=== PATIENT | female | born 1950 | race Caucasian/White ===

== ENCOUNTER → 2016-08-27 | Outpatient (CLI) | payer MEDICARE, BC ==
[~2016-08-27] MED LIST: ACET1TAB33 PO; ALPR0.254 PO; AMIT50TA PO; CELE200C PO; DEXL60CA PO; ESTR0.62 PO; FLUT16SP2 NS; FLUT1DIS5 IH; GUAI600T38 PO; IOHEXOL 300 MG/ML 100ML VIAL. IV ONE; IPRA3AMP23 IH; LITH300T PO; LITH600C PO; MECL25TA3 PO; PROAIR HFA8.5 GM IH; ROFL500T PO
--- NOTE | 2016-08-27 11:30 | KCIC ---
Examination: CT chest with IV contrast. HISTORY History of COPD . COMPARISON None available. TECHNIQUE Axial CT images of the chest were performed with IV contrast. Coronal sagittal reformats were performed. Exposure: One or more of the following dose reduction technique were utilized for this examination: 1. Automated exposure control. 2.Adjustment of MA and /or KV according to patient size. 3. Use of iterative reconstruction technique. Comparison: 07/05/2015. FINDINGS The visualized thyroid gland grossly appears unremarkable. The central airways are patent. Few prominent appearing mediastinal lymph nodes identified in the with the largest measuring 1.1 centimeters in the pretracheal region grossly similar to prior exam. The heart size is normal. No evidence of pericardial effusion identified. Mild aortic atherosclerosis. There is collapse of the right medial lobe of the lung with narrowing of the right middle lobe bronchi with bronchial thickening ,similar to prior exam. Emphysematous changes identified in the upper lobes of the lungs. There is diffuse bronchial wall thickening with some narrowing identified in the right lower lobe segmental airways. Patchy ground-glass opacities identified in the right lower lobe of the lung grossly similar to prior exam. There is mild soft tissue thickening identified in the right hilum could be hilar lymph nodes. No evidence of pleural effusion or pneumothorax. The visualized liver, spleen, adrenals grossly appears unremarkable.Cholecystectomy clips identified. Mild atrophic changes of the pancreas. Moderate degenerative changes identified in the thoracic spine. Fluid density identified in the left medial breast region measuring 1.7 x 1.8 centimeters superiorly and 2.0 x 1.6 centimeters slightly inferiorly could be postoperative seroma from recent biopsy. Correlate clinically. There is mild skin thickening of the left breast. IMPRESSION - Collapse of the right middle lobe of the lung with narrowing of the right middle lobe bronchi grossly similar to prior exam. Proximal right middle lobe airway lesion is not excluded. There is mild thickened appearance the right lower lobe segmental bronchi approximately with patchy ground-glass airspace opacities identified in the right lower lobe of the lung grossly similar to prior exam. - Mild to moderate emphysema. - Borderline enlarged mediastinal and right hilar lymph nodes , nonspecific. - Fluid density identified in the left medial breast region measuring 1.7 x 1.8 centimeters superiorly and 2.0 x 1.6 centimeters slightly inferiorly could be postoperative seroma from recent biopsy. Correlate clinically. There is mild skin thickening of the left breast. Electronically signed by: Rell Pritchard (Aug 27, 2016 11:28:43)
== END | disposition home or self-care (01) ==
LOC: KCIC CT 10:26
PROVIDERS: ATTEND Nurse Practitioner Family
DX: J44.9 Chronic obstructive pulmonary disease, unspecified (principal); F17.200 Nicotine dependence, unspecified, uncomplicated; I70.0 Atherosclerosis of aorta; J43.8 Other emphysema; R23.4 Changes in skin texture; K86.89 Other specified diseases of pancreas
CPT/HCPCS: 71260; Q9967

== ENCOUNTER 2016-10-17 14:58 | Inpatient (IN) | payer MEDICARE, BC ==
[~2016-10-17] VITALS: Ht 152.4 cm; Wt 57.4 kg
[2016-10-17] VITALS (8 sets, daily range): BP systolic 86–113; BP diastolic 45–72
[~2016-10-17 14:58] MED LIST changes: -IOHEXOL 300 MG/ML 100ML VIAL. IV ONE
--- NOTE | 2016-10-17 15:27 | PHYS DOC ---
Past Medical History Past Medical History: Bipolar, COPD, Fibromyalgia Additional Past Medical Histor: osteopenia, Hiatel Hernia, Esophagitis Past Surgical History: Other Additional Past Surgical Histo: Bladder surgery, Hernia Alcohol Use: None Drug Use: None Adult General Chief Complaint Chief Complaint: shortness of breath, chest pain HPI HPI Patient is a 66 year old female who presents with complaint of shortness of breath and chest pain. The patient is a poor historian and appears altered at this time as she is disoriented to time and events. The patient came to the emergency department by EMS. They were contacted reportedly by the patient's . The patient's home health nurse also came and visited and noted that the patient appeared to be in acute respiratory distress. Patient has history of COPD. The patient is unable to answer time of onset of symptoms at this time. Patient was found to be severely hypoxic in the mid 80s on her normal oxygen and was increased to a nonrebreather. Reportedly office oxygen the patient desats to 77%. The patient reportedly has had productive cough. Patient follows commands currently been unable to provide any coherent history. Review of Systems Review of Systems Unable to obtain from patient, patient is disoriented and unable to provide history Current Medications Current Medications Current Medications Medications (Trade) Dose Ordered Sig/Juan F Start Time Stop Time Status Last Admin Dose Admin Sodium Chloride (Iv Sodium Chloride 0.9% 1000ml Bag) 1,000 ml @ 500 mls/hr Q2H 10/17/16 15:18 10/17/16 19:07 DC 10/17/16 15:30 500 MLS/HR Allergies Allergies Allergies Coded Allergies Type Severity Reaction Last Updated Verified Penicillins Allergy Severe SWELLING OF THROAT, HIVES 07/08/13 Yes acetaminophen Allergy Severe THROAT SWELLING, HIVES 07/08/13 Yes propoxyphene napsylate Allergy Severe THROAT SWELLING, HIVES 07/08/13 Yes tetracycline Allergy Severe SWELLING OF THROAT, HIVES 07/08/13 Yes oxycodone HCl Allergy Unknown THROAT SWELLING, HIVES 11/05/13 Yes Uncoded Allergies Type Severity Reaction Last Updated Verified SCALLOPS Allergy Unknown 07/13/13 Physical Exam Physical Exam Constitutional: Alert, disoriented to time and place, febrile,. [] HENT: Normocephalic, atraumatic, bilateral external ears normal, oropharynx dry , no oral exudates, nose normal. [] Eyes: PERRLA, EOMI, conjunctiva normal, no discharge. [] Neck: Normal range of motion, no tenderness, supple, no stridor. [] Cardiovascular: Tachycardia, regular rhythm, no murmur [] Lungs & Thorax: Mild to moderate restriction of air movement bilaterally, faint expiratory wheezes, rales bilaterally [] Abdomen: Bowel sounds normal, soft, no tenderness, no masses, no pulsatile masses. [] Skin: Warm, dry, no erythema, no rash. [] Back: No tenderness, no CVA tenderness. [] Extremities: Fecal material present on lower extremities, No tenderness, no cyanosis, no clubbing, ROM intact, trace pedal edema bilaterally. [] Neurologic: Alert and oriented to self only, normal motor function, normal sensory function, no focal deficits noted. [] Current Patient Data Vital Signs Vital Signs Date Time Temp Pulse Resp B/P Pulse Ox O2 Delivery O2 Flow Rate FiO2 10/17/16 16:00 96 80/38 99 BiPAP/CPAP 10/17/16 14:58 100.0 28 100.0 Lab Values Laboratory Tests Test 10/17/16 15:20 10/17/16 15:23 10/17/16 15:30 O2 Saturation 99% (92-99) Arterial Blood pH 7.27 (7.35-7.45) L Arterial Blood pCO2 at Patient Temp 58mmHg (35-46) H Arterial Blood pO2 at Patient Temp 164mmHg (65-108) H Arterial Blood HCO3 26mmol/L (21-28) Arterial Blood Base Excess -2mmol/L (-3-3) FiO2 100 Influenza Type A Antigen Negative (NEGATIVE) Influenza Type B Antigen Negative (NEGATIVE) White Blood Count 20.2x10^3/uL (4.0-11.0) H Red Blood Count 4.72x10^6/uL (3.50-5.40) Hemoglobin 13.0g/dL (12.0-15.5) Hematocrit 41.7% (36.0-47.0) Mean Corpuscular Volume 88fL (79-100) Mean Corpuscular Hemoglobin 28pg (25-35) Mean Corpuscular Hemoglobin Concent 31g/dL (31-37) Red Cell Distribution Width 15.3% (11.5-14.5) H Platelet Count 234x10^3/uL (140-400) Neutrophils (%) (Auto) 87% (31-73) H Lymphocytes (%) (Auto) 5% (24-48) L Monocytes (%) (Auto) 7% (0-9) Eosinophils (%) (Auto) 0% (0-3) Basophils (%) (Auto) 1% (0-3) Neutrophils # (Auto) 17.6x10^3uL (1.8-7.7) H Lymphocytes # (Auto) 1.1x10^3/uL (1.0-4.8) Monocytes # (Auto) 1.4x10^3/uL (0.0-1.1) H Eosinophils # (Auto) 0.0x10^3/uL (0.0-0.7) Basophils # (Auto) 0.1x10^3/uL (0.0-0.2) Segmented Neutrophils % 55% (35-66) Band Neutrophils % 33% (0-9) H Lymphocytes % 7% (24-48) L Monocytes % 5% (0-10) Toxic Granulation Slight Toxic Vacuolation Slight Platelet Estimate Adequate (ADEQUATE) Sodium Level 138mmol/L (136-145) Potassium Level 4.0mmol/L (3.5-5.1) Chloride Level 103mmol/L (98-107) Carbon Dioxide Level 25mmol/L (21-32) Anion Gap 10 (6-14) Blood Urea Nitrogen 16mg/dL (7-20) Creatinine 0.7mg/dL (0.6-1.0) Estimated GFR (Cockcroft-Gault) 83.2 BUN/Creatinine Ratio 23 (6-20) H Glucose Level 112mg/dL (70-99) H Lactic Acid Level 0.8mmol/L (0.4-2.0) Calcium Level 9.2mg/dL (8.5-10.1) Total Bilirubin 0.2mg/dL (0.2-1.0) Aspartate Amino Transferase (AST) 19U/L (15-37) Alanine Aminotransferase (ALT) 12U/L (14-59) L Alkaline Phosphatase 106U/L (46-116) Creatine Kinase 87U/L (26-192) Creatine Kinase MB (Mass) 2.5ng/mL (0.0-3.6) Creatine Kinase MB Relative Index 2.9% (0-4) Troponin I Quantitative < 0.017ng/mL (0.000-0.055) Total Protein 7.1g/dL (6.4-8.2) Albumin 3.0g/dL (3.4-5.0) L Albumin/Globulin Ratio 0.7 (1.0-1.7) L Procalcitonin 0.22ng/mL (0.00-0.10) H Laboratory Tests 10/17/16 15:30 Laboratory Tests 10/17/16 15:30 EKG EKG Interpreted by me: Heart rate 115, sinus tachycardia, normal intervals, normal axis, no acute ST/T-wave abnormalities present [] Radiology/Procedures Radiology/Procedures [facility] [address] [place] [address] IMAGING REPORT Signed PATIENT: NAVDEEP RODRIGUEZ ACCOUNT: [id number] : 1950 LOCATION: ER AGE: 66 SEX: F EXAM STATUS: PRE ER ORD. PHYSICIAN: BETTYE FOLEY MD REASON: hypoxia, shortness of breath PROCEDURE: PORTABLE CHEST 1V Indication difficulty breathing. Shortness of breath. A single view of the chest was obtained and is compared to an examination 12/15/2013. There is mild cardiomegaly. There is suspect mild pulmonary vascular congestion. There is slight blunting at the right costophrenic angle and volume loss at the right lung base which may reflect a tiny pleural effusion and atelectasis. Small focus of pneumonia cannot be entirely excluded. Scoliosis is noted. IMPRESSION: Cardiomegaly. Minimal volume loss at the right lung base. Possible mild pulmonary vascular congestion DICTATED and SIGNED BY: CHIN GARCIA MD DATE: 10/17/16 7447 CC: RAMOS SEPULVEDA MD; BETTYE FOLEY MD ~ [] Course & Med Decision Making Course & Med Decision Making Pertinent Labs and Imaging studies reviewed. (See chart for details) Patient's ABG showed both hypoxia and hypercapnia consistent with diagnosis of acute on chronic respiratory failure. The patient was started on BiPAP therapy in the emergency department. Patient's chest x-ray shows evidence of right lower lobe pneumonia. The patient was started on a 30 mL per kilo bolus of normal saline. After blood cultures were drawn the patient was started on IV Levaquin. The patient will be admitted to ICU for further care. I spoke with Dr. Alvarado who accepted care of patient in hospital. Critical care time excluding procedures: 45 minutes Dragon Disclaimer Dragon Disclaimer This electronic medical record was generated, in whole or in part, using a voice recognition dictation system. Departure Departure Impression: Primary Impression: Acute on chronic respiratory failure Additional Impressions: Sepsis Community acquired pneumonia COPD exacerbation Moderate protein malnutrition Disposition: ADMITTED INPATIENT Admitting Physician: Kirstin Alvarado Condition: CRITICAL Referrals: RAMOS SEPULVEDA MD (PCP) Problem Qualifiers Primary Impression: Acute on chronic respiratory failure Respiratory failure complication: hypoxia and hypercapnia Qualified Code: J96.21 - Acute and chronic respiratory failure with hypoxia Additional Impressions: Sepsis Sepsis type: sepsis due to unspecified organism Qualified Code: A41.9 - Sepsis, unspecified organism BETTYE FOLEY MD Oct 17, 2016 15:26
[2016-10-17 15:29] LABS: HCO3 ABG 26 mmol/L (21-28); PCO2 ABG 58 mmHg (35-46); PH ABG 7.27 (7.35-7.45); PO2 ABG 164 mmHg (65-108); SAT O2 ABG 99 % (92-99)
[2016-10-17] MEDS: IV NORMAL SALINE 1000ML BAG 1,000 ML IV SCH ×3 (15:30→19:00)
[2016-10-17 15:31] LABS: FIO2 ABG 100
--- NOTE | 2016-10-17 15:44 | RAD ---
Indication difficulty breathing. Shortness of breath. A single view of the chest was obtained and is compared to an examination 12/15/2013. There is mild cardiomegaly. There is suspect mild pulmonary vascular congestion. There is slight blunting at the right costophrenic angle and volume loss at the right lung base which may reflect a tiny pleural effusion and atelectasis. Small focus of pneumonia cannot be entirely excluded. Scoliosis is noted. IMPRESSION: Cardiomegaly. Minimal volume loss at the right lung base. Possible mild pulmonary vascular congestion
[2016-10-17 15:47] LABS: BASO # 0.1 x10^3/uL (0.0-0.2); BASO % 1 % (0-3); EOS % 0 % (0-3); HEMATOCRIT 41.7 % (36.0-47.0); LYMPH # 1.1 x10^3/uL (1.0-4.8); LYMPH % 5 % (24-48); MEAN CORPUSCULAR HEMOGLOBIN 28 pg (25-35); MEAN CORPUSCULAR HGB CONC 31 g/dL (31-37); MEAN CORPUSCULAR VOLUME 88 fL (79-100); MONO % 7 % (0-9); NEUT % 87 % (31-73); PLATELET COUNT 234 x10^3/uL (140-400); RED BLOOD COUNT 4.72 x10^6/uL (3.50-5.40); RED CELL DISTRIBUTION WIDTH 15.3 % (11.5-14.5); WHITE BLOOD COUNT 20.2 x10^3/uL (4.0-11.0)
[2016-10-17 15:51] LABS: OBC FLU VALID
[2016-10-17 16:04] LABS: CALCIUM 9.2 mg/dL (8.5-10.1); CREATININE 0.7 mg/dL (0.6-1.0); GFR 83.2
[2016-10-17 16:10] LABS: ALBUMIN/GLOBULIN RATIO 0.7 (1.0-1.7); TOTAL BILIRUBIN 0.2 mg/dL (0.2-1.0); TOTAL PROTEIN 7.1 g/dL (6.4-8.2)
[2016-10-17] MEDS ORDERED: ONDANSETRON PF 4 MG/2 ML VIAL. IV PRN (16:15)
[2016-10-17] MEDS ORDERED: LEVOFLOXACIN PER PHARMACY MC PRN (16:15)
[2016-10-17 16:17] LABS: CKMB INDEX 2.9 % (0-4); CKMB MASS 2.5 ng/mL (0.0-3.6)
[2016-10-17 16:20] LABS: PLT ESTIMATE ADEQUATE (ADEQUATE)
[2016-10-17] MEDS ORDERED: IPRATRPIUM/ALBUTEROL 0.5/2.5MG 3 ML NEBU. NEB SCH (16:20)
[2016-10-17 16:41] LABS: PROCALCITONIN 0.22 ng/mL (0.00-0.10)
[2016-10-17 16:46] LABS: TOXIC GRANULATION SLIGHT; TOXIC VACUOLATION SLIGHT
[2016-10-17] MEDS: methylPREDNISolone SOD SUCC PF 40 MG/ML VIAL. IV SCH ×2 (17:24→23:36)
[2016-10-17] MEDS ORDERED: ALBUTEROL SULFATE 2.5 MG/3 ML NEBU. NEB PRN (17:45)
[2016-10-17] MEDS ORDERED: hydrALAZINE 20 MG/ML VIAL. IVP PRN (17:45)
--- NOTE | 2016-10-17 17:46 | PDOC1 ---
History and Physical Date of Admission Date of Admission 10/17/16 Identification/Chief Complaint Chief Complaint ams, cough Problems: Source Source: Chart review, Patient History of Present Illness History of Present Illness HPI HPI Patient is a 66 year old female who presents with complaint of shortness of breath and chest pain. Pt is confused ,on bipap when i saw her in ER, cannot tell me any history. As per ERP, her and home health nurse visiting today called EMS, for AMS , cough, sob. Pt admited she is smoking, sob. cannot tell me for how long or fever, or chills. ABG showed PH 7.2, pco2 58, on 100% o2, then on BIpap. WBC 20. home o2 2l, BUT DEsates to 77% in ER. Past Medical History Pulmonary: Asthma, Bronchitis GI: Diverticulosis Renal/: No pertinent hx Past Surgical History Past Surgical History: Hernia Repair Family History Family History: No Significant Social History Smoke: 1 pack per day ALCOHOL: none Drugs: Ecstasy Current Problem List Problem List Problems Medical Problems: (1) Acute on chronic respiratory failure Status: Acute (2) Community acquired pneumonia Status: Acute (3) COPD exacerbation Status: Acute (4) Moderate protein malnutrition Status: Acute (5) Sepsis Status: Acute Current Medications Current Medications Current Medications Medications (Trade) Dose Ordered Sig/Juan F Start Time Stop Time Status Last Admin Dose Admin Albuterol/ Ipratropium (Duoneb) 3 ml RTQID 10/17/16 16:20 10/18/16 16:19 10/17/16 16:57 3 ML Levofloxacin/ Dextrose (LEVAQUIN 750mg PREMIX) 150 ml @ 100 mls/hr 1X ONCE 10/17/16 16:30 10/17/16 17:59 10/17/16 17:21 100 MLS/HR Levofloxacin/ Dextrose (Levaquin Per Pharmacy) 1 each PRN DAILY PRN 10/17/16 16:15 UNV Methylprednisolone Sodium Succinate 60 mg 60 mg Q6HRS 10/17/16 18:00 10/17/16 17:24 60 MG Ondansetron HCl 4 mg 4 mg PRN Q8HRS PRN 10/17/16 16:15 10/18/16 16:14 Sodium Chloride (Iv Sodium Chloride 0.9% 1000ml Bag) 1,000 ml @ 100 mls/hr Q10H 10/17/16 16:13 10/18/16 16:12 10/17/16 16:13 100 MLS/HR Allergies Allergies Allergies Coded Allergies Type Severity Reaction Last Updated Verified Penicillins Allergy Severe SWELLING OF THROAT, HIVES 07/08/13 Yes acetaminophen Allergy Severe THROAT SWELLING, HIVES 07/08/13 Yes propoxyphene napsylate Allergy Severe THROAT SWELLING, HIVES 07/08/13 Yes tetracycline Allergy Severe SWELLING OF THROAT, HIVES 07/08/13 Yes oxycodone HCl Allergy Unknown THROAT SWELLING, HIVES 11/05/13 Yes Uncoded Allergies Type Severity Reaction Last Updated Verified SCALLOPS Allergy Unknown 07/13/13 ROS Review of System CONSTITUTIONAL: No fever or chills EYES: No recent changes SKIN: No rash or itching CARDIOVASCULAR: No chest pain, syncope, palpitations, or edema RESPIRATORY: No SOB or cough GASTROINTESTINAL: No nausea, vomiting or abdominal pain NEUROLOGICAL: No headaches or weakness ENDOCRINE: No cold or heat intolerance GENITOURINARY: No urgency or frequency of urination MUSCULOSKELETAL: No back pain or joint pain LYMPHATICS: No enlarged lymph nodes PSYCHIATRIC: No anxiety or depression Physical Exam Physical Exam GEN.: sob, follow commands by squeezing my hands, very weak, can barely talk HEENT: Head is normocephalic, atraumatic NECK: Supple. LUNGS: bl coarse bs HEART: RRR, S1, S2 present. Peripheral pulses intact ABDOMEN: Soft, nontender. Positive bowel sounds. EXTREMITIES: Without any cyanosis. NEUROLOGIC: Normal speech, normal tone PSYCHIATRIC: Normal affect, normal mood. SKIN: No ulcerations Vitals Vitals Vital Signs Date Time Temp Pulse Resp B/P Pulse Ox O2 Delivery O2 Flow Rate FiO2 10/17/16 16:57 99 BiPAP/CPAP Labs Labs Laboratory Tests Test 10/17/16 15:20 10/17/16 15:23 10/17/16 15:30 O2 Saturation 99% (92-99) Arterial Blood pH 7.27 (7.35-7.45) Arterial Blood pCO2 at Patient Temp 58mmHg (35-46) Arterial Blood pO2 at Patient Temp 164mmHg (65-108) Arterial Blood HCO3 26mmol/L (21-28) Arterial Blood Base Excess -2mmol/L (-3-3) FiO2 100 Influenza Type A Antigen Negative (NEGATIVE) Influenza Type B Antigen Negative (NEGATIVE) White Blood Count 20.2x10^3/uL (4.0-11.0) Red Blood Count 4.72x10^6/uL (3.50-5.40) Hemoglobin 13.0g/dL (12.0-15.5) Hematocrit 41.7% (36.0-47.0) Mean Corpuscular Volume 88fL (79-100) Mean Corpuscular Hemoglobin 28pg (25-35) Mean Corpuscular Hemoglobin Concent 31g/dL (31-37) Red Cell Distribution Width 15.3% (11.5-14.5) Platelet Count 234x10^3/uL (140-400) Neutrophils (%) (Auto) 87% (31-73) Lymphocytes (%) (Auto) 5% (24-48) Monocytes (%) (Auto) 7% (0-9) Eosinophils (%) (Auto) 0% (0-3) Basophils (%) (Auto) 1% (0-3) Neutrophils # (Auto) 17.6x10^3uL (1.8-7.7) Lymphocytes # (Auto) 1.1x10^3/uL (1.0-4.8) Monocytes # (Auto) 1.4x10^3/uL (0.0-1.1) Eosinophils # (Auto) 0.0x10^3/uL (0.0-0.7) Basophils # (Auto) 0.1x10^3/uL (0.0-0.2) Segmented Neutrophils % 55% (35-66) Band Neutrophils % 33% (0-9) Lymphocytes % 7% (24-48) Monocytes % 5% (0-10) Toxic Granulation Slight Toxic Vacuolation Slight Platelet Estimate Adequate (ADEQUATE) Sodium Level 138mmol/L (136-145) Potassium Level 4.0mmol/L (3.5-5.1) Chloride Level 103mmol/L (98-107) Carbon Dioxide Level 25mmol/L (21-32) Anion Gap 10 (6-14) Blood Urea Nitrogen 16mg/dL (7-20) Creatinine 0.7mg/dL (0.6-1.0) Estimated GFR (Cockcroft-Gault) 83.2 BUN/Creatinine Ratio 23 (6-20) Glucose Level 112mg/dL (70-99) Lactic Acid Level 0.8mmol/L (0.4-2.0) Calcium Level 9.2mg/dL (8.5-10.1) Total Bilirubin 0.2mg/dL (0.2-1.0) Aspartate Amino Transf (AST/SGOT) 19U/L (15-37) Alanine Aminotransferase (ALT/SGPT) 12U/L (14-59) Alkaline Phosphatase 106U/L (46-116) Creatine Kinase 87U/L (26-192) Creatine Kinase MB (Mass) 2.5ng/mL (0.0-3.6) Creatine Kinase MB Relative Index 2.9% (0-4) Troponin I Quantitative < 0.017ng/mL (0.000-0.055) Total Protein 7.1g/dL (6.4-8.2) Albumin 3.0g/dL (3.4-5.0) Albumin/Globulin Ratio 0.7 (1.0-1.7) Procalcitonin 0.22ng/mL (0.00-0.10) Laboratory Tests Test 10/17/16 15:20 10/17/16 15:23 10/17/16 15:30 O2 Saturation 99% (92-99) Arterial Blood pH 7.27 (7.35-7.45) Arterial Blood pCO2 at Patient Temp 58mmHg (35-46) Arterial Blood pO2 at Patient Temp 164mmHg (65-108) Arterial Blood HCO3 26mmol/L (21-28) Arterial Blood Base Excess -2mmol/L (-3-3) FiO2 100 Influenza Type A Antigen Negative (NEGATIVE) Influenza Type B Antigen Negative (NEGATIVE) White Blood Count 20.2x10^3/uL (4.0-11.0) Red Blood Count 4.72x10^6/uL (3.50-5.40) Hemoglobin 13.0g/dL (12.0-15.5) Hematocrit 41.7% (36.0-47.0) Mean Corpuscular Volume 88fL (79-100) Mean Corpuscular Hemoglobin 28pg (25-35) Mean Corpuscular Hemoglobin Concent 31g/dL (31-37) Red Cell Distribution Width 15.3% (11.5-14.5) Platelet Count 234x10^3/uL (140-400) Neutrophils (%) (Auto) 87% (31-73) Lymphocytes (%) (Auto) 5% (24-48) Monocytes (%) (Auto) 7% (0-9) Eosinophils (%) (Auto) 0% (0-3) Basophils (%) (Auto) 1% (0-3) Neutrophils # (Auto) 17.6x10^3uL (1.8-7.7) Lymphocytes # (Auto) 1.1x10^3/uL (1.0-4.8) Monocytes # (Auto) 1.4x10^3/uL (0.0-1.1) Eosinophils # (Auto) 0.0x10^3/uL (0.0-0.7) Basophils # (Auto) 0.1x10^3/uL (0.0-0.2) Segmented Neutrophils % 55% (35-66) Band Neutrophils % 33% (0-9) Lymphocytes % 7% (24-48) Monocytes % 5% (0-10) Toxic Granulation Slight Toxic Vacuolation Slight Platelet Estimate Adequate (ADEQUATE) Sodium Level 138mmol/L (136-145) Potassium Level 4.0mmol/L (3.5-5.1) Chloride Level 103mmol/L (98-107) Carbon Dioxide Level 25mmol/L (21-32) Anion Gap 10 (6-14) Blood Urea Nitrogen 16mg/dL (7-20) Creatinine 0.7mg/dL (0.6-1.0) Estimated GFR (Cockcroft-Gault) 83.2 BUN/Creatinine Ratio 23 (6-20) Glucose Level 112mg/dL (70-99) Lactic Acid Level 0.8mmol/L (0.4-2.0) Calcium Level 9.2mg/dL (8.5-10.1) Total Bilirubin 0.2mg/dL (0.2-1.0) Aspartate Amino Transf (AST/SGOT) 19U/L (15-37) Alanine Aminotransferase (ALT/SGPT) 12U/L (14-59) Alkaline Phosphatase 106U/L (46-116) Creatine Kinase 87U/L (26-192) Creatine Kinase MB (Mass) 2.5ng/mL (0.0-3.6) Creatine Kinase MB Relative Index 2.9% (0-4) Troponin I Quantitative < 0.017ng/mL (0.000-0.055) Total Protein 7.1g/dL (6.4-8.2) Albumin 3.0g/dL (3.4-5.0) Albumin/Globulin Ratio 0.7 (1.0-1.7) Procalcitonin 0.22ng/mL (0.00-0.10) VTE Prophylaxis Ordered VTE Prophylaxis Devices: Yes VTE Pharmacological Prophylaxi: Yes Assessment/Plan Assessment/Plan 1. acute on chronic hypoxic resp failure 2. hypercapnic resp failure 3.possible right side CAP 4. sepsis with 3 5. copd 6. AMS , metabolic encephalopathy with 2 and 4 7. bipolar, no details 8. fibromyalgia 9. mild milnutrition 10. tobaccoism 11. osteopenia 12. hiatel hernia 13. h/o esophagitis plan: 1. pulm consult 2. solumedrol, levaquin, duoneb check sputum cx, legi and strep urine Ag 4. need home meds npo for now ivf bipap for now,taper dvt, gi ppx ptot JACQUELINE RODRIGUEZ MD Oct 17, 2016 17:46
--- NOTE | 2016-10-17 17:50 | ACF ---
Admission Forms Criteria RESPIRATORY FAILURE [facility] Clinical Indications for Admission to Inpatient Care (Place 'X' for any and all applicable criteria): Hospital admission is needed for appropriate care of the patient because of acute respiratory failure or insufficiency as indicated by ANY ONE of the following(1)(2)(3)(4)(5)(6)(7)(8): [X]I. Mechanical ventilation needed (acute invasive or noninvasive) [X]II. Severe ventilation deficit as indicated by ANY ONE of the following (9) [X]a) Respiratory acidosis (pH less than 7.32 and partial pressure of carbon dioxide greater than 40 mm Hg (5.3 kPa)) [X]b) Partial pressure of carbon dioxide greater than 44 mm Hg (5.9 kPa ) (new) [ ]c) Airflow measurements less than 25% of predicted (eg, peak expiratory flow rate less than 100 L/minute) [ ]d) Forced vital capacity less than 15 mL/kg of ideal body weight, or 50% decrease in vital capacity from baseline [ ]III. Noncardiac pulmonary edema not resolving with rapid emergency treatment (8) [ ]IV. Severe respiratory distress as indicated by ANY ONE of the following: [ ]a) Severe tachypnea (respiratory rate greater than 30, greater than 45 for 6-month-old, greater than 60 for ) [ ]b) Severe hypoxemia (partial pressure of oxygen less than 50 mm Hg ( 6.7 kPa) on greater than 50% oxygen or partial pressure of oxygen to FIO2 ratio less than 200) [ ]c) Mental status deterioration from respiratory disease [ ]V. Airway obstruction or inadequate protection [A](10)(11) The original [employer] content created by [employer] has been revised. The portions of the content which have been revised are identified through the use of italic text or in bold, and [facility] [employer] has neither reviewed nor approved the modified material. All other unmodified content is copyright [employer]. Please see references footnoted in the original [employer] edition 2016 Admission Criteria Met?: Yes FRANCISCO NARAYAN Oct 17, 2016 17:50
[2016-10-17] MEDS ORDERED: ENOXAPARIN 30 MG/0.3 ML DISP.SYRIN. SQ SCH (18:00)
--- NOTE | 2016-10-17 19:40 | RAD ---
PROCEDURE CT head without contrast. HISTORY Mental status changes. TECHNIQUE Noncontrast CT head was obtained. One or more of the following individualized dose reduction techniques were utilized for this exam: 1. Automated exposure control. 2. Adjustment of the mA and/or kV according to patient's size. 3. Use of iterative reconstruction technique. COMPARISON None available. FINDINGS The ventricles and sulci are within normal limits for age. There is no acute intracranial hemorrhage or extra-axial fluid collection. There is no mass effect or midline shift. Prakash-white differentiation is preserved. There is no depressed skull fracture there is right maxillary wall sclerosis. IMPRESSION No acute intracranial findings. Consider nonemergent MRI if further workup is required. Electronically signed by: Nestor Iyer MD (Oct 17, 2016 19:39:03)
[2016-10-17 19:55] LABS: BILIRUBIN,URINE NEGATIVE (NEG); GLUCOSE,URINE NEGATIVE (NEG); NITRITE,URINE NEGATIVE (NEG); PH,URINE 6.5; PROTEIN,URINE 30 mg/dL (NEG-TRACE); UROBILINOGEN,URINE 0.2 mg/dL (0.2 mg/dL)
[2016-10-17 20:07] LABS: RBC,URINE 0 /HPF (0-2)
[2016-10-17 20:08] LABS: BACTERIA,URINE 0 /HPF (0-FEW); SQUAMOUS EPITHELIAL CELL,UR FEW /LPF
[2016-10-17 20:30] LABS: HCO3 ABG 24 mmol/L (21-28); PCO2 ABG 54 mmHg (35-46); PH ABG 7.27 (7.35-7.45); PO2 ABG 71 mmHg (65-108); SAT O2 ABG 94 % (92-99)
[2016-10-17] MEDS: IPRATRPIUM/ALBUTEROL 0.5/2.5MG 3 ML NEBU. NEB SCH (20:43)
[2016-10-17 20:47] LABS: FIO2 ABG 32
[2016-10-17] MEDS: GUAIFENESIN ER 600 MG TABLET.ER PO SCH (21:00)
[2016-10-18] VITALS (20 sets, daily range): BP systolic 103–142; BP diastolic 35–72
[2016-10-18] MEDS: IV NORMAL SALINE 1000ML BAG 1,000 ML IV SCH (02:57)
[2016-10-18 05:35] LABS: BASO % 0 % (0-3); EOS % 0 % (0-3); HEMATOCRIT 41.1 % (36.0-47.0); LYMPH # 0.9 x10^3/uL (1.0-4.8); LYMPH % 6 % (24-48); MEAN CORPUSCULAR HEMOGLOBIN 28 pg (25-35); MEAN CORPUSCULAR HGB CONC 32 g/dL (31-37); MEAN CORPUSCULAR VOLUME 87 fL (79-100); MONO % 2 % (0-9); NEUT % 92 % (31-73); PLATELET COUNT 224 x10^3/uL (140-400); RED CELL DISTRIBUTION WIDTH 15.2 % (11.5-14.5); WHITE BLOOD COUNT 16.3 x10^3/uL (4.0-11.0)
[2016-10-18] MEDS: methylPREDNISolone SOD SUCC PF 40 MG/ML VIAL. IV SCH ×3 (05:57→17:30)
[2016-10-18 06:04] LABS: CALCIUM 8.9 mg/dL (8.5-10.1); CREATININE 0.6 mg/dL (0.6-1.0); GFR 99.4; POTASSIUM 4.7 mmol/L (3.5-5.1)
--- NOTE | 2016-10-18 07:16 | EKG ---
[facility] [address] [place] [address] Test Date: 2016-10-17 Test Time: 15:02:40 Pat Name: NAVDEEP RODRIGUEZ Department: Room: Gender: F Legal Adviser: : 1950 Requested By: BETTYE FOLEY Order Number: [id number] Reading MD: Measurements Intervals [place] Rate: 115 P: 32 AK: 156 QRS: 74 QRSD: 98 T: 96 QT: 366 QTc: 508 Interpretive Statements SINUS TACHYCARDIA R-S TRANSITION ZONE IN V LEADS DISPLACED TO THE LEFT T ABNORMALITY IN HIGH LATERAL LEADS ABNORMAL ECG RI6.01 No previous ECG available for comparison
[2016-10-18] MEDS: IPRATRPIUM/ALBUTEROL 0.5/2.5MG 3 ML NEBU. NEB SCH ×3 (07:28→20:29)
[2016-10-18] MEDS ORDERED: PANTOPRAZOLE IV PUSH 40 MG VIAL. IVP SCH (07:30)
[2016-10-18 07:45] LABS: HCO3 ABG 19 mmol/L (21-28); PCO2 ABG 37 mmHg (35-46); PH ABG 7.32 (7.35-7.45); PO2 ABG 80 mmHg (65-108); SAT O2 ABG 96 % (92-99)
[2016-10-18] MEDS ORDERED: ONDANSETRON PF 4 MG/2 ML VIAL. IV PRN (08:12)
--- NOTE | 2016-10-18 08:14 | PDOC ---
PROGRESS NOTES Chief Complaint Chief Complaint 1. acute on chronic hypoxic resp failure 2. hypercapnic resp failure 3.possible right side CAP 4. sepsis with 3 5. copd 6. AMS , metabolic encephalopathy with 2 and 4 7. bipolar, no details 8. fibromyalgia 9. mild milnutrition 10. tobaccoism 11. osteopenia 12. hiatel hernia 13. h/o esophagitis History of Present Illness History of Present Illness On BIPAP, wore it all night long Seen in ICU Mentation seems to be better ([facility] where she is) HAs been NPO and is hungry ABG about to be drawn - pH 7.27 PCO2 54 (elevated), O2 71) Smoker, trying to cut down Never been on bipap before Lives at home with PLAn: CPM BIPAP prn May have diet when off bIPAP Follow pulmo recs NIcotine patch prn Nebs PT/OT OK to t/o ICU Resume home meds aaron lithium Vitals Vitals Vital Signs Date Time Temp Pulse Resp B/P Pulse Ox O2 Delivery O2 Flow Rate FiO2 10/18/16 07:40 99 BiPAP/CPAP 10/18/16 06:00 69 25 119/54 10/18/16 04:00 97.8 97.8 10/17/16 20:15 3.0 Physical Exam Lungs: Wheezing, Other Labs LABS Laboratory Tests Test 10/17/16 15:20 10/17/16 15:23 10/17/16 15:30 10/17/16 17:25 O2 Saturation 99% (92-99) Arterial Blood pH 7.27 (7.35-7.45) Arterial Blood pCO2 at Patient Temp 58mmHg (35-46) Arterial Blood pO2 at Patient Temp 164mmHg (65-108) Arterial Blood HCO3 26mmol/L (21-28) Arterial Blood Base Excess -2mmol/L (-3-3) FiO2 100 Influenza Type A Antigen Negative (NEGATIVE) Influenza Type B Antigen Negative (NEGATIVE) White Blood Count 20.2x10^3/uL (4.0-11.0) Red Blood Count 4.72x10^6/uL (3.50-5.40) Hemoglobin 13.0g/dL (12.0-15.5) Hematocrit 41.7% (36.0-47.0) Mean Corpuscular Volume 88fL (79-100) Mean Corpuscular Hemoglobin 28pg (25-35) Mean Corpuscular Hemoglobin Concent 31g/dL (31-37) Red Cell Distribution Width 15.3% (11.5-14.5) Platelet Count 234x10^3/uL (140-400) Neutrophils (%) (Auto) 87% (31-73) Lymphocytes (%) (Auto) 5% (24-48) Monocytes (%) (Auto) 7% (0-9) Eosinophils (%) (Auto) 0% (0-3) Basophils (%) (Auto) 1% (0-3) Neutrophils # (Auto) 17.6x10^3uL (1.8-7.7) Lymphocytes # (Auto) 1.1x10^3/uL (1.0-4.8) Monocytes # (Auto) 1.4x10^3/uL (0.0-1.1) Eosinophils # (Auto) 0.0x10^3/uL (0.0-0.7) Basophils # (Auto) 0.1x10^3/uL (0.0-0.2) Segmented Neutrophils % 55% (35-66) Band Neutrophils % 33% (0-9) Lymphocytes % 7% (24-48) Monocytes % 5% (0-10) Toxic Granulation Slight Toxic Vacuolation Slight Platelet Estimate Adequate (ADEQUATE) Sodium Level 138mmol/L (136-145) Potassium Level 4.0mmol/L (3.5-5.1) Chloride Level 103mmol/L (98-107) Carbon Dioxide Level 25mmol/L (21-32) Anion Gap 10 (6-14) Blood Urea Nitrogen 16mg/dL (7-20) Creatinine 0.7mg/dL (0.6-1.0) Estimated GFR (Cockcroft-Gault) 83.2 BUN/Creatinine Ratio 23 (6-20) Glucose Level 112mg/dL (70-99) Lactic Acid Level 0.8mmol/L (0.4-2.0) 0.9mmol/L (0.4-2.0) Calcium Level 9.2mg/dL (8.5-10.1) Total Bilirubin 0.2mg/dL (0.2-1.0) Aspartate Amino Transf (AST/SGOT) 19U/L (15-37) Alanine Aminotransferase (ALT/SGPT) 12U/L (14-59) Alkaline Phosphatase 106U/L (46-116) Creatine Kinase 87U/L (26-192) Creatine Kinase MB (Mass) 2.5ng/mL (0.0-3.6) Creatine Kinase MB Relative Index 2.9% (0-4) Troponin I Quantitative < 0.017ng/mL (0.000-0.055) Total Protein 7.1g/dL (6.4-8.2) Albumin 3.0g/dL (3.4-5.0) Albumin/Globulin Ratio 0.7 (1.0-1.7) Procalcitonin 0.22ng/mL (0.00-0.10) Test 10/17/16 19:43 10/17/16 20:12 10/18/16 05:20 Urine Collection Type U cath Urine Color Yellow Urine Clarity Clear Urine pH 6.5 Urine Specific Brodnax 1.015 Urine Protein 30mg/dL (NEG-TRACE) Urine Glucose (UA) Negativemg/dL (NEG) Urine Ketones (Stick) Tracemg/dL (NEG) Urine Blood Negative (NEG) Urine Nitrite Negative (NEG) Urine Bilirubin Negative (NEG) Urine Urobilinogen Dipstick 0.2mg/dL (0.2 mg/dL) Urine Leukocyte Esterase Negative (NEG) Urine RBC 0/HPF (0-2) Urine WBC 1-4/HPF (0-4) Urine Squamous Epithelial Cells Few/LPF Urine Amorphous Sediment Present/HPF Urine Bacteria 0/HPF (0-FEW) Urine Hyaline Casts Moderate/HPF Urine Mucus Marked/LPF O2 Saturation 94% (92-99) Arterial Blood pH 7.27 (7.35-7.45) Arterial Blood pCO2 at Patient Temp 54mmHg (35-46) Arterial Blood pO2 at Patient Temp 71mmHg (65-108) Arterial Blood HCO3 24mmol/L (21-28) Arterial Blood Base Excess -4mmol/L (-3-3) FiO2 32 White Blood Count 16.3x10^3/uL (4.0-11.0) Red Blood Count 4.70x10^6/uL (3.50-5.40) Hemoglobin 13.0g/dL (12.0-15.5) Hematocrit 41.1% (36.0-47.0) Mean Corpuscular Volume 87fL (79-100) Mean Corpuscular Hemoglobin 28pg (25-35) Mean Corpuscular Hemoglobin Concent 32g/dL (31-37) Red Cell Distribution Width 15.2% (11.5-14.5) Platelet Count 224x10^3/uL (140-400) Neutrophils (%) (Auto) 92% (31-73) Lymphocytes (%) (Auto) 6% (24-48) Monocytes (%) (Auto) 2% (0-9) Eosinophils (%) (Auto) 0% (0-3) Basophils (%) (Auto) 0% (0-3) Neutrophils # (Auto) 15.1x10^3uL (1.8-7.7) Lymphocytes # (Auto) 0.9x10^3/uL (1.0-4.8) Monocytes # (Auto) 0.3x10^3/uL (0.0-1.1) Eosinophils # (Auto) 0.0x10^3/uL (0.0-0.7) Basophils # (Auto) 0.0x10^3/uL (0.0-0.2) Sodium Level 143mmol/L (136-145) Potassium Level 4.7mmol/L (3.5-5.1) Chloride Level 108mmol/L (98-107) Carbon Dioxide Level 24mmol/L (21-32) Anion Gap 11 (6-14) Blood Urea Nitrogen 17mg/dL (7-20) Creatinine 0.6mg/dL (0.6-1.0) Estimated GFR (Cockcroft-Gault) 99.4 Glucose Level 108mg/dL (70-99) Calcium Level 8.9mg/dL (8.5-10.1) Review of Systems Review of Systems no cp, inc in soa, n/v/d Assessment and Plan Assessmemt and Plan Problems Medical Problems: (1) Acute on chronic respiratory failure Status: Acute (2) Community acquired pneumonia Status: Acute (3) COPD exacerbation Status: Acute (4) Moderate protein malnutrition Status: Acute (5) Sepsis Status: Acute Problems: Comment Review of Relevant I have reviewed the following items naz (where applicable) has been applied. Labs Laboratory Tests Test 10/17/16 15:20 10/17/16 15:23 10/17/16 15:30 10/17/16 17:25 O2 Saturation 99% (92-99) Arterial Blood pH 7.27 (7.35-7.45) Arterial Blood pCO2 at Patient Temp 58mmHg (35-46) Arterial Blood pO2 at Patient Temp 164mmHg (65-108) Arterial Blood HCO3 26mmol/L (21-28) Arterial Blood Base Excess -2mmol/L (-3-3) FiO2 100 Influenza Type A Antigen Negative (NEGATIVE) Influenza Type B Antigen Negative (NEGATIVE) White Blood Count 20.2x10^3/uL (4.0-11.0) Red Blood Count 4.72x10^6/uL (3.50-5.40) Hemoglobin 13.0g/dL (12.0-15.5) Hematocrit 41.7% (36.0-47.0) Mean Corpuscular Volume 88fL (79-100) Mean Corpuscular Hemoglobin 28pg (25-35) Mean Corpuscular Hemoglobin Concent 31g/dL (31-37) Red Cell Distribution Width 15.3% (11.5-14.5) Platelet Count 234x10^3/uL (140-400) Neutrophils (%) (Auto) 87% (31-73) Lymphocytes (%) (Auto) 5% (24-48) Monocytes (%) (Auto) 7% (0-9) Eosinophils (%) (Auto) 0% (0-3) Basophils (%) (Auto) 1% (0-3) Neutrophils # (Auto) 17.6x10^3uL (1.8-7.7) Lymphocytes # (Auto) 1.1x10^3/uL (1.0-4.8) Monocytes # (Auto) 1.4x10^3/uL (0.0-1.1) Eosinophils # (Auto) 0.0x10^3/uL (0.0-0.7) Basophils # (Auto) 0.1x10^3/uL (0.0-0.2) Segmented Neutrophils % 55% (35-66) Band Neutrophils % 33% (0-9) Lymphocytes % 7% (24-48) Monocytes % 5% (0-10) Toxic Granulation Slight Toxic Vacuolation Slight Platelet Estimate Adequate (ADEQUATE) Sodium Level 138mmol/L (136-145) Potassium Level 4.0mmol/L (3.5-5.1) Chloride Level 103mmol/L (98-107) Carbon Dioxide Level 25mmol/L (21-32) Anion Gap 10 (6-14) Blood Urea Nitrogen 16mg/dL (7-20) Creatinine 0.7mg/dL (0.6-1.0) Estimated GFR (Cockcroft-Gault) 83.2 BUN/Creatinine Ratio 23 (6-20) Glucose Level 112mg/dL (70-99) Lactic Acid Level 0.8mmol/L (0.4-2.0) 0.9mmol/L (0.4-2.0) Calcium Level 9.2mg/dL (8.5-10.1) Total Bilirubin 0.2mg/dL (0.2-1.0) Aspartate Amino Transf (AST/SGOT) 19U/L (15-37) Alanine Aminotransferase (ALT/SGPT) 12U/L (14-59) Alkaline Phosphatase 106U/L (46-116) Creatine Kinase 87U/L (26-192) Creatine Kinase MB (Mass) 2.5ng/mL (0.0-3.6) Creatine Kinase MB Relative Index 2.9% (0-4) Troponin I Quantitative < 0.017ng/mL (0.000-0.055) Total Protein 7.1g/dL (6.4-8.2) Albumin 3.0g/dL (3.4-5.0) Albumin/Globulin Ratio 0.7 (1.0-1.7) Procalcitonin 0.22ng/mL (0.00-0.10) Test 10/17/16 19:43 10/17/16 20:12 10/18/16 05:20 Urine Collection Type U cath Urine Color Yellow Urine Clarity Clear Urine pH 6.5 Urine Specific Brodnax 1.015 Urine Protein 30mg/dL (NEG-TRACE) Urine Glucose (UA) Negativemg/dL (NEG) Urine Ketones (Stick) Tracemg/dL (NEG) Urine Blood Negative (NEG) Urine Nitrite Negative (NEG) Urine Bilirubin Negative (NEG) Urine Urobilinogen Dipstick 0.2mg/dL (0.2 mg/dL) Urine Leukocyte Esterase Negative (NEG) Urine RBC 0/HPF (0-2) Urine WBC 1-4/HPF (0-4) Urine Squamous Epithelial Cells Few/LPF Urine Amorphous Sediment Present/HPF Urine Bacteria 0/HPF (0-FEW) Urine Hyaline Casts Moderate/HPF Urine Mucus Marked/LPF O2 Saturation 94% (92-99) Arterial Blood pH 7.27 (7.35-7.45) Arterial Blood pCO2 at Patient Temp 54mmHg (35-46) Arterial Blood pO2 at Patient Temp 71mmHg (65-108) Arterial Blood HCO3 24mmol/L (21-28) Arterial Blood Base Excess -4mmol/L (-3-3) FiO2 32 White Blood Count 16.3x10^3/uL (4.0-11.0) Red Blood Count 4.70x10^6/uL (3.50-5.40) Hemoglobin 13.0g/dL (12.0-15.5) Hematocrit 41.1% (36.0-47.0) Mean Corpuscular Volume 87fL (79-100) Mean Corpuscular Hemoglobin 28pg (25-35) Mean Corpuscular Hemoglobin Concent 32g/dL (31-37) Red Cell Distribution Width 15.2% (11.5-14.5) Platelet Count 224x10^3/uL (140-400) Neutrophils (%) (Auto) 92% (31-73) Lymphocytes (%) (Auto) 6% (24-48) Monocytes (%) (Auto) 2% (0-9) Eosinophils (%) (Auto) 0% (0-3) Basophils (%) (Auto) 0% (0-3) Neutrophils # (Auto) 15.1x10^3uL (1.8-7.7) Lymphocytes # (Auto) 0.9x10^3/uL (1.0-4.8) Monocytes # (Auto) 0.3x10^3/uL (0.0-1.1) Eosinophils # (Auto) 0.0x10^3/uL (0.0-0.7) Basophils # (Auto) 0.0x10^3/uL (0.0-0.2) Sodium Level 143mmol/L (136-145) Potassium Level 4.7mmol/L (3.5-5.1) Chloride Level 108mmol/L (98-107) Carbon Dioxide Level 24mmol/L (21-32) Anion Gap 11 (6-14) Blood Urea Nitrogen 17mg/dL (7-20) Creatinine 0.6mg/dL (0.6-1.0) Estimated GFR (Cockcroft-Gault) 99.4 Glucose Level 108mg/dL (70-99) Calcium Level 8.9mg/dL (8.5-10.1) Laboratory Tests Test 10/17/16 15:20 10/17/16 15:23 10/17/16 15:30 10/17/16 17:25 O2 Saturation 99% (92-99) Arterial Blood pH 7.27 (7.35-7.45) Arterial Blood pCO2 at Patient Temp 58mmHg (35-46) Arterial Blood pO2 at Patient Temp 164mmHg (65-108) Arterial Blood HCO3 26mmol/L (21-28) Arterial Blood Base Excess -2mmol/L (-3-3) FiO2 100 Influenza Type A Antigen Negative (NEGATIVE) Influenza Type B Antigen Negative (NEGATIVE) White Blood Count 20.2x10^3/uL (4.0-11.0) Red Blood Count 4.72x10^6/uL (3.50-5.40) Hemoglobin 13.0g/dL (12.0-15.5) Hematocrit 41.7% (36.0-47.0) Mean Corpuscular Volume 88fL (79-100) Mean Corpuscular Hemoglobin 28pg (25-35) Mean Corpuscular Hemoglobin Concent 31g/dL (31-37) Red Cell Distribution Width 15.3% (11.5-14.5) Platelet Count 234x10^3/uL (140-400) Neutrophils (%) (Auto) 87% (31-73) Lymphocytes (%) (Auto) 5% (24-48) Monocytes (%) (Auto) 7% (0-9) Eosinophils (%) (Auto) 0% (0-3) Basophils (%) (Auto) 1% (0-3) Neutrophils # (Auto) 17.6x10^3uL (1.8-7.7) Lymphocytes # (Auto) 1.1x10^3/uL (1.0-4.8) Monocytes # (Auto) 1.4x10^3/uL (0.0-1.1) Eosinophils # (Auto) 0.0x10^3/uL (0.0-0.7) Basophils # (Auto) 0.1x10^3/uL (0.0-0.2) Segmented Neutrophils % 55% (35-66) Band Neutrophils % 33% (0-9) Lymphocytes % 7% (24-48) Monocytes % 5% (0-10) Toxic Granulation Slight Toxic Vacuolation Slight Platelet Estimate Adequate (ADEQUATE) Sodium Level 138mmol/L (136-145) Potassium Level 4.0mmol/L (3.5-5.1) Chloride Level 103mmol/L (98-107) Carbon Dioxide Level 25mmol/L (21-32) Anion Gap 10 (6-14) Blood Urea Nitrogen 16mg/dL (7-20) Creatinine 0.7mg/dL (0.6-1.0) Estimated GFR (Cockcroft-Gault) 83.2 BUN/Creatinine Ratio 23 (6-20) Glucose Level 112mg/dL (70-99) Lactic Acid Level 0.8mmol/L (0.4-2.0) 0.9mmol/L (0.4-2.0) Calcium Level 9.2mg/dL (8.5-10.1) Total Bilirubin 0.2mg/dL (0.2-1.0) Aspartate Amino Transf (AST/SGOT) 19U/L (15-37) Alanine Aminotransferase (ALT/SGPT) 12U/L (14-59) Alkaline Phosphatase 106U/L (46-116) Creatine Kinase 87U/L (26-192) Creatine Kinase MB (Mass) 2.5ng/mL (0.0-3.6) Creatine Kinase MB Relative Index 2.9% (0-4) Troponin I Quantitative < 0.017ng/mL (0.000-0.055) Total Protein 7.1g/dL (6.4-8.2) Albumin 3.0g/dL (3.4-5.0) Albumin/Globulin Ratio 0.7 (1.0-1.7) Procalcitonin 0.22ng/mL (0.00-0.10) Test 3/22/17 19:43 10/17/16 20:12 10/18/16 05:20 Urine Collection Type U cath Urine Color Yellow Urine Clarity Clear Urine pH 6.5 Urine Specific Brodnax 1.015 Urine Protein 30mg/dL (NEG-TRACE) Urine Glucose (UA) Negativemg/dL (NEG) Urine Ketones (Stick) Tracemg/dL (NEG) Urine Blood Negative (NEG) Urine Nitrite Negative (NEG) Urine Bilirubin Negative (NEG) Urine Urobilinogen Dipstick 0.2mg/dL (0.2 mg/dL) Urine Leukocyte Esterase Negative (NEG) Urine RBC 0/HPF (0-2) Urine WBC 1-4/HPF (0-4) Urine Squamous Epithelial Cells Few/LPF Urine Amorphous Sediment Present/HPF Urine Bacteria 0/HPF (0-FEW) Urine Hyaline Casts Moderate/HPF Urine Mucus Marked/LPF O2 Saturation 94% (92-99) Arterial Blood pH 7.27 (7.35-7.45) Arterial Blood pCO2 at Patient Temp 54mmHg (35-46) Arterial Blood pO2 at Patient Temp 71mmHg (65-108) Arterial Blood HCO3 24mmol/L (21-28) Arterial Blood Base Excess -4mmol/L (-3-3) FiO2 32 White Blood Count 16.3x10^3/uL (4.0-11.0) Red Blood Count 4.70x10^6/uL (3.50-5.40) Hemoglobin 13.0g/dL (12.0-15.5) Hematocrit 41.1% (36.0-47.0) Mean Corpuscular Volume 87fL (79-100) Mean Corpuscular Hemoglobin 28pg (25-35) Mean Corpuscular Hemoglobin Concent 32g/dL (31-37) Red Cell Distribution Width 15.2% (11.5-14.5) Platelet Count 224x10^3/uL (140-400) Neutrophils (%) (Auto) 92% (31-73) Lymphocytes (%) (Auto) 6% (24-48) Monocytes (%) (Auto) 2% (0-9) Eosinophils (%) (Auto) 0% (0-3) Basophils (%) (Auto) 0% (0-3) Neutrophils # (Auto) 15.1x10^3uL (1.8-7.7) Lymphocytes # (Auto) 0.9x10^3/uL (1.0-4.8) Monocytes # (Auto) 0.3x10^3/uL (0.0-1.1) Eosinophils # (Auto) 0.0x10^3/uL (0.0-0.7) Basophils # (Auto) 0.0x10^3/uL (0.0-0.2) Sodium Level 143mmol/L (136-145) Potassium Level 4.7mmol/L (3.5-5.1) Chloride Level 108mmol/L (98-107) Carbon Dioxide Level 24mmol/L (21-32) Anion Gap 11 (6-14) Blood Urea Nitrogen 17mg/dL (7-20) Creatinine 0.6mg/dL (0.6-1.0) Estimated GFR (Cockcroft-Gault) 99.4 Glucose Level 108mg/dL (70-99) Calcium Level 8.9mg/dL (8.5-10.1) Medications Current Medications Sodium Chloride (Iv Sodium Chloride 0.9% 1000ml Bag) 1,000 ml @ 500 mls/hr Q2H IV Last administered on 10/17/16 19:00; Start 10/17/16 at 15:18; Stop at 19:07; Status DC Levofloxacin/ Dextrose (Levaquin Per Pharmacy) 1 each PRN DAILY PRN MC SEE COMMENTS; Start 10/17/16 at 16:15 Ondansetron HCl 4 mg 4 mg PRN Q8HRS PRN IV NAUSEA/VOMITING; Start 10/17/16 at 16:15; Stop 10/18/16 at 16:14 Sodium Chloride (Iv Sodium Chloride 0.9% 1000ml Bag) 1,000 ml @ 100 mls/hr Q10H IV Last administered on 10/18/16 02:57; Start 10/17/16 at 16:13; Stop at 16:12 Albuterol/ Ipratropium (Duoneb) 3 ml RTQID NEB Last administered on 10/17/16 16:57; Start 10/17/16 at 16:20; Stop 10/17/16 at 17:51; Status DC Methylprednisolone Sodium Succinate 60 mg 60 mg Q6HRS IV Last administered on 05:57; Start 10/17/16 at 18:00 Levofloxacin/ Dextrose 150 ml @ 100 mls/hr 1X ONCE IV Last administered on 17:21; Start 10/17/16 at 16:30; Stop 10/17/16 at 17:59; Status DC Levofloxacin/ Dextrose (LEVAQUIN 750mg PREMIX) 150 ml @ 100 mls/hr Q24H IV ; Start 10/18/16 at 08:00 Hydralazine HCl (Apresoline) 10 mg PRN Q4HRS PRN IVP ELEVATED BP, SEE COMMENTS ; Start 10/17/16 at 17:45 Enoxaparin Sodium (Lovenox 30mg Syringe) 30 mg Q24H SQ Last administered on 19:14; Start 10/17/16 at 18:00 Pantoprazole Sodium (Protonix Vial) 40 mg DAILYAC IVP ; Start 10/18/16 at 07:30 Albuterol/ Ipratropium (Duoneb) 3 ml RTQID NEB Last administered on 10/18/16 07:28; Start 10/17/16 at 20:00 Albuterol Sulfate (Ventolin Neb Soln) 2.5 mg PRN Q4HRS PRN NEB SHORTNESS OF BREATH; Start 10/17/16 at 17:45 Guaifenesin (Mucinex) 600 mg BID PO ; Start 10/17/16 at 21:[address] Active Reported [facility] Carbonate 600 Mg Capsule [address] [facility] Carbonate 300 Mg Tablet.er 300 Mg PO DAILY Celebrex (Celecoxib) 200 Mg Capsule 200 Mg PO BID Alprazolam 0.25 Mg Tablet 0.25 Mg PO PRN BID Acetaminophen-Cod #3 Tablet (Acetaminophen With Codeine) 1 Each Tablet 1 Each PO TID Amitriptyline Hcl 50 Mg Tablet 100 Mg PO HS Dexilant (Dexlansoprazole) 60 Mg Cap.dr.mp 60 Mg PO DAILY Duoneb 0.5 Mg-3 Mg/3 Ml Soln (Ipratropium/Albuterol Sulfate) 3 Ml Ampul.neb 3 Ml IH Q6HRS Proair Hfa (Albuterol Sulfate) 8.5 Gm Hfa.aer.ad 17 Gm IH PRN Q4HRS Premarin (Estrogens, Conjugated) 0.625 Mg Tablet 0.625 Mg PO DAILY Meclizine Hcl 25 Mg Tablet 25 Mg PO PRN Q8HRS Daliresp (Roflumilast) 500 Mcg Tablet 500 Mcg PO DAILY Flonase (Fluticasone Propionate) 16 Gm [place].susp 16 Gm NS DAILY Advair 500-50 Diskus (Fluticasone/Salmeterol) 1 Each Disk.w.dev 1 Each IH BID Mucinex (Guaifenesin) 600 Mg Tablet.er 600 Mg PO PRN Vitals/I & O Vital Sign - Last 24 Hours 10/17/16 10/17/16 10/17/16 10/17/16 14:58 15:25 15:52 16:00 Temp 100.0 100.0 Pulse 113 96 Resp 28 B/P 128/43 80/38 Pulse Ox 73 96 99 O2 Delivery Room Air NonRebreather Mask BiPAP/CPAP BiPAP/CPAP 10/17/16 10/17/16 10/17/16 10/17/16 16:15 16:30 16:45 16:57 Pulse 98 90 90 B/P 80/48 106/48 109/42 Pulse Ox 98 95 97 99 O2 Delivery BiPAP/CPAP BiPAP/CPAP BiPAP/CPAP BiPAP/CPAP 10/17/16 10/17/16 10/17/16 10/17/16 17:00 17:15 17:30 17:45 Pulse 96 90 88 21 B/P 110/55 100/58 98/41 98/54 Pulse Ox 98 99 100 93 O2 Delivery BiPAP/CPAP BiPAP/CPAP BiPAP/CPAP BiPAP/CPAP 10/17/16 10/17/16 10/17/16 10/17/16 18:15 18:30 18:40 18:45 Pulse 88 88 90 B/P 90/52 104/51 98/55 Pulse Ox 98 98 98 99 O2 Delivery BiPAP/CPAP BiPAP/CPAP BiPAP/CPAP BiPAP/CPAP 10/17/16 10/17/16 10/17/16 10/17/16 19:00 19:30 19:45 20:00 Temp 98.2 98.2 Pulse 92 86 88 Resp 20 21 B/P 97/59 101/58 96/45 Pulse Ox 96 100 100 O2 Delivery BiPAP/CPAP Nasal Cannula Nasal Cannula Nasal Cannula O2 Flow Rate 5.0 3.0 3.0 10/17/16 10/17/16 10/17/16 10/17/16 20:00 20:15 20:36 20:45 Pulse 86 88 72 Resp 21 B/P 96/58 102/58 86/50 Pulse Ox 98 99 100 100 O2 Delivery Nasal Cannula Nasal Cannula BiPAP/CPAP BiPAP/CPAP O2 Flow Rate 3.0 3.0 10/17/16 10/17/16 10/17/16 10/17/16 21:00 22:00 23:00 23:59 Pulse 73 71 80 Resp B/P 102/72 92/57 113/59 Pulse Ox 98 99 98 O2 Delivery BiPAP/CPAP BiPAP/CPAP BiPAP/CPAP Bi-pap 10/18/16 10/18/16 10/18/16 10/18/16 00:00 00:23 01:00 02:00 Temp 97.8 97.8 Pulse 76 84 83 Resp B/P 103/72 108/58 118/62 Pulse Ox 97 98 98 96 O2 Delivery BiPAP/CPAP BiPAP/CPAP BiPAP/CPAP BiPAP/CPAP 10/18/16 10/18/16 10/18/16 10/18/16 02:04 03:00 04:00 04:00 Temp 97.8 97.8 Pulse 80 70 Resp B/P 119/60 108/59 Pulse Ox 94 96 99 O2 Delivery BiPAP/CPAP BiPAP/CPAP BiPAP/CPAP Bi-pap 10/18/16 10/18/16 10/18/16 10/18/16 04:19 05:00 05:55 06:00 Pulse 76 69 Resp B/P 109/58 119/54 Pulse Ox 97 99 99 98 O2 Delivery BiPAP/CPAP BiPAP/CPAP BiPAP/CPAP BiPAP/CPAP 10/18/16 07:40 Pulse Ox 99 O2 Delivery BiPAP/CPAP Intake and Output 10/17/16 10/17/16 10/18/16 15:00 23:00 07:00 Intake Total 2150 ml Output Total 675 ml 316 ml Balance 1475 ml -316 ml RANDALL PINEDA MD Oct 18, 2016 08:14
[2016-10-18] MEDS ORDERED: ALPRAZOLAM 0.25 MG TABLET PO PRN (08:15)
[2016-10-18] MEDS ORDERED: MECLIZINE HCL 12.5 MG TABLET. PO PRN (08:30)
[2016-10-18 08:46] LABS: FIO2 ABG 35
[2016-10-18] MEDS: ACETAMINOPHEN/CODEINE 300/30MG TABLET PO SCH ×3 (09:53→20:52)
[2016-10-18] MEDS: ESTROGENS, CONJUGATED 0.625 MG TABLET PO SCH (09:53)
[2016-10-18] MEDS: CELECOXIB 200 MG CAPSULE PO SCH ×2 (09:54→20:51)
[2016-10-18] MEDS: GUAIFENESIN ER 600 MG TABLET.ER PO SCH ×2 (09:54→20:52)
[2016-10-18] MEDS: LITHIUM CARBONATE ER 300 MG TABLET.ER PO SCH ×2 (09:54→20:52)
[2016-10-18] MEDS: FLUTICASONE 50MCG/NASAL SPRAY 16GM BOTTLE. NS SCH (09:55)
[2016-10-18] MEDS: ROFLUMILAST 500 MCG TABLET. PO SCH (10:51)
--- NOTE | 2016-10-18 12:37 | PDOC ---
Provider Note Provider Note dictated BRIDGETTE TORRES MD Oct 18, 2016 12:37
[2016-10-18] MEDS ORDERED: SODIUM BICARB ADULT 8.4% 50 MEQ/50 ML DISP.SYRIN. IV ONE (12:45)
--- NOTE | 2016-10-18 14:06 | CONS ---
DATE OF CONSULTATION: ATTENDING PHYSICIAN: Dr. Alvarado. REASON FOR CONSULTATION: Respiratory failure. HISTORY OF PRESENT ILLNESS: The patient is a 66-year-old female who has been a smoker for at least 30 years and still smokes cigarettes. She presented to the hospital with increasing shortness of breath and some subjective chest pain, although she declines that at present. She has been having cough. She says it was productive of green sputum. She had some subjective fever at home as well. This is the history she gave it to me. She was initially placed on BiPAP due to abnormal ABGs. The pH was 7.27, pCO2 of 50 and a pO2 of 164 with bicarbonate of 26. Latest ABG showed a pH of 7.32, pCO2 of 37, and a pO2 of 80 with bicarbonate of 19 on 35% FiO2. At that time, I had recommended that she could be taken off the BiPAP. Her BUN and creatinine is 17 and 0.6. Chest x-ray showed cardiomegaly and possible mild vascular congestion. Consultation requested for further evaluation and management. PAST MEDICAL HISTORY: History of COPD with ongoing tobaccoism, history of diverticulosis. PAST SURGICAL HISTORY: Including hernia repair. ALLERGIES: PENICILLIN, SCALLOPS, OXYCODONE, PROPOXYPHENE, AND TETRACYCLINE. REVIEW OF SYSTEMS: Twelve-point systems obtained. Pertinent positives discussed in history of present illness, otherwise noncontributory. All systems that were negative were reviewed as well. MEDICATIONS: All reviewed as listed in the [facility] including bronchodilators with DuoNeb and IV steroids along with Levaquin antibiotic. PHYSICAL EXAMINATION: GENERAL: She is awake, following commands. VITAL SIGNS: Blood pressure 134/39, pulse ox 97% on 2 liters, afebrile. HEENT: Sclerae nonicteric. NECK: Supple. LUNGS: Diminished breath sounds posteriorly. No wheezing. CARDIOVASCULAR: Regular rate and rhythm. ABDOMEN: Soft, nontender. EXTREMITIES: With trace pitting edema. LABORATORY DATA: Reviewed. Influenza screen is negative. BUN is 17, creatinine 0.6, bicarbonate 24. White count was initially 20.2 and platelets are 234,000. ABGs as discussed in my history of present illness. IMPRESSION: 1. Acute respiratory failure, suspect secondary to multifactorial etiologies including underlying COPD exacerbation with decompensated hypercapnia and now metabolic acidosis. She also has a component of mild CHF contributing to her respiratory failure. 2. Abnormal chest x-ray with suspected mild CHF. We will obtain echo. 3. Developing mild metabolic acidosis. We will give an amp of bicarbonate and follow up bicarbonate level. 4. Ongoing tobaccoism and suspected underlying chronic obstructive pulmonary disease. 5. Leukocytosis secondary to acute bronchitis. 6. Cough with yellow sputum production consistent with acute bronchitis. RECOMMENDATIONS: 1. Continue with nasal cannula with p.r.n. BiPAP. 2. P.r.n. bicarbonate 3. Continue with empiric antibiotic. 4. Taper steroids. 5. Bronchodilators. 6. Obtain echocardiogram to assess for left ventricular dysfunction. 7. DVT prophylaxis with Lovenox. 8. We will follow along with you. 9. Smoking cessation counseling provided to the patient. BRIDGETTE TORRES MD DR: FILIBERTO/lucie JOB#: [id number] / [id number]
--- NOTE | 2016-10-18 15:28 | CARD ---
APPROVED REPORT EXAM: Two-dimensional and M-mode echocardiogram with Doppler and color Doppler. Other Information Quality : Technically Limited Rhythm : NSRTechnically limited study due to smoking. INDICATION Congestive Heart Failure 2D DIMENSIONS RVDd3.4 (2.9-3.5cm)Left Atrium(2D)3.3 (1.6-4.0cm) IVSd0.8 (0.7-1.1cm)Aortic Root(2D)2.6 (2.0-3.7cm) LVDd4.2 (3.9-5.9cm)LVOT Diameter2.0 (1.8-2.4cm) PWd0.8 (0.7-1.1cm)LVDs3.1 (2.5-4.0cm) FS (%) 26.2 %SV41.5 ml LVEF(%)51.8 (>50%) Aortic Valve AoV Peak Maximiliano.121.0cm/sAoV VTI21.9cm AO Peak GR.5.9mmHgLVOT VTI 17.54cm AO Mean GR.3mmHgAVA (VTI)2.50cm2 Mitral Valve MV E Uvgaszzf08.2cm/sMV E Peak Gr.4mmHg MV DECEL [id number] A Fsyuahwg81.4cm/s MV E Mean Gr.2mmHgMV UVQ35td E/A Ratio1.0MV A [id number] MVA (PHT)4.78cm2 TDI Lateral E' P. V11.64cm/sMedial E' P. V9.18cm/s E/Lateral E'8.0E/Medial E'10.2 Tricuspid Valve TR P. Ihtaahdo002dc/sRAP [id number] TR Peak Gr.[id number] LEFT VENTRICLE The left ventricle is normal size. There is normal left ventricular wall thickness. Left ventricle sy stolic function is normal. The Ejection Fraction is 50-55%. There is normal LV segmental wall motion. Tissue Doppler imaging reveals normal left ventricular diastolic dysfunction. RIGHT VENTRICLE The right ventricle appears mildly dilated. The right ventricular systolic function is normal. ATRIA The left atrium size is normal. The right atrium is mildly dilated. The interatrial septum is intact with no evidence for an atrial septal defect or patent foramen ovale as noted on 2-D or Doppler imagi ng. AORTIC VALVE The aortic valve is normal in structure and function. The aortic valve is trileaflet. Doppler and Col or Flow revealed no significant aortic regurgitation. There is no significant aortic valvular stenosi s. MITRAL VALVE The mitral valve is normal in structure and function. There is no mitral valve stenosis. Doppler and Color Flow revealed trace to mild mitral regurgitation. TRICUSPID VALVE The tricuspid valve is normal in structure. Doppler and Color Flow revealed mild tricuspid regurgitat ion. The PA pressure was estimated at 43 mmHg. There is no tricuspid valve stenosis. PULMONIC VALVE The pulmonic valve is not well visualized. Doppler and Color Flow revealed no pulmonic valvular regur gitation. There is no pulmonic valvular stenosis. GREAT VESSELS The aortic root is normal in size. Pulmonary veins not recorded. The IVC is dilated and collapses <50 % with inspiration suggestive of mild volume overload. PERICARDIAL EFFUSION There is no evidence of significant pericardial effusion. Critical Notification Critical Value: No <Conclusion> Left ventricle systolic function is normal. The Ejection Fraction is 50-55%. There is normal LV segmental wall motion. The right ventricle appears mildly dilated. Doppler and Color Flow revealed mild tricuspid regurgitation. The PA pressure was estimated at 43 mmH g. The IVC is dilated and collapses <50% with inspiration suggestive of mild volume overload.
[2016-10-18] MEDS: DO NOT USE 40 MG/0.4 ML DISP.SYRIN SQ SCH (17:30)
[2016-10-18 18:18] LABS: SPECIMEN SOURCE Urine (.)
[2016-10-18] MEDS: AMITRIPTYLINE HCL 50 MG TABLET PO SCH (20:52)
[2016-10-19] VITALS (14 sets, daily range): BP systolic 110–159; BP diastolic 33–87
[2016-10-19] MEDS: methylPREDNISolone SOD SUCC PF 40 MG/ML VIAL. IV SCH ×4 (00:47→21:13)
[2016-10-19] MEDS: IPRATRPIUM/ALBUTEROL 0.5/2.5MG 3 ML NEBU. NEB SCH ×4 (07:03→21:02)
[2016-10-19] MEDS: ROFLUMILAST 500 MCG TABLET. PO SCH (08:43)
[2016-10-19] MEDS: LITHIUM CARBONATE ER 300 MG TABLET.ER PO SCH ×2 (08:43→21:12)
[2016-10-19] MEDS: GUAIFENESIN ER 600 MG TABLET.ER PO SCH ×2 (08:43→21:12)
[2016-10-19] MEDS: CELECOXIB 200 MG CAPSULE PO SCH ×2 (08:43→21:12)
[2016-10-19] MEDS: ESTROGENS, CONJUGATED 0.625 MG TABLET PO SCH (08:43)
[2016-10-19] MEDS: PANTOPRAZOLE 40 MG TABLET. PO SCH (08:43)
[2016-10-19] MEDS: ACETAMINOPHEN/CODEINE 300/30MG TABLET PO SCH ×3 (08:44→21:13)
[2016-10-19] MEDS: FLUTICASONE 50MCG/NASAL SPRAY 16GM BOTTLE. NS SCH (08:44)
--- NOTE | 2016-10-19 09:14 | PDOC ---
PULMONARY PROGRESS NOTES Subjective on 02, has sob, cough, better, no sputum, no runny nose. Vitals Vital Signs Date Time Temp Pulse Resp B/P Pulse Ox O2 Delivery O2 Flow Rate FiO2 10/19/16 08:44 94 Nasal Cannula 1.0 10/19/16 08:00 89 20 118/40 10/19/16 05:44 97.4 97.4 Comments ros as mentioned as above other sys otherwise neg ROS: No Nausea, No Chest Pain, No Abdominal Pain, No Increase Cough General: Alert HEENT: Other (nc at perrl, nose, throat clear, nech, no lap, no thyromegaly) Lungs: Crackles, Other Cardiovascular: S1, S2 Abdomen: Soft, Non-tender, Other (no mass) Neuro Exam: Alert, Oriented Extremities: No Edema Skin: Warm Labs Laboratory Tests Test 10/17/16 15:20 10/17/16 15:23 10/17/16 15:30 10/17/16 17:25 O2 Saturation 99% (92-99) Arterial Blood pH 7.27 (7.35-7.45) Arterial Blood pCO2 at Patient Temp 58mmHg (35-46) Arterial Blood pO2 at Patient Temp 164mmHg (65-108) Arterial Blood HCO3 26mmol/L (21-28) Arterial Blood Base Excess -2mmol/L (-3-3) FiO2 100 Influenza Type A Antigen Negative (NEGATIVE) Influenza Type B Antigen Negative (NEGATIVE) White Blood Count 20.2x10^3/uL (4.0-11.0) Red Blood Count 4.72x10^6/uL (3.50-5.40) Hemoglobin 13.0g/dL (12.0-15.5) Hematocrit 41.7% (36.0-47.0) Mean Corpuscular Volume 88fL (79-100) Mean Corpuscular Hemoglobin 28pg (25-35) Mean Corpuscular Hemoglobin Concent 31g/dL (31-37) Red Cell Distribution Width 15.3% (11.5-14.5) Platelet Count 234x10^3/uL (140-400) Neutrophils (%) (Auto) 87% (31-73) Lymphocytes (%) (Auto) 5% (24-48) Monocytes (%) (Auto) 7% (0-9) Eosinophils (%) (Auto) 0% (0-3) Basophils (%) (Auto) 1% (0-3) Neutrophils # (Auto) 17.6x10^3uL (1.8-7.7) Lymphocytes # (Auto) 1.1x10^3/uL (1.0-4.8) Monocytes # (Auto) 1.4x10^3/uL (0.0-1.1) Eosinophils # (Auto) 0.0x10^3/uL (0.0-0.7) Basophils # (Auto) 0.1x10^3/uL (0.0-0.2) Segmented Neutrophils % 55% (35-66) Band Neutrophils % 33% (0-9) Lymphocytes % 7% (24-48) Monocytes % 5% (0-10) Toxic Granulation Slight Toxic Vacuolation Slight Platelet Estimate Adequate (ADEQUATE) Sodium Level 138mmol/L (136-145) Potassium Level 4.0mmol/L (3.5-5.1) Chloride Level 103mmol/L (98-107) Carbon Dioxide Level 25mmol/L (21-32) Anion Gap 10 (6-14) Blood Urea Nitrogen 16mg/dL (7-20) Creatinine 0.7mg/dL (0.6-1.0) Estimated GFR (Cockcroft-Gault) 83.2 BUN/Creatinine Ratio 23 (6-20) Glucose Level 112mg/dL (70-99) Lactic Acid Level 0.8mmol/L (0.4-2.0) 0.9mmol/L (0.4-2.0) Calcium Level 9.2mg/dL (8.5-10.1) Total Bilirubin 0.2mg/dL (0.2-1.0) Aspartate Amino Transf (AST/SGOT) 19U/L (15-37) Alanine Aminotransferase (ALT/SGPT) 12U/L (14-59) Alkaline Phosphatase 106U/L (46-116) Creatine Kinase 87U/L (26-192) Creatine Kinase MB (Mass) 2.5ng/mL (0.0-3.6) Creatine Kinase MB Relative Index 2.9% (0-4) Troponin I Quantitative < 0.017ng/mL (0.000-0.055) Total Protein 7.1g/dL (6.4-8.2) Albumin 3.0g/dL (3.4-5.0) Albumin/Globulin Ratio 0.7 (1.0-1.7) Procalcitonin 0.22ng/mL (0.00-0.10) Test 10/17/16 19:30 10/17/16 19:43 10/17/16 20:12 10/18/16 05:20 Nasal Screen MRSA (PCR) Negative (Negative) Urine Collection Type U cath Urine Color Yellow Urine Clarity Clear Urine pH 6.5 Urine Specific [place] 1.015 Urine Protein 30mg/dL (NEG-TRACE) Urine Glucose (UA) Negativemg/dL (NEG) Urine Ketones (Stick) Tracemg/dL (NEG) Urine Blood Negative (NEG) Urine Nitrite Negative (NEG) Urine Bilirubin Negative (NEG) Urine Urobilinogen Dipstick 0.2mg/dL (0.2 mg/dL) Urine Leukocyte Esterase Negative (NEG) Urine RBC 0/HPF (0-2) Urine WBC 1-4/HPF (0-4) Urine Squamous Epithelial Cells Few/LPF Urine Amorphous Sediment Present/HPF Urine Bacteria 0/HPF (0-FEW) Urine Hyaline Casts Moderate/HPF Urine Mucus Marked/LPF Body Fluid Culture (LAB) (.) Urine Legionella Antigen Negative (Negative) Streptococcus pneumoniae Antigen Negative (Negative) Organism Identification (LAB) (.) JOHN Specimen Source Urine (.) O2 Saturation 94% (92-99) Arterial Blood pH 7.27 (7.35-7.45) Arterial Blood pCO2 at Patient Temp 54mmHg (35-46) Arterial Blood pO2 at Patient Temp 71mmHg (65-108) Arterial Blood HCO3 24mmol/L (21-28) Arterial Blood Base Excess -4mmol/L (-3-3) FiO2 32 White Blood Count 16.3x10^3/uL (4.0-11.0) Red Blood Count 4.70x10^6/uL (3.50-5.40) Hemoglobin 13.0g/dL (12.0-15.5) Hematocrit 41.1% (36.0-47.0) Mean Corpuscular Volume 87fL (79-100) Mean Corpuscular Hemoglobin 28pg (25-35) Mean Corpuscular Hemoglobin Concent 32g/dL (31-37) Red Cell Distribution Width 15.2% (11.5-14.5) Platelet Count 224x10^3/uL (140-400) Neutrophils (%) (Auto) 92% (31-73) Lymphocytes (%) (Auto) 6% (24-48) Monocytes (%) (Auto) 2% (0-9) Eosinophils (%) (Auto) 0% (0-3) Basophils (%) (Auto) 0% (0-3) Neutrophils # (Auto) 15.1x10^3uL (1.8-7.7) Lymphocytes # (Auto) 0.9x10^3/uL (1.0-4.8) Monocytes # (Auto) 0.3x10^3/uL (0.0-1.1) Eosinophils # (Auto) 0.0x10^3/uL (0.0-0.7) Basophils # (Auto) 0.0x10^3/uL (0.0-0.2) Sodium Level 143mmol/L (136-145) Potassium Level 4.7mmol/L (3.5-5.1) Chloride Level 108mmol/L (98-107) Carbon Dioxide Level 24mmol/L (21-32) Anion Gap 11 (6-14) Blood Urea Nitrogen 17mg/dL (7-20) Creatinine 0.6mg/dL (0.6-1.0) Estimated GFR (Cockcroft-Gault) 99.4 Glucose Level 108mg/dL (70-99) Calcium Level 8.9mg/dL (8.5-10.1) Test 10/18/16 08:00 10/18/16 23:25 10/19/16 08:22 O2 Saturation 96% (92-99) Arterial Blood pH 7.32 (7.35-7.45) Arterial Blood pCO2 at Patient Temp 37mmHg (35-46) Arterial Blood pO2 at Patient Temp 80mmHg (65-108) Arterial Blood HCO3 19mmol/L (21-28) Arterial Blood Base Excess -7mmol/L (-3-3) FiO2 35 Glucose (Fingerstick) 219mg/dL (70-99) 112mg/dL (70-99) Laboratory Tests Test 10/18/16 23:25 10/19/16 08:22 Glucose (Fingerstick) 219mg/dL (70-99) 112mg/dL (70-99) Medications Active Scripts Medications Dose Route/Sig Days Date Category [place] Carbonate 600 Mg Capsule 600 Mg PO QHS 07/09/13 Reported [place] Carbonate 300 Mg Tablet.er 300 Mg PO DAILY 07/08/13 Reported Celebrex (Celecoxib) 200 Mg Capsule 200 Mg PO BID 07/08/13 Reported Alprazolam 0.25 Mg Tablet 0.25 Mg PO PRN BID 07/08/13 Reported Acetaminophen-Cod #3 Tablet (Acetaminophen/Codeine Phosphate) 1 Each Tablet 1 Each PO TID 07/08/13 Reported Amitriptyline Hcl 50 Mg Tablet 100 Mg PO HS 07/08/13 Reported Dexilant (Dexlansoprazole) 60 Mg Cap.mp 60 Mg PO DAILY 07/08/13 Reported Duoneb 0.5 Mg-3 Mg/3 Ml Soln (Ipratropium/Albuterol Sulfate) 3 Ml Ampul.neb 3 Ml IH Q6HRS 07/08/13 Reported Proair Hfa Inhaler (Albuterol Sulfate) 8.5 Gm Hfa.aer.ad 17 Gm IH PRN Q4HRS 07/08/13 Reported Premarin (Estrogens, Conjugated) 0.625 Mg Tablet 0.625 Mg PO DAILY 07/08/13 Reported Meclizine Hcl 25 Mg Tablet 25 Mg PO PRN Q8HRS 07/08/13 Reported Daliresp (Roflumilast) 500 Mcg Tablet 500 Mcg PO DAILY 07/08/13 Reported Flonase (Fluticasone Propionate) 16 Gm Mallory.susp 16 Gm NS DAILY 07/08/13 Reported Advair 500-50 Diskus (Fluticasone/Salmeterol) 1 Each Disk.w.dev 1 Each IH BID 07/08/13 Reported Mucinex (Guaifenesin) 600 Mg Tablet.er 600 Mg PO PRN 07/08/13 Reported Comments cxr reviewed, Cardiomegaly. Minimal volume loss at the right lung base. Possible mild pulmonary vascular congestion Impression . IMPRESSION: 1. Acute respiratory failure, suspect secondary to multifactorial etiologies including underlying COPD exacerbation with decompensated hypercapnia and now metabolic acidosis. She also has a component of mild CHF contributing to her respiratory failure. 2. Abnormal chest x-ray with suspected mild CHF. We will obtain echo. 3. Developing mild metabolic acidosis. We will give an amp of bicarbonate and follow up bicarbonate level. 4. Ongoing tobaccoism and suspected underlying chronic obstructive pulmonary disease. 5. Leukocytosis secondary to acute bronchitis. 6. Cough with yellow sputum production consistent with acute bronchitis. Plan . RECOMMENDATIONS: 1. Continue with nasal cannula with p.r.n. BiPAP. 2. pt ot 3. Continue with empiric antibiotic. 4. change solumedrol to 40 q 8 hrs 5. Bronchodilators. 6. Obtain echocardiogram to assess for left ventricular dysfunction. 7. DVT prophylaxis with Lovenox. 8. protonix lovenox for prophylaxis 9. Smoking cessation counseling provided to the patient. discussed w rn, pt. ? out of icu MAEGAN CISNEROS MD Oct 19, 2016 09:14
--- NOTE | 2016-10-19 10:04 | PDOC ---
PROGRESS NOTES Chief Complaint Chief Complaint 1. acute on chronic hypoxic resp failure 2. hypercapnic resp failure 3.possible right side CAP 4. sepsis with 3 5. copd 6. AMS , metabolic encephalopathy with 2 and 4 7. bipolar, no details 8. fibromyalgia 9. mild milnutrition 10. tobaccoism 11. osteopenia 12. hiatel hernia 13. 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 Vitals Vital Signs Date Time Temp Pulse Resp B/P Pulse Ox O2 Delivery O2 Flow Rate FiO2 10/19/16 09:00 76 20 110/36 91 Nasal Cannula 1.0 10/19/16 05:44 97.4 97.4 Physical Exam General: Alert, Oriented X3, Cooperative Heart: Regular rate, Normal S1, Normal S2 Lungs: Crackles, Other Abdomen: Normal bowel sounds, Soft Extremities: No clubbing, No cyanosis Skin: No rashes, No breakdown Labs LABS Laboratory Tests Test 10/18/16 23:25 10/19/16 08:22 Glucose (Fingerstick) 219mg/dL (70-99) 112mg/dL (70-99) Review of Systems Review of Systems no inc in soa, cp, fevers Assessment and Plan Assessmemt and Plan Problems Medical Problems: (1) Acute on chronic respiratory failure Status: Acute (2) Community acquired pneumonia Status: Acute (3) COPD exacerbation Status: Acute (4) Moderate protein malnutrition Status: Acute (5) Sepsis Status: Acute Problems: Comment Review of Relevant I have reviewed the following items naz (where applicable) has been applied. Labs Laboratory Tests Test 10/17/16 15:20 10/17/16 15:23 10/17/16 15:30 10/17/16 17:25 O2 Saturation 99% (92-99) Arterial Blood pH 7.27 (7.35-7.45) Arterial Blood pCO2 at Patient Temp 58mmHg (35-46) Arterial Blood pO2 at Patient Temp 164mmHg (65-108) Arterial Blood HCO3 26mmol/L (21-28) Arterial Blood Base Excess -2mmol/L (-3-3) FiO2 100 Influenza Type A Antigen Negative (NEGATIVE) Influenza Type B Antigen Negative (NEGATIVE) White Blood Count 20.2x10^3/uL (4.0-11.0) Red Blood Count 4.72x10^6/uL (3.50-5.40) Hemoglobin 13.0g/dL (12.0-15.5) Hematocrit 41.7% (36.0-47.0) Mean Corpuscular Volume 88fL (79-100) Mean Corpuscular Hemoglobin 28pg (25-35) Mean Corpuscular Hemoglobin Concent 31g/dL (31-37) Red Cell Distribution Width 15.3% (11.5-14.5) Platelet Count 234x10^3/uL (140-400) Neutrophils (%) (Auto) 87% (31-73) Lymphocytes (%) (Auto) 5% (24-48) Monocytes (%) (Auto) 7% (0-9) Eosinophils (%) (Auto) 0% (0-3) Basophils (%) (Auto) 1% (0-3) Neutrophils # (Auto) 17.6x10^3uL (1.8-7.7) Lymphocytes # (Auto) 1.1x10^3/uL (1.0-4.8) Monocytes # (Auto) 1.4x10^3/uL (0.0-1.1) Eosinophils # (Auto) 0.0x10^3/uL (0.0-0.7) Basophils # (Auto) 0.1x10^3/uL (0.0-0.2) Segmented Neutrophils % 55% (35-66) Band Neutrophils % 33% (0-9) Lymphocytes % 7% (24-48) Monocytes % 5% (0-10) Toxic Granulation Slight Toxic Vacuolation Slight Platelet Estimate Adequate (ADEQUATE) Sodium Level 138mmol/L (136-145) Potassium Level 4.0mmol/L (3.5-5.1) Chloride Level 103mmol/L (98-107) Carbon Dioxide Level 25mmol/L (21-32) Anion Gap 10 (6-14) Blood Urea Nitrogen 16mg/dL (7-20) Creatinine 0.7mg/dL (0.6-1.0) Estimated GFR (Cockcroft-Gault) 83.2 BUN/Creatinine Ratio 23 (6-20) Glucose Level 112mg/dL (70-99) Lactic Acid Level 0.8mmol/L (0.4-2.0) 0.9mmol/L (0.4-2.0) Calcium Level 9.2mg/dL (8.5-10.1) Total Bilirubin 0.2mg/dL (0.2-1.0) Aspartate Amino Transf (AST/SGOT) 19U/L (15-37) Alanine Aminotransferase (ALT/SGPT) 12U/L (14-59) Alkaline Phosphatase 106U/L (46-116) Creatine Kinase 87U/L (26-192) Creatine Kinase MB (Mass) 2.5ng/mL (0.0-3.6) Creatine Kinase MB Relative Index 2.9% (0-4) Troponin I Quantitative < 0.017ng/mL (0.000-0.055) Total Protein 7.1g/dL (6.4-8.2) Albumin 3.0g/dL (3.4-5.0) Albumin/Globulin Ratio 0.7 (1.0-1.7) Procalcitonin 0.22ng/mL (0.00-0.10) Test 10/17/16 19:30 10/17/16 19:43 10/17/16 20:12 10/18/16 05:20 Nasal Screen MRSA (PCR) Negative (Negative) Urine Collection Type U cath Urine Color Yellow Urine Clarity Clear Urine pH 6.5 Urine Specific [place] 1.015 Urine Protein 30mg/dL (NEG-TRACE) Urine Glucose (UA) Negativemg/dL (NEG) Urine Ketones (Stick) Tracemg/dL (NEG) Urine Blood Negative (NEG) Urine Nitrite Negative (NEG) Urine Bilirubin Negative (NEG) Urine Urobilinogen Dipstick 0.2mg/dL (0.2 mg/dL) Urine Leukocyte Esterase Negative (NEG) Urine RBC 0/HPF (0-2) Urine WBC 1-4/HPF (0-4) Urine Squamous Epithelial Cells Few/LPF Urine Amorphous Sediment Present/HPF Urine Bacteria 0/HPF (0-FEW) Urine Hyaline Casts Moderate/HPF Urine Mucus Marked/LPF Body Fluid Culture (LAB) (.) Urine Legionella Antigen Negative (Negative) Streptococcus pneumoniae Antigen Negative (Negative) Organism Identification (LAB) (.) JOHN Specimen Source Urine (.) O2 Saturation 94% (92-99) Arterial Blood pH 7.27 (7.35-7.45) Arterial Blood pCO2 at Patient Temp 54mmHg (35-46) Arterial Blood pO2 at Patient Temp 71mmHg (65-108) Arterial Blood HCO3 24mmol/L (21-28) Arterial Blood Base Excess -4mmol/L (-3-3) FiO2 32 White Blood Count 16.3x10^3/uL (4.0-11.0) Red Blood Count 4.70x10^6/uL (3.50-5.40) Hemoglobin 13.0g/dL (12.0-15.5) Hematocrit 41.1% (36.0-47.0) Mean Corpuscular Volume 87fL (79-100) Mean Corpuscular Hemoglobin 28pg (25-35) Mean Corpuscular Hemoglobin Concent 32g/dL (31-37) Red Cell Distribution Width 15.2% (11.5-14.5) Platelet Count 224x10^3/uL (140-400) Neutrophils (%) (Auto) 92% (31-73) Lymphocytes (%) (Auto) 6% (24-48) Monocytes (%) (Auto) 2% (0-9) Eosinophils (%) (Auto) 0% (0-3) Basophils (%) (Auto) 0% (0-3) Neutrophils # (Auto) 15.1x10^3uL (1.8-7.7) Lymphocytes # (Auto) 0.9x10^3/uL (1.0-4.8) Monocytes # (Auto) 0.3x10^3/uL (0.0-1.1) Eosinophils # (Auto) 0.0x10^3/uL (0.0-0.7) Basophils # (Auto) 0.0x10^3/uL (0.0-0.2) Sodium Level 143mmol/L (136-145) Potassium Level 4.7mmol/L (3.5-5.1) Chloride Level 108mmol/L (98-107) Carbon Dioxide Level 24mmol/L (21-32) Anion Gap 11 (6-14) Blood Urea Nitrogen 17mg/dL (7-20) Creatinine 0.6mg/dL (0.6-1.0) Estimated GFR (Cockcroft-Gault) 99.4 Glucose Level 108mg/dL (70-99) Calcium Level 8.9mg/dL (8.5-10.1) Test 10/18/16 08:00 10/18/16 23:25 10/19/16 08:22 O2 Saturation 96% (92-99) Arterial Blood pH 7.32 (7.35-7.45) Arterial Blood pCO2 at Patient Temp 37mmHg (35-46) Arterial Blood pO2 at Patient Temp 80mmHg (65-108) Arterial Blood HCO3 19mmol/L (21-28) Arterial Blood Base Excess -7mmol/L (-3-3) FiO2 35 Glucose (Fingerstick) 219mg/dL (70-99) 112mg/dL (70-99) Laboratory Tests Test 10/18/16 23:25 10/19/16 08:22 Glucose (Fingerstick) 219mg/dL (70-99) 112mg/dL (70-99) Microbiology 10/17/16 Blood Culture - Preliminary, Resulted NO GROWTH AFTER 1 DAY Medications Current Medications Sodium Chloride (Iv Sodium Chloride 0.9% 1000ml Bag) 1,000 ml @ 500 mls/hr Q2H IV Last administered on 10/17/16 19:00; Start 10/17/16 at 15:18; Stop at 19:07; Status DC Levofloxacin/ Dextrose (Levaquin Per Pharmacy) 1 each PRN DAILY PRN MC SEE COMMENTS; Start 10/17/16 at 16:15 Ondansetron HCl 4 mg 4 mg PRN Q8HRS PRN IV NAUSEA/VOMITING; Start 10/17/16 at 16:15; Stop 10/18/16 at 08:14; Status DC Sodium Chloride (Iv Sodium Chloride 0.9% 1000ml Bag) 1,000 ml @ 100 mls/hr Q10H IV Last administered on 10/18/16 02:57; Start 10/17/16 at 16:13; Stop at 16:12; Status DC Albuterol/ Ipratropium (Duoneb) 3 ml RTQID NEB Last administered on 10/17/16 16:57; Start 10/17/16 at 16:20; Stop 10/17/16 at 17:51; Status DC Methylprednisolone Sodium Succinate 60 mg 60 mg Q6HRS IV Last administered on 06:00; Start 10/17/16 at 18:00; Stop 10/19/16 at 09:17; Status DC Levofloxacin/ Dextrose 150 ml @ 100 mls/hr 1X ONCE IV Last administered on 17:21; Start 10/17/16 at 16:30; Stop 10/17/16 at 17:59; Status DC Levofloxacin/ Dextrose (LEVAQUIN 750mg PREMIX) 150 ml @ 100 mls/hr Q24H IV ; Start 10/18/16 at 08:00; Stop 10/18/16 at 10:29; Status DC Hydralazine HCl (Apresoline) 10 mg PRN Q4HRS PRN IVP ELEVATED BP, SEE COMMENTS ; Start 10/17/16 at 17:45 Enoxaparin Sodium (Lovenox 30mg Syringe) 30 mg Q24H SQ Last administered on 19:14; Start 10/17/16 at 18:00; Stop 10/18/16 at 08:40; Status DC Pantoprazole Sodium (Protonix Vial) 40 mg DAILYAC IVP Last administered on 10/18 10:02; Start 10/18/16 at 07:30; Stop 10/18/16 at 23:59; Status DC Albuterol/ Ipratropium (Duoneb) 3 ml RTQID NEB Last administered on 10/19/16 07:03; Start 10/17/16 at 20:00 Albuterol Sulfate (Ventolin Neb Soln) 2.5 mg PRN Q4HRS PRN NEB SHORTNESS OF BREATH; Start 10/17/16 at 17:45 Guaifenesin (Mucinex) 600 mg BID PO Last administered on 10/19/16 08:43; Start 10/17/16 at 21:00 Ondansetron HCl (Zofran) 4 mg PRN Q6HRS PRN IV NAUSEA/VOMITING; Start 10/18/16 at 08:12 Acetaminophen/ Codeine Phosphate (Tylenol #3) 1 tab TID PO Last administered on 10/19/16 08:44; Start 10/18/16 at 09:00 Alprazolam (Xanax) 0.25 mg PRN BID PRN PO ANXIETY / AGITATION; Start 10/18/16 at 08:15 Amitriptyline HCl (Elavil) 100 mg HS PO Last administered on 10/18/16 20:52; Start 10/18/16 at 21:00 Celecoxib (Celebrex) 200 mg BID PO Last administered on 10/19/16 08:43; Start 10/18/16 at 09:00 Estrogens Conjugated (Premarin) 0.625 mg DAILY PO Last administered on 08:43; Start 10/18/16 at 09:00 Fluticasone Propionate (Flonase) 1 spray DAILY NS Last administered on 08:44; Start 10/18/16 at 09:00 [facility] Carbonate (Lithobid) 300 mg DAILY PO Last administered on 10/19/16 08: 43; Start 10/18/16 at 09:00 Roflumilast (Daliresp) 500 mcg DAILY PO Last administered on 10/19/16 08:43; Start 10/18/16 at 09:00 Pantoprazole Sodium (Protonix) 40 mg DAILYAC PO Last administered on 10/19/16 08:43; Start 10/19/16 at 07:30 [facility] Carbonate (Lithobid) 600 mg QHS PO Last administered on 10/18/16 20:52 ; Start 10/18/16 at 21:00 Meclizine HCl (Antivert) 25 mg PRN Q8HRS PRN PO DIZZINESS; Start 10/18/16 at 08 :30 Enoxaparin Sodium 40 mg 40 mg Q24H SQ Last administered on 10/18/16 17:30; Start 10/18/16 at 18:00 Levofloxacin/ Dextrose (LEVAQUIN 750mg PREMIX) 150 ml @ 100 mls/hr Q48H IV Last administered on 10/18/16 17:30; Start 10/18/16 at 17:00 Sodium Bicarbonate 50 meq 1X ONCE IV Last administered on 10/18/16 12:52; Start 10/18/16 at 12:45; Stop 10/18/16 at 12:46; Status DC Methylprednisolone Sodium Succinate (Solu-Medrol 40mg Vial) 40 mg Q8HRS IV ; Start 10/19/16 at 14:00 Active Scripts Active Reported [facility] Carbonate 600 Mg Capsule 600 Mg PO QHS [facility] Carbonate 300 Mg Tablet.er 300 Mg PO DAILY Celebrex (Celecoxib) 200 Mg Capsule 200 Mg PO BID Alprazolam 0.25 Mg Tablet 0.25 Mg PO PRN BID Acetaminophen-Cod #3 Tablet (Acetaminophen/Codeine Phosphate) 1 Each Tablet 1 Each PO TID Amitriptyline Hcl 50 Mg Tablet 100 Mg PO HS Dexilant (Dexlansoprazole) 60 Mg Cap.mp 60 Mg PO DAILY Duoneb 0.5 Mg-3 Mg/3 Ml Soln (Ipratropium/Albuterol Sulfate) 3 Ml Ampul.neb 3 Ml IH Q6HRS Proair Hfa Inhaler (Albuterol Sulfate) 8.5 Gm Hfa.aer.ad 17 Gm IH PRN Q4HRS Premarin (Estrogens, Conjugated) 0.625 Mg Tablet 0.625 Mg PO DAILY Meclizine Hcl 25 Mg Tablet 25 Mg PO PRN Q8HRS Daliresp (Roflumilast) 500 Mcg Tablet 500 Mcg PO DAILY Flonase (Fluticasone Propionate) 16 Gm [place].susp 16 Gm NS DAILY Advair 500-50 Diskus (Fluticasone/Salmeterol) 1 Each Disk.w.dev 1 Each IH BID Mucinex (Guaifenesin) 600 Mg Tablet.er 600 Mg PO PRN Vitals/I & O Vital Sign - Last 24 Hours 10/18/16 10/18/16 10/18/16 10/18/16 10:57 11:26 12:39 13:00 Pulse 96 80 81 Resp 16 B/P 134/39 142/55 138/40 Pulse Ox 97 97 95 O2 Delivery Nasal Cannula Nasal Cannula Nasal Cannula Nasal Cannula O2 Flow Rate 2.0 2.0 1.0 1.0 10/18/16 10/18/16 10/18/16 10/18/16 14:00 14:53 15:00 15:12 Pulse 80 74 Resp 16 12 16 B/P 103/66 124/50 Pulse Ox 95 1 96 92 O2 Delivery Nasal Cannula Nasal Cannula Nasal Cannula Room Air O2 Flow Rate 1.0 1.0 10/18/16 10/18/16 10/18/16 10/18/16 15:45 15:53 17:07 18:00 Pulse 68 94 Resp 12 16 12 B/P 114/40 120/40 Pulse Ox 97 97 O2 Delivery Nasal Cannula Nasal Cannula Nasal Cannula O2 Flow Rate 2.0 1.0 1.0 10/18/16 10/18/16 10/18/16 10/18/16 19:00 20:00 20:00 20:30 Temp 98.0 98.0 Pulse 93 96 Resp 16 18 B/P 120/40 121/46 Pulse Ox 93 96 95 O2 Delivery Nasal Cannula Nasal Cannula Nasal Cannula Nasal Cannula O2 Flow Rate 1.0 1.0 1.0 1.0 10/18/16 10/18/16 10/18/16 10/18/16 20:52 21:00 22:00 22:00 Pulse 88 76 Resp 24 20 20 B/P 129/35 109/38 Pulse Ox 95 94 95 96 O2 Delivery Nasal Cannula Nasal Cannula Nasal Cannula Nasal Cannula O2 Flow Rate 1.0 1.0 1.0 1.0 10/18/16 10/18/16 10/19/16 10/19/16 23:30 23:59 00:30 01:30 Temp 98.4 98.4 Pulse 82 66 68 Resp 18 16 18 B/P 121/40 123/45 122/38 Pulse Ox 97 98 95 O2 Delivery Nasal Cannula Nasal Cannula Nasal Cannula Nasal Cannula O2 Flow Rate 1.0 1.0 1.0 1.0 10/19/16 10/19/16 10/19/16 10/19/16 02:47 03:44 04:00 04:44 Pulse 70 96 71 Resp 18 18 18 B/P 121/33 110/38 114/38 Pulse Ox 96 96 97 O2 Delivery Nasal Cannula Nasal Cannula Nasal Cannula Nasal Cannula O2 Flow Rate 1.0 1.0 1.0 1.0 10/19/16 10/19/16 10/19/16 10/19/16 05:44 07:08 07:19 07:43 Temp 97.4 97.4 Pulse 69 74 Resp 18 18 B/P 114/38 113/43 Pulse Ox 97 95 95 O2 Delivery Nasal Cannula Nasal Cannula Nasal Cannula Nasal Cannula O2 Flow Rate 1.0 1.0 1.0 1.0 10/19/16 10/19/16 10/19/16 08:00 08:44 09:00 Pulse 89 76 Resp 20 20 B/P 118/40 110/36 Pulse Ox 94 94 91 O2 Delivery Nasal Cannula Nasal Cannula Nasal Cannula O2 Flow Rate 1.0 1.0 1.0 Intake and Output 10/18/16 10/18/16 10/19/16 15:00 23:00 07:00 Intake Total 250 ml 2748 ml 620 ml Output Total 600 ml 125 ml 390 ml Balance -350 ml 2623 ml 230 ml RANDALL PINEDA MD Oct 19, 2016 10:03
[2016-10-19] MEDS: DO NOT USE 40 MG/0.4 ML DISP.SYRIN SQ SCH (17:39)
[2016-10-19] MEDS: AMITRIPTYLINE HCL 50 MG TABLET PO SCH (21:12)
[2016-10-20 03:00] VITALS: BP 145/69
[2016-10-20] MEDS: methylPREDNISolone SOD SUCC PF 40 MG/ML VIAL. IV SCH (05:21)
[2016-10-20 07:00] VITALS: BP 155/82
[2016-10-20] MEDS: ROFLUMILAST 500 MCG TABLET. PO SCH (08:35)
[2016-10-20] MEDS: LITHIUM CARBONATE ER 300 MG TABLET.ER PO SCH ×2 (08:36→20:23)
[2016-10-20] MEDS: PANTOPRAZOLE 40 MG TABLET. PO SCH (08:36)
[2016-10-20] MEDS: CELECOXIB 200 MG CAPSULE PO SCH ×2 (08:37→20:23)
[2016-10-20] MEDS: ESTROGENS, CONJUGATED 0.625 MG TABLET PO SCH (08:37)
[2016-10-20] MEDS: ACETAMINOPHEN/CODEINE 300/30MG TABLET PO SCH ×3 (08:41→20:24)
[2016-10-20] MEDS: GUAIFENESIN ER 600 MG TABLET.ER PO SCH ×2 (08:41→20:23)
[2016-10-20] MEDS: FLUTICASONE 50MCG/NASAL SPRAY 16GM BOTTLE. NS SCH (08:44)
[2016-10-20] MEDS: IPRATRPIUM/ALBUTEROL 0.5/2.5MG 3 ML NEBU. NEB SCH ×4 (09:02→20:24)
--- NOTE | 2016-10-20 09:15 | PDOC ---
PULMONARY PROGRESS NOTES Subjective on 02, has sob, cough, no sputum, has nasal congestion, no pain Vitals Vital Signs Date Time Temp Pulse Resp B/P Pulse Ox O2 Delivery O2 Flow Rate FiO2 10/20/16 09:04 Nasal Cannula 2.0 10/20/16 08:41 28 10/20/16 07:00 97.5 81 155/82 92 97.5 Comments ros as mentioned as above other sys otherwise neg ROS: No Nausea, No Chest Pain, No Abdominal Pain, No Increase Cough General: Alert HEENT: Other (nc at perrl, nose, throat clear, nech, no lap, no thyromegaly) Lungs: Crackles, Other Cardiovascular: S1, S2 Abdomen: Soft, Non-tender, Other (no mass) Neuro Exam: Alert, Oriented Extremities: No Edema Skin: Warm Labs Laboratory Tests Test 10/18/16 23:25 10/19/16 08:22 10/19/16 11:37 10/19/16 17:02 Glucose (Fingerstick) 219mg/dL (70-99) 112mg/dL (70-99) 166mg/dL (70-99) 98mg/dL (70-99) Test 10/19/16 21:00 10/20/16 08:00 Glucose (Fingerstick) 100mg/dL (70-99) 80mg/dL (70-99) Laboratory Tests Test 10/19/16 11:37 10/19/16 17:02 10/19/16 21:00 10/20/16 08:00 Glucose (Fingerstick) 166mg/dL (70-99) 98mg/dL (70-99) 100mg/dL (70-99) 80mg/dL (70-99) Medications Active Scripts Medications Dose Route/Sig Days Date Category [place] Carbonate 600 Mg Capsule 600 Mg PO QHS 07/09/13 Reported [place] Carbonate 300 Mg Tablet.er 300 Mg PO DAILY 07/08/13 Reported Celebrex (Celecoxib) 200 Mg Capsule 200 Mg PO BID 07/08/13 Reported Alprazolam 0.25 Mg Tablet 0.25 Mg PO PRN BID 07/08/13 Reported Acetaminophen-Cod #3 Tablet (Acetaminophen/Codeine Phosphate) 1 Each Tablet 1 Each PO TID 07/08/13 Reported Amitriptyline Hcl 50 Mg Tablet 100 Mg PO HS 07/08/13 Reported Dexilant (Dexlansoprazole) 60 Mg Cap.mp 60 Mg PO DAILY 07/08/13 Reported Duoneb 0.5 Mg-3 Mg/3 Ml Soln (Ipratropium/Albuterol Sulfate) 3 Ml Ampul.neb 3 Ml IH Q6HRS 07/08/13 Reported Proair Hfa Inhaler (Albuterol Sulfate) 8.5 Gm Hfa.aer.ad 17 Gm IH PRN Q4HRS 07/08/13 Reported Premarin (Estrogens, Conjugated) 0.625 Mg Tablet 0.625 Mg PO DAILY 07/08/13 Reported Meclizine Hcl 25 Mg Tablet 25 Mg PO PRN Q8HRS 07/08/13 Reported Daliresp (Roflumilast) 500 Mcg Tablet 500 Mcg PO DAILY 07/08/13 Reported Flonase (Fluticasone Propionate) 16 Gm [place].susp 16 Gm NS DAILY 07/08/13 Reported Advair 500-50 Diskus (Fluticasone/Salmeterol) 1 Each Disk.w.dev 1 Each IH BID 07/08/13 Reported Mucinex (Guaifenesin) 600 Mg Tablet.er 600 Mg PO PRN 07/08/13 Reported Comments cxr reviewed, Cardiomegaly. Minimal volume loss at the right lung base. Possible mild pulmonary vascular congestion echo, Left ventricle systolic function is normal. The Ejection Fraction is 50-55 %. There is normal LV segmental wall motion. The right ventricle appears mildly dilated. Doppler and Color Flow revealed mild tricuspid regurgitation. The PA pressure was estimated at 43 mmHg. The IVC is dilated and collapses <50% with inspiration suggestive of mild volume overload. Impression . IMPRESSION: 1. Acute respiratory failure, suspect secondary to multifactorial etiologies including underlying COPD exacerbation with decompensated hypercapnia and now metabolic acidosis. She also has a component of mild CHF contributing to her respiratory failure. 2. Abnormal chest x-ray with suspected mild CHF. 3. allergic rhinitis 4. Ongoing tobaccoism and suspected underlying chronic obstructive pulmonary disease. 5. Leukocytosis secondary to acute bronchitis. 6. Cough with yellow sputum production consistent with acute bronchitis. Plan . RECOMMENDATIONS: 1. o2 titration 2. add ics and singulair 3. Continue with empiric antibiotic. 4. change solumedrol to prednisone 40 mg daily 5. Bronchodilators. 6. Obtain echocardiogram to assess for left ventricular dysfunction. 7. DVT prophylaxis with Lovenox. 8. protonix lovenox for prophylaxis 9. Smoking cessation counseling provided to the patient. discussed w rn, pt. MAEGAN CISNEROS MD Oct 20, 2016 09:14
[2016-10-20] MEDS: PREDNISONE 20 MG TABLET PO SCH (09:50)
[2016-10-20 11:00] VITALS: BP 134/84
--- NOTE | 2016-10-20 13:28 | PDOC ---
PROGRESS NOTES Chief Complaint Chief Complaint 1. acute on chronic hypoxic resp failure 2. hypercapnic resp failure 3.possible right side CAP 4. sepsis with 3 5. copd 6. AMS , metabolic encephalopathy with 2 and 4 7. bipolar, no details 8. fibromyalgia 9. mild milnutrition 10. tobaccoism 11. osteopenia 12. hiatel hernia 13. h/o esophagitis plan: fu with pulm cont iv abx ptot dvt, gi ppx duoneb steroid History of Present Illness History of Present Illness off BIPAP Doing well Eating lunch Malik still in ABG pH comepnsated, PCo2 60s (better) [place] re started Vitals Vitals Vital Signs Date Time Temp Pulse Resp B/P Pulse Ox O2 Delivery O2 Flow Rate FiO2 10/20/16 12:54 Nasal Cannula 2.0 10/20/16 11:00 97.7 78 22 134/84 92 97.7 Physical Exam General: Alert, Oriented X3, Cooperative Heart: Regular rate, Normal S1, Normal S2 Lungs: Other (bl decreased bs) Abdomen: Normal bowel sounds, Soft Extremities: No clubbing, No cyanosis Skin: No rashes, No breakdown Labs LABS Laboratory Tests Test 10/19/16 17:02 10/19/16 21:00 10/20/16 08:00 10/20/16 12:13 Glucose (Fingerstick) 98mg/dL (70-99) 100mg/dL (70-99) 80mg/dL (70-99) 108mg/dL (70-99) Review of Systems Review of Systems no fever, chills, sob or chest pain Assessment and Plan Assessmemt and Plan Problems Medical Problems: (1) Acute on chronic respiratory failure Status: Acute (2) Community acquired pneumonia Status: Acute (3) COPD exacerbation Status: Acute (4) Moderate protein malnutrition Status: Acute (5) Sepsis Status: Acute Problems: Comment Review of Relevant I have reviewed the following items naz (where applicable) has been applied. Labs Laboratory Tests Test 10/18/16 23:25 10/19/16 08:22 10/19/16 11:37 10/19/16 17:02 Glucose (Fingerstick) 219mg/dL (70-99) 112mg/dL (70-99) 166mg/dL (70-99) 98mg/dL (70-99) Test 10/19/16 21:00 10/20/16 08:00 10/20/16 12:13 Glucose (Fingerstick) 100mg/dL (70-99) 80mg/dL (70-99) 108mg/dL (70-99) Laboratory Tests Test 10/19/16 17:02 10/19/16 21:00 10/20/16 08:00 10/20/16 12:13 Glucose (Fingerstick) 98mg/dL (70-99) 100mg/dL (70-99) 80mg/dL (70-99) 108mg/dL (70-99) Microbiology 10/17/16 Blood Culture - Preliminary, Resulted NO GROWTH AFTER 2 DAYS 10/18/16 Gram Stain - Final, Complete Medications Current Medications Sodium Chloride (Iv Sodium Chloride 0.9% 1000ml Bag) 1,000 ml @ 500 mls/hr Q2H IV Last administered on 10/17/16 19:00; Start 10/17/16 at 15:18; Stop at 19:07; Status DC Levofloxacin/ Dextrose (Levaquin Per Pharmacy) 1 each PRN DAILY PRN MC SEE COMMENTS; Start 10/17/16 at 16:15 Ondansetron HCl 4 mg 4 mg PRN Q8HRS PRN IV NAUSEA/VOMITING; Start 10/17/16 at 16:15; Stop 10/18/16 at 08:14; Status DC Sodium Chloride (Iv Sodium Chloride 0.9% 1000ml Bag) 1,000 ml @ 100 mls/hr Q10H IV Last administered on 10/18/16 02:57; Start 10/17/16 at 16:13; Stop at 16:12; Status DC Albuterol/ Ipratropium (Duoneb) 3 ml RTQID NEB Last administered on 10/17/16 16:57; Start 10/17/16 at 16:20; Stop 10/17/16 at 17:51; Status DC Methylprednisolone Sodium Succinate 60 mg 60 mg Q6HRS IV Last administered on 06:00; Start 10/17/16 at 18:00; Stop 10/19/16 at 09:17; Status DC Levofloxacin/ Dextrose 150 ml @ 100 mls/hr 1X ONCE IV Last administered on 17:21; Start 10/17/16 at 16:30; Stop 10/17/16 at 17:59; Status DC Levofloxacin/ Dextrose (LEVAQUIN 750mg PREMIX) 150 ml @ 100 mls/hr Q24H IV ; Start 10/18/16 at 08:00; Stop 10/18/16 at 10:29; Status DC Hydralazine HCl (Apresoline) 10 mg PRN Q4HRS PRN IVP ELEVATED BP, SEE COMMENTS ; Start 10/17/16 at 17:45 Enoxaparin Sodium (Lovenox 30mg Syringe) 30 mg Q24H SQ Last administered on 19:14; Start 10/17/16 at 18:00; Stop 10/18/16 at 08:40; Status DC Pantoprazole Sodium (Protonix Vial) 40 mg DAILYAC IVP Last administered on 10/18 10:02; Start 10/18/16 at 07:30; Stop 10/18/16 at 23:59; Status DC Albuterol/ Ipratropium (Duoneb) 3 ml RTQID NEB Last administered on 10/20/16 12:54; Start 10/17/16 at 20:00 Albuterol Sulfate (Ventolin Neb Soln) 2.5 mg PRN Q4HRS PRN NEB SHORTNESS OF BREATH; Start 10/17/16 at 17:45 Guaifenesin (Mucinex) 600 mg BID PO Last administered on 10/20/16 08:41; Start 10/17/16 at 21:00 Ondansetron HCl (Zofran) 4 mg PRN Q6HRS PRN IV NAUSEA/VOMITING; Start 10/18/16 at 08:12 Acetaminophen/ Codeine Phosphate (Tylenol #3) 1 tab TID PO Last administered on 10/20/16 08:41; Start 10/18/16 at 09:00 Alprazolam (Xanax) 0.25 mg PRN BID PRN PO ANXIETY / AGITATION; Start 10/18/16 at 08:15 Amitriptyline HCl (Elavil) 100 mg HS PO Last administered on 10/19/16 21:12; Start 10/18/16 at 21:00 Celecoxib (Celebrex) 200 mg BID PO Last administered on 10/20/16 08:37; Start 10/18/16 at 09:00 Estrogens Conjugated (Premarin) 0.625 mg DAILY PO Last administered on 08:37; Start 10/18/16 at 09:00 Fluticasone Propionate (Flonase) 1 spray DAILY NS Last administered on 08:44; Start 10/18/16 at 09:00 [place] Carbonate (Lithobid) 300 mg DAILY PO Last administered on 10/20/16 08: 36; Start 10/18/16 at 09:00 Roflumilast (Daliresp) 500 mcg DAILY PO Last administered on 10/20/16 08:35; Start 10/18/16 at 09:00 Pantoprazole Sodium (Protonix) 40 mg DAILYAC PO Last administered on 10/20/16 08:36; Start 10/19/16 at 07:30 [place] Carbonate (Lithobid) 600 mg QHS PO Last administered on 10/19/16 21:12 ; Start 10/18/16 at 21:00 Meclizine HCl (Antivert) 25 mg PRN Q8HRS PRN PO DIZZINESS; Start 10/18/16 at 08 :30 Enoxaparin Sodium 40 mg 40 mg Q24H SQ Last administered on 10/19/16 17:39; Start 10/18/16 at 18:00 Levofloxacin/ Dextrose (LEVAQUIN 750mg PREMIX) 150 ml @ 100 mls/hr Q48H IV Last administered on 10/18/16 17:30; Start 10/18/16 at 17:00 Sodium Bicarbonate 50 meq 1X ONCE IV Last administered on 10/18/16 12:52; Start 10/18/16 at 12:45; Stop 10/18/16 at 12:46; Status DC Methylprednisolone Sodium Succinate (Solu-Medrol 40mg Vial) 40 mg Q8HRS IV Last administered on 10/20/16 05:21; Start 10/19/16 at 14:00; Stop 10/20/16 at 09:15; Status DC Prednisone (Prednisone) 40 mg DAILY PO Last administered on 10/20/16 09:50; Start 10/20/16 at 10:00 Budesonide (Pulmicort) 0.5 mg RTBID NEB ; Start 10/20/16 at 20:00 Montelukast Sodium (Singulair) 10 mg QHS PO ; Start 10/20/16 at 21:00 Active Scripts Active Reported [place] Carbonate 600 Mg Capsule 600 Mg PO QHS [place] Carbonate 300 Mg Tablet.er 300 Mg PO DAILY Celebrex (Celecoxib) 200 Mg Capsule 200 Mg PO BID Alprazolam 0.25 Mg Tablet 0.25 Mg PO PRN BID Acetaminophen-Cod #3 Tablet (Acetaminophen/Codeine Phosphate) 1 Each Tablet 1 Each PO TID Amitriptyline Hcl 50 Mg Tablet 100 Mg PO HS Dexilant (Dexlansoprazole) 60 Mg Cap.dr.mp 60 Mg PO DAILY Duoneb 0.5 Mg-3 Mg/3 Ml Soln (Ipratropium/Albuterol Sulfate) 3 Ml Ampul.neb 3 Ml IH Q6HRS Proair Hfa Inhaler (Albuterol Sulfate) 8.5 Gm Hfa.aer.ad 17 Gm IH PRN Q4HRS Premarin (Estrogens, Conjugated) 0.625 Mg Tablet 0.625 Mg PO DAILY Meclizine Hcl 25 Mg Tablet 25 Mg PO PRN Q8HRS Daliresp (Roflumilast) 500 Mcg Tablet 500 Mcg PO DAILY Flonase (Fluticasone Propionate) 16 Gm [place].susp 16 Gm NS DAILY Advair 500-50 Diskus (Fluticasone/Salmeterol) 1 Each Disk.w.dev 1 Each IH BID Mucinex (Guaifenesin) 600 Mg Tablet.er 600 Mg PO PRN Vitals/I & O Vital Sign - Last 24 Hours 10/19/16 10/19/16 10/19/16 10/19/16 14:36 14:37 15:57 19:00 Temp 97.9 97.5 97.9 97.5 Pulse 79 86 Resp 18 19 B/P 117/48 130/47 Pulse Ox 94 94 94 91 O2 Delivery Nasal Cannula Nasal Cannula Nasal Cannula Nasal Cannula O2 Flow Rate 1.0 1.0 1.0 1.0 10/19/16 10/19/16 10/19/16 10/19/16 20:00 21:02 21:13 23:00 Temp 96.4 96.4 Pulse 86 Resp 20 B/P 159/63 Pulse Ox 93 93 O2 Delivery Nasal Cannula Nasal Cannula Nasal Cannula Nasal Cannula O2 Flow Rate 1.0 1.0 1.0 1.0 3/25/17 3/25/17 3/25/17 3/25/17 03:00 07:00 08:00 08:41 Temp 97.3 97.5 97.3 97.5 Pulse 71 81 Resp 17 20 28 B/P 145/69 155/82 Pulse Ox 95 92 O2 Delivery Nasal Cannula Nasal Cannula Nasal Cannula Nasal Cannula O2 Flow Rate 1.0 1.0 1.0 1.0 10/20/16 10/20/16 10/20/16 10/20/16 09:04 09:53 11:00 12:54 Temp 97.7 97.7 Pulse 78 Resp 22 B/P 134/84 Pulse Ox 92 O2 Delivery Nasal Cannula Nasal Cannula Nasal Cannula Nasal Cannula O2 Flow Rate 2.0 2.0 1.0 2.0 Intake and Output 10/19/16 10/19/16 10/20/16 15:00 23:00 07:00 Intake Total 120 ml 240 ml 200 ml Output Total 150 ml Balance 120 ml 240 ml 50 ml Nutrition Consultation Dietary Evaluation: Recommendations by RD: Increase Calorie Intake, Protein supplementation Comments: Decreased appetite x's 3 weeks (eating 1 meal/day) and recent 20 # wt loss. Add Ensure Enlive protein supplement BID (350 calories/20 g pro per serving) Encourage good PO intake Expected Outcomes/Goals: meet 75% estimated nutrition needs no further wt loss Interpretation of weight loss: >10% in 6 months Malnutrition Findings: Food and Nutrition Intake (Mod: <75% est energy req 7days Reduced Utility Sales Representative Strength: N/A Reduced Utility Sales Representative Strength (Non-Sev: N/A Malnutrition related to morbid: No Weight Status: Overweight Fluid Accumulation (N/A): N/A JACQUELINE RODRIGUEZ MD Oct 20, 2016 13:28
[2016-10-20 15:00] VITALS: BP 137/61
[2016-10-20] MEDS: DO NOT USE 40 MG/0.4 ML DISP.SYRIN SQ SCH (17:37)
[2016-10-20 19:00] VITALS: BP 138/84
[2016-10-20] MEDS: AMITRIPTYLINE HCL 50 MG TABLET PO SCH (20:23)
[2016-10-20] MEDS: MONTELUKAST SODIUM 10 MG TABLET. PO SCH (20:23)
[2016-10-20] MEDS: BUDESONIDE 0.5 MG/2 ML NEBU. NEB SCH (20:24)
[2016-10-20 23:00] VITALS: BP 138/78
[2016-10-21 03:40] VITALS: BP 135/79
[2016-10-21 05:24] LABS: BASO % 0 % (0-3); EOS % 0 % (0-3); HEMATOCRIT 39.6 % (36.0-47.0); HEMOGLOBIN 12.8 g/dL (12.0-15.5); LYMPH # 1.1 x10^3/uL (1.0-4.8); LYMPH % 11 % (24-48); MEAN CORPUSCULAR HEMOGLOBIN 27 pg (25-35); MEAN CORPUSCULAR HGB CONC 32 g/dL (31-37); MEAN CORPUSCULAR VOLUME 85 fL (79-100); MONO % 8 % (0-9); NEUT % 81 % (31-73); PLATELET COUNT 186 x10^3/uL (140-400); RED BLOOD COUNT 4.66 x10^6/uL (3.50-5.40); RED CELL DISTRIBUTION WIDTH 15.3 % (11.5-14.5); WHITE BLOOD COUNT 10.4 x10^3/uL (4.0-11.0)
[2016-10-21 05:50] LABS: CALCIUM 9.3 mg/dL (8.5-10.1); CREATININE 0.6 mg/dL (0.6-1.0); GFR 99.4
[2016-10-21] MEDS: IPRATRPIUM/ALBUTEROL 0.5/2.5MG 3 ML NEBU. NEB SCH ×4 (07:08→20:17)
[2016-10-21] MEDS: BUDESONIDE 0.5 MG/2 ML NEBU. NEB SCH ×2 (07:08→20:17)
[2016-10-21 07:30] VITALS: BP 140/98
[2016-10-21] MEDS: FLUTICASONE 50MCG/NASAL SPRAY 16GM BOTTLE. NS SCH (08:45)
[2016-10-21] MEDS: GUAIFENESIN ER 600 MG TABLET.ER PO SCH ×2 (08:46→20:48)
[2016-10-21] MEDS: PREDNISONE 20 MG TABLET PO SCH (08:46)
[2016-10-21] MEDS: CELECOXIB 200 MG CAPSULE PO SCH ×2 (08:46→20:48)
[2016-10-21] MEDS: PANTOPRAZOLE 40 MG TABLET. PO SCH (08:47)
[2016-10-21] MEDS: ROFLUMILAST 500 MCG TABLET. PO SCH (08:47)
[2016-10-21] MEDS: LITHIUM CARBONATE ER 300 MG TABLET.ER PO SCH ×2 (08:47→20:48)
[2016-10-21] MEDS: ESTROGENS, CONJUGATED 0.625 MG TABLET PO SCH (08:47)
[2016-10-21] MEDS: ACETAMINOPHEN/CODEINE 300/30MG TABLET PO SCH ×3 (08:48→20:49)
[2016-10-21 10:55] VITALS: BP 143/75
--- NOTE | 2016-10-21 12:33 | PDOC ---
PROGRESS NOTES Chief Complaint Chief Complaint 1. acute on chronic hypoxic resp failure 2. hypercapnic resp failure 3.possible right side CAP 4. sepsis with 3 5. copd 6. AMS , metabolic encephalopathy with 2 and 4 7. bipolar, no details 8. fibromyalgia 9. mild milnutrition 10. tobaccoism 11. osteopenia 12. hiatel hernia 13. h/o esophagitis plan: fu with pulm cont iv abx with levaquin ptot dvt, gi ppx duoneb steroid prednisone 40mg daily SW for rehab, hope dc in 1-2 ds History of Present Illness History of Present Illness off BIPAP cough more today Eating lunch ABG pH comepnsated, PCo2 60s (better) [place] re started Vitals Vitals Vital Signs Date Time Temp Pulse Resp B/P Pulse Ox O2 Delivery O2 Flow Rate FiO2 10/21/16 10:55 97.7 101 20 143/75 94 Nasal Cannula 2.0 97.7 Physical Exam General: Alert, Oriented X3, Cooperative Heart: Regular rate, Normal S1, Normal S2 Lungs: Wheezing, Other (bl decreased bs) Abdomen: Normal bowel sounds, Soft Extremities: No clubbing, No cyanosis Skin: No rashes, No breakdown Labs LABS Laboratory Tests Test 10/20/16 16:24 10/20/16 21:14 10/21/16 04:05 10/21/16 07:37 Glucose (Fingerstick) 127mg/dL (70-99) 80mg/dL (70-99) 64mg/dL (70-99) White Blood Count 10.4x10^3/uL (4.0-11.0) Red Blood Count 4.66x10^6/uL (3.50-5.40) Hemoglobin 12.8g/dL (12.0-15.5) Hematocrit 39.6% (36.0-47.0) Mean Corpuscular Volume 85fL (79-100) Mean Corpuscular Hemoglobin 27pg (25-35) Mean Corpuscular Hemoglobin Concent 32g/dL (31-37) Red Cell Distribution Width 15.3% (11.5-14.5) Platelet Count 186x10^3/uL (140-400) Neutrophils (%) (Auto) 81% (31-73) Lymphocytes (%) (Auto) 11% (24-48) Monocytes (%) (Auto) 8% (0-9) Eosinophils (%) (Auto) 0% (0-3) Basophils (%) (Auto) 0% (0-3) Neutrophils # (Auto) 8.4x10^3uL (1.8-7.7) Lymphocytes # (Auto) 1.1x10^3/uL (1.0-4.8) Monocytes # (Auto) 0.8x10^3/uL (0.0-1.1) Eosinophils # (Auto) 0.0x10^3/uL (0.0-0.7) Basophils # (Auto) 0.0x10^3/uL (0.0-0.2) Sodium Level 138mmol/L (136-145) Potassium Level 4.0mmol/L (3.5-5.1) Chloride Level 106mmol/L (98-107) Carbon Dioxide Level 24mmol/L (21-32) Anion Gap 8 (6-14) Blood Urea Nitrogen 28mg/dL (7-20) Creatinine 0.6mg/dL (0.6-1.0) Estimated GFR (Cockcroft-Gault) 99.4 Glucose Level 70mg/dL (70-99) Calcium Level 9.3mg/dL (8.5-10.1) Test 10/21/16 11:50 Glucose (Fingerstick) 95mg/dL (70-99) Review of Systems Review of Systems no fever, chills, chest pain Assessment and Plan Assessmemt and Plan Problems Medical Problems: (1) Acute on chronic respiratory failure Status: Acute (2) Community acquired pneumonia Status: Acute (3) COPD exacerbation Status: Acute (4) Moderate protein malnutrition Status: Acute (5) Sepsis Status: Acute Problems: Comment Review of Relevant I have reviewed the following items naz (where applicable) has been applied. Labs Laboratory Tests Test 10/19/16 17:02 10/19/16 21:00 10/20/16 08:00 10/20/16 12:13 Glucose (Fingerstick) 98mg/dL (70-99) 100mg/dL (70-99) 80mg/dL (70-99) 108mg/dL (70-99) Test 10/20/16 16:24 10/20/16 21:14 10/21/16 04:05 10/21/16 07:37 Glucose (Fingerstick) 127mg/dL (70-99) 80mg/dL (70-99) 64mg/dL (70-99) White Blood Count 10.4x10^3/uL (4.0-11.0) Red Blood Count 4.66x10^6/uL (3.50-5.40) Hemoglobin 12.8g/dL (12.0-15.5) Hematocrit 39.6% (36.0-47.0) Mean Corpuscular Volume 85fL (79-100) Mean Corpuscular Hemoglobin 27pg (25-35) Mean Corpuscular Hemoglobin Concent 32g/dL (31-37) Red Cell Distribution Width 15.3% (11.5-14.5) Platelet Count 186x10^3/uL (140-400) Neutrophils (%) (Auto) 81% (31-73) Lymphocytes (%) (Auto) 11% (24-48) Monocytes (%) (Auto) 8% (0-9) Eosinophils (%) (Auto) 0% (0-3) Basophils (%) (Auto) 0% (0-3) Neutrophils # (Auto) 8.4x10^3uL (1.8-7.7) Lymphocytes # (Auto) 1.1x10^3/uL (1.0-4.8) Monocytes # (Auto) 0.8x10^3/uL (0.0-1.1) Eosinophils # (Auto) 0.0x10^3/uL (0.0-0.7) Basophils # (Auto) 0.0x10^3/uL (0.0-0.2) Sodium Level 138mmol/L (136-145) Potassium Level 4.0mmol/L (3.5-5.1) Chloride Level 106mmol/L (98-107) Carbon Dioxide Level 24mmol/L (21-32) Anion Gap 8 (6-14) Blood Urea Nitrogen 28mg/dL (7-20) Creatinine 0.6mg/dL (0.6-1.0) Estimated GFR (Cockcroft-Gault) 99.4 Glucose Level 70mg/dL (70-99) Calcium Level 9.3mg/dL (8.5-10.1) Test 10/21/16 11:50 Glucose (Fingerstick) 95mg/dL (70-99) Laboratory Tests Test 10/20/16 16:24 10/20/16 21:14 10/21/16 04:05 10/21/16 07:37 Glucose (Fingerstick) 127mg/dL (70-99) 80mg/dL (70-99) 64mg/dL (70-99) White Blood Count 10.4x10^3/uL (4.0-11.0) Red Blood Count 4.66x10^6/uL (3.50-5.40) Hemoglobin 12.8g/dL (12.0-15.5) Hematocrit 39.6% (36.0-47.0) Mean Corpuscular Volume 85fL (79-100) Mean Corpuscular Hemoglobin 27pg (25-35) Mean Corpuscular Hemoglobin Concent 32g/dL (31-37) Red Cell Distribution Width 15.3% (11.5-14.5) Platelet Count 186x10^3/uL (140-400) Neutrophils (%) (Auto) 81% (31-73) Lymphocytes (%) (Auto) 11% (24-48) Monocytes (%) (Auto) 8% (0-9) Eosinophils (%) (Auto) 0% (0-3) Basophils (%) (Auto) 0% (0-3) Neutrophils # (Auto) 8.4x10^3uL (1.8-7.7) Lymphocytes # (Auto) 1.1x10^3/uL (1.0-4.8) Monocytes # (Auto) 0.8x10^3/uL (0.0-1.1) Eosinophils # (Auto) 0.0x10^3/uL (0.0-0.7) Basophils # (Auto) 0.0x10^3/uL (0.0-0.2) Sodium Level 138mmol/L (136-145) Potassium Level 4.0mmol/L (3.5-5.1) Chloride Level 106mmol/L (98-107) Carbon Dioxide Level 24mmol/L (21-32) Anion Gap 8 (6-14) Blood Urea Nitrogen 28mg/dL (7-20) Creatinine 0.6mg/dL (0.6-1.0) Estimated GFR (Cockcroft-Gault) 99.4 Glucose Level 70mg/dL (70-99) Calcium Level 9.3mg/dL (8.5-10.1) Test 10/21/16 11:50 Glucose (Fingerstick) 95mg/dL (70-99) Microbiology 10/17/16 Blood Culture - Preliminary, Resulted NO GROWTH AFTER 3 DAYS 10/18/16 Gram Stain - Final, Complete Medications Current Medications Sodium Chloride (Iv Sodium Chloride 0.9% 1000ml Bag) 1,000 ml @ 500 mls/hr Q2H IV Last administered on 10/17/16 19:00; Start 10/17/16 at 15:18; Stop at 19:07; Status DC Levofloxacin/ Dextrose (Levaquin Per Pharmacy) 1 each PRN DAILY PRN MC SEE COMMENTS; Start 10/17/16 at 16:15 Ondansetron HCl 4 mg 4 mg PRN Q8HRS PRN IV NAUSEA/VOMITING; Start 10/17/16 at 16:15; Stop 10/18/16 at 08:14; Status DC Sodium Chloride (Iv Sodium Chloride 0.9% 1000ml Bag) 1,000 ml @ 100 mls/hr Q10H IV Last administered on 10/18/16 02:57; Start 10/17/16 at 16:13; Stop at 16:12; Status DC Albuterol/ Ipratropium (Duoneb) 3 ml RTQID NEB Last administered on 10/17/16 16:57; Start 10/17/16 at 16:20; Stop 10/17/16 at 17:51; Status DC Methylprednisolone Sodium Succinate 60 mg 60 mg Q6HRS IV Last administered on 06:00; Start 10/17/16 at 18:00; Stop 10/19/16 at 09:17; Status DC Levofloxacin/ Dextrose 150 ml @ 100 mls/hr 1X ONCE IV Last administered on 17:21; Start 10/17/16 at 16:30; Stop 10/17/16 at 17:59; Status DC Levofloxacin/ Dextrose (LEVAQUIN 750mg PREMIX) 150 ml @ 100 mls/hr Q24H IV ; Start 10/18/16 at 08:00; Stop 10/18/16 at 10:29; Status DC Hydralazine HCl (Apresoline) 10 mg PRN Q4HRS PRN IVP ELEVATED BP, SEE COMMENTS ; Start 10/17/16 at 17:45 Enoxaparin Sodium (Lovenox 30mg Syringe) 30 mg Q24H SQ Last administered on 19:14; Start 10/17/16 at 18:00; Stop 10/18/16 at 08:40; Status DC Pantoprazole Sodium (Protonix Vial) 40 mg DAILYAC IVP Last administered on 10/18 10:02; Start 10/18/16 at 07:30; Stop 10/18/16 at 23:59; Status DC Albuterol/ Ipratropium (Duoneb) 3 ml RTQID NEB Last administered on 10/21/16 10:40; Start 10/17/16 at 20:00 Albuterol Sulfate (Ventolin Neb Soln) 2.5 mg PRN Q4HRS PRN NEB SHORTNESS OF BREATH; Start 10/17/16 at 17:45 Guaifenesin (Mucinex) 600 mg BID PO Last administered on 10/21/16 08:46; Start 10/17/16 at 21:00 Ondansetron HCl (Zofran) 4 mg PRN Q6HRS PRN IV NAUSEA/VOMITING; Start 10/18/16 at 08:12 Acetaminophen/ Codeine Phosphate (Tylenol #3) 1 tab TID PO Last administered on 10/21/16 08:48; Start 10/18/16 at 09:00 Alprazolam (Xanax) 0.25 mg PRN BID PRN PO ANXIETY / AGITATION; Start 10/18/16 at 08:15 Amitriptyline HCl (Elavil) 100 mg HS PO Last administered on 10/20/16 20:23; Start 10/18/16 at 21:00 Celecoxib (Celebrex) 200 mg BID PO Last administered on 10/21/16 08:46; Start 10/18/16 at 09:00 Estrogens Conjugated (Premarin) 0.625 mg DAILY PO Last administered on 08:47; Start 10/18/16 at 09:00 Fluticasone Propionate (Flonase) 1 spray DAILY NS Last administered on 08:45; Start 10/18/16 at 09:00 [place] Carbonate (Lithobid) 300 mg DAILY PO Last administered on 10/21/16 08: 47; Start 10/18/16 at 09:00 Roflumilast (Daliresp) 500 mcg DAILY PO Last administered on 10/21/16 08:47; Start 10/18/16 at 09:00 Pantoprazole Sodium (Protonix) 40 mg DAILYAC PO Last administered on 10/21/16 08:47; Start 10/19/16 at 07:30 [place] Carbonate (Lithobid) 600 mg QHS PO Last administered on 10/20/16 20:23 ; Start 10/18/16 at 21:00 Meclizine HCl (Antivert) 25 mg PRN Q8HRS PRN PO DIZZINESS; Start 10/18/16 at 08 :30 Enoxaparin Sodium 40 mg 40 mg Q24H SQ Last administered on 10/20/16 17:37; Start 10/18/16 at 18:00 Levofloxacin/ Dextrose (LEVAQUIN 750mg PREMIX) 150 ml @ 100 mls/hr Q48H IV Last administered on 10/20/16 16:43; Start 10/18/16 at 17:00 Sodium Bicarbonate 50 meq 1X ONCE IV Last administered on 10/18/16 12:52; Start 10/18/16 at 12:45; Stop 10/18/16 at 12:46; Status DC Methylprednisolone Sodium Succinate (Solu-Medrol 40mg Vial) 40 mg Q8HRS IV Last administered on 10/20/16 05:21; Start 10/19/16 at 14:00; Stop 10/20/16 at 09:15; Status DC Prednisone (Prednisone) 40 mg DAILY PO Last administered on 10/21/16 08:46; Start 10/20/16 at 10:00 Budesonide (Pulmicort) 0.5 mg RTBID NEB Last administered on 10/21/16 07:08; Start 10/20/16 at 20:00 Montelukast Sodium (Singulair) 10 mg QHS PO Last administered on 10/20/16 20: 23; Start 10/20/16 at 21:00 Active Scripts Active Reported [place] Carbonate 600 Mg Capsule 600 Mg PO QHS [place] Carbonate 300 Mg Tablet.er 300 Mg PO DAILY Celebrex (Celecoxib) 200 Mg Capsule 200 Mg PO BID Alprazolam 0.25 Mg Tablet 0.25 Mg PO PRN BID Acetaminophen-Cod #3 Tablet (Acetaminophen/Codeine Phosphate) 1 Each Tablet 1 Each PO TID Amitriptyline Hcl 50 Mg Tablet 100 Mg PO HS Dexilant (Dexlansoprazole) 60 Mg Cap.mp 60 Mg PO DAILY Duoneb 0.5 Mg-3 Mg/3 Ml Soln (Ipratropium/Albuterol Sulfate) 3 Ml Ampul.neb 3 Ml IH Q6HRS Proair Hfa Inhaler (Albuterol Sulfate) 8.5 Gm Hfa.aer.ad 17 Gm IH PRN Q4HRS Premarin (Estrogens, Conjugated) 0.625 Mg Tablet 0.625 Mg PO DAILY Meclizine Hcl 25 Mg Tablet 25 Mg PO PRN Q8HRS Daliresp (Roflumilast) 500 Mcg Tablet 500 Mcg PO DAILY Flonase (Fluticasone Propionate) 16 Gm [place].susp 16 Gm NS DAILY Advair 500-50 Diskus (Fluticasone/Salmeterol) 1 Each Disk.w.dev 1 Each IH BID Mucinex (Guaifenesin) 600 Mg Tablet.er 600 Mg PO PRN Vitals/I & O Vital Sign - Last 24 Hours 10/20/16 10/20/16 10/20/16 10/20/16 12:54 14:49 15:00 17:05 Temp 97.4 97.4 Pulse 96 Resp 20 B/P 137/61 Pulse Ox 93 O2 Delivery Nasal Cannula Nasal Cannula Nasal Cannula Nasal Cannula O2 Flow Rate 2.0 3.0 1.0 2.0 10/20/16 10/20/16 10/20/16 10/20/16 19:00 20:00 20:23 20:24 Temp 97.3 97.3 Pulse 80 Resp 20 B/P 138/84 Pulse Ox 97 O2 Delivery Nasal Cannula Nasal Cannula Nasal Cannula O2 Flow Rate 2.0 2.0 2.0 10/20/16 10/21/16 10/21/16 10/21/16 23:00 03:40 07:10 07:30 Temp 97.6 98.5 97.7 97.6 98.5 97.7 Pulse 80 81 86 Resp 18 16 22 B/P 138/78 135/79 140/98 Pulse Ox 96 96 95 94 O2 Delivery Nasal Cannula Nasal Cannula Nasal Cannula O2 Flow Rate 2.0 2.0 2.0 10/21/16 10/21/16 10/21/16 10/21/16 08:00 08:48 09:57 10:41 O2 Delivery Nasal Cannula Nasal Cannula Nasal Cannula Nasal Cannula O2 Flow Rate 2.0 2.0 2.0 2.0 10/21/16 10:55 Temp 97.7 97.7 Pulse 101 Resp 20 B/P 143/75 Pulse Ox 94 O2 Delivery Nasal Cannula O2 Flow Rate 2.0 Intake and Output 10/20/16 10/20/16 10/21/16 15:00 23:00 07:00 Intake Total 750 ml Balance 750 ml Nutrition Consultation Dietary Evaluation: Recommendations by RD: Increase Calorie Intake, Protein supplementation Comments: Decreased appetite x's 3 weeks (eating 1 meal/day) and recent 20 # wt loss. Add Ensure Enlive protein supplement BID (350 calories/20 g pro per serving) Encourage good PO intake Expected Outcomes/Goals: meet 75% estimated nutrition needs no further wt loss Interpretation of weight loss: >10% in 6 months Malnutrition Findings: Food and Nutrition Intake (Mod: <75% est energy req 7days Reduced Child Study Team Director Strength: N/A Reduced Child Study Team Director Strength (Non-Sev: N/A Malnutrition related to morbid: No Weight Status: Overweight Fluid Accumulation (N/A): N/A JACQUELINE RODRIGUEZ MD Oct 21, 2016 12:33
--- NOTE | 2016-10-21 12:45 | PDOC ---
PULMONARY PROGRESS NOTES Subjective on , has sob better, cough, no sputum, has nasal congestion, no pain Vitals Vital Signs Date Time Temp Pulse Resp B/P Pulse Ox O2 Delivery O2 Flow Rate FiO2 10/21/16 10:55 97.7 101 20 143/75 94 Nasal Cannula 2.0 97.7 Comments ros as mentioned as above other sys otherwise neg ROS: No Nausea, No Chest Pain, No Abdominal Pain, No Increase Cough General: Alert HEENT: Other (nc at perrl, nose, throat clear, nech, no lap, no thyromegaly) Lungs: Crackles, Other (bl decreased bs) Cardiovascular: S1, S2 Abdomen: Soft, Non-tender, Other (no mass) Neuro Exam: Alert, Oriented Extremities: No Edema Skin: Warm Labs Laboratory Tests Test 10/19/16 17:02 10/19/16 21:00 10/20/16 08:00 10/20/16 12:13 Glucose (Fingerstick) 98mg/dL (70-99) 100mg/dL (70-99) 80mg/dL (70-99) 108mg/dL (70-99) Test 10/20/16 16:24 10/20/16 21:14 10/21/16 04:05 10/21/16 07:37 Glucose (Fingerstick) 127mg/dL (70-99) 80mg/dL (70-99) 64mg/dL (70-99) White Blood Count 10.4x10^3/uL (4.0-11.0) Red Blood Count 4.66x10^6/uL (3.50-5.40) Hemoglobin 12.8g/dL (12.0-15.5) Hematocrit 39.6% (36.0-47.0) Mean Corpuscular Volume 85fL (79-100) Mean Corpuscular Hemoglobin 27pg (25-35) Mean Corpuscular Hemoglobin Concent 32g/dL (31-37) Red Cell Distribution Width 15.3% (11.5-14.5) Platelet Count 186x10^3/uL (140-400) Neutrophils (%) (Auto) 81% (31-73) Lymphocytes (%) (Auto) 11% (24-48) Monocytes (%) (Auto) 8% (0-9) Eosinophils (%) (Auto) 0% (0-3) Basophils (%) (Auto) 0% (0-3) Neutrophils # (Auto) 8.4x10^3uL (1.8-7.7) Lymphocytes # (Auto) 1.1x10^3/uL (1.0-4.8) Monocytes # (Auto) 0.8x10^3/uL (0.0-1.1) Eosinophils # (Auto) 0.0x10^3/uL (0.0-0.7) Basophils # (Auto) 0.0x10^3/uL (0.0-0.2) Sodium Level 138mmol/L (136-145) Potassium Level 4.0mmol/L (3.5-5.1) Chloride Level 106mmol/L (98-107) Carbon Dioxide Level 24mmol/L (21-32) Anion Gap 8 (6-14) Blood Urea Nitrogen 28mg/dL (7-20) Creatinine 0.6mg/dL (0.6-1.0) Estimated GFR (Cockcroft-Gault) 99.4 Glucose Level 70mg/dL (70-99) Calcium Level 9.3mg/dL (8.5-10.1) Test 10/21/16 11:50 Glucose (Fingerstick) 95mg/dL (70-99) Laboratory Tests Test 10/20/16 16:24 10/20/16 21:14 10/21/16 04:05 10/21/16 07:37 Glucose (Fingerstick) 127mg/dL (70-99) 80mg/dL (70-99) 64mg/dL (70-99) White Blood Count 10.4x10^3/uL (4.0-11.0) Red Blood Count 4.66x10^6/uL (3.50-5.40) Hemoglobin 12.8g/dL (12.0-15.5) Hematocrit 39.6% (36.0-47.0) Mean Corpuscular Volume 85fL (79-100) Mean Corpuscular Hemoglobin 27pg (25-35) Mean Corpuscular Hemoglobin Concent 32g/dL (31-37) Red Cell Distribution Width 15.3% (11.5-14.5) Platelet Count 186x10^3/uL (140-400) Neutrophils (%) (Auto) 81% (31-73) Lymphocytes (%) (Auto) 11% (24-48) Monocytes (%) (Auto) 8% (0-9) Eosinophils (%) (Auto) 0% (0-3) Basophils (%) (Auto) 0% (0-3) Neutrophils # (Auto) 8.4x10^3uL (1.8-7.7) Lymphocytes # (Auto) 1.1x10^3/uL (1.0-4.8) Monocytes # (Auto) 0.8x10^3/uL (0.0-1.1) Eosinophils # (Auto) 0.0x10^3/uL (0.0-0.7) Basophils # (Auto) 0.0x10^3/uL (0.0-0.2) Sodium Level 138mmol/L (136-145) Potassium Level 4.0mmol/L (3.5-5.1) Chloride Level 106mmol/L (98-107) Carbon Dioxide Level 24mmol/L (21-32) Anion Gap 8 (6-14) Blood Urea Nitrogen 28mg/dL (7-20) Creatinine 0.6mg/dL (0.6-1.0) Estimated GFR (Cockcroft-Gault) 99.4 Glucose Level 70mg/dL (70-99) Calcium Level 9.3mg/dL (8.5-10.1) Test 10/21/16 11:50 Glucose (Fingerstick) 95mg/dL (70-99) Medications Active Scripts Medications Dose Route/Sig Days Date Category [place] Carbonate 600 Mg Capsule 600 Mg PO QHS 07/09/13 Reported [place] Carbonate 300 Mg Tablet.er 300 Mg PO DAILY 07/08/13 Reported Celebrex (Celecoxib) 200 Mg Capsule 200 Mg PO BID 07/08/13 Reported Alprazolam 0.25 Mg Tablet 0.25 Mg PO PRN BID 07/08/13 Reported Acetaminophen-Cod #3 Tablet (Acetaminophen/Codeine Phosphate) 1 Each Tablet 1 Each PO TID 07/08/13 Reported Amitriptyline Hcl 50 Mg Tablet 100 Mg PO HS 07/08/13 Reported Dexilant (Dexlansoprazole) 60 Mg 60 Mg PO DAILY 07/08/13 Reported Duoneb 0.5 Mg-3 Mg/3 Ml Soln (Ipratropium/Albuterol Sulfate) 3 Ml Ampul.neb 3 Ml IH Q6HRS 07/08/13 Reported Proair Hfa Inhaler (Albuterol Sulfate) 8.5 Gm Hfa.aer.ad 17 Gm IH PRN Q4HRS 07/08/13 Reported Premarin (Estrogens, Conjugated) 0.625 Mg Tablet 0.625 Mg PO DAILY 07/08/13 Reported Meclizine Hcl 25 Mg Tablet 25 Mg PO PRN Q8HRS 07/08/13 Reported Daliresp (Roflumilast) 500 Mcg Tablet 500 Mcg PO DAILY 07/08/13 Reported Flonase (Fluticasone Propionate) 16 Gm [place].susp 16 Gm NS DAILY 07/08/13 Reported Advair 500-50 Diskus (Fluticasone/Salmeterol) 1 Each Disk.w.dev 1 Each IH BID 07/08/13 Reported Mucinex (Guaifenesin) 600 Mg Tablet.er 600 Mg PO PRN 07/08/13 Reported Comments cxr reviewed, Cardiomegaly. Minimal volume loss at the right lung base. Possible mild pulmonary vascular congestion echo, Left ventricle systolic function is normal. The Ejection Fraction is 50-55 %. There is normal LV segmental wall motion. The right ventricle appears mildly dilated. Doppler and Color Flow revealed mild tricuspid regurgitation. The PA pressure was estimated at 43 mmHg. The IVC is dilated and collapses <50% with inspiration suggestive of mild volume overload. Impression . IMPRESSION: 1. Acute respiratory failure, suspect secondary to multifactorial etiologies including underlying COPD exacerbation with decompensated hypercapnia and now metabolic acidosis. She also has a component of mild CHF contributing to her respiratory failure. 2. Abnormal chest x-ray with suspected mild CHF. 3. allergic rhinitis 4. Ongoing tobaccoism and suspected underlying chronic obstructive pulmonary disease. 5. Leukocytosis secondary to acute bronchitis. 6. Cough with yellow sputum production consistent with acute bronchitis. Plan . RECOMMENDATIONS: 1. o2 titration 2. ics and singulair 3. Continue with empiric antibiotic. 4. prednisone 40 mg daily 5. Bronchodilators. 6. Obtain echocardiogram to assess for left ventricular dysfunction. 7. DVT prophylaxis with Lovenox. 8. protonix lovenox for prophylaxis 9. Smoking cessation counseling provided to the patient. discussed w rn, pt. MAEGAN CISNEROS MD Oct 21, 2016 12:45
[2016-10-21 15:36] VITALS: BP 143/75
[2016-10-21] MEDS: DO NOT USE 40 MG/0.4 ML DISP.SYRIN SQ SCH (17:58)
[2016-10-21 19:20] VITALS: BP 149/84
[2016-10-21] MEDS: MONTELUKAST SODIUM 10 MG TABLET. PO SCH (20:48)
[2016-10-21] MEDS: AMITRIPTYLINE HCL 50 MG TABLET PO SCH (20:48)
[2016-10-21 23:30] VITALS: BP 128/69
[2016-10-22 02:42] VITALS: BP 125/70
[2016-10-22] MEDS: PANTOPRAZOLE 40 MG TABLET. PO SCH (06:15)
[2016-10-22] MEDS: BUDESONIDE 0.5 MG/2 ML NEBU. NEB SCH ×2 (07:28→19:37)
[2016-10-22] MEDS: IPRATRPIUM/ALBUTEROL 0.5/2.5MG 3 ML NEBU. NEB SCH ×4 (07:28→19:37)
[2016-10-22 07:42] VITALS: BP 148/70
[2016-10-22] MEDS: ESTROGENS, CONJUGATED 0.625 MG TABLET PO SCH (09:00)
[2016-10-22] MEDS: LITHIUM CARBONATE ER 300 MG TABLET.ER PO SCH ×2 (09:39→20:22)
[2016-10-22] MEDS: CELECOXIB 200 MG CAPSULE PO SCH ×2 (09:39→20:23)
[2016-10-22] MEDS: FLUTICASONE 50MCG/NASAL SPRAY 16GM BOTTLE. NS SCH (09:39)
[2016-10-22] MEDS: ROFLUMILAST 500 MCG TABLET. PO SCH (09:40)
[2016-10-22] MEDS: ACETAMINOPHEN/CODEINE 300/30MG TABLET PO SCH ×3 (09:40→20:23)
[2016-10-22] MEDS: PREDNISONE 20 MG TABLET PO SCH (09:40)
[2016-10-22] MEDS: GUAIFENESIN ER 600 MG TABLET.ER PO SCH ×2 (09:40→20:22)
[2016-10-22 11:08] VITALS: BP 125/70
--- NOTE | 2016-10-22 11:19 | PDOC ---
PULMONARY PROGRESS NOTES Subjective on 02, has sob better, cough, no sputum, has nasal congestion, no pain Vitals Vital Signs Date Time Temp Pulse Resp B/P Pulse Ox O2 Delivery O2 Flow Rate FiO2 10/22/16 11:08 97.1 90 20 125/70 91 Nasal Cannula 2.0 97.1 Comments ros as mentioned as above other sys otherwise neg ROS: No Nausea, No Chest Pain, No Abdominal Pain, No Increase Cough General: Alert HEENT: Other (nc at perrl, nose, throat clear, nech, no lap, no thyromegaly) Lungs: Crackles, Other (bl decreased bs) Cardiovascular: S1, S2 Abdomen: Soft, Non-tender, Other (no mass) Neuro Exam: Alert, Oriented Extremities: No Edema Skin: Warm Labs Laboratory Tests Test 10/20/16 12:13 10/20/16 16:24 10/20/16 21:14 10/21/16 04:05 Glucose (Fingerstick) 108mg/dL (70-99) 127mg/dL (70-99) 80mg/dL (70-99) White Blood Count 10.4x10^3/uL (4.0-11.0) Red Blood Count 4.66x10^6/uL (3.50-5.40) Hemoglobin 12.8g/dL (12.0-15.5) Hematocrit 39.6% (36.0-47.0) Mean Corpuscular Volume 85fL (79-100) Mean Corpuscular Hemoglobin 27pg (25-35) Mean Corpuscular Hemoglobin Concent 32g/dL (31-37) Red Cell Distribution Width 15.3% (11.5-14.5) Platelet Count 186x10^3/uL (140-400) Neutrophils (%) (Auto) 81% (31-73) Lymphocytes (%) (Auto) 11% (24-48) Monocytes (%) (Auto) 8% (0-9) Eosinophils (%) (Auto) 0% (0-3) Basophils (%) (Auto) 0% (0-3) Neutrophils # (Auto) 8.4x10^3uL (1.8-7.7) Lymphocytes # (Auto) 1.1x10^3/uL (1.0-4.8) Monocytes # (Auto) 0.8x10^3/uL (0.0-1.1) Eosinophils # (Auto) 0.0x10^3/uL (0.0-0.7) Basophils # (Auto) 0.0x10^3/uL (0.0-0.2) Sodium Level 138mmol/L (136-145) Potassium Level 4.0mmol/L (3.5-5.1) Chloride Level 106mmol/L (98-107) Carbon Dioxide Level 24mmol/L (21-32) Anion Gap 8 (6-14) Blood Urea Nitrogen 28mg/dL (7-20) Creatinine 0.6mg/dL (0.6-1.0) Estimated GFR (Cockcroft-Gault) 99.4 Glucose Level 70mg/dL (70-99) Calcium Level 9.3mg/dL (8.5-10.1) Test 10/21/16 07:37 10/21/16 11:50 10/21/16 17:11 10/21/16 20:51 Glucose (Fingerstick) 64mg/dL (70-99) 95mg/dL (70-99) 104mg/dL (70-99) 119mg/dL (70-99) Test 10/22/16 07:39 Glucose (Fingerstick) 68mg/dL (70-99) Laboratory Tests Test 10/21/16 11:50 10/21/16 17:11 10/21/16 20:51 10/22/16 07:39 Glucose (Fingerstick) 95mg/dL (70-99) 104mg/dL (70-99) 119mg/dL (70-99) 68mg/dL (70-99) Medications Active Scripts Medications Dose Route/Sig Days Date Category [place] Carbonate 600 Mg Capsule 600 Mg PO QHS 07/09/13 Reported [place] Carbonate 300 Mg Tablet.er 300 Mg PO DAILY 07/08/13 Reported Celebrex (Celecoxib) 200 Mg Capsule 200 Mg PO BID 07/08/13 Reported Alprazolam 0.25 Mg Tablet 0.25 Mg PO PRN BID 07/08/13 Reported Acetaminophen-Cod #3 Tablet (Acetaminophen/Codeine Phosphate) 1 Each Tablet 1 Each PO TID 07/08/13 Reported Amitriptyline Hcl 50 Mg Tablet 100 Mg PO HS 07/08/13 Reported Dexilant (Dexlansoprazole) 60 Mg Cap.mp 60 Mg PO DAILY 07/08/13 Reported Duoneb 0.5 Mg-3 Mg/3 Ml Soln (Ipratropium/Albuterol Sulfate) 3 Ml Ampul.neb 3 Ml IH Q6HRS 07/08/13 Reported Proair Hfa Inhaler (Albuterol Sulfate) 8.5 Gm Hfa.aer.ad 17 Gm IH PRN Q4HRS 07/08/13 Reported Premarin (Estrogens, Conjugated) 0.625 Mg Tablet 0.625 Mg PO DAILY 07/08/13 Reported Meclizine Hcl 25 Mg Tablet 25 Mg PO PRN Q8HRS 07/08/13 Reported Daliresp (Roflumilast) 500 Mcg Tablet 500 Mcg PO DAILY 07/08/13 Reported Flonase (Fluticasone Propionate) 16 Gm [place].susp 16 Gm NS DAILY 07/08/13 Reported Advair 500-50 Diskus (Fluticasone/Salmeterol) 1 Each Disk.w.dev 1 Each IH BID 07/08/13 Reported Mucinex (Guaifenesin) 600 Mg Tablet.er 600 Mg PO PRN 07/08/13 Reported Comments cxr reviewed, Cardiomegaly. Minimal volume loss at the right lung base. Possible mild pulmonary vascular congestion echo, Left ventricle systolic function is normal. The Ejection Fraction is 50-55 %. There is normal LV segmental wall motion. The right ventricle appears mildly dilated. Doppler and Color Flow revealed mild tricuspid regurgitation. The PA pressure was estimated at 43 mmHg. The IVC is dilated and collapses <50% with inspiration suggestive of mild volume overload. Impression . 1. Acute respiratory failure, suspect secondary to multifactorial etiologies including underlying COPD exacerbation with decompensated hypercapnia and metabolic acidosis. She also has a component of mild CHF contributing to her respiratory failure. 2. Abnormal chest x-ray with suspected mild CHF. 3. allergic rhinitis 4. Ongoing tobaccoism and suspected underlying chronic obstructive pulmonary disease. 5. Leukocytosis secondary to acute bronchitis. 6. Cough with yellow sputum production consistent with acute bronchitis. Plan . 1. o2 titration 2. ics and singulair 3. Continue with empiric antibiotic. 4. prednisone taper 5. Bronchodilators. 6. echocardiogram with normal left ventricular dysfunction. 7. DVT prophylaxis with Lovenox. 8. protonix lovenox for prophylaxis 9. Smoking cessation counseling provided to the patient. BRIDGETTE TORRES MD Oct 22, 2016 11:19
--- NOTE | 2016-10-22 12:02 | PDOC ---
PROGRESS NOTES Chief Complaint Chief Complaint Acute hypoxic, hypercapnic respir failure ASSESSMENT AND PLAN: 1. COPD exacerbation/ acute bronchitis: steroids, nebs, suppl O2 2. CHF exacerbation: mild, but noted on CXR. gentle lasix 3. Allergic rhinitis: flonase 4. Tobaccoism: encouraged cessation 5. Hx esophagitis, hiatal hernia: PPI 6. Metabolic encephalopathy: resolved (hypercarbic) 7. Bipolar d/o: Li restarted 8. Fibromyalgia: cont home meds 9. osteopenia: Ca/vit D 10. Protein malnutrition: mild 11. Menopausal sx: remains on 0625 premarin at age 66 (?). wean off 12. Prophylaxis: lovenox History of Present Illness History of Present Illness Vitals Vitals Vital Signs Date Time Temp Pulse Resp B/P Pulse Ox O2 Delivery O2 Flow Rate FiO2 10/22/16 11:31 Nasal Cannula 2.0 10/22/16 11:24 93 10/22/16 11:08 97.1 90 20 125/70 97.1 Physical Exam General: Alert, Oriented X3, Cooperative Heart: Regular rate Lungs: Clear, Other (bl decreased bs) Abdomen: Normal bowel sounds, Soft Extremities: No clubbing, No cyanosis Skin: No rashes Labs LABS Laboratory Tests Test 10/21/16 17:11 10/21/16 20:51 10/22/16 07:39 10/22/16 11:31 Glucose (Fingerstick) 104mg/dL (70-99) 119mg/dL (70-99) 68mg/dL (70-99) 82mg/dL (70-99) Review of Systems Review of Systems feels her breathing is at baseline (looks SOB). no other c/o Nutrition Consultation Dietary Evaluation: Recommendations by RD: Increase Calorie Intake, Protein supplementation Comments: Decreased appetite x's 3 weeks (eating 1 meal/day) and recent 20 # wt loss. Add Ensure Enlive protein supplement BID (350 calories/20 g pro per serving) Encourage good PO intake Expected Outcomes/Goals: meet 75% estimated nutrition needs no further wt loss Interpretation of weight loss: >10% in 6 months Malnutrition Findings: Food and Nutrition Intake (Mod: <75% est energy req 7days Reduced Plant Maintenance Technician Strength: N/A Reduced Plant Maintenance Technician Strength (Non-Sev: N/A Malnutrition related to morbid: No Weight Status: Overweight Fluid Accumulation (N/A): N/A ROSE TEAGUE MD Oct 22, 2016 12:02
[2016-10-22 15:26] VITALS: BP 143/84
[2016-10-22] MEDS: DO NOT USE 40 MG/0.4 ML DISP.SYRIN SQ SCH (17:37)
[2016-10-22] MEDS: LEVOFLOXACIN 500 MG TABLET PO SCH (17:37)
[2016-10-22 19:10] VITALS: BP 124/67
[2016-10-22] MEDS ORDERED: ACETAMINOPHEN/CODEINE 300/30MG TABLET. ONE (19:58)
[2016-10-22] MEDS ORDERED: AMITRIPTYLINE HCL 50 MG TABLET ONE (19:59)
[2016-10-22] MEDS: MONTELUKAST SODIUM 10 MG TABLET. PO SCH (20:21)
[2016-10-22] MEDS: AMITRIPTYLINE HCL 50 MG TABLET PO SCH (20:22)
[2016-10-22 23:20] VITALS: BP 129/68
[2016-10-23 03:20] VITALS: BP 138/78
[2016-10-23] MEDS: LEVOFLOXACIN 500 MG TABLET PO SCH (05:10)
[2016-10-23] MEDS: IPRATRPIUM/ALBUTEROL 0.5/2.5MG 3 ML NEBU. NEB SCH ×4 (07:33→20:34)
[2016-10-23] MEDS: BUDESONIDE 0.5 MG/2 ML NEBU. NEB SCH ×2 (07:33→20:34)
[2016-10-23 07:45] VITALS: BP 143/99
[2016-10-23] MEDS ORDERED: ACETAMINOPHEN/CODEINE 300/30MG TABLET. ONE (08:15)
--- NOTE | 2016-10-23 09:02 | PDOC ---
PULMONARY PROGRESS NOTES Subjective not more soa Vitals Vital Signs Date Time Temp Pulse Resp B/P Pulse Ox O2 Delivery O2 Flow Rate FiO2 10/23/16 07:45 97.7 108 20 143/99 93 Nasal Cannula 2.0 97.7 Comments ros as mentioned as above other sys otherwise neg ROS: No Nausea, No Chest Pain, No Abdominal Pain, No Increase Cough General: Alert HEENT: Other (nc at perrl, nose, throat clear, nech, no lap, no thyromegaly) Lungs: Clear, Other (bl decreased bs) Cardiovascular: S1, S2 Abdomen: Soft, Non-tender, Other (no mass) Neuro Exam: Alert, Oriented Extremities: No Edema Skin: Warm Labs Laboratory Tests Test 10/21/16 11:50 10/21/16 17:11 10/21/16 20:51 10/22/16 07:39 Glucose (Fingerstick) 95mg/dL (70-99) 104mg/dL (70-99) 119mg/dL (70-99) 68mg/dL (70-99) Test 10/22/16 11:31 10/22/16 16:44 10/22/16 20:52 10/23/16 07:55 Glucose (Fingerstick) 82mg/dL (70-99) 114mg/dL (70-99) 106mg/dL (70-99) 85mg/dL (70-99) Laboratory Tests Test 10/22/16 11:31 10/22/16 16:44 10/22/16 20:52 10/23/16 07:55 Glucose (Fingerstick) 82mg/dL (70-99) 114mg/dL (70-99) 106mg/dL (70-99) 85mg/dL (70-99) Medications Active Scripts Medications Dose Route/Sig Days Date Category [place] Carbonate 600 Mg Capsule 600 Mg PO QHS 07/09/13 Reported [place] Carbonate 300 Mg Tablet.er 300 Mg PO DAILY 07/08/13 Reported Celebrex (Celecoxib) 200 Mg Capsule 200 Mg PO BID 07/08/13 Reported Alprazolam 0.25 Mg Tablet 0.25 Mg PO PRN BID 07/08/13 Reported Acetaminophen-Cod #3 Tablet (Acetaminophen/Codeine Phosphate) 1 Each Tablet 1 Each PO TID 07/08/13 Reported Amitriptyline Hcl 50 Mg Tablet 100 Mg PO HS 07/08/13 Reported Dexilant (Dexlansoprazole) 60 Mg mp 60 Mg PO DAILY 07/08/13 Reported Duoneb 0.5 Mg-3 Mg/3 Ml Soln (Ipratropium/Albuterol Sulfate) 3 Ml Ampul.neb 3 Ml IH Q6HRS 07/08/13 Reported Proair Hfa Inhaler (Albuterol Sulfate) 8.5 Gm Hfa.aer.ad 17 Gm IH PRN Q4HRS 07/08/13 Reported Premarin (Estrogens, Conjugated) 0.625 Mg Tablet 0.625 Mg PO DAILY 07/08/13 Reported Meclizine Hcl 25 Mg Tablet 25 Mg PO PRN Q8HRS 07/08/13 Reported Daliresp (Roflumilast) 500 Mcg Tablet 500 Mcg PO DAILY 07/08/13 Reported Flonase (Fluticasone Propionate) 16 Gm [place].susp 16 Gm NS DAILY 07/08/13 Reported Advair 500-50 Diskus (Fluticasone/Salmeterol) 1 Each Disk.w.dev 1 Each IH BID 07/08/13 Reported Mucinex (Guaifenesin) 600 Mg Tablet.er 600 Mg PO PRN 07/08/13 Reported Comments cxr reviewed, Cardiomegaly. Minimal volume loss at the right lung base. Possible mild pulmonary vascular congestion echo, Left ventricle systolic function is normal. The Ejection Fraction is 50-55 %. There is normal LV segmental wall motion. The right ventricle appears mildly dilated. Doppler and Color Flow revealed mild tricuspid regurgitation. The PA pressure was estimated at 43 mmHg. The IVC is dilated and collapses <50% with inspiration suggestive of mild volume overload. Impression . 1. Acute respiratory failure/ AECOPD 2. Abnormal chest x-ray with suspected mild CHF. 3. allergic rhinitis 4. Ongoing tobaccoism and suspected underlying chronic obstructive pulmonary disease. 5. Leukocytosis secondary to acute bronchitis. 6. Cough with yellow sputum production consistent with acute bronchitis. Plan . 6 min walk home in am possible 1. o2 titration 2. ics and singulair 3. po anitbx 4. prednisone taper 5. Bronchodilators. 6. echocardiogram with normal left ventricular dysfunction. 7. DVT prophylaxis with Lovenox. 8. protonix lovenox for prophylaxis 9. Smoking cessation counseling provided to the patient. RADHA GRIFFIN MD 28, 2017 09:02
[2016-10-23] MEDS: FLUTICASONE 50MCG/NASAL SPRAY 16GM BOTTLE. NS SCH (09:12)
[2016-10-23] MEDS: CELECOXIB 200 MG CAPSULE PO SCH ×2 (09:12→21:15)
[2016-10-23] MEDS: PANTOPRAZOLE 40 MG TABLET. PO SCH (09:12)
[2016-10-23] MEDS: ESTROGENS, CONJUGATED 0.3 MG TABLET PO SCH (09:13)
[2016-10-23] MEDS: ACETAMINOPHEN/CODEINE 300/30MG TABLET PO SCH (09:14)
[2016-10-23] MEDS: GUAIFENESIN ER 600 MG TABLET.ER PO SCH ×2 (09:14→21:15)
[2016-10-23] MEDS: ROFLUMILAST 500 MCG TABLET. PO SCH (09:16)
[2016-10-23] MEDS: LITHIUM CARBONATE ER 300 MG TABLET.ER PO SCH ×2 (09:16→21:15)
[2016-10-23] MEDS: PREDNISONE 20 MG TABLET PO SCH (09:17)
[2016-10-23 11:21] VITALS: BP 150/85
[2016-10-23] MEDS ORDERED: ALPRAZOLAM 0.25 MG TABLET. PO PRN (13:30)
--- NOTE | 2016-10-23 13:45 | PDOC ---
PROGRESS NOTES Chief Complaint Chief Complaint Acute hypoxic, hypercapnic respir failure ASSESSMENT AND PLAN: 1. COPD exacerbation/ acute bronchitis: slowly improving. cont steroids, nebs , suppl O2 2. CHF exacerbation: mild, but noted on CXR. gentle lasix 3. Allergic rhinitis: flonase 4. Tobaccoism: encouraged cessation 5. Hx esophagitis, hiatal hernia: PPI 6. Metabolic encephalopathy: resolved (hypercarbic) 7. Bipolar d/o: Li restarted 8. Fibromyalgia: cont home meds 9. osteopenia: Ca/vit D 10. Protein malnutrition: mild 11. Menopausal sx: remains on 0625 premarin at age 66 (?). wean off 12. Prophylaxis: lovenox History of Present Illness History of Present Illness Vitals Vitals Vital Signs Date Time Temp Pulse Resp B/P Pulse Ox O2 Delivery O2 Flow Rate FiO2 10/23/16 11:21 96.3 104 20 150/85 93 Nasal Cannula 2.0 96.3 Physical Exam General: Alert, Oriented X3, Cooperative Heart: Regular rate Lungs: Clear, Other (bl decreased bs) Abdomen: Normal bowel sounds, Soft Extremities: No clubbing, No cyanosis Skin: No rashes Labs LABS Laboratory Tests Test 10/22/16 16:44 10/22/16 20:52 10/23/16 07:55 10/23/16 11:48 Glucose (Fingerstick) 114mg/dL (70-99) 106mg/dL (70-99) 85mg/dL (70-99) 101mg/dL (70-99) Review of Systems Review of Systems feels ok, min cough. very winded when walking w/PT to door (10 steps), satting 92 on 3L Nutrition Consultation Dietary Evaluation: Recommendations by RD: Increase Calorie Intake, Protein supplementation Comments: Decreased appetite x's 3 weeks (eating 1 meal/day) and recent 20 # wt loss. Add Ensure Enlive protein supplement BID (350 calories/20 g pro per serving) Encourage good PO intake Expected Outcomes/Goals: meet 75% estimated nutrition needs no further wt loss Interpretation of weight loss: >10% in 6 months Malnutrition Findings: Food and Nutrition Intake (Mod: <75% est energy req 7days Reduced Advertising Traffic Manager Strength: N/A Reduced Advertising Traffic Manager Strength (Non-Sev: N/A Malnutrition related to morbid: No Weight Status: Overweight Fluid Accumulation (N/A): N/A REUSCH,ROSE MD Oct 23, 2016 13:45
[2016-10-23 15:18] VITALS: BP 146/96
[2016-10-23] MEDS: ACETAMINOPHEN/CODEINE 300/30MG TABLET. PO SCH ×2 (16:05→21:19)
[2016-10-23] MEDS ORDERED: FUROSEMIDE 20 MG/2 ML VIAL IVP ONE (17:00)
[2016-10-23 17:40] LABS: CREATININE 0.6 mg/dL (0.6-1.0); GFR 99.4; MAGNESIUM 2.1 mg/dL (1.8-2.4)
[2016-10-23] MEDS: DO NOT USE 40 MG/0.4 ML DISP.SYRIN SQ SCH (18:01)
[2016-10-23 19:20] VITALS: BP 152/69
[2016-10-23] MEDS ORDERED: AMITRIPTYLINE HCL 50 MG TABLET PO SCH (21:00)
[2016-10-23] MEDS: MONTELUKAST SODIUM 10 MG TABLET. PO SCH (21:15)
[2016-10-23] MEDS: AMITRIPTYLINE HCL 50 MG TABLET PO SCH (21:16)
[2016-10-23 23:48] VITALS: BP 162/66
[2016-10-24 03:52] VITALS: BP 122/65
[2016-10-24 04:52] LABS: BASO % 0 % (0-3); EOS % 1 % (0-3); HEMATOCRIT 38.5 % (36.0-47.0); HEMOGLOBIN 12.3 g/dL (12.0-15.5); LYMPH % 15 % (24-48); MEAN CORPUSCULAR HEMOGLOBIN 28 pg (25-35); MEAN CORPUSCULAR HGB CONC 32 g/dL (31-37); MEAN CORPUSCULAR VOLUME 87 fL (79-100); MONO % 7 % (0-9); NEUT % 77 % (31-73); PLATELET COUNT 248 x10^3/uL (140-400); RED BLOOD COUNT 4.45 x10^6/uL (3.50-5.40); RED CELL DISTRIBUTION WIDTH 15.6 % (11.5-14.5); WHITE BLOOD COUNT 12.9 x10^3/uL (4.0-11.0)
[2016-10-24] MEDS: LEVOFLOXACIN 500 MG TABLET PO SCH (05:43)
[2016-10-24] MEDS: BUDESONIDE 0.5 MG/2 ML NEBU. NEB SCH ×2 (06:04→19:12)
[2016-10-24] MEDS: IPRATRPIUM/ALBUTEROL 0.5/2.5MG 3 ML NEBU. NEB SCH ×4 (06:04→19:12)
[2016-10-24 07:00] VITALS: BP 126/72
--- NOTE | 2016-10-24 08:49 | PDOC ---
PULMONARY PROGRESS NOTES Subjective not more soa Vitals Vital Signs Date Time Temp Pulse Resp B/P Pulse Ox O2 Delivery O2 Flow Rate FiO2 10/24/16 07:00 97.8 95 20 126/72 96 Nasal Cannula 2.0 97.8 Comments ros as mentioned as above other sys otherwise neg ROS: No Nausea, No Chest Pain, No Abdominal Pain, No Increase Cough General: Alert HEENT: Other (nc at perrl, nose, throat clear, nech, no lap, no thyromegaly) Lungs: Clear, Other (bl decreased bs) Cardiovascular: S1, S2 Abdomen: Soft, Non-tender, Other (no mass) Neuro Exam: Alert, Oriented Extremities: No Edema Skin: Warm Labs Laboratory Tests Test 10/22/16 11:31 10/22/16 16:44 10/22/16 20:52 10/23/16 07:55 Glucose (Fingerstick) 82mg/dL (70-99) 114mg/dL (70-99) 106mg/dL (70-99) 85mg/dL (70-99) Test 10/23/16 11:48 10/23/16 16:34 10/23/16 17:10 10/23/16 20:38 Glucose (Fingerstick) 101mg/dL (70-99) 118mg/dL (70-99) 113mg/dL (70-99) Sodium Level 136mmol/L (136-145) Potassium Level 5.0mmol/L (3.5-5.1) Chloride Level 104mmol/L (98-107) Carbon Dioxide Level 24mmol/L (21-32) Anion Gap 8 (6-14) Blood Urea Nitrogen 23mg/dL (7-20) Creatinine 0.6mg/dL (0.6-1.0) Estimated GFR (Cockcroft-Gault) 99.4 Glucose Level 120mg/dL (70-99) Calcium Level 9.0mg/dL (8.5-10.1) Magnesium Level 2.1mg/dL (1.8-2.4) Test 10/24/16 03:21 10/24/16 07:42 10/24/16 08:12 White Blood Count 12.9x10^3/uL (4.0-11.0) Red Blood Count 4.45x10^6/uL (3.50-5.40) Hemoglobin 12.3g/dL (12.0-15.5) Hematocrit 38.5% (36.0-47.0) Mean Corpuscular Volume 87fL (79-100) Mean Corpuscular Hemoglobin 28pg (25-35) Mean Corpuscular Hemoglobin Concent 32g/dL (31-37) Red Cell Distribution Width 15.6% (11.5-14.5) Platelet Count 248x10^3/uL (140-400) Neutrophils (%) (Auto) 77% (31-73) Lymphocytes (%) (Auto) 15% (24-48) Monocytes (%) (Auto) 7% (0-9) Eosinophils (%) (Auto) 1% (0-3) Basophils (%) (Auto) 0% (0-3) Neutrophils # (Auto) 9.9x10^3uL (1.8-7.7) Lymphocytes # (Auto) 2.0x10^3/uL (1.0-4.8) Monocytes # (Auto) 0.9x10^3/uL (0.0-1.1) Eosinophils # (Auto) 0.2x10^3/uL (0.0-0.7) Basophils # (Auto) 0.0x10^3/uL (0.0-0.2) Glucose (Fingerstick) 62mg/dL (70-99) 97mg/dL (70-99) Laboratory Tests Test 10/23/16 11:48 10/23/16 16:34 10/23/16 17:10 10/23/16 20:38 Glucose (Fingerstick) 101mg/dL (70-99) 118mg/dL (70-99) 113mg/dL (70-99) Sodium Level 136mmol/L (136-145) Potassium Level 5.0mmol/L (3.5-5.1) Chloride Level 104mmol/L (98-107) Carbon Dioxide Level 24mmol/L (21-32) Anion Gap 8 (6-14) Blood Urea Nitrogen 23mg/dL (7-20) Creatinine 0.6mg/dL (0.6-1.0) Estimated GFR (Cockcroft-Gault) 99.4 Glucose Level 120mg/dL (70-99) Calcium Level 9.0mg/dL (8.5-10.1) Magnesium Level 2.1mg/dL (1.8-2.4) Test 10/24/16 03:21 10/24/16 07:42 10/24/16 08:12 White Blood Count 12.9x10^3/uL (4.0-11.0) Red Blood Count 4.45x10^6/uL (3.50-5.40) Hemoglobin 12.3g/dL (12.0-15.5) Hematocrit 38.5% (36.0-47.0) Mean Corpuscular Volume 87fL (79-100) Mean Corpuscular Hemoglobin 28pg (25-35) Mean Corpuscular Hemoglobin Concent 32g/dL (31-37) Red Cell Distribution Width 15.6% (11.5-14.5) Platelet Count 248x10^3/uL (140-400) Neutrophils (%) (Auto) 77% (31-73) Lymphocytes (%) (Auto) 15% (24-48) Monocytes (%) (Auto) 7% (0-9) Eosinophils (%) (Auto) 1% (0-3) Basophils (%) (Auto) 0% (0-3) Neutrophils # (Auto) 9.9x10^3uL (1.8-7.7) Lymphocytes # (Auto) 2.0x10^3/uL (1.0-4.8) Monocytes # (Auto) 0.9x10^3/uL (0.0-1.1) Eosinophils # (Auto) 0.2x10^3/uL (0.0-0.7) Basophils # (Auto) 0.0x10^3/uL (0.0-0.2) Glucose (Fingerstick) 62mg/dL (70-99) 97mg/dL (70-99) Medications Active Scripts Medications Dose Route/Sig Days Date Category [place] Carbonate 600 Mg Capsule 600 Mg PO QHS 07/09/13 Reported [place] Carbonate 300 Mg Tablet.er 300 Mg PO DAILY 07/08/13 Reported Celebrex (Celecoxib) 200 Mg Capsule 200 Mg PO BID 07/08/13 Reported Alprazolam 0.25 Mg Tablet 0.25 Mg PO PRN BID 07/08/13 Reported Acetaminophen-Cod #3 Tablet (Acetaminophen/Codeine Phosphate) 1 Each Tablet 1 Each PO TID 07/08/13 Reported Amitriptyline Hcl 50 Mg Tablet 100 Mg PO HS 07/08/13 Reported Dexilant (Dexlansoprazole) 60 Mg [place].mp 60 Mg PO DAILY 07/08/13 Reported Duoneb 0.5 Mg-3 Mg/3 Ml Soln (Ipratropium/Albuterol Sulfate) 3 Ml Ampul.neb 3 Ml IH Q6HRS 07/08/13 Reported Proair Hfa Inhaler (Albuterol Sulfate) 8.5 Gm Hfa.aer.ad 17 Gm IH PRN Q4HRS 07/08/13 Reported Premarin (Estrogens, Conjugated) 0.625 Mg Tablet 0.625 Mg PO DAILY 07/08/13 Reported Meclizine Hcl 25 Mg Tablet 25 Mg PO PRN Q8HRS 07/08/13 Reported Daliresp (Roflumilast) 500 Mcg Tablet 500 Mcg PO DAILY 07/08/13 Reported Flonase (Fluticasone Propionate) 16 Gm [place].susp 16 Gm NS DAILY 07/08/13 Reported Advair 500-50 Diskus (Fluticasone/Salmeterol) 1 Each Disk.w.dev 1 Each IH BID 07/08/13 Reported Mucinex (Guaifenesin) 600 Mg Tablet.er 600 Mg PO PRN 07/08/13 Reported Comments cxr reviewed, Cardiomegaly. Minimal volume loss at the right lung base. Possible mild pulmonary vascular congestion echo, Left ventricle systolic function is normal. The Ejection Fraction is 50-55 %. There is normal LV segmental wall motion. The right ventricle appears mildly dilated. Doppler and Color Flow revealed mild tricuspid regurgitation. The PA pressure was estimated at 43 mmHg. The IVC is dilated and collapses <50% with inspiration suggestive of mild volume overload. Impression . 1. Acute respiratory failure/ AECOPD 2. Abnormal chest x-ray with suspected mild CHF. 3. allergic rhinitis 4. Ongoing tobaccoism and suspected underlying chronic obstructive pulmonary disease. 5. Leukocytosis secondary to acute bronchitis. 6. Cough with yellow sputum production consistent with acute bronchitis. Plan . may require SNU 1. o2 titration 2. ics and singulair 3. po anitbx 4. prednisone taper 5. Bronchodilators. 6. echocardiogram with normal left ventricular dysfunction. 7. DVT prophylaxis with Lovenox. 8. protonix lovenox for prophylaxis 9. Smoking cessation counseling provided to the patient. RADHA GRIFFIN MD Oct 24, 2016 08:48
[2016-10-24] MEDS: ESTROGENS, CONJUGATED 0.3 MG TABLET PO SCH (10:19)
[2016-10-24] MEDS: CELECOXIB 200 MG CAPSULE PO SCH (10:19)
[2016-10-24] MEDS: PREDNISONE 20 MG TABLET PO SCH (10:19)
[2016-10-24] MEDS: PANTOPRAZOLE 40 MG TABLET. PO SCH (10:19)
[2016-10-24] MEDS: GUAIFENESIN ER 600 MG TABLET.ER PO SCH ×2 (10:19→21:54)
[2016-10-24] MEDS: LITHIUM CARBONATE ER 300 MG TABLET.ER PO SCH ×2 (10:19→21:54)
[2016-10-24] MEDS: ROFLUMILAST 500 MCG TABLET. PO SCH (10:20)
[2016-10-24] MEDS: ACETAMINOPHEN/CODEINE 300/30MG TABLET. PO SCH ×3 (10:20→21:55)
[2016-10-24] MEDS: FLUTICASONE 50MCG/NASAL SPRAY 16GM BOTTLE. NS SCH (10:20)
[2016-10-24 10:42] VITALS: BP 126/72
--- NOTE | 2016-10-24 11:47 | PDOC ---
PROGRESS NOTES Chief Complaint Chief Complaint Acute hypoxic, hypercapnic respir failure ASSESSMENT AND PLAN: 1. COPD exacerbation/ acute bronchitis: slowly improving. cont steroids, nebs , suppl O2 2. CHF exacerbation: mild, but noted on CXR. gentle lasix 3. Allergic rhinitis: flonase 4. Tobaccoism: encouraged cessation 5. Hx esophagitis, hiatal hernia: PPI 6. Metabolic encephalopathy: resolved (hypercarbic) 7. Bipolar d/o: Li restarted 8. Fibromyalgia: cont home meds 9. osteopenia: Ca/vit D 10. Protein malnutrition: mild 11. Menopausal sx: resolved. wean off premarin 12. Prophylaxis: lovenox 13. Dispo: PT/OT recommending rehab, unable to take care of her at home w/rotator cuff injury History of Present Illness History of Present Illness Vitals Vitals Vital Signs Date Time Temp Pulse Resp B/P Pulse Ox O2 Delivery O2 Flow Rate FiO2 10/24/16 11:41 20 95 Nasal Cannula 2.0 10/24/16 10:42 98.6 98 126/72 98.6 Physical Exam General: Alert, Oriented X3, Cooperative Heart: Regular rate Lungs: Clear, Other (bl decreased bs) Abdomen: Normal bowel sounds, Soft Extremities: No clubbing, No cyanosis Skin: No rashes Labs LABS Laboratory Tests Test 10/23/16 11:48 10/23/16 16:34 10/23/16 17:10 10/23/16 20:38 Glucose (Fingerstick) 101mg/dL (70-99) 118mg/dL (70-99) 113mg/dL (70-99) Sodium Level 136mmol/L (136-145) Potassium Level 5.0mmol/L (3.5-5.1) Chloride Level 104mmol/L (98-107) Carbon Dioxide Level 24mmol/L (21-32) Anion Gap 8 (6-14) Blood Urea Nitrogen 23mg/dL (7-20) Creatinine 0.6mg/dL (0.6-1.0) Estimated GFR (Cockcroft-Gault) 99.4 Glucose Level 120mg/dL (70-99) Calcium Level 9.0mg/dL (8.5-10.1) Magnesium Level 2.1mg/dL (1.8-2.4) Test 10/24/16 03:21 10/24/16 07:42 10/24/16 08:12 White Blood Count 12.9x10^3/uL (4.0-11.0) Red Blood Count 4.45x10^6/uL (3.50-5.40) Hemoglobin 12.3g/dL (12.0-15.5) Hematocrit 38.5% (36.0-47.0) Mean Corpuscular Volume 87fL (79-100) Mean Corpuscular Hemoglobin 28pg (25-35) Mean Corpuscular Hemoglobin Concent 32g/dL (31-37) Red Cell Distribution Width 15.6% (11.5-14.5) Platelet Count 248x10^3/uL (140-400) Neutrophils (%) (Auto) 77% (31-73) Lymphocytes (%) (Auto) 15% (24-48) Monocytes (%) (Auto) 7% (0-9) Eosinophils (%) (Auto) 1% (0-3) Basophils (%) (Auto) 0% (0-3) Neutrophils # (Auto) 9.9x10^3uL (1.8-7.7) Lymphocytes # (Auto) 2.0x10^3/uL (1.0-4.8) Monocytes # (Auto) 0.9x10^3/uL (0.0-1.1) Eosinophils # (Auto) 0.2x10^3/uL (0.0-0.7) Basophils # (Auto) 0.0x10^3/uL (0.0-0.2) Glucose (Fingerstick) 62mg/dL (70-99) 97mg/dL (70-99) Review of Systems Review of Systems feels ok. +prod cough. Nutrition Consultation Dietary Evaluation: Recommendations by RD: Increase Calorie Intake, Protein supplementation Comments: Decreased appetite x's 3 weeks (eating 1 meal/day) and recent 20 # wt loss. Add Ensure Enlive protein supplement BID (350 calories/20 g pro per serving) Encourage good PO intake Expected Outcomes/Goals: meet 75% estimated nutrition needs no further wt loss Interpretation of weight loss: >10% in 6 months Malnutrition Findings: Food and Nutrition Intake (Mod: <75% est energy req 7days Red[employer] Teacher Strength: N/A Reduced [employer] Engineering Teacher Strength (Non-Sev: N/A Malnutrition related to morbid: No Weight Status: Overweight Fluid Accumulation (N/A): N/A ROSE TEAGUE MD Oct 24, 2016 11:47
[2016-10-24 15:00] VITALS: BP 129/69
[2016-10-24] MEDS ORDERED: FUROSEMIDE 20 MG/2 ML VIAL IVP ONE (17:30)
[2016-10-24] MEDS: DO NOT USE 40 MG/0.4 ML DISP.SYRIN SQ SCH (18:21)
[2016-10-24 19:20] VITALS: BP 143/65
[2016-10-24] MEDS: MONTELUKAST SODIUM 10 MG TABLET. PO SCH (21:54)
[2016-10-24] MEDS: AMITRIPTYLINE HCL 50 MG TABLET PO SCH (21:54)
[2016-10-24 23:00] VITALS: BP 136/62
[2016-10-25 03:21] VITALS: BP 114/65
[2016-10-25] MEDS ORDERED: ONDANSETRON PF 4 MG/2 ML VIAL. IV PRN (06:13)
[2016-10-25] MEDS ORDERED: ENOXAPARIN 40 MG/0.4 ML SYRINGE. SQ SCH (06:13)
[2016-10-25] MEDS: LEVOFLOXACIN 500 MG TABLET PO SCH (06:23)
[2016-10-25] MEDS: IPRATRPIUM/ALBUTEROL 0.5/2.5MG 3 ML NEBU. NEB SCH ×2 (06:55→11:19)
[2016-10-25] MEDS: BUDESONIDE 0.5 MG/2 ML NEBU. NEB SCH (06:55)
[2016-10-25 07:00] VITALS: BP 125/50
[2016-10-25] MEDS ORDERED: CELECOXIB 200 MG CAPSULE. ONE (08:13)
--- NOTE | 2016-10-25 08:27 | RAD ---
EXAM: Chest, 2 views. HISTORY: Pneumonia. COMPARISON: 10/17/2016. FINDINGS: Frontal and lateral views of the chest are obtained. There is bilateral lower lobe infiltrate, the right of which is decreased compared to the prior study and the left of which is increased compared to the prior study. There may be trace effusions. There is no pneumothorax. The heart is normal in size. There are prominent central ulnare vascular shadows. There are left axillary clips. There are cholecystectomy clips. There is S-shaped thoracal lumbar scoliosis. IMPRESSION: Decreased right and increased left lower lobe infiltrate with suspected trace effusions. Follow-up to confirm resolution.
[2016-10-25] MEDS: PANTOPRAZOLE 40 MG TABLET. PO SCH (08:52)
[2016-10-25] MEDS: PREDNISONE 20 MG TABLET PO SCH (08:52)
[2016-10-25] MEDS: GUAIFENESIN ER 600 MG TABLET.ER PO SCH (08:52)
[2016-10-25] MEDS: ROFLUMILAST 500 MCG TABLET. PO SCH (08:52)
[2016-10-25] MEDS: ESTROGENS, CONJUGATED 0.3 MG TABLET PO SCH (08:53)
[2016-10-25] MEDS: ACETAMINOPHEN/CODEINE 300/30MG TABLET. PO SCH (08:53)
[2016-10-25] MEDS: LITHIUM CARBONATE ER 300 MG TABLET.ER PO SCH (08:53)
[2016-10-25] MEDS ORDERED: CELECOXIB 200 MG CAPSULE PO SCH (09:00)
[2016-10-25] MEDS: FLUTICASONE 50MCG/NASAL SPRAY 16GM BOTTLE. NS SCH (09:00)
--- NOTE | 2016-10-25 09:14 | PDOC ---
PULMONARY PROGRESS NOTES Subjective not more soa Vitals Vital Signs Date Time Temp Pulse Resp B/P Pulse Ox O2 Delivery O2 Flow Rate FiO2 10/25/16 08:53 94 Nasal Cannula 2.0 10/25/16 07:00 98.4 98 125/50 98.4 10/25/16 03:21 18 Comments ros as mentioned as above other sys otherwise neg ROS: No Nausea, No Chest Pain, No Abdominal Pain, No Increase Cough General: Alert HEENT: Other (nc at perrl, nose, throat clear, nech, no lap, no thyromegaly) Lungs: Clear, Other (bl decreased bs) Cardiovascular: S1, S2 Abdomen: Soft, Non-tender, Other (no mass) Neuro Exam: Alert, Oriented Extremities: No Edema Skin: Warm Labs Laboratory Tests Test 10/23/16 11:48 10/23/16 16:34 10/23/16 17:10 10/23/16 20:38 Glucose (Fingerstick) 101mg/dL (70-99) 118mg/dL (70-99) 113mg/dL (70-99) Sodium Level 136mmol/L (136-145) Potassium Level 5.0mmol/L (3.5-5.1) Chloride Level 104mmol/L (98-107) Carbon Dioxide Level 24mmol/L (21-32) Anion Gap 8 (6-14) Blood Urea Nitrogen 23mg/dL (7-20) Creatinine 0.6mg/dL (0.6-1.0) Estimated GFR (Cockcroft-Gault) 99.4 Glucose Level 120mg/dL (70-99) Calcium Level 9.0mg/dL (8.5-10.1) Magnesium Level 2.1mg/dL (1.8-2.4) Test 10/24/16 03:21 10/24/16 07:42 10/24/16 08:12 10/24/16 12:19 White Blood Count 12.9x10^3/uL (4.0-11.0) Red Blood Count 4.45x10^6/uL (3.50-5.40) Hemoglobin 12.3g/dL (12.0-15.5) Hematocrit 38.5% (36.0-47.0) Mean Corpuscular Volume 87fL (79-100) Mean Corpuscular Hemoglobin 28pg (25-35) Mean Corpuscular Hemoglobin Concent 32g/dL (31-37) Red Cell Distribution Width 15.6% (11.5-14.5) Platelet Count 248x10^3/uL (140-400) Neutrophils (%) (Auto) 77% (31-73) Lymphocytes (%) (Auto) 15% (24-48) Monocytes (%) (Auto) 7% (0-9) Eosinophils (%) (Auto) 1% (0-3) Basophils (%) (Auto) 0% (0-3) Neutrophils # (Auto) 9.9x10^3uL (1.8-7.7) Lymphocytes # (Auto) 2.0x10^3/uL (1.0-4.8) Monocytes # (Auto) 0.9x10^3/uL (0.0-1.1) Eosinophils # (Auto) 0.2x10^3/uL (0.0-0.7) Basophils # (Auto) 0.0x10^3/uL (0.0-0.2) Glucose (Fingerstick) 62mg/dL (70-99) 97mg/dL (70-99) 97mg/dL (70-99) Test 10/24/16 17:28 10/24/16 21:18 10/25/16 07:46 Glucose (Fingerstick) 157mg/dL (70-99) 113mg/dL (70-99) 62mg/dL (70-99) Laboratory Tests Test 10/24/16 12:19 10/24/16 17:28 10/24/16 21:18 10/25/16 07:46 Glucose (Fingerstick) 97mg/dL (70-99) 157mg/dL (70-99) 113mg/dL (70-99) 62mg/dL (70-99) Medications Active Scripts Medications Dose Route/Sig Days Date Category [place] Carbonate 600 Mg Capsule 600 Mg PO QHS 07/09/13 Reported [place] Carbonate 300 Mg Tablet.er 300 Mg PO DAILY 07/08/13 Reported Celebrex (Celecoxib) 200 Mg Capsule 200 Mg PO BID 07/08/13 Reported Alprazolam 0.25 Mg Tablet 0.25 Mg PO PRN BID 07/08/13 Reported Acetaminophen-Cod #3 Tablet (Acetaminophen/Codeine Phosphate) 1 Each Tablet 1 Each PO TID 07/08/13 Reported Amitriptyline Hcl 50 Mg Tablet 100 Mg PO HS 07/08/13 Reported Dexilant (Dexlansoprazole) 60 Mg mp 60 Mg PO DAILY 07/08/13 Reported Duoneb 0.5 Mg-3 Mg/3 Ml Soln (Ipratropium/Albuterol Sulfate) 3 Ml Ampul.neb 3 Ml IH Q6HRS 07/08/13 Reported Proair Hfa Inhaler (Albuterol Sulfate) 8.5 Gm Hfa.aer.ad 17 Gm IH PRN Q4HRS 07/08/13 Reported Premarin (Estrogens, Conjugated) 0.625 Mg Tablet 0.625 Mg PO DAILY 07/08/13 Reported Meclizine Hcl 25 Mg Tablet 25 Mg PO PRN Q8HRS 07/08/13 Reported Daliresp (Roflumilast) 500 Mcg Tablet 500 Mcg PO DAILY 07/08/13 Reported Flonase (Fluticasone Propionate) 16 Gm [place].susp 16 Gm NS DAILY 07/08/13 Reported Advair 500-50 Diskus (Fluticasone/Salmeterol) 1 Each Disk.w.dev 1 Each IH BID 07/08/13 Reported Mucinex (Guaifenesin) 600 Mg Tablet.er 600 Mg PO PRN 07/08/13 Reported Comments cxr reviewed, Cardiomegaly. Minimal volume loss at the right lung base. Possible mild pulmonary vascular congestion echo, Left ventricle systolic function is normal. The Ejection Fraction is 50-55 %. There is normal LV segmental wall motion. The right ventricle appears mildly dilated. Doppler and Color Flow revealed mild tricuspid regurgitation. The PA pressure was estimated at 43 mmHg. The IVC is dilated and collapses <50% with inspiration suggestive of mild volume overload. Impression . 1. Acute respiratory failure/ AECOPD 2. Abnormal chest x-ray with suspected mild CHF. 3. allergic rhinitis 4. Ongoing tobaccoism and suspected underlying chronic obstructive pulmonary disease. 5. Leukocytosis secondary to acute bronchitis. 6. Cough with yellow sputum production consistent with acute bronchitis. Plan . may require SNU 1. o2 titration 2. ics and singulair 3. po anitbx 4. prednisone taper 5. Bronchodilators. 6. echocardiogram with normal left ventricular dysfunction. 7. DVT prophylaxis with Lovenox. 8. protonix lovenox for prophylaxis 9. Smoking cessation counseling provided to the patient. RADHA GRIFFIN MD Oct 25, 2016 09:14
== END 2016-10-25 12:34 | DRG 871 ==
LOC: ER 14:58 → 1 WEST ICU 16:08 → CVICU 10-18 07:47 → 6 SOUTH 10-19 10:45
PROVIDERS: ADMIT Internal Medicine; ATTEND Internal Medicine
PROC: 5A09457 Assistance with Respiratory Ventilation, 24-96 Consecutive Hours, Continuous Positive Airway Pressure (ICD-10-PCS; principal; 2016-10-17)
DX: A41.9 Sepsis, unspecified organism (principal); G93.41 Metabolic encephalopathy; J18.9 Pneumonia, unspecified organism; J96.21 Acute and chronic respiratory failure with hypoxia; J96.22 Acute and chronic respiratory failure with hypercapnia; J44.1 Chronic obstructive pulmonary disease with (acute) exacerbation; J44.0 Chronic obstructive pulmonary disease with (acute) lower respiratory infection; E87.2 Acidosis; E44.0 Moderate protein-calorie malnutrition; J44.9 Chronic obstructive pulmonary disease, unspecified; J45.909 Unspecified asthma, uncomplicated; I50.9 Heart failure, unspecified; M79.7 Fibromyalgia; M41.9 Scoliosis, unspecified; F31.9 Bipolar disorder, unspecified; Y95 Nosocomial condition; M85.80 Other specified disorders of bone density and structure, unspecified site; K57.90 Diverticulosis of intestine, part unspecified, without perforation or abscess without bleeding; Z88.6 Allergy status to analgesic agent; Z88.1 Allergy status to other antibiotic agents; Z88.0 Allergy status to penicillin; Z88.8 Allergy status to other drugs, medicaments and biological substances; Z71.6 Tobacco abuse counseling
CPT/HCPCS: 36415; 36600; 70450; 71010; 71020; 80048; 80053; 81001; 82553; 82805; 82947; 83605; 83735; 84145; 84484; 85007; 85027; 87040; 87070; 87205; 87449; 87641; 87804; 93005; 93306; 94250; 94620; 94640; 94660; 94760; 96365; 96366; 96372; 99406; C9113; J1650; J1956; J2920; J7030; J7512; J7620; 97110; 97116; 97530; 97535; 99291-25

== ENCOUNTER → 2017-04-22 | Outpatient (CLI) | payer MEDICARE, BC ==
[~2017-04-22] MED LIST changes: -DEXL60CA PO; +DEXL60CA2 PO; -GUAI600T38 PO; +GUAI600T47 PO; -LITH300T PO; +LITH300T30 PO; -ROFL500T PO; +ROFL500T7 PO
--- NOTE | 2017-04-22 11:16 | KCIC ---
DATE: 04/22/2017. EXAM: MAMMO SKYLER DIAG BILAT. HISTORY: Personal history of left breast cancer status post breast conservation therapy. Routine surveillance. COMPARISON: 03/06/2016, 02/28/2016. This study was interpreted with the benefit of Computerized Aided Detection (CAD). FINDINGS: The breast parenchyma shows scattered fibroglandular densities. Breast parenchyma level B.. Increased interstitial density and skin thickening on the left is consistent with post breast conservation therapy change. There are changes of left axillary lymph node dissection. A density posteriorly and laterally on the left CC view resolves with spot compression. Density deep to the left nipple resolves on nipple in profile view. Coarse calcifications on the left appear benign. There is no suspicious finding on the right. BI-RADS CATEGORY: 2 BENIGN FINDING(S). RECOMMENDED FOLLOW-UP: 12M 12 MONTH FOLLOW-UP. PQRS compliance statement: Patient information was entered into a reminder system with a target due date 04/22/2018 for the next mammogram. Mammography is a sensitive method for finding small breast cancers, but it does not detect them all and is not a substitute for careful clinical examination. A negative mammogram does not negate a clinically suspicious finding and should not result in delay in biopsying a clinically suspicious abnormality. "Our facility is accredited by the [employer] Mammography Program."
== END | disposition home or self-care (01) ==
LOC: KCIC MAMMO 09:22
PROVIDERS: ATTEND Preventive Medicine Public Health & General Preventive Medicine
DX: R92.8 Other abnormal and inconclusive findings on diagnostic imaging of breast (principal); Z85.3 Personal history of malignant neoplasm of breast
CPT/HCPCS: G0204; G0279; 77062; 77066

== ENCOUNTER → 2017-11-22 | Outpatient (CLI) | payer MEDICARE, OTHER ==
[~2017-11-22] MED LIST changes: -ACET1TAB33 PO; -ALPR0.254 PO; -AMIT50TA PO; -CELE200C PO; +CONTRAST GIVEN MC; -DEXL60CA2 PO; -ESTR0.62 PO; -FLUT16SP2 NS; -FLUT1DIS5 IH; -GUAI600T47 PO; -IPRA3AMP23 IH; -LITH300T30 PO; -LITH600C PO; -MECL25TA3 PO; -PROAIR HFA8.5 GM IH; -ROFL500T7 PO
[2017-11-22] MEDS: IOHEXOL 240 MG/ML 50ML VIAL. PO (09:30)
[2017-11-22] MEDS: IOHEXOL 300 MG/ML 100ML VIAL. IV (10:31)
[2017-11-22 11:51] LABS: ISTAT CREATININE 0.5 mg/dL (0.6-1.1)
== END | disposition home or self-care (01) ==
LOC: KCIC CT 09:06
DX: M16.12 Unilateral primary osteoarthritis, left hip (principal); K57.30 Diverticulosis of large intestine without perforation or abscess without bleeding; R19.4 Change in bowel habit
CPT/HCPCS: 74177; 82565; Q9966; Q9967

== ENCOUNTER → 2017-12-05 | Outpatient (CLI) | payer MEDICARE, OTHER | END | disposition home or self-care (01) | LOC: KCIC 15:29 | DX: M25.561 Pain in right knee (principal); M25.551 Pain in right hip; W19.XXXD Unspecified fall, subsequent encounter | CPT/HCPCS: 73502; 73562 ==

== ENCOUNTER → 2018-01-02 | Outpatient (CLI) | payer MEDICARE, OTHER | END | disposition home or self-care (01) | LOC: KCIC 08:53 | DX: J44.1 Chronic obstructive pulmonary disease with (acute) exacerbation (principal); R91.8 Other nonspecific abnormal finding of lung field; R50.9 Fever, unspecified; Z85.3 Personal history of malignant neoplasm of breast | CPT/HCPCS: 71046 ==

== ENCOUNTER → 2018-01-10 | Outpatient (CLI) | payer OTHER, MEDICARE ==
[2018-01-10 14:26] LABS: ISTAT CREATININE 0.5 mg/dL (0.6-1.1)
[2018-01-10] MEDS: IOHEXOL 300 MG/ML 100ML VIAL. IV (15:31)
== END | disposition home or self-care (01) ==
LOC: KCIC CT 13:09
DX: J43.9 Emphysema, unspecified (principal); R91.8 Other nonspecific abnormal finding of lung field
CPT/HCPCS: 71260; 82565; Q9967

== ENCOUNTER → 2019-05-21 | Outpatient (CLI) | payer MEDICARE, OTHER ==
[2017-07-30 21:30] VITALS: BP 148/80
[~2019-05-21] MED LIST changes: +ACET1TAB33 PO; +ALBU2.5V8 IH; +ALPR0.254 PO; +AMIT50TA PO; +AZIT1PAC PO; +BUDE0.5A IH; +CELE200C PO; -CONTRAST GIVEN MC; +DEXL60CA2 PO; +ESTR0.62 PO; +FLUT16SP2 NS; +FLUT1DIS5 IH; +GUAI600T47 PO; +IOHEXOL 300 MG/ML 100ML VIAL. IV ONE; +IPRA3AMP23 IH; +LITH300T30 PO; +LITH600C PO; +MECL25TA3 PO; +PRED-220 PO; +ROFL500T7 PO
--- NOTE | 2019-05-21 15:16 | KCIC ---
EXAM: Dual energy x-ray absorptiometry (DEXA). HISTORY: Postmenopausal female presents for osteoporosis screening. COMPARISON: 07/03/2016. TECHNIQUE: Dual energy x-ray absorptiometry of the lumbar spine and left hip was performed. Calculation of bone mineral density based on standard deviations above or below the expected young adult normal value (T-score) was completed. FINDINGS: The average bone mineral density in the 1st through 4th lumbar vertebrae is 0.904 g/cmxcm, corresponding with a T-score of -1.3. There has been a 0.4% decrease in density of the lumbar spine compared to the prior study. The average total bone mineral density in the left hip is 0.625 g/cmxcm, corresponding with a T-score of -2.6. There has been a 7.7% decrease in density of the left hip compared to the prior study. IMPRESSION: 1. Osteoporosis measured at the left hip. 2. Osteopenia measured at the lumbar spine. Note: Definitions established by the World Health Organization: 1. Normal: T-score is -1.0 or above. 2. Osteopenia: T-score is between -1.0 and -2.5 . 3. Osteoporosis: T-score is -2.5 or below. Electronically signed by: Karla Esteves MD (05/21/2019 3:07 PM) [place] [id number]
--- NOTE | 2019-05-22 12:02 | KCIC ---
CT CHEST W/CONTRAST INDICATION: Abnormal CT, COPD, left breast cancer. Comparison: 04/18/2018. TECHNIQUE: Following the uneventful administration of intravenous contrast, 95 cc Omnipaque 300, axial CT sections were obtained through the lungs and upper abdomen. Multiplanar reconstructions and MIP images were obtained. RS compliance statement: One or more of the following individualized dose reduction techniques were utilized for this examination: 1. Automated exposure control 2. Adjustment of the mA and/or kV according to patient size 3. Use of iterative reconstruction technique FINDINGS: Lungs and Airways: Right lower lobe groundglass, acinar, and tree-in-bud opacities. Extensive debris in the right middle and lower lobe lobar, segmental, and subsegmental bronchi. Right middle lobe atelectasis. Right lower lobe subpleural reticulation and architectural distortion. Centrilobular emphysema. Left anterior hemithorax subpleural reticulation, likely posttreatment change. Pleura: The pleural spaces are normal. Heart and Mediastinum: The visualized thyroid is normal in size and attenuation. Left axillary surgical clips. Stable conspicuous precarinal lymph node. No enlarging mediastinal or hilar lymphadenopathy. Cardiomegaly. No pericardial effusion. Atherosclerosis of the thoracic aorta. Abdomen: Cholecystectomy. Bones and Soft Tissues: Degenerative changes spine. Right convex thoracic curvature. Stable left medial breast spiculated opacity, possibly postsurgical change. IMPRESSION: 1. Right lower lobe groundglass, acinar, and tree-in-bud opacities likely representing aspiration or infection. Recommend 3 month follow-up unenhanced chest CT after appropriate medical therapy to assess for resolution. 2. Extensive right middle and lower lobe endobronchial debris with middle lobe atelectasis. This may represent aspirated content. 3. Asymmetric right lower lobe fibrotic changes, possibly sequela of chronic aspiration. Electronically signed by: Oleksandr Luke MD (05/22/2019 11:59 AM) [id number]
== END | disposition home or self-care (01) ==
LOC: KCIC CT 14:18
PROVIDERS: ATTEND Preventive Medicine Public Health & General Preventive Medicine
DX: J43.2 Centrilobular emphysema (principal); J98.11 Atelectasis; I70.0 Atherosclerosis of aorta; I51.7 Cardiomegaly; M81.8 Other osteoporosis without current pathological fracture; M85.88 Other specified disorders of bone density and structure, other site; Z90.49 Acquired absence of other specified parts of digestive tract; Z85.3 Personal history of malignant neoplasm of breast; F17.200 Nicotine dependence, unspecified, uncomplicated
CPT/HCPCS: 71260; 77080; Q9967

== ENCOUNTER 2020-01-25 15:38 | Inpatient (IN) | payer MEDICARE ==
[~2020-01-25] VITALS: Ht 160 cm; Wt 63.4 kg
[~2020-01-25 15:38] MED LIST changes: +ACET325T9 PO; +BUPR150T15 PO; -IOHEXOL 300 MG/ML 100ML VIAL. IV ONE; +LEVO75TA90 PO; +LOSA-73 PO; +MECL-75 PO; -MECL25TA3 PO; +METO50TA4 PO; +NYST60PO TP; +PANT40TA77 PO
[2020-01-25 16:33] LABS: BASO # 0.1 x10^3/uL (0.0-0.2); BASO % 1 % (0-3); EOS # 0.3 x10^3/uL (0.0-0.7); EOS % 2 % (0-3); HEMOGLOBIN 12.2 g/dL (12.0-15.5); LYMPH # 1.8 x10^3/uL (1.0-4.8); LYMPH % 14 % (24-48); MEAN CORPUSCULAR HEMOGLOBIN 29 pg (25-35); MEAN CORPUSCULAR HGB CONC 33 g/dL (31-37); MEAN CORPUSCULAR VOLUME 88 fL (79-100); MONO # 0.6 x10^3/uL (0.0-1.1); MONO % 5 % (0-9); NEUT # 10.2 x10^3/uL (1.8-7.7); NEUT % 79 % (31-73); PLATELET COUNT 305 x10^3/uL (140-400); RED CELL DISTRIBUTION WIDTH 16.8 % (11.5-14.5)
--- NOTE | 2020-01-25 16:37 | PHYS DOC ---
Past Medical History Past Medical History: COPD, Diverticulosis, Other Additional Past Medical Histor: LEFT KNEE EFFUSION,DIZZINESS,OSTEOPOROSIS,CHRONIC PAIN (EMILIANO,RAJESH M SUCTION OPERATOR) Past Surgical History: Other Additional Past Surgical Histo: LEFT KNEE EFFUSION (EMILIANO,RAJESH M SUCTION OPERATOR) Smoking Status: Current Every Day Smoker Alcohol Use: None Drug Use: None (TANYA CUMMINGSA M SUCTION OPERATOR) General Adult EDM: Chief Complaint: ABDOMINAL PAIN HPI: HPI: Patient is a 69 year old female who presents with mid abdominal pain for a week. Patient lives at home with her son and daughter, she was discharged from rehab 2 weeks ago. Son reports that ever since her discharge from the rehab she has had a decline in her health. They report frequent went falls and patient did fall 2 times today and did hit her head. Patient was taking blood thinners but was taken off a couple weeks ago from her primary care. Patient normally walks around with a walker but son reports increased difficulty with ambulation due to patient's jerking movements. Son also reports that patient has worsening in her garbled speech, he reports that she normally has garbled speech but is worse over the last 2 weeks. Patient is able to follow commands. Son is also concerned because he noticed a growth on her left nipple and patient does have a history of breast cancer 6 years ago and received radiation patient is also reporting increase in shortness of air, she has a history of COPD and does wear oxygen at home. Patient had bowel movement this morning. Patient denies nausea, vomiting, diarrhea, chest pain, dizziness, headache, numbness or tingling, vision changes, fever. (EMILIANO,RAJESH M SUCTION OPERATOR) Review of Systems: Review of Systems: Constitutional: Denies fever or chills. [] Eyes: Denies change in visual acuity. [] HENT: Denies nasal congestion or sore throat. [] Respiratory: Denies cough. + shortness of breath. [] Cardiovascular: Denies chest pain or edema. [] GI: abdominal pain, denies nausea, vomiting, bloody stools or diarrhea. [] : Denies dysuria. [] Musculoskeletal: Denies back pain or joint pain. [] Integument: Denies rash. [] Neurologic: Denies headache, focal weakness or sensory changes. Weakness. [] Endocrine: Denies polyuria or polydipsia. [] Lymphatic: Denies swollen glands. [] Psychiatric: Denies depression or anxiety. [] (RAJESH CUMMINGS SUCTION OPERATOR) Heart Score: Risk Factors: Risk Factors: DM, Current or recent (<one month) smoker, HTN, HLP, family history of CAD, obesity. Risk Scores: Score 0 - 3: 2.5% MACE over next 6 weeks - Discharge Home Score 4 - 6: 20.3% MACE over next 6 weeks - Admit for Clinical Observation Score 7 - 10: 72.7% MACE over next 6 weeks - Early Invasive Strategies (RAJESH CUMMINGS SUCTION OPERATOR) Allergies: Allergies: Allergies Coded Allergies Type Severity Reaction Last Updated Verified Penicillins Allergy Severe SWELLING OF THROAT, HIVES 07/08/13 Yes oxycodone HCl Allergy Severe THROAT SWELLING, HIVES 10/25/16 Yes propoxyphene napsylate Allergy Severe THROAT SWELLING, HIVES 07/08/13 Yes tetracycline Allergy Severe SWELLING OF THROAT, HIVES 07/08/13 Yes shellfish derived Allergy Intermediate allergic to scallops 10/20/16 Yes (RAJESH CUMMINGS SUCTION OPERATOR) Physical Exam: PE: Constitutional: Well developed, well nourished, no acute distress, non-toxic appearance. [] HENT: Normocephalic, atraumatic, bilateral external ears normal, oropharynx moist, no oral exudates, nose normal. [] Eyes: PERRLA, EOMI, conjunctiva normal, no discharge. [] Neck: Normal range of motion, no tenderness, supple, no stridor. [] Cardiovascular:Heart rate regular rhythm, no murmur [] Lungs & Thorax: Bilateral upper breath sounds clear and lower diminished to auscultation [] Abdomen: Bowel sounds normal, soft, no tenderness, no masses, no pulsatile masses. [] Skin: Warm, dry, no erythema, no rash. Small eraser sized brown mole to side of left nipple. [] Back: No tenderness, no CVA tenderness. [] Extremities: No tenderness, no cyanosis, no clubbing, ROM intact, no edema. [] Neurologic: Alert and oriented X 3, normal motor function, normal sensory function, no focal deficits noted. [] Psychologic: Affect normal, judgement normal, mood normal. [] (RAJESH CUMMINGS APRN) EKG: EK and read by Dr Matos as sinus rhythm, right bundle branch block, no STEMI [] (RAJESH CUMMINGS APRN) Radiology/Procedures: Radiology/Procedures: [] Impression: [facility] [address] [place] [address] IMAGING REPORT Signed PATIENT: NAVDEEP RODRIGUEZ ACCOUNT: [id number] : 1950 LOCATION: ER AGE: 69 SEX: F EXAM STATUS: REG ER ORD. PHYSICIAN: RAJESH CUMMINGS APRN REASON: soa PROCEDURE: PORTABLE CHEST 1V PORTABLE CHEST 1V 01/25/2020 4:45 PM INDICATION: Shortness of air COMPARISON: 12/17/2019 TECHNIQUE: Portable frontal view of the chest is provided. FINDINGS: Evaluation is limited by patient rotation. The cardiomediastinal silhouette is within normal limits. Increased patchy interstitial changes are noted at the right lung base. Improved aeration of the left lung base compared to prior examination. There are no significant pleural effusions. There is no pulmonary vascular congestion. No pneumothorax. Left axillary surgical clips are noted. Dextroconvex scoliosis of the thoracic spine is noted. IMPRESSION: Increased patchy interstitial changes at the right lung base with improved aeration of the left lung base. Consideration may be given for developing interstitial pneumonitis. Short-term follow-up two-view chest radiograph could be of benefit for further evaluation. Electronically signed by: Jayme Jackson MD (01/25/2020 5:10 PM) [id number] DICTATED and SIGNED BY: JAYME JACKSON MD DATE: 01/25/20 1710 [facility] [address] [place] [address] IMAGING REPORT Signed PATIENT: NAVDEEP RODRIGUEZ ACCOUNT: [id number] : 1950 LOCATION: ER AGE: 69 SEX: F EXAM STATUS: REG ER ORD. PHYSICIAN: RAJESH CUMMINGS APRN REASON: abd pain PROCEDURE: CT ABD PELV W/ IV CONTRST ONLY Exam: CT of abdomen and pelvis with contrast INDICATION: Abdominal pain TECHNIQUE: Sequential axial images through the abdomen and pelvis obtained following the administration of 75 mL of Omni 300 IV contrast. Sagittal and coronal reformatted images were reconstructed from the axial data and reviewed. Comparisons: 11/22/2017 FINDINGS: Heart size is normal. No pericardial effusion. There is strandy opacities with tree-in-bud nodularity at the right lung base. No pleural effusion. Liver, spleen, pancreas and adrenals are unremarkable. Gallbladder surgically absent. Kidneys demonstrate symmetric enhancement. No perinephric inflammation or hydronephrosis. There is a partially exophytic cystic lesion at the mid left kidney statistically likely representing simple cysts. No renal or ureteral calculi are identified. Bladder is distended and appears thin-walled. Uterus is absent. No abnormal adnexal mass. Mild diverticulosis probably in the descending and sigmoid colon without evidence of acute diverticulitis. Remainder of the large and small bowel are unremarkable. Appendix is nonidentified. No free intra-abdominal air or fluid. No obstruction. Abdominal aorta has a normal course and caliber. Abdominal vasculature is patent. No enlarged abdominal lymph nodes are identified. No suspicious osseous lesions or acute fractures. IMPRESSION: 1. Diverticulosis with minimal adjacent fat stranding may relate to mild diverticulitis at the sigmoid colon. No evidence for perforation or adjacent abscess. 2. Patchy airspace disease at the right lung base favored to be infectious or inflammatory in etiology. Follow-up imaging to ensure resolution is recommended. Exposure: One or more of the following in the visualized dose reduction techniques were utilized for this examination: 1. Automated exposure control 2. Adjustment of the MA and/or KV according to patient size 3. Use of iterative of reconstructive technique Electronically signed by: Salvatore Rosas MD (01/25/2020 6:16 PM) [id number] DICTATED and SIGNED BY: SALVATORE ROSAS MD DATE: 01/25/201815 (RAJESH CUMMINGS APRN) Course & Med Decision Making: Course & Med Decision Making Pertinent Labs and Imaging studies reviewed. (See chart for details) Abdomen has generalized tenderness. Patient is unable to tell me the quality of the pain. Abdomen is soft. Alert and oriented. Garbled speech but can be understood and she answers my questions appropriately. PERRLA. No extremity edema. Patient does have tremors and jerking in her extremities. She is able to raise her arms and hold them. When I asked her to raise her legs she cannot raise and hold them but she does scoot them in the bed and they are jerking. Skin pink warm and dry. Patient has a inverted left nipple with a small round brown mole type of growth right by the nipple. There is no discharge from the nipple. No pain or tenderness or redness with palpation. I do not feel any lumps or bumps in the breast. Patient's history of diverticulosis, COPD, pneumonia, respiratory failure, hypothyroidism, hypertension, GERD, breast cancer, smoking, osteoporosis. Have spoken to Dr. Matos turning this patient findings and care plan. IMPRESSION: Increased patchy interstitial changes at the right lung base with improved aeration of the left lung base. Consideration may be given for developing interstitial pneumonitis. Short-term follow-up two-view chest radiograph could be of benefit for further evaluation. Patient's troponin is 0. 546. I have spoken to Dr. Hare and he states he will see the patient in the morning. He states no Heparin needed at this time. Patient denies any chest pain. Patient will be admitted for an elevated troponin and pneumonia. Spoken to Dr. Francis for admission. (RAJESH CUMMINGS APRN) Kristinon Disclaimer: Gin Disclaimer: This electronic medical record was generated, in whole or in part, using a voice recognition dictation system. (RAJESH CUMMINGS APRN) Departure Departure Impression: Primary Impression: Elevated troponin Additional Impressions: Pneumonia Qualified Codes: J18.9 - Pneumonia, unspecified organism Diverticulitis Disposition: ADMITTED INPATIENT Admitting Physician: AMOS (RAJESH CUMMINGS APRN) Condition: STABLE Referrals: RAMOS SEPULVEDA MD (PCP) Justicifation of Admission Dx: Justifications for Admission: Justification of Admission Dx: Yes Comments: ELEVATED TROPONIN, PNEUMONIA, DIVERTICULITIS (RAJESH CUMMINGS APRN) Attending Signature Attending Signature I have participated in the care of this patient and I have reviewed and agree with all pertinent clinical information above including history, exam, and recommendations. (NATO MATOS DO) RAJESH CUMMINGS APRN Jan 25, 2020 16:37 NATO MATOS DO Jan 29, 2020 20:02
[2020-01-25 16:46] LABS: PROTHROMBIN TIME PATIENT 12.2 SEC (11.7-14.0)
[2020-01-25 16:50] LABS: CALCIUM 9.3 mg/dL (8.5-10.1); CREATININE 0.7 mg/dL (0.6-1.0); GFR 82.5; POTASSIUM 4.9 mmol/L (3.5-5.1)
[2020-01-25 16:56] LABS: ALBUMIN 3.4 g/dL (3.4-5.0); ALBUMIN/GLOBULIN RATIO 0.9 (1.0-1.7); TOTAL BILIRUBIN 0.4 mg/dL (0.2-1.0)
--- NOTE | 2020-01-25 17:13 | RAD ---
PORTABLE CHEST 1V 01/25/2020 4:45 PM INDICATION: Shortness of air COMPARISON: 12/17/2019 TECHNIQUE: Portable frontal view of the chest is provided. FINDINGS: Evaluation is limited by patient rotation. The cardiomediastinal silhouette is within normal limits. Increased patchy interstitial changes are noted at the right lung base. Improved aeration of the left lung base compared to prior examination. There are no significant pleural effusions. There is no pulmonary vascular congestion. No pneumothorax. Left axillary surgical clips are noted. Dextroconvex scoliosis of the thoracic spine is noted. IMPRESSION: Increased patchy interstitial changes at the right lung base with improved aeration of the left lung base. Consideration may be given for developing interstitial pneumonitis. Short-term follow-up two-view chest radiograph could be of benefit for further evaluation. Electronically signed by: Kathy Tierney MD (01/25/2020 5:10 PM) [id number]
[2020-01-25] MEDS ORDERED: IOHEXOL 300 MG/ML 100ML VIAL. IV ONE (17:15)
[2020-01-25] MEDS ORDERED: CONTRAST GIVEN. MC PRN (17:30)
[2020-01-25] MEDS ORDERED: methylPREDNISolone SOD SUCC PF 125 MG/2 ML VIAL. IV ONE (17:30)
[2020-01-25] MEDS ORDERED: AZITHRMYCN 500MG IVPB FOR OMNI 250 ML IV ONE (17:30)
[2020-01-25] MEDS ORDERED: IV NORMAL SALINE 500ML BAG 500 ML IV ONE (17:45)
[2020-01-25 18:11] LABS: BILIRUBIN,URINE NEGATIVE (NEG); CLARITY,URINE CLEAR; COLOR,URINE YELLOW; NITRITE,URINE NEGATIVE (NEG); PROTEIN,URINE NEGATIVE (NEG-TRACE); UROBILINOGEN,URINE 0.2 mg/dL (0.2 mg/dL)
--- NOTE | 2020-01-25 18:19 | RAD ---
Exam: CT of abdomen and pelvis with contrast INDICATION: Abdominal pain TECHNIQUE: Sequential axial images through the abdomen and pelvis obtained following the administration of 75 mL of Omni 300 IV contrast. Sagittal and coronal reformatted images were reconstructed from the axial data and reviewed. Comparisons: 11/22/2017 FINDINGS: Heart size is normal. No pericardial effusion. There is strandy opacities with tree-in-bud nodularity at the right lung base. No pleural effusion. Liver, spleen, pancreas and adrenals are unremarkable. Gallbladder surgically absent. Kidneys demonstrate symmetric enhancement. No perinephric inflammation or hydronephrosis. There is a partially exophytic cystic lesion at the mid left kidney statistically likely representing simple cysts. No renal or ureteral calculi are identified. Bladder is distended and appears thin-walled. Uterus is absent. No abnormal adnexal mass. Mild diverticulosis probably in the descending and sigmoid colon without evidence of acute diverticulitis. Remainder of the large and small bowel are unremarkable. Appendix is nonidentified. No free intra-abdominal air or fluid. No obstruction. Abdominal aorta has a normal course and caliber. Abdominal vasculature is patent. No enlarged abdominal lymph nodes are identified. No suspicious osseous lesions or acute fractures. IMPRESSION: 1. Diverticulosis with minimal adjacent fat stranding may relate to mild diverticulitis at the sigmoid colon. No evidence for perforation or adjacent abscess. 2. Patchy airspace disease at the right lung base favored to be infectious or inflammatory in etiology. Follow-up imaging to ensure resolution is recommended. Exposure: One or more of the following in the visualized dose reduction techniques were utilized for this examination: 1. Automated exposure control 2. Adjustment of the MA and/or KV according to patient size 3. Use of iterative of reconstructive technique Electronically signed by: Salvatore Rodgers MD (01/25/2020 6:16 PM) [id number]
--- NOTE | 2020-01-25 18:25 | RAD ---
EXAM: 1. CT HEAD WITHOUT CONTRAST. 2. CT CERVICAL SPINE WITHOUT CONTRAST. HISTORY: Fall, slurred speech. TECHNIQUE: Computed tomography of the head and cervical spine was performed without intravenous contrast. One or more of the following individualized dose reduction techniques were utilized for this examination: 1. Automated exposure control. 2. Adjustment of the mA and/or kV according to patient size. 3. Use of iterative reconstruction technique. COMPARISON: 12/10/2019. FINDINGS: There is no intracranial hemorrhage. Prakash-white differentiation is preserved. The ventricles are normal in size and position. There is mild mucosal thickening in the right maxillary sinus. The orbits are unremarkable. The temporal bones are unremarkable. The calvarium reveals no suspicious lesions. Alignment is maintained. There is mild osteoarthritis at C1/2. No fractures are identified. Degenerative disc disease is moderate to severe from C5 through C7, moderate at C4-5 and mild more superiorly. There is no prevertebral soft tissue swelling. At C2-3, there is a small posterior disc bulge. Left facet osteoarthritis is moderate. There is no significant stenosis. At C3-4, there is a moderate posterior disc-osteophyte complex. Uncovertebral osteoarthritis is moderate to severe on the right and mild on the left. Neural foraminal stenosis is severe on the right and moderate on the left. At C4-5, there is a moderate posterior disc bulge. Uncovertebral osteoarthritis is moderate on the right and mild on the left. Neural foraminal stenosis is moderate on the right. At C5-6, there is a moderate posterior disc-osteophyte complex. Uncovertebral osteoarthritis is moderate on the left and moderate to severe on the right. Neural foraminal stenosis is moderate to severe on the right and moderate on the left. At C6-7, there is a moderate posterior disc-osteophyte complex. Uncovertebral osteoarthritis is moderate bilaterally. Neural foraminal stenosis is mild bilaterally. There is moderate centrilobular emphysema in the apices. IMPRESSION: 1. No acute intracranial findings. 2. No cervical fracture or malalignment. 3. Moderate cervical degenerative changes as detailed above result in multilevel bilateral moderate/severe neural foraminal stenosis. MRI could further assess stenosis if there is persistent concern. Electronically signed by: Yuni Vela MD (01/25/2020 6:22 PM) [facility]
[2020-01-25] MEDS ORDERED: fentaNYL PF VIAL 100 MCG/2 ML VIAL IV PRN (18:30)
[2020-01-25] MEDS ORDERED: ONDANSETRON PF 4 MG/2 ML VIAL. IV PRN (18:30)
[2020-01-25 18:41] LABS: BACTERIA,URINE 0 /HPF (0-FEW); RBC,URINE 0 /HPF (0-2); SQUAMOUS EPITHELIAL CELL,UR OCC /LPF
[2020-01-25 18:42] LABS: HYALINE CASTS, URINE OCCASIONAL /HPF
[2020-01-25] MEDS ORDERED: CIPROFLOXACIN 400MG PREMIX 200 ML IV ONE (18:45)
[2020-01-25] MEDS ORDERED: IPRATRPIUM/ALBUTEROL 0.5/2.5MG 3 ML NEBU. NEB SCH (20:00)
[2020-01-25] MEDS ORDERED: IPRATRPIUM/ALBUTEROL 0.5/2.5MG 3 ML NEBU. NEB PRN (20:56)
--- NOTE | 2020-01-25 22:20 | NUR ---
The patient, NAVDEEP RODRIGUEZ, 69 y/o, F admitted by GLORIA MANRIQUEZ MD, was given written information regarding hospital policies, unit procedures and contact persons. patient arrived to room via ED bed assisted by ED staff member. Valuables were checked and noted. Patient is currently laying in bed watching TV. patient states no needs at this time. This RN will continue to monitor the patient at this time.
[2020-01-25 23:17] VITALS: BP 121/66
[2020-01-26 03:00] VITALS: BP 123/67
--- NOTE | 2020-01-26 09:44 | PDOC1 ---
History and Physical Date of Admission Date of Admission DATE: 01/26/20 TIME: 09:43 Identification/Chief Complaint Chief Complaint SEEN IN ER WITH mid abdominal pain for a week. Patient lives at home with her son and daughter, she was discharged from rehab 2 weeks ago. FAMILY reported that ever since her discharge from the rehab she has had a decline in her health. They report frequent went falls and patient did fall 2 times 01/24 and did hit her head. //was taking blood thinners but was taken off a couple weeks ago from her primary care. son reports increased difficulty with ambulation due to patient's jerking movements. Son also reports that patient has worsening in her garbled speech, he reports that she normally has garbled speech but is worse over the last 2 weeks. Patient is able to follow commands. Son noticed a growth on her left nipple and patient does have a history of breast cancer 6 years ago and received radiation patient is also reporting increase in shortness of air, has history of COPD and does wear oxygen at home APPEARS more alert today Past Medical History Past Medical History Past Medical History Past Medical History Past Medical History: COPD, Diverticulosis, Other Additional Past Medical Histor: LEFT KNEE EFFUSION,DIZZINESS,OSTEOPOROSIS,CHRONIC PAIN Past Surgical History: Other Additional Past Surgical Histo: LEFT KNEE EFFUSION Smoking Status: Current Every Day Smoker Alcohol Use: None Drug Use: None FHX COPD Pulmonary: Asthma, Bronchitis GI: Diverticulosis Renal/: No pertinent hx Past Surgical History Past Surgical History: Hernia Repair Family History Family History: No Significant, High Cholestrol Social History Smoke: No ALCOHOL: none Drugs: None, Ecstasy Current Problem List Problem List Problems Medical Problems: (1) Diverticulitis Status: Acute (2) Elevated troponin Status: Acute (3) Pneumonia Status: Acute Current Medications Current Medications Current Medications Iohexol (Omnipaque 300 Mg/ml) 75 ml 1X ONCE IV Last administered on 01/25/20at 17:15; Start 01/25/20 at 17:15; Stop 01/25/20 at 17:16; Status DC Info (CONTRAST GIVEN -- Rx MONITORING) 1 each PRN DAILY PRN MC SEE COMMENTS; Start 01/25/20 at 17:30; Stop 01/27/20 at 17:29 Azithromycin 250 ml @ 250 mls/hr 1X ONCE IV Last administered on 01/25/20at 17:30; Start 01/25/20 at 17:30; Stop 01/25/20 at 18:29; Status DC Methylprednisolone Sodium Succinate (SOLU-Medrol 125MG VIAL) 125 mg 1X ONCE IV Last administered on 01/25/20at 18:00; Start 01/25/20 at 17:30; Stop 01/25/20 at 17:31; Status DC Sodium Chloride 500 ml @ 500 mls/hr 1X ONCE IV Last administered on 01/25/20at 18:00; Start 01/25/20 at 17:45; Stop 01/25/20 at 18:44; Status DC Ondansetron HCl (Zofran) 4 mg PRN Q8HRS PRN IV NAUSEA/VOMITING; Start 01/25/20 at 18:30; Stop 01/26/20 at 18:29 Fentanyl Citrate (Fentanyl 2ml Vial) 50 mcg PRN Q1HR PRN IV PAIN; Start 01/25/20 at 18:30; Stop 01/26/20 at 18:29 Albuterol/ Ipratropium (Duoneb) 3 ml RTQID NEB ; Start 01/25/20 at 20:00; Stop 01/25/20 at 20:54; Status DC Ciprofloxacin/ Dextrose 200 ml @ 200 mls/hr 1X ONCE IV Last administered on 01/25/20at 20:26; Start 01/25/20 at 18:45; Stop 01/25/20 at 19:44; Status DC Metronidazole 100 ml @ 100 mls/hr 1X ONCE IV ; Start 01/25/20 at 18:45; Stop 01/25/20 at 19:44; Status DC Albuterol/ Ipratropium (Duoneb) 3 ml PRN Q4HRS PRN NEB SHORTNESS OF BREATH; Start 01/25/20 at 20:56; Stop 01/26/20 at 20:55 Metronidazole 100 ml @ 100 mls/hr 1X ONCE IV Last administered on 01/26/20at 05:31; Start 01/26/20 at 05:30; Stop 01/26/20 at 06:29; Status DC Active Scripts Active Nystop (Nystatin) 60 Gm Powder 1 [place] TP BID 14 Days Tylenol (Acetaminophen) 325 Mg Tablet 650 Mg PO PRN Q6HRS PRN 30 Days Reported Synthroid (Levothyroxine Sodium) 75 Mcg Tablet 1 Tab PO DAILY Toprol XL (Metoprolol Succinate) 50 Mg Tab.er.24h 25 Mg PO DAILY Losartan Potassium 50 Mg Tablet 50 Mg PO DAILY Wellbutrin Xl (Bupropion Hcl) 150 Mg Tab.er.24h 1 Tab PO DAILY Pantoprazole Sodium (Pantoprazole Sodium) 40 Mg Tablet.dr 40 Mg PO DAILYAC Budesonide 0.5 Mg/2 Ml Ampul.neb 0.5 Mg IH BID [place] Carbonate 600 Mg Capsule 600 Mg PO QHS [place] Carbonate 300 Mg Tablet.er 300 Mg PO DAILY Alprazolam 0.25 Mg Tablet 0.25 Mg PO PRN BID Amitriptyline Hcl 50 Mg Tablet 100 Mg PO HS Dexilant (Dexlansoprazole) 60 Mg Cap.dr.mp 60 Mg PO DAILY Duoneb 0.5 Mg-3 Mg/3 Ml Soln (Ipratropium/Albuterol Sulfate) 3 Ml Ampul.neb 3 Ml IH QID Proair Hfa Inhaler (Albuterol Sulfate) 8.5 Gm Hfa.aer.ad 17 Gm IH PRN Q4HRS Daliresp (Roflumilast) 500 Mcg Tablet 500 Mcg PO DAILY Flonase (Fluticasone Propionate) 16 Gm [place].susp 16 Gm NS DAILY Advair 500-50 Diskus (Fluticasone/Salmeterol) 1 Each Disk.w.dev 1 Each IH BID Mucinex (Guaifenesin) 600 Mg Tablet.er 600 Mg PO PRN Allergies Allergies: Coded Allergies: Penicillins (Verified Allergy, Severe, SWELLING OF THROAT, HIVES, 07/08/13) oxycodone HCl (Verified Allergy, Severe, THROAT SWELLING, HIVES, 10/25/16) propoxyphene napsylate (Verified Allergy, Severe, THROAT SWELLING, HIVES, 07/08/13) tetracycline (Verified Allergy, Severe, SWELLING OF THROAT, HIVES, 07/08/13) shellfish derived (Verified Allergy, Intermediate, allergic to scallops, 10/20/16) ROS Review of System Constitutional: Denies fever or chills. [] Eyes: Denies change in visual acuity. [] HENT: Denies nasal congestion or sore throat. [] Respiratory: Denies cough. + shortness of breath. [] Cardiovascular: Denies chest pain or edema. [] GI: abdominal pain, denies nausea, vomiting, bloody stools or diarrhea. [] : Denies dysuria. [] Musculoskeletal: Denies back pain or joint pain. [] Integument: Denies rash. [] Neurologic: Denies headache, focal weakness or sensory changes. Weakness. [] Endocrine: Denies polyuria or polydipsia. [] Lymphatic: Denies swollen glands. [] Psychiatric: Denies depression or anxiety. [] Physical Exam Physical Exam Neck: Normal range of motion, no tenderness, supple, no stridor. [] Cardiovascular:Heart rate regular rhythm, no murmur [] Lungs & Thorax: Bilateral upper breath sounds clear and lower diminished to auscultation [] Abdomen: Bowel sounds normal, soft, no tenderness, no masses, no pulsatile masses. [] Skin: Warm, dry, no erythema, no rash. Small eraser sized brown mole to side of left nipple. [] Back: No tenderness, no CVA tenderness. [] Extremities: No tenderness, no cyanosis, no clubbing, ROM intact, no edema. [] Neurologic: Alert and oriented X 3, normal motor function, normal sensory function, no focal deficits noted. [] Psychologic: ENCEPHALOPATHIC General: Alert, Oriented X3, Cooperative, No acute distress Breasts: Not examined Rectal Exam: not examined Extremities: No cyanosis Neuro: Cranial nerves 3-12 NL, Other (slurred speech ) Vitals Vitals Vital Signs Date Time Temp Pulse Resp B/P (MAP) Pulse Ox O2 Delivery O2 Flow Rate FiO2 01/26/20 03:00 97.9 78 19 123/67 (85) 94 Nasal Cannula 2.0 97.9 Labs Labs Laboratory Tests Test 01/25/20 16:26 01/25/20 17:55 White Blood Count 13.0 x10^3/uL (4.0-11.0) Red Blood Count 4.20 x10^6/uL (3.50-5.40) Hemoglobin 12.2 g/dL (12.0-15.5) Hematocrit 37.0 % (36.0-47.0) Mean Corpuscular Volume 88 fL (79-100) Mean Corpuscular Hemoglobin 29 pg (25-35) Mean Corpuscular Hemoglobin Concent 33 g/dL (31-37) Red Cell Distribution Width 16.8 % (11.5-14.5) Platelet Count 305 x10^3/uL (140-400) Neutrophils (%) (Auto) 79 % (31-73) Lymphocytes (%) (Auto) 14 % (24-48) Monocytes (%) (Auto) 5 % (0-9) Eosinophils (%) (Auto) 2 % (0-3) Basophils (%) (Auto) 1 % (0-3) Neutrophils # (Auto) 10.2 x10^3/uL (1.8-7.7) Lymphocytes # (Auto) 1.8 x10^3/uL (1.0-4.8) Monocytes # (Auto) 0.6 x10^3/uL (0.0-1.1) Eosinophils # (Auto) 0.3 x10^3/uL (0.0-0.7) Basophils # (Auto) 0.1 x10^3/uL (0.0-0.2) Prothrombin Time 12.2 SEC (11.7-14.0) Prothromb Time International Ratio 0.9 (0.8-1.1) Sodium Level 136 mmol/L (136-145) Potassium Level 4.9 mmol/L (3.5-5.1) Chloride Level 103 mmol/L (98-107) Carbon Dioxide Level 28 mmol/L (21-32) Anion Gap 5 (6-14) Blood Urea Nitrogen 22 mg/dL (7-20) Creatinine 0.7 mg/dL (0.6-1.0) Estimated GFR (Cockcroft-Gault) 82.5 BUN/Creatinine Ratio 31 (6-20) Glucose Level 100 mg/dL (70-99) Lactic Acid Level 0.9 mmol/L (0.4-2.0) Calcium Level 9.3 mg/dL (8.5-10.1) Total Bilirubin 0.4 mg/dL (0.2-1.0) Aspartate Amino Transf (AST/SGOT) 28 U/L (15-37) Alanine Aminotransferase (ALT/SGPT) 20 U/L (14-59) Alkaline Phosphatase 189 U/L (46-116) Troponin I Quantitative 0.546 ng/mL (0.000-0.055) AH-Wlt-A-Type Natriuretic Peptide 632 pg/mL (0-124) Total Protein 7.0 g/dL (6.4-8.2) Albumin 3.4 g/dL (3.4-5.0) Albumin/Globulin Ratio 0.9 (1.0-1.7) Lipase 46 U/L (73-393) Urine Collection Type U cath Urine Color Yellow Urine Clarity Clear Urine pH 7.0 (<5.0-8.0) Urine Specific [place] 1.020 (1.000-1.030) Urine Protein Negative mg/dL (NEG-TRACE) Urine Glucose (UA) Negative mg/dL (NEG) Urine Ketones (Stick) Negative mg/dL (NEG) Urine Blood Negative (NEG) Urine Nitrite Negative (NEG) Urine Bilirubin Negative (NEG) Urine Urobilinogen Dipstick 0.2 mg/dL (0.2 mg/dL) Urine Leukocyte Esterase Small (NEG) Urine RBC 0 /HPF (0-2) Urine WBC 5-10 /HPF (0-4) Urine Squamous Epithelial Cells Occ /LPF Urine Bacteria 0 /HPF (0-FEW) Urine Hyaline Casts Occasional /HPF Laboratory Tests Test 01/25/20 16:26 01/25/20 17:55 White Blood Count 13.0 x10^3/uL (4.0-11.0) Red Blood Count 4.20 x10^6/uL (3.50-5.40) Hemoglobin 12.2 g/dL (12.0-15.5) Hematocrit 37.0 % (36.0-47.0) Mean Corpuscular Volume 88 fL (79-100) Mean Corpuscular Hemoglobin 29 pg (25-35) Mean Corpuscular Hemoglobin Concent 33 g/dL (31-37) Red Cell Distribution Width 16.8 % (11.5-14.5) Platelet Count 305 x10^3/uL (140-400) Neutrophils (%) (Auto) 79 % (31-73) Lymphocytes (%) (Auto) 14 % (24-48) Monocytes (%) (Auto) 5 % (0-9) Eosinophils (%) (Auto) 2 % (0-3) Basophils (%) (Auto) 1 % (0-3) Neutrophils # (Auto) 10.2 x10^3/uL (1.8-7.7) Lymphocytes # (Auto) 1.8 x10^3/uL (1.0-4.8) Monocytes # (Auto) 0.6 x10^3/uL (0.0-1.1) Eosinophils # (Auto) 0.3 x10^3/uL (0.0-0.7) Basophils # (Auto) 0.1 x10^3/uL (0.0-0.2) Prothrombin Time 12.2 SEC (11.7-14.0) Prothromb Time International Ratio 0.9 (0.8-1.1) Sodium Level 136 mmol/L (136-145) Potassium Level 4.9 mmol/L (3.5-5.1) Chloride Level 103 mmol/L (98-107) Carbon Dioxide Level 28 mmol/L (21-32) Anion Gap 5 (6-14) Blood Urea Nitrogen 22 mg/dL (7-20) Creatinine 0.7 mg/dL (0.6-1.0) Estimated GFR (Cockcroft-Gault) 82.5 BUN/Creatinine Ratio 31 (6-20) Glucose Level 100 mg/dL (70-99) Lactic Acid Level 0.9 mmol/L (0.4-2.0) Calcium Level 9.3 mg/dL (8.5-10.1) Total Bilirubin 0.4 mg/dL (0.2-1.0) Aspartate Amino Transf (AST/SGOT) 28 U/L (15-37) Alanine Aminotransferase (ALT/SGPT) 20 U/L (14-59) Alkaline Phosphatase 189 U/L (46-116) Troponin I Quantitative 0.546 ng/mL (0.000-0.055) BM-Imo-J-Type Natriuretic Peptide 632 pg/mL (0-124) Total Protein 7.0 g/dL (6.4-8.2) Albumin 3.4 g/dL (3.4-5.0) Albumin/Globulin Ratio 0.9 (1.0-1.7) Lipase 46 U/L (73-393) Urine Collection Type U cath Urine Color Yellow Urine Clarity Clear Urine pH 7.0 (<5.0-8.0) Urine Specific [place] 1.020 (1.000-1.030) Urine Protein Negative mg/dL (NEG-TRACE) Urine Glucose (UA) Negative mg/dL (NEG) Urine Ketones (Stick) Negative mg/dL (NEG) Urine Blood Negative (NEG) Urine Nitrite Negative (NEG) Urine Bilirubin Negative (NEG) Urine Urobilinogen Dipstick 0.2 mg/dL (0.2 mg/dL) Urine Leukocyte Esterase Small (NEG) Urine RBC 0 /HPF (0-2) Urine WBC 5-10 /HPF (0-4) Urine Squamous Epithelial Cells Occ /LPF Urine Bacteria 0 /HPF (0-FEW) Urine Hyaline Casts Occasional /HPF Images Images EXAMINATION: VIDEO SWALLOW STUDY 12/16/2019 2:00 PM HISTORY: Dysphagia COMPARISON: None. TECHNIQUE: The patient was observed swallowing various consistencies of barium under intermittent fluoroscopy. FINDINGS: There was aspiration and penetration with thin liquid. Penetration was seen initially with honey thick barium but improved throughout the exam with assistance. Moderate residuals in the vallecula and piriform sinuses. Please see the speech pathologist's report for further details. Total fluoroscopic time:1.3 minutes. IMPRESSION: Aspiration with thin liquid. Electronically signed by: Monet Bal MD (12/16/2019 3:30 PM) [id number] DICTATED and SIGNED BY: MONET BAL MD COMPARISON: 12/10/2019. FINDINGS: There is no intracranial hemorrhage. Prakash-white differentiation is preserved. The ventricles are normal in size and position. There is mild mucosal thickening in the right maxillary sinus. The orbits are unremarkable. The temporal bones are unremarkable. The calvarium reveals no suspicious lesions. Alignment is maintained. There is mild osteoarthritis at C1/2. No fractures are identified. Degenerative disc disease is moderate to severe from C5 through C7, moderate at C4-5 and mild more superiorly. There is no prevertebral soft tissue swelling. At C2-3, there is a small posterior disc bulge. Left facet osteoarthritis is moderate. There is no significant stenosis. At C3-4, there is a moderate posterior disc-osteophyte complex. Uncovertebral osteoarthritis is moderate to severe on the right and mild on the left. Neural foraminal stenosis is severe on the right and moderate on the left. At C4-5, there is a moderate posterior disc bulge. Uncovertebral osteoarthritis is moderate on the right and mild on the left. Neural foraminal stenosis is moderate on the right. At C5-6, there is a moderate posterior disc-osteophyte complex. Uncovertebral osteoarthritis is moderate on the left and moderate to severe on the right. Neural foraminal stenosis is moderate to severe on the right and moderate on the left. At C6-7, there is a moderate posterior disc-osteophyte complex. Uncovertebral osteoarthritis is moderate bilaterally. Neural foraminal stenosis is mild bilaterally. There is moderate centrilobular emphysema in the apices. IMPRESSION: 1. No acute intracranial findings. 2. No cervical fracture or malalignment. 3. Moderate cervical degenerative changes as detailed above result in multilevel bilateral moderate/severe neural foraminal stenosis. MRI could further assess stenosis if there is persistent concern. Electronically signed by: Yuni Vela MD (01/25/2020 6:22 PM) [facility] PROCEDURE: PORTABLE CHEST 1V PORTABLE CHEST 1V 01/25/2020 4:45 PM INDICATION: Shortness of air COMPARISON: 12/17/2019 TECHNIQUE: Portable frontal view of the chest is provided. FINDINGS: Evaluation is limited by patient rotation. The cardiomediastinal silhouette is within normal limits. Increased patchy interstitial changes are noted at the right lung base. Improved aeration of the left lung base compared to prior examination. There are no significant pleural effusions. There is no pulmonary vascular congestion. No pneumothorax. Left axillary surgical clips are noted. Dextroconvex scoliosis of the thoracic spine is noted. IMPRESSION: Increased patchy interstitial changes at the right lung base with improved aeration of the left lung base. Consideration may be given for developing interstitial pneumonitis. Short-term follow-up two-view chest radiograph could be of benefit for further evaluation. Electronically signed by: Jayme Jackson MD (01/25/2020 5:10 PM) [id number] DICTATED and SIGNED BY: JAYME JACKSON MD Exam: CT of abdomen and pelvis with contrast INDICATION: Abdominal pain TECHNIQUE: Sequential axial images through the abdomen and pelvis obtained following the administration of 75 mL of Omni 300 IV contrast. Sagittal and coronal reformatted images were reconstructed from the axial data and reviewed. Comparisons: 11/22/2017 FINDINGS: Heart size is normal. No pericardial effusion. There is strandy opacities with tree-in-bud nodularity at the right lung base. No pleural effusion. Liver, spleen, pancreas and adrenals are unremarkable. Gallbladder surgically absent. Kidneys demonstrate symmetric enhancement. No perinephric inflammation or hydronephrosis. There is a partially exophytic cystic lesion at the mid left kidney statistically likely representing simple cysts. No renal or ureteral calculi are identified. Bladder is distended and appears thin-walled. Uterus is absent. No abnormal adnexal mass. Mild diverticulosis probably in the descending and sigmoid colon without evidence of acute diverticulitis. Remainder of the large and small bowel are unremarkable. Appendix is nonidentified. No free intra-abdominal air or fluid. No obstruction. Abdominal aorta has a normal course and caliber. Abdominal vasculature is patent. No enlarged abdominal lymph nodes are identified. No suspicious osseous lesions or acute fractures. IMPRESSION: 1. Diverticulosis with minimal adjacent fat stranding may relate to mild diverticulitis at the sigmoid colon. No evidence for perforation or adjacent abscess. 2. Patchy airspace disease at the right lung base favored to be infectious or inflammatory in etiology. Follow-up imaging to ensure resolution is recommended. Exposure: One or more of the following in the visualized dose reduction techniques were utilized for this examination: 1. Automated exposure control 2. Adjustment of the MA and/or KV according to patient size 3. Use of iterative of reconstructive technique Electronically signed by: Salvatore Rodgers MD (01/25/2020 6:16 PM) [id number] VTE Prophylaxis Ordered VTE Prophylaxis Devices: Yes VTE Pharmacological Prophylaxi: Yes Assessment/Plan Assessment/Plan IMPRESSION: 1. Diverticulosis with minimal adjacent fat stranding may relate to mild diverticulitis at the sigmoid colon. No evidence for perforation or adjacent abscess. 2. Patchy airspace disease at the right lung base favored to be infectious or inflammatory in etiology. 3. HCAP with associated COPD Consideration may be given for developing interstitial pneumonitis. ? covid-19 4. Elevated troponin: Peaked at 0.5. // demand mediated 5. RBBB, OLD 6. HTN: controlled 7. HYPERLIPIDEMIA 8. acute metabolic encephalopathy, appears to be improving 9. gait instability with falls on ct head, No acute intracranial findings. 10.No cervical fracture or malalignment. Moderate cervical degenerative changes as detailed above result in multilevel bilateral moderate/severe neural foraminal stenosis. MRI could further assess stenosis if there is persistent concern. 11. LEFT BREAST changes, new , hx breast ca PLAN ADMIT ICU BED COVID-19 SCREEN pulm consult GI CONSULT RESP ISOLATION Cardiology consult neurology consult., falls, speech id consult HCAP VS COVID-19 PT/OT/ST gen surgery consult re breast ca, breast changes The patient was evaluated during the global COVID-19 pandemic, and that diagnosis was suspected/considered upon their initial presentation. Their evaluation, treatment and testing was consistent with current guidelines for patients who present with complaints or symptoms that may be related to COVID- 19. 56 min cc time Justicifation of Admission Dx: Justifications for Admission: Justification of Admission Dx: Yes GLORIA MANRIQUEZ MD Jan 26, 2020 09:44
[2020-01-26 09:54] LABS: CHOLESTEROL/HDL RATIO 2.6
[2020-01-26 10:00] VITALS: BP 154/66
--- NOTE | 2020-01-26 10:23 | PDOC2 ---
TC ECHAVARRIA [employer] 01/26/20 1023: CARDIAC CONSULT DATE OF CONSULT Date of Consult DATE: 01/26/20 TIME: 10:11 REASON FOR CONSULT Reason for Consult: Elevated troponin REFERRING PHYSICIAN Referring Physician: oDminique SOURCE Source: Chart review, Patient HISTORY OF PRESENT ILLNESS HISTORY OF PRESENT ILLNESS This is a 69 yo female admitted for complains of abdominal pain. +nausea. This has been going on for a week. She was recently in rehab and discharged about 2 weeks ago. She has been having mechanical falls but no obvious injury and no associated lost of consciousness. She has been having slurred speech as well and has been having issues with her gait. Also positive for increasing SOA and does have COPD and uses O2 at home. No reported chest pain or vomiting. Denies any exertional CP or FLORES. She quit smoking about 8 weeks ago. The falls that she has is due to gait issues and no associated lost of consciousness of syncope. PAST MEDICAL HISTORY Pulmonary: COPD, Pneumonia GI: Diverticulosis, GERD Musculoskeletal: Osteoarthritis, Other (chronic back pain with opioid use) Endocrine: Osteoporosis PAST SURGICAL HISTORY Past Surgical History: Hernia Repair FAMILY HISTORY Family History noncontributory SOCIAL HISTORY Smoke: Quit ALCOHOL: none Drugs: None Lives: with Family CURRENT MEDICATIONS CURRENT MEDICATIONS Current Medications Medications (Trade) Dose Ordered Sig/Juan F Route PRN Reason Start Time Stop Time Status Last Admin Dose Admin Iohexol (Omnipaque 300 Mg/ml) 75 ml 1X ONCE IV 01/25/20 17:15 01/25/20 17:16 DC 01/25/20 17:15 Azithromycin 250 ml @ 250 mls/hr 1X ONCE IV 01/25/20 17:30 01/25/20 18:29 DC 01/25/20 17:30 Methylprednisolone Sodium Succinate (SOLU-Medrol 125MG VIAL) 125 mg 1X ONCE IV 01/25/20 17:30 01/25/20 17:31 DC 01/25/20 18:00 Sodium Chloride 500 ml @ 500 mls/hr 1X ONCE IV 01/25/20 17:45 01/25/20 18:44 DC 01/25/20 18:00 Ciprofloxacin/ Dextrose 200 ml @ 200 mls/hr 1X ONCE IV 01/25/20 18:45 01/25/20 19:44 DC 01/25/20 20:26 Metronidazole 100 ml @ 100 mls/hr 1X ONCE IV 01/26/20 05:30 01/26/20 06:29 DC 01/26/20 05:31 ALLERGIES ALLERGIES: Coded Allergies: Penicillins (Verified Allergy, Severe, SWELLING OF THROAT, HIVES, 07/08/13) oxycodone HCl (Verified Allergy, Severe, THROAT SWELLING, HIVES, 10/25/16) propoxyphene napsylate (Verified Allergy, Severe, THROAT SWELLING, HIVES, 07/08/13) tetracycline (Verified Allergy, Severe, SWELLING OF THROAT, HIVES, 07/08/13) shellfish derived (Verified Allergy, Intermediate, allergic to scallops, 10/20/16) ROS Review of System 14 point ROS evaluated with pertinent positives noted per HPI PHYSICAL EXAM General: Alert, Oriented X3, Cooperative, No acute distress HEENT: Atraumatic Lungs: Other (diminished) Heart: Regular rate (SR) Abdomen: Soft Extremities: No cyanosis Skin: No breakdown Neuro: Sensation intact, Other (dysphonia) Psych/Mental Status: Mental status NL, Mood NL MUSCULOSKELETAL: Osteoarthritic changes both hands VITALS/I&O VITALS/I&O: Vital Signs Date Time Temp Pulse Resp B/P (MAP) Pulse Ox O2 Delivery O2 Flow Rate FiO2 01/26/20 10:00 98.1 89 19 154/66 (95) 95 Nasal Cannula 2.0 98.1 I & O 01/25/20 01/25/20 01/26/20 15:00 23:00 07:00 Intake Total 1050 ml Output Total 0 ml 400 ml Balance 1050 ml -400 ml LABS Lab: Laboratory Tests Test 01/25/20 16:26 01/25/20 17:55 01/26/20 09:00 White Blood Count 13.0 x10^3/uL (4.0-11.0) H Red Blood Count 4.20 x10^6/uL (3.50-5.40) Hemoglobin 12.2 g/dL (12.0-15.5) Hematocrit 37.0 % (36.0-47.0) Mean Corpuscular Volume 88 fL (79-100) Mean Corpuscular Hemoglobin 29 pg (25-35) Mean Corpuscular Hemoglobin Concent 33 g/dL (31-37) Red Cell Distribution Width 16.8 % (11.5-14.5) H Platelet Count 305 x10^3/uL (140-400) Neutrophils (%) (Auto) 79 % (31-73) H Lymphocytes (%) (Auto) 14 % (24-48) L Monocytes (%) (Auto) 5 % (0-9) Eosinophils (%) (Auto) 2 % (0-3) Basophils (%) (Auto) 1 % (0-3) Neutrophils # (Auto) 10.2 x10^3/uL (1.8-7.7) H Lymphocytes # (Auto) 1.8 x10^3/uL (1.0-4.8) Monocytes # (Auto) 0.6 x10^3/uL (0.0-1.1) Eosinophils # (Auto) 0.3 x10^3/uL (0.0-0.7) Basophils # (Auto) 0.1 x10^3/uL (0.0-0.2) Prothrombin Time 12.2 SEC (11.7-14.0) Prothrombin Time INR 0.9 (0.8-1.1) Sodium Level 136 mmol/L (136-145) Potassium Level 4.9 mmol/L (3.5-5.1) Chloride Level 103 mmol/L (98-107) Carbon Dioxide Level 28 mmol/L (21-32) Anion Gap 5 (6-14) L Blood Urea Nitrogen 22 mg/dL (7-20) H Creatinine 0.7 mg/dL (0.6-1.0) Estimated GFR (Cockcroft-Gault) 82.5 BUN/Creatinine Ratio 31 (6-20) H Glucose Level 100 mg/dL (70-99) H Lactic Acid Level 0.9 mmol/L (0.4-2.0) Calcium Level 9.3 mg/dL (8.5-10.1) Total Bilirubin 0.4 mg/dL (0.2-1.0) Aspartate Amino Transferase (AST) 28 U/L (15-37) Alanine Aminotransferase (ALT) 20 U/L (14-59) Alkaline Phosphatase 189 U/L (46-116) H Troponin I Quantitative 0.546 ng/mL (0.000-0.055) 0.300 ng/mL (0.000-0.055) AE-Ggv-T-Type Natriuretic Peptide 632 pg/mL (0-124) H Total Protein 7.0 g/dL (6.4-8.2) Albumin 3.4 g/dL (3.4-5.0) Albumin/Globulin Ratio 0.9 (1.0-1.7) L Lipase 46 U/L (73-393) L Urine Collection Type U cath Urine Color Yellow Urine Clarity Clear Urine pH 7.0 (<5.0-8.0) Urine Specific [place] 1.020 (1.000-1.030) Urine Protein Negative mg/dL (NEG-TRACE) Urine Glucose (UA) Negative mg/dL (NEG) Urine Ketones (Stick) Negative mg/dL (NEG) Urine Blood Negative (NEG) Urine Nitrite Negative (NEG) Urine Bilirubin Negative (NEG) Urine Urobilinogen Dipstick 0.2 mg/dL (0.2 mg/dL) Urine Leukocyte Esterase Small (NEG) Urine RBC 0 /HPF (0-2) Urine WBC 5-10 /HPF (0-4) Urine Squamous Epithelial Cells Occ /LPF Urine Bacteria 0 /HPF (0-FEW) Urine Hyaline Casts Occasional /HPF Triglycerides Level 62 mg/dL (0-150) Cholesterol Level 201 mg/dL (0-200) H LDL Cholesterol, Calculated 113 mg/dL (0-100) H VLDL Cholesterol, Calculated 12 mg/dL (0-40) Non-HDL Cholesterol Calculated 125 mg/dL (0-129) HDL Cholesterol 76 mg/dL (40-60) H Cholesterol/HDL Ratio 2.6 Laboratory Tests 01/25/20 16:26 Laboratory Tests 01/25/20 16:26 ECHOCARDIOGRAM ECHOCARDIOGRAM <Conclusion> Left ventricle systolic function is normal. The Ejection Fraction is 50-55%. There is normal LV segmental wall motion. The right ventricle appears mildly dilated. Doppler and Color Flow revealed mild tricuspid regurgitation. The PA pressure was estimated at 43 mmHg. The IVC is dilated and collapses <50% with inspiration suggestive of mild volume overload. DATE: 10/18/16 1527 ASSESSMENT/PLAN ASSESSMENT/PLAN 1. Abdominal pain with diverticulitis 2. Possible pneumonia with associated COPD: aspiration? 3. Elevated troponin: Peaked at 0.5. No acute EKG changes, suspect demand mediated type 2 4. Chronic RBBB 5. HTN: controlled 6. HLP 7. Mechanical falls: Ataxia? 8. PUI: Covid -10 test pending Recommendations 1. Covid pending Will obtain TTE if negative. 2. Continue current regimen supportive care. 3. Await GI and general surgery input. Pt with no chest pain, nevertheless notable for risks factors and will plan for outpt stress test pending TTE finding. 4. Lipids and TSH and CK. Monitor rhythm 5. Consult PT and OT MALINDA ESCOBAR MD 01/27/20 0944: CARDIAC CONSULT ASSESSMENT/PLAN ASSESSMENT/PLAN Patient seen and evaluated on 01/26/20. I agree with our nurse practitioners assessment and plan. Abdominal discomfort. History of diverticulitis. Work-up in progress. COPD with possible pneumonia. Continuing present treatment. COVID testing pending. Echo post test results. Minimally elevated troponin. Peak of 0.5. No acute ischemic EKG changes. Consistent with demand ischemia. Continue medical treatment. Echo as above. Controlled hypertension. Chronic right bundle branch block. TC ECHAVARRIA APRN Jan 26, 2020 10:23 MALINDA ESCOBAR MD Jan 27, 2020 09:44
--- NOTE | 2020-01-26 10:23 | EKG ---
[facility] [address] [place] [address] Test Date: 2020-01-25 Test Time: 16:38:52 Pat Name: NAVDEEP RODRIGUEZ Department: Room: 116 1 Gender: F [employer] Builder: : 1950 Requested By: RAJESH CUMMINGS Order Number: [id number] Reading MD: Davi Villanueva Measurements Intervals [place] Rate: 85 P: 81 WY: 184 QRS: -22 QRSD: 166 T: 25 QT: 426 QTc: 513 Interpretive Statements SINUS RHYTHM LEFTWARD AXIS NON SPECIFIC INTRAVENTRICULAR BLOCK RVH WITH REPOLARIZATION ABNORMALITY QRS(T) CONTOUR ABNORMALITY CONSIDER ANTEROSEPTAL MYOCARDIAL DAMAGE CONSISTENT WITH INFERIOR INFARCT PROBABLY OLD Electronically Signed On 02-22-2020 12:36:50 CDT by Davi Villanueva
--- NOTE | 2020-01-26 10:31 | PDOC2 ---
GI CONSULT Reason For Consult: Diverticulitis HPI: HPI: 69 y/o female evaluated ion ER w/ abdominal pain, falls, garbled speech, and difficulty w/ ambulation due to "jerking movements." Noted w/ elevated WBC and troponin, also elevated Alk Phos. Imaging w/ possible pneumonia and ?sigmoid diverticulitis. Given IV Cipro, Flagyl, and Azithromycin in ER x 1, also Solu-Medrol. Currently in isolation in ICU to r/o COVID-19. When I saw, was eating regular diet (pancakes and eggs w/ apple juice) - some difficulty keeping food on fork due to tremor. Admitted last month w/ resp failure. COVID-19 was negative on 12/10/19. Had abnormal videoswallow w/ silent aspiration of thin liquids, BAR ATTENDANT recs for dysphagia diet w/ honey-thick liquids. She indicates to me that she eats a normal diet at home "unless it gets really bad and then I use that yucky stuff" (?to thicken liquids). H/o GERD - summary list includes pantoprazole and dexlansoprazole. She says the pill she takes helps GERD symptoms. Indicates occasionally food gets stuck in mid throat. Denies n/v. Abd pain is mid to LLQ/suprapubic. Denies diarrhea, constipation, and bleeding. Thinks she's had diverticulitis at least 5 times. Says last 'scopes at [facility] - colonoscopy a couple years ago, maybe EGD several years before that. S/p cholecystectomy. Denies liver and pancreas history. Possible sigmoid diverticulitis also noted on CT in 2014. Additionally, thickening of stomach antrum and duodenum noted on CT in 2018. PMH: PMH: HTN, COPD, pneumonia, GERD, breast cancer, OA, osteoporosis, chronic back pain right lumpectomy and radiation, hernia repair w/ mesh, hysterectomy FH: Family History: No pertinent hx Social History: Smoke: <1 pack per day ALCOHOL: none ROS: Somewhat limited history - per HPI. Vitals: Vitals: Vital Signs Date Time Temp Pulse Resp B/P (MAP) Pulse Ox O2 Delivery O2 Flow Rate FiO2 01/26/20 10:00 98.1 89 19 154/66 (95) 95 Nasal Cannula 2.0 98.1 Labs: Labs: Laboratory Tests Test 01/25/20 16:26 01/25/20 17:55 01/26/20 09:00 White Blood Count 13.0 x10^3/uL (4.0-11.0) Red Blood Count 4.20 x10^6/uL (3.50-5.40) Hemoglobin 12.2 g/dL (12.0-15.5) Hematocrit 37.0 % (36.0-47.0) Mean Corpuscular Volume 88 fL (79-100) Mean Corpuscular Hemoglobin 29 pg (25-35) Mean Corpuscular Hemoglobin Concent 33 g/dL (31-37) Red Cell Distribution Width 16.8 % (11.5-14.5) Platelet Count 305 x10^3/uL (140-400) Neutrophils (%) (Auto) 79 % (31-73) Lymphocytes (%) (Auto) 14 % (24-48) Monocytes (%) (Auto) 5 % (0-9) Eosinophils (%) (Auto) 2 % (0-3) Basophils (%) (Auto) 1 % (0-3) Neutrophils # (Auto) 10.2 x10^3/uL (1.8-7.7) Lymphocytes # (Auto) 1.8 x10^3/uL (1.0-4.8) Monocytes # (Auto) 0.6 x10^3/uL (0.0-1.1) Eosinophils # (Auto) 0.3 x10^3/uL (0.0-0.7) Basophils # (Auto) 0.1 x10^3/uL (0.0-0.2) Prothrombin Time 12.2 SEC (11.7-14.0) Prothromb Time International Ratio 0.9 (0.8-1.1) Sodium Level 136 mmol/L (136-145) Potassium Level 4.9 mmol/L (3.5-5.1) Chloride Level 103 mmol/L (98-107) Carbon Dioxide Level 28 mmol/L (21-32) Anion Gap 5 (6-14) Blood Urea Nitrogen 22 mg/dL (7-20) Creatinine 0.7 mg/dL (0.6-1.0) Estimated GFR (Cockcroft-Gault) 82.5 BUN/Creatinine Ratio 31 (6-20) Glucose Level 100 mg/dL (70-99) Lactic Acid Level 0.9 mmol/L (0.4-2.0) Calcium Level 9.3 mg/dL (8.5-10.1) Total Bilirubin 0.4 mg/dL (0.2-1.0) Aspartate Amino Transf (AST/SGOT) 28 U/L (15-37) Alanine Aminotransferase (ALT/SGPT) 20 U/L (14-59) Alkaline Phosphatase 189 U/L (46-116) Troponin I Quantitative 0.546 ng/mL (0.000-0.055) 0.300 ng/mL (0.000-0.055) DG-Dbb-N-Type Natriuretic Peptide 632 pg/mL (0-124) Total Protein 7.0 g/dL (6.4-8.2) Albumin 3.4 g/dL (3.4-5.0) Albumin/Globulin Ratio 0.9 (1.0-1.7) Lipase 46 U/L (73-393) Urine Collection Type U cath Urine Color Yellow Urine Clarity Clear Urine pH 7.0 (<5.0-8.0) Urine Specific [place] 1.020 (1.000-1.030) Urine Protein Negative mg/dL (NEG-TRACE) Urine Glucose (UA) Negative mg/dL (NEG) Urine Ketones (Stick) Negative mg/dL (NEG) Urine Blood Negative (NEG) Urine Nitrite Negative (NEG) Urine Bilirubin Negative (NEG) Urine Urobilinogen Dipstick 0.2 mg/dL (0.2 mg/dL) Urine Leukocyte Esterase Small (NEG) Urine RBC 0 /HPF (0-2) Urine WBC 5-10 /HPF (0-4) Urine Squamous Epithelial Cells Occ /LPF Urine Bacteria 0 /HPF (0-FEW) Urine Hyaline Casts Occasional /HPF Triglycerides Level 62 mg/dL (0-150) Cholesterol Level 201 mg/dL (0-200) LDL Cholesterol, Calculated 113 mg/dL (0-100) VLDL Cholesterol, Calculated 12 mg/dL (0-40) Non-HDL Cholesterol Calculated 125 mg/dL (0-129) HDL Cholesterol 76 mg/dL (40-60) Cholesterol/HDL Ratio 2.6 Allergies: Coded Allergies: Penicillins (Verified Allergy, Severe, SWELLING OF THROAT, HIVES, 07/08/13) oxycodone HCl (Verified Allergy, Severe, THROAT SWELLING, HIVES, 10/25/16) propoxyphene napsylate (Verified Allergy, Severe, THROAT SWELLING, HIVES, 07/08/13) tetracycline (Verified Allergy, Severe, SWELLING OF THROAT, HIVES, 07/08/13) shellfish derived (Verified Allergy, Intermediate, allergic to scallops, 10/20/16) Medications: Current Medications Medications (Trade) Dose Ordered Sig/Juan F Route PRN Reason Start Time Stop Time Status Last Admin Dose Admin Iohexol (Omnipaque 300 Mg/ml) 75 ml 1X ONCE IV 01/25/20 17:15 01/25/20 17:16 DC 01/25/20 17:15 Azithromycin 250 ml @ 250 mls/hr 1X ONCE IV 01/25/20 17:30 01/25/20 18:29 DC 01/25/20 17:30 Methylprednisolone Sodium Succinate (SOLU-Medrol 125MG VIAL) 125 mg 1X ONCE IV 01/25/20 17:30 01/25/20 17:31 DC 01/25/20 18:00 Sodium Chloride 500 ml @ 500 mls/hr 1X ONCE IV 01/25/20 17:45 01/25/20 18:44 DC 01/25/20 18:00 Ciprofloxacin/ Dextrose 200 ml @ 200 mls/hr 1X ONCE IV 01/25/20 18:45 01/25/20 19:44 DC 01/25/20 20:26 Metronidazole 100 ml @ 100 mls/hr 1X ONCE IV 01/26/20 05:30 01/26/20 06:29 DC 01/26/20 05:31 Imaging: Imaging: Head/C-spine CT 01/25/20 IMPRESSION: 1. No acute intracranial findings. 2. No cervical fracture or malalignment. 3. Moderate cervical degenerative changes as detailed above result in multilevel bilateral moderate/severe neural foraminal stenosis. MRI could further assess stenosis if there is persistent concern. CXR 01/25/20 IMPRESSION: Increased patchy interstitial changes at the right lung base with improvedaeration of the left lung base. Consideration may be given for developing interstitial pneumonitis. Short-term follow-up two-view chest radiograph could be of benefit for further evaluation. CT A/P 01/25/20 IMPRESSION: 1. Diverticulosis with minimal adjacent fat stranding may relate to mild diverticulitis at the sigmoid colon. No evidence for perforation or adjacent abscess. 2. Patchy airspace disease at the right lung base favored to be infectious or inflammatory in etiology. Follow-up imaging to ensure resolution is recommended. Videoswallow 12/16/19 Impression: Aspiration w/ think liquid. Initial Videoswallow Study Results Aspiration of thin liquid via cup w/deep penetration noted via tsp. Subtle throat clear followed by weak, not productive cough noted at time of aspiration. Inconsistent penetration, though shallow and w/o aspiration noted w/honey thick. Penetration w/honey thick appeared to resolve as study con't. Puree consistency appeared safe and efficient. IMPRESSIONS: Functional swallow for modified diet as rec'd below. Aspiration of thin liquids was essentially silent. Puree and honey thick consistencies appeared safe and efficient. Solids NT d/t ill fit of denture. Should be able to meet nutritional needs and take po meds safely. RECOMMENDATIONS: Dysphagia I w/honey thick liquids. Precautions sent back w/pt to room to be posted HOB. Diet orders entered. Will f/u per POC. PE: GEN: NAD HEENT: Atraumatic, PERRL LUNGS: diminished, NC 2L HEART: RRR ABD: quiet BS, soft, mild tenderness suprapubic to LLQ, some periumbilical EXTREMITY: No edema SKIN: No rashes, no jaundice NEURO/PSYCH: A & O 3 - speech is garbled, tremor - seems forgetful but knows she's at [facility], the year, and the president A/P: A/P: Abdominal pain, falls, speech changes, tremor Leukocytosis, elevated troponin, elevated Alk Phos Abnormal CXR/possible pneumonia, possible sigmoid diverticulitis GERD Dysphagia - evaluated by BAR ATTENDANT last month when admitted w/ resp failure - suspect non-compliance w/ dysphagia diet at home CRC screen - reportedly UTD H/o recurrent diverticulitis S/p cholecystectomy R/o COVID-19 -- Will go back to dysphagia I diet w/ honey-thick liquids. Defer need for BAR ATTENDANT recheck to primary. Non-compliance w/ dysphagia diet suspected. PO atbx for diverticulitis since eating. Resume PPI. Monitor Alk Phos - normal liver on CT. Note cardiology, pulmonology, and neurology to see as well. Update - apparently now NPO per Dr. Francis, will change meds to IV. Also note recheck of labs ordered now. Per office records, Dr. Montenegro years ago - suspected IBS, did not follow-up for 'scopes. No EGD or colonoscopy at [facility] - did have a couple bronchoscopies. Reviewed CT report - conflicting info re: "diverticulitis" - will review w/ Dr. Lenz. GONZÁLEZ HILL Jan 26, 2020 10:31
[2020-01-26] MEDS ORDERED: CIPROFLOXACIN HCL 250 MG TABLET. PO SCH (11:00)
[2020-01-26] MEDS ORDERED: guaiFENesin ORAL 200 MG/10 ML LIQUID. PO PRN (11:00)
[2020-01-26] MEDS ORDERED: metroNIDAZOLE 500 MG TABLET PO SCH (11:00)
[2020-01-26] MEDS ORDERED: PANTOPRAZOLE 40 MG TABLET.DR. PO SCH (11:00)
[2020-01-26] MEDS ORDERED: ACETAMINOPHEN 650 MG SUPP.RECT. PR PRN (11:00)
[2020-01-26] MEDS ORDERED: DOCUSATE SODIUM 100 MG CAPSULE. PO PRN (11:00)
[2020-01-26] MEDS ORDERED: SODIUM PHOSPHATES 19/7GM 133 ML ENEMA. PR PRN (11:00)
[2020-01-26] MEDS ORDERED: 0.9 % SODIUM CHLORIDE 10 ML DISP.SYRIN. IV PRN ×2 (11:00→11:30)
[2020-01-26 11:07] LABS: BASO % 0 % (0-3); EOS % 0 % (0-3); HEMATOCRIT 34.7 % (36.0-47.0); HEMOGLOBIN 11.3 g/dL (12.0-15.5); LYMPH # 1.1 x10^3/uL (1.0-4.8); LYMPH % 11 % (24-48); MEAN CORPUSCULAR HEMOGLOBIN 29 pg (25-35); MEAN CORPUSCULAR HGB CONC 33 g/dL (31-37); MEAN CORPUSCULAR VOLUME 88 fL (79-100); MONO # 0.5 x10^3/uL (0.0-1.1); MONO % 5 % (0-9); NEUT # 8.3 x10^3/uL (1.8-7.7); NEUT % 84 % (31-73); PLATELET COUNT 290 x10^3/uL (140-400); RED BLOOD COUNT 3.93 x10^6/uL (3.50-5.40); RED CELL DISTRIBUTION WIDTH 16.4 % (11.5-14.5); WHITE BLOOD COUNT 9.9 x10^3/uL (4.0-11.0)
[2020-01-26 11:20] LABS: ALBUMIN 3.1 g/dL (3.4-5.0); ALBUMIN/GLOBULIN RATIO 1.1 (1.0-1.7); CALCIUM 8.9 mg/dL (8.5-10.1); CREATININE 0.6 mg/dL (0.6-1.0); GFR 98.5; POTASSIUM 4.8 mmol/L (3.5-5.1); TOTAL BILIRUBIN 0.2 mg/dL (0.2-1.0)
--- NOTE | 2020-01-26 11:21 | NUR ---
SS following for discharge planning. SS reviewed pt chart and discussed with pt RN. Pt is from home with son and daughter in law and is currently requiring oxygen. Pt was recently discharged to home from [facility] in [facility]. Pt is currently on IV Cipro. Pt NPO and COVID19 pending. SS will continue to follow for discharge planning.
[2020-01-26] MEDS ORDERED: CALCIUM CARBONATE 500 MG TAB.CHEW PO PRN (11:30)
[2020-01-26] MEDS ORDERED: BISACODYL 10 MG SUPP.RECT. PR PRN (11:30)
[2020-01-26] MEDS ORDERED: CIPROFLOXACIN 200MG PREMIX 100 ML IV SCH (11:30)
[2020-01-26 11:40] VITALS: BP 124/48
--- NOTE | 2020-01-26 11:45 | NUR ---
Patient transferred to room 668 per bed, pt's own walker taken to 668 as well. Patient given call light-in hand. Receiving nurse Tavia in to see patient.
--- NOTE | 2020-01-26 13:33 | PDOC2 ---
CONSULT Date of Consult Date of Consult DATE: 01/26/20 TIME: 13:29 Reason for Consult Reason for Consult: History of breast cancer left side status post lumpectomy with radiation concerned about breast changes Referring Physician Referring Physician: Penny Identification/Chief Complaint Chief Complaint Difficulty speaking with dizziness Source Source: Chart review, Patient History of Present Illness Reason for Visit: 69-year-old female recently released from rehab readmitted to the emergency department after having a fall family's and she is having difficulty speaking somewhat confused. Family is also concerned about changes of her left breast she had a lumpectomy with radiation approximately 5 years ago sounds like she has not had any follow-up since that time she thinks her surgeon moved away from the area she does not remember her last mammogram although she says she was recently scheduled to have one she denies any pain in the left breast Past Medical History Pulmonary: COPD, Pneumonia GI: Diverticulosis, GERD Musculoskeletal: Osteoarthritis, Other (chronic back pain with opioid use) Renal/: No pertinent hx Endocrine: Osteoporosis Past Surgical History Past Surgical History: Hernia Repair Family History Family History: No Significant, High Cholestrol Social History No ALCOHOL: none Current Problem List Problem List Problems Medical Problems: (1) Diverticulitis Status: Acute (2) Elevated troponin Status: Acute (3) Pneumonia Status: Acute Current Medications Current Medications Current Medications Iohexol (Omnipaque 300 Mg/ml) 75 ml 1X ONCE IV Last administered on 01/25/20at 17:15; Start 01/25/20 at 17:15; Stop 01/25/20 at 17:16; Status DC Info (CONTRAST GIVEN -- Rx MONITORING) 1 each PRN DAILY PRN MC SEE COMMENTS; Start 01/25/20 at 17:30; Stop 01/27/20 at 17:29 Azithromycin 250 ml @ 250 mls/hr 1X ONCE IV Last administered on 01/25/20at 17:30; Start 01/25/20 at 17:30; Stop 01/25/20 at 18:29; Status DC Methylprednisolone Sodium Succinate (SOLU-Medrol 125MG VIAL) 125 mg 1X ONCE IV Last administered on 01/25/20at 18:00; Start 01/25/20 at 17:30; Stop 01/25/20 at 17:31; Status DC Sodium Chloride 500 ml @ 500 mls/hr 1X ONCE IV Last administered on 01/25/20at 18:00; Start 01/25/20 at 17:45; Stop 01/25/20 at 18:44; Status DC Ondansetron HCl (Zofran) 4 mg PRN Q8HRS PRN IV NAUSEA/VOMITING; Start 01/25/20 at 18:30; Stop 01/26/20 at 10:58; Status DC Fentanyl Citrate (Fentanyl 2ml Vial) 50 mcg PRN Q1HR PRN IV PAIN; Start 01/25/20 at 18:30; Stop 01/26/20 at 18:29 Albuterol/ Ipratropium (Duoneb) 3 ml RTQID NEB ; Start 01/25/20 at 20:00; Stop 01/25/20 at 20:54; Status DC Ciprofloxacin/ Dextrose 200 ml @ 200 mls/hr 1X ONCE IV Last administered on 01/25/20at 20:26; Start 01/25/20 at 18:45; Stop 01/25/20 at 19:44; Status DC Metronidazole 100 ml @ 100 mls/hr 1X ONCE IV ; Start 01/25/20 at 18:45; Stop 01/25/20 at 19:44; Status DC Albuterol/ Ipratropium (Duoneb) 3 ml PRN Q4HRS PRN NEB SHORTNESS OF BREATH; Start 01/25/20 at 20:56; Stop 01/26/20 at 11:00; Status DC Metronidazole 100 ml @ 100 mls/hr 1X ONCE IV Last administered on 01/26/20at 05:31; Start 01/26/20 at 05:30; Stop 01/26/20 at 06:29; Status DC Pantoprazole Sodium (Protonix) 40 mg DAILYAC PO ; Start 01/26/20 at 11:00; Stop 01/26/20 at 11:03; Status DC Ciprofloxacin (Cipro) 500 mg BID PO ; Start 01/26/20 at 11:00; Stop 01/26/20 at 11:03; Status DC Metronidazole (Flagyl) 500 mg Q12HR PO ; Start 01/26/20 at 11:00; Stop 01/26/20 at 11:03; Status DC Sodium Chloride (Normal Saline Flush) 3 ml QSHIFT PRN IV AFTER MEDS AND BLOOD DRAWS; Start 01/26/20 at 11:00; Stop 01/26/20 at 11:30; Status DC Sodium Chloride 1,000 ml @ 65 mls/hr [id number] IV ; Start 01/26/20 at 10:52 Ondansetron HCl (Zofran) 4 mg PRN Q4HRS PRN IV NAUSEA/VOMITING; Start 01/26/20 at 11:00 Acetaminophen (Tylenol) 650 mg PRN Q4HRS PRN PO TEMP OVER 100.4F OR MILD PAIN; Start 01/26/20 at 11:00 Acetaminophen (Tylenol Supp) 650 mg PRN Q4HRS PRN NE TEMP OVER 100.4F OR MILD PAIN; Start 01/26/20 at 11:00 Sodium Monofluorophosphate (Fleet Adult) 133 ml PRN DAILY PRN NE CONSTIPATION; Start 01/26/20 at 11:00 Docusate Sodium (Colace) 100 mg PRN BID PRN PO HARD STOOLS; Start 01/26/20 at 11:00 Albuterol/ Ipratropium (Duoneb) 3 ml Q4HRS NEB ; Start 01/26/20 at 12:00 Guaifenesin (Robitussin) 200 mg PRN Q4HRS PRN PO COUGH; Start 01/26/20 at 11:00 Lorazepam (Ativan) 0.5 mg PRN Q4HRS PRN PO ANXIETY / AGITATION; Start 01/26/20 at 11:00 Enoxaparin Sodium (Lovenox 40mg Syringe) 40 mg BID SQ ; Start 01/26/20 at 11:30 Pantoprazole Sodium (PROTONIX VIAL for IV PUSH) 40 mg DAILYAC IVP ; Start 01/26/20 at 11:30 Ciprofloxacin/ Dextrose 100 ml @ 100 mls/hr Q12HR IV ; Start 01/26/20 at 11:30 Metronidazole 100 ml @ 100 mls/hr Q12HR IV ; Start 01/26/20 at 11:30 Calcium Carbonate/ Glycine (Tums) 500 mg PRN Q3HRS PRN PO HEARTBURN / GAS; Start 01/26/20 at 11:30 Famotidine (Pepcid Vial) 20 mg QHS IVP ; Start 01/26/20 at 21:00 Info (Icu Electrolyte Protocol) 1 ea DAILY MC ; Start 01/27/20 at 09:00 Heparin Sodium (Porcine) (Heparin Sodium) 5,000 unit Q8HRS SQ ; Start 01/26/20 at 14:00; Status UNV Sodium Chloride (Normal Saline Flush) 3 ml QSHIFT PRN IV AFTER MEDS AND BLOOD DRAWS; Start 01/26/20 at 11:30 Fentanyl Citrate (Fentanyl 2ml Vial) 25 mcg PRN Q2HR PRN IV SEVERE PAIN 7-10; Start 01/26/20 at 11:30 Senna/Docusate Sodium (Senna Plus) 1 tab BID PO ; Start 01/26/20 at 21:00 Bisacodyl (Dulcolax Supp) 10 mg PRN DAILY PRN NE CONSTIPATION; Start 01/26/20 at 11:30 Active Scripts Active Nystop (Nystatin) 60 Gm Powder 1 [place] TP BID 14 Days Tylenol (Acetaminophen) 325 Mg Tablet 650 Mg PO PRN Q6HRS PRN 30 Days Reported Synthroid (Levothyroxine Sodium) 75 Mcg Tablet 1 Tab PO DAILY Toprol XL (Metoprolol Succinate) 50 Mg Tab.er.24h 25 Mg PO DAILY Losartan Potassium 50 Mg Tablet 50 Mg PO DAILY Wellbutrin Xl (Bupropion Hcl) 150 Mg Tab.er.24h 1 Tab PO DAILY Pantoprazole Sodium (Pantoprazole Sodium) 40 Mg Tablet.dr 40 Mg PO DAILYAC Budesonide 0.5 Mg/2 Ml Ampul.neb 0.5 Mg IH BID [place] Carbonate 600 Mg Capsule 600 Mg PO QHS [place] Carbonate 300 Mg Tablet.er 300 Mg PO DAILY Alprazolam 0.25 Mg Tablet 0.25 Mg PO PRN BID Amitriptyline Hcl 50 Mg Tablet 100 Mg PO HS Dexilant (Dexlansoprazole) 60 Mg Cap.dr.mp 60 Mg PO DAILY Duoneb 0.5 Mg-3 Mg/3 Ml Soln (Ipratropium/Albuterol Sulfate) 3 Ml Ampul.neb 3 Ml IH QID Proair Hfa Inhaler (Albuterol Sulfate) 8.5 Gm Hfa.aer.ad 17 Gm IH PRN Q4HRS Daliresp (Roflumilast) 500 Mcg Tablet 500 Mcg PO DAILY Flonase (Fluticasone Propionate) 16 Gm [place].susp 16 Gm NS DAILY Advair 500-50 Diskus (Fluticasone/Salmeterol) 1 Each Disk.w.dev 1 Each IH BID Mucinex (Guaifenesin) 600 Mg Tablet.er 600 Mg PO PRN Allergies Allergies: Coded Allergies: Penicillins (Verified Allergy, Severe, SWELLING OF THROAT, HIVES, 07/08/13) oxycodone HCl (Verified Allergy, Severe, THROAT SWELLING, HIVES, 10/25/16) propoxyphene napsylate (Verified Allergy, Severe, THROAT SWELLING, HIVES, 07/08/13) tetracycline (Verified Allergy, Severe, SWELLING OF THROAT, HIVES, 07/08/13) shellfish derived (Verified Allergy, Intermediate, allergic to scallops, 10/20/16) Physical Exam General: Alert, Cooperative, No acute distress HEENT: Atraumatic Lungs: Normal air movement, Other (Breast exam shows a left breast with well- healed scar mildly retracted nipple no erythema nontender no palpable mass) Heart: Regular rate, No murmurs Abdomen: Normal bowel sounds, Soft, Other (Mildly tender left lower quadrant) Extremities: Other (She does have some edema of the right arm secondary to IV infiltrate) Skin: No significant lesion Vitals VITALS Vital Signs Date Time Temp Pulse Resp B/P (MAP) Pulse Ox O2 Delivery O2 Flow Rate FiO2 01/26/20 11:40 97.5 90 20 124/48 (73) 98 Nasal Cannula 2.0 97.5 Labs Labs Laboratory Tests Test 01/25/20 16:26 01/25/20 17:55 01/26/20 09:00 White Blood Count 13.0 x10^3/uL (4.0-11.0) 9.9 x10^3/uL (4.0-11.0) Red Blood Count 4.20 x10^6/uL (3.50-5.40) 3.93 x10^6/uL (3.50-5.40) Hemoglobin 12.2 g/dL (12.0-15.5) 11.3 g/dL (12.0-15.5) Hematocrit 37.0 % (36.0-47.0) 34.7 % (36.0-47.0) Mean Corpuscular Volume 88 fL (79-100) 88 fL (79-100) Mean Corpuscular Hemoglobin 29 pg (25-35) 29 pg (25-35) Mean Corpuscular Hemoglobin Concent 33 g/dL (31-37) 33 g/dL (31-37) Red Cell Distribution Width 16.8 % (11.5-14.5) 16.4 % (11.5-14.5) Platelet Count 305 x10^3/uL (140-400) 290 x10^3/uL (140-400) Neutrophils (%) (Auto) 79 % (31-73) 84 % (31-73) Lymphocytes (%) (Auto) 14 % (24-48) 11 % (24-48) Monocytes (%) (Auto) 5 % (0-9) 5 % (0-9) Eosinophils (%) (Auto) 2 % (0-3) 0 % (0-3) Basophils (%) (Auto) 1 % (0-3) 0 % (0-3) Neutrophils # (Auto) 10.2 x10^3/uL (1.8-7.7) 8.3 x10^3/uL (1.8-7.7) Lymphocytes # (Auto) 1.8 x10^3/uL (1.0-4.8) 1.1 x10^3/uL (1.0-4.8) Monocytes # (Auto) 0.6 x10^3/uL (0.0-1.1) 0.5 x10^3/uL (0.0-1.1) Eosinophils # (Auto) 0.3 x10^3/uL (0.0-0.7) 0.0 x10^3/uL (0.0-0.7) Basophils # (Auto) 0.1 x10^3/uL (0.0-0.2) 0.0 x10^3/uL (0.0-0.2) Prothrombin Time 12.2 SEC (11.7-14.0) Prothromb Time International Ratio 0.9 (0.8-1.1) Sodium Level 136 mmol/L (136-145) 138 mmol/L (136-145) Potassium Level 4.9 mmol/L (3.5-5.1) 4.8 mmol/L (3.5-5.1) Chloride Level 103 mmol/L (98-107) 105 mmol/L (98-107) Carbon Dioxide Level 28 mmol/L (21-32) 26 mmol/L (21-32) Anion Gap 5 (6-14) 7 (6-14) Blood Urea Nitrogen 22 mg/dL (7-20) 15 mg/dL (7-20) Creatinine 0.7 mg/dL (0.6-1.0) 0.6 mg/dL (0.6-1.0) Estimated GFR (Cockcroft-Gault) 82.5 98.5 BUN/Creatinine Ratio 31 (6-20) 25 (6-20) Glucose Level 100 mg/dL (70-99) 105 mg/dL (70-99) Lactic Acid Level 0.9 mmol/L (0.4-2.0) Calcium Level 9.3 mg/dL (8.5-10.1) 8.9 mg/dL (8.5-10.1) Total Bilirubin 0.4 mg/dL (0.2-1.0) 0.2 mg/dL (0.2-1.0) Aspartate Amino Transf (AST/SGOT) 28 U/L (15-37) 15 U/L (15-37) Alanine Aminotransferase (ALT/SGPT) 20 U/L (14-59) 16 U/L (14-59) Alkaline Phosphatase 189 U/L (46-116) 180 U/L (46-116) Troponin I Quantitative 0.546 ng/mL (0.000-0.055) 0.300 ng/mL (0.000-0.055) EL-Pka-V-Type Natriuretic Peptide 632 pg/mL (0-124) Total Protein 7.0 g/dL (6.4-8.2) 6.0 g/dL (6.4-8.2) Albumin 3.4 g/dL (3.4-5.0) 3.1 g/dL (3.4-5.0) Albumin/Globulin Ratio 0.9 (1.0-1.7) 1.1 (1.0-1.7) Lipase 46 U/L (73-393) Urine Collection Type U cath Urine Color Yellow Urine Clarity Clear Urine pH 7.0 (<5.0-8.0) Urine Specific [place] 1.020 (1.000-1.030) Urine Protein Negative mg/dL (NEG-TRACE) Urine Glucose (UA) Negative mg/dL (NEG) Urine Ketones (Stick) Negative mg/dL (NEG) Urine Blood Negative (NEG) Urine Nitrite Negative (NEG) Urine Bilirubin Negative (NEG) Urine Urobilinogen Dipstick 0.2 mg/dL (0.2 mg/dL) Urine Leukocyte Esterase Small (NEG) Urine RBC 0 /HPF (0-2) Urine WBC 5-10 /HPF (0-4) Urine Squamous Epithelial Cells Occ /LPF Urine Bacteria 0 /HPF (0-FEW) Urine Hyaline Casts Occasional /HPF Magnesium Level 1.9 mg/dL (1.8-2.4) C-Reactive Protein, Quantitative 12.5 mg/L (0-3.3) Triglycerides Level 62 mg/dL (0-150) Cholesterol Level 201 mg/dL (0-200) LDL Cholesterol, Calculated 113 mg/dL (0-100) VLDL Cholesterol, Calculated 12 mg/dL (0-40) Non-HDL Cholesterol Calculated 125 mg/dL (0-129) HDL Cholesterol 76 mg/dL (40-60) Cholesterol/HDL Ratio 2.6 Procalcitonin < 0.10 ng/mL (0.00-0.10) Thyroid Stimulating Hormone (TSH) 0.531 uIU/mL (0.358-3.74) Laboratory Tests Test 01/25/20 16:26 01/25/20 17:55 01/26/20 09:00 White Blood Count 13.0 x10^3/uL (4.0-11.0) 9.9 x10^3/uL (4.0-11.0) Red Blood Count 4.20 x10^6/uL (3.50-5.40) 3.93 x10^6/uL (3.50-5.40) Hemoglobin 12.2 g/dL (12.0-15.5) 11.3 g/dL (12.0-15.5) Hematocrit 37.0 % (36.0-47.0) 34.7 % (36.0-47.0) Mean Corpuscular Volume 88 fL (79-100) 88 fL (79-100) Mean Corpuscular Hemoglobin 29 pg (25-35) 29 pg (25-35) Mean Corpuscular Hemoglobin Concent 33 g/dL (31-37) 33 g/dL (31-37) Red Cell Distribution Width 16.8 % (11.5-14.5) 16.4 % (11.5-14.5) Platelet Count 305 x10^3/uL (140-400) 290 x10^3/uL (140-400) Neutrophils (%) (Auto) 79 % (31-73) 84 % (31-73) Lymphocytes (%) (Auto) 14 % (24-48) 11 % (24-48) Monocytes (%) (Auto) 5 % (0-9) 5 % (0-9) Eosinophils (%) (Auto) 2 % (0-3) 0 % (0-3) Basophils (%) (Auto) 1 % (0-3) 0 % (0-3) Neutrophils # (Auto) 10.2 x10^3/uL (1.8-7.7) 8.3 x10^3/uL (1.8-7.7) Lymphocytes # (Auto) 1.8 x10^3/uL (1.0-4.8) 1.1 x10^3/uL (1.0-4.8) Monocytes # (Auto) 0.6 x10^3/uL (0.0-1.1) 0.5 x10^3/uL (0.0-1.1) Eosinophils # (Auto) 0.3 x10^3/uL (0.0-0.7) 0.0 x10^3/uL (0.0-0.7) Basophils # (Auto) 0.1 x10^3/uL (0.0-0.2) 0.0 x10^3/uL (0.0-0.2) Prothrombin Time 12.2 SEC (11.7-14.0) Prothromb Time International Ratio 0.9 (0.8-1.1) Sodium Level 136 mmol/L (136-145) 138 mmol/L (136-145) Potassium Level 4.9 mmol/L (3.5-5.1) 4.8 mmol/L (3.5-5.1) Chloride Level 103 mmol/L (98-107) 105 mmol/L (98-107) Carbon Dioxide Level 28 mmol/L (21-32) 26 mmol/L (21-32) Anion Gap 5 (6-14) 7 (6-14) Blood Urea Nitrogen 22 mg/dL (7-20) 15 mg/dL (7-20) Creatinine 0.7 mg/dL (0.6-1.0) 0.6 mg/dL (0.6-1.0) Estimated GFR (Cockcroft-Gault) 82.5 98.5 BUN/Creatinine Ratio 31 (6-20) 25 (6-20) Glucose Level 100 mg/dL (70-99) 105 mg/dL (70-99) Lactic Acid Level 0.9 mmol/L (0.4-2.0) Calcium Level 9.3 mg/dL (8.5-10.1) 8.9 mg/dL (8.5-10.1) Total Bilirubin 0.4 mg/dL (0.2-1.0) 0.2 mg/dL (0.2-1.0) Aspartate Amino Transf (AST/SGOT) 28 U/L (15-37) 15 U/L (15-37) Alanine Aminotransferase (ALT/SGPT) 20 U/L (14-59) 16 U/L (14-59) Alkaline Phosphatase 189 U/L (46-116) 180 U/L (46-116) Troponin I Quantitative 0.546 ng/mL (0.000-0.055) 0.300 ng/mL (0.000-0.055) VG-Sql-X-Type Natriuretic Peptide 632 pg/mL (0-124) Total Protein 7.0 g/dL (6.4-8.2) 6.0 g/dL (6.4-8.2) Albumin 3.4 g/dL (3.4-5.0) 3.1 g/dL (3.4-5.0) Albumin/Globulin Ratio 0.9 (1.0-1.7) 1.1 (1.0-1.7) Lipase 46 U/L (73-393) Urine Collection Type U cath Urine Color Yellow Urine Clarity Clear Urine pH 7.0 (<5.0-8.0) Urine Specific [place] 1.020 (1.000-1.030) Urine Protein Negative mg/dL (NEG-TRACE) Urine Glucose (UA) Negative mg/dL (NEG) Urine Ketones (Stick) Negative mg/dL (NEG) Urine Blood Negative (NEG) Urine Nitrite Negative (NEG) Urine Bilirubin Negative (NEG) Urine Urobilinogen Dipstick 0.2 mg/dL (0.2 mg/dL) Urine Leukocyte Esterase Small (NEG) Urine RBC 0 /HPF (0-2) Urine WBC 5-10 /HPF (0-4) Urine Squamous Epithelial Cells Occ /LPF Urine Bacteria 0 /HPF (0-FEW) Urine Hyaline Casts Occasional /HPF Magnesium Level 1.9 mg/dL (1.8-2.4) C-Reactive Protein, Quantitative 12.5 mg/L (0-3.3) Triglycerides Level 62 mg/dL (0-150) Cholesterol Level 201 mg/dL (0-200) LDL Cholesterol, Calculated 113 mg/dL (0-100) VLDL Cholesterol, Calculated 12 mg/dL (0-40) Non-HDL Cholesterol Calculated 125 mg/dL (0-129) HDL Cholesterol 76 mg/dL (40-60) Cholesterol/HDL Ratio 2.6 Procalcitonin < 0.10 ng/mL (0.00-0.10) Thyroid Stimulating Hormone (TSH) 0.531 uIU/mL (0.358-3.74) Assessment/Plan Assessment/Plan 69-year-old female with dysphasia likely aspiration pneumonia diverticulosis Patient needs bilateral mammograms which can be done after discharge from acute care as outpatient and then follow-up with Dr. Garcia in office GLORIA GARCIA MD Jan 26, 2020 13:33
[2020-01-26] MEDS ORDERED: HEPARIN for SUB-Q USE 5,000 UNIT/ML VIAL. SQ SCH (14:00)
--- NOTE | 2020-01-26 14:41 | PDOC ---
PULMONARY PROGRESS NOTES Vitals Vital Signs Date Time Temp Pulse Resp B/P (MAP) Pulse Ox O2 Delivery O2 Flow Rate FiO2 01/26/20 11:40 97.5 90 20 124/48 (73) 98 Nasal Cannula 2.0 97.5 General: Alert, No acute distress Lungs: Crackles Cardiovascular: S1, S2 Abdomen: Soft Extremities: No Edema Labs Laboratory Tests Test 01/25/20 16:26 01/25/20 17:55 01/26/20 09:00 White Blood Count 13.0 x10^3/uL (4.0-11.0) 9.9 x10^3/uL (4.0-11.0) Red Blood Count 4.20 x10^6/uL (3.50-5.40) 3.93 x10^6/uL (3.50-5.40) Hemoglobin 12.2 g/dL (12.0-15.5) 11.3 g/dL (12.0-15.5) Hematocrit 37.0 % (36.0-47.0) 34.7 % (36.0-47.0) Mean Corpuscular Volume 88 fL (79-100) 88 fL (79-100) Mean Corpuscular Hemoglobin 29 pg (25-35) 29 pg (25-35) Mean Corpuscular Hemoglobin Concent 33 g/dL (31-37) 33 g/dL (31-37) Red Cell Distribution Width 16.8 % (11.5-14.5) 16.4 % (11.5-14.5) Platelet Count 305 x10^3/uL (140-400) 290 x10^3/uL (140-400) Neutrophils (%) (Auto) 79 % (31-73) 84 % (31-73) Lymphocytes (%) (Auto) 14 % (24-48) 11 % (24-48) Monocytes (%) (Auto) 5 % (0-9) 5 % (0-9) Eosinophils (%) (Auto) 2 % (0-3) 0 % (0-3) Basophils (%) (Auto) 1 % (0-3) 0 % (0-3) Neutrophils # (Auto) 10.2 x10^3/uL (1.8-7.7) 8.3 x10^3/uL (1.8-7.7) Lymphocytes # (Auto) 1.8 x10^3/uL (1.0-4.8) 1.1 x10^3/uL (1.0-4.8) Monocytes # (Auto) 0.6 x10^3/uL (0.0-1.1) 0.5 x10^3/uL (0.0-1.1) Eosinophils # (Auto) 0.3 x10^3/uL (0.0-0.7) 0.0 x10^3/uL (0.0-0.7) Basophils # (Auto) 0.1 x10^3/uL (0.0-0.2) 0.0 x10^3/uL (0.0-0.2) Prothrombin Time 12.2 SEC (11.7-14.0) Prothromb Time International Ratio 0.9 (0.8-1.1) Sodium Level 136 mmol/L (136-145) 138 mmol/L (136-145) Potassium Level 4.9 mmol/L (3.5-5.1) 4.8 mmol/L (3.5-5.1) Chloride Level 103 mmol/L (98-107) 105 mmol/L (98-107) Carbon Dioxide Level 28 mmol/L (21-32) 26 mmol/L (21-32) Anion Gap 5 (6-14) 7 (6-14) Blood Urea Nitrogen 22 mg/dL (7-20) 15 mg/dL (7-20) Creatinine 0.7 mg/dL (0.6-1.0) 0.6 mg/dL (0.6-1.0) Estimated GFR (Cockcroft-Gault) 82.5 98.5 BUN/Creatinine Ratio 31 (6-20) 25 (6-20) Glucose Level 100 mg/dL (70-99) 105 mg/dL (70-99) Lactic Acid Level 0.9 mmol/L (0.4-2.0) Calcium Level 9.3 mg/dL (8.5-10.1) 8.9 mg/dL (8.5-10.1) Total Bilirubin 0.4 mg/dL (0.2-1.0) 0.2 mg/dL (0.2-1.0) Aspartate Amino Transf (AST/SGOT) 28 U/L (15-37) 15 U/L (15-37) Alanine Aminotransferase (ALT/SGPT) 20 U/L (14-59) 16 U/L (14-59) Alkaline Phosphatase 189 U/L (46-116) 180 U/L (46-116) Troponin I Quantitative 0.546 ng/mL (0.000-0.055) 0.300 ng/mL (0.000-0.055) AQ-Nfv-K-Type Natriuretic Peptide 632 pg/mL (0-124) Total Protein 7.0 g/dL (6.4-8.2) 6.0 g/dL (6.4-8.2) Albumin 3.4 g/dL (3.4-5.0) 3.1 g/dL (3.4-5.0) Albumin/Globulin Ratio 0.9 (1.0-1.7) 1.1 (1.0-1.7) Lipase 46 U/L (73-393) Urine Collection Type U cath Urine Color Yellow Urine Clarity Clear Urine pH 7.0 (<5.0-8.0) Urine Specific [place] 1.020 (1.000-1.030) Urine Protein Negative mg/dL (NEG-TRACE) Urine Glucose (UA) Negative mg/dL (NEG) Urine Ketones (Stick) Negative mg/dL (NEG) Urine Blood Negative (NEG) Urine Nitrite Negative (NEG) Urine Bilirubin Negative (NEG) Urine Urobilinogen Dipstick 0.2 mg/dL (0.2 mg/dL) Urine Leukocyte Esterase Small (NEG) Urine RBC 0 /HPF (0-2) Urine WBC 5-10 /HPF (0-4) Urine Squamous Epithelial Cells Occ /LPF Urine Bacteria 0 /HPF (0-FEW) Urine Hyaline Casts Occasional /HPF Magnesium Level 1.9 mg/dL (1.8-2.4) C-Reactive Protein, Quantitative 12.5 mg/L (0-3.3) Triglycerides Level 62 mg/dL (0-150) Cholesterol Level 201 mg/dL (0-200) LDL Cholesterol, Calculated 113 mg/dL (0-100) VLDL Cholesterol, Calculated 12 mg/dL (0-40) Non-HDL Cholesterol Calculated 125 mg/dL (0-129) HDL Cholesterol 76 mg/dL (40-60) Cholesterol/HDL Ratio 2.6 Procalcitonin < 0.10 ng/mL (0.00-0.10) Thyroid Stimulating Hormone (TSH) 0.531 uIU/mL (0.358-3.74) Laboratory Tests Test 01/25/20 16:26 01/25/20 17:55 01/26/20 09:00 White Blood Count 13.0 x10^3/uL (4.0-11.0) 9.9 x10^3/uL (4.0-11.0) Red Blood Count 4.20 x10^6/uL (3.50-5.40) 3.93 x10^6/uL (3.50-5.40) Hemoglobin 12.2 g/dL (12.0-15.5) 11.3 g/dL (12.0-15.5) Hematocrit 37.0 % (36.0-47.0) 34.7 % (36.0-47.0) Mean Corpuscular Volume 88 fL (79-100) 88 fL (79-100) Mean Corpuscular Hemoglobin 29 pg (25-35) 29 pg (25-35) Mean Corpuscular Hemoglobin Concent 33 g/dL (31-37) 33 g/dL (31-37) Red Cell Distribution Width 16.8 % (11.5-14.5) 16.4 % (11.5-14.5) Platelet Count 305 x10^3/uL (140-400) 290 x10^3/uL (140-400) Neutrophils (%) (Auto) 79 % (31-73) 84 % (31-73) Lymphocytes (%) (Auto) 14 % (24-48) 11 % (24-48) Monocytes (%) (Auto) 5 % (0-9) 5 % (0-9) Eosinophils (%) (Auto) 2 % (0-3) 0 % (0-3) Basophils (%) (Auto) 1 % (0-3) 0 % (0-3) Neutrophils # (Auto) 10.2 x10^3/uL (1.8-7.7) 8.3 x10^3/uL (1.8-7.7) Lymphocytes # (Auto) 1.8 x10^3/uL (1.0-4.8) 1.1 x10^3/uL (1.0-4.8) Monocytes # (Auto) 0.6 x10^3/uL (0.0-1.1) 0.5 x10^3/uL (0.0-1.1) Eosinophils # (Auto) 0.3 x10^3/uL (0.0-0.7) 0.0 x10^3/uL (0.0-0.7) Basophils # (Auto) 0.1 x10^3/uL (0.0-0.2) 0.0 x10^3/uL (0.0-0.2) Prothrombin Time 12.2 SEC (11.7-14.0) Prothromb Time International Ratio 0.9 (0.8-1.1) Sodium Level 136 mmol/L (136-145) 138 mmol/L (136-145) Potassium Level 4.9 mmol/L (3.5-5.1) 4.8 mmol/L (3.5-5.1) Chloride Level 103 mmol/L (98-107) 105 mmol/L (98-107) Carbon Dioxide Level 28 mmol/L (21-32) 26 mmol/L (21-32) Anion Gap 5 (6-14) 7 (6-14) Blood Urea Nitrogen 22 mg/dL (7-20) 15 mg/dL (7-20) Creatinine 0.7 mg/dL (0.6-1.0) 0.6 mg/dL (0.6-1.0) Estimated GFR (Cockcroft-Gault) 82.5 98.5 BUN/Creatinine Ratio 31 (6-20) 25 (6-20) Glucose Level 100 mg/dL (70-99) 105 mg/dL (70-99) Lactic Acid Level 0.9 mmol/L (0.4-2.0) Calcium Level 9.3 mg/dL (8.5-10.1) 8.9 mg/dL (8.5-10.1) Total Bilirubin 0.4 mg/dL (0.2-1.0) 0.2 mg/dL (0.2-1.0) Aspartate Amino Transf (AST/SGOT) 28 U/L (15-37) 15 U/L (15-37) Alanine Aminotransferase (ALT/SGPT) 20 U/L (14-59) 16 U/L (14-59) Alkaline Phosphatase 189 U/L (46-116) 180 U/L (46-116) Troponin I Quantitative 0.546 ng/mL (0.000-0.055) 0.300 ng/mL (0.000-0.055) OW-Vof-L-Type Natriuretic Peptide 632 pg/mL (0-124) Total Protein 7.0 g/dL (6.4-8.2) 6.0 g/dL (6.4-8.2) Albumin 3.4 g/dL (3.4-5.0) 3.1 g/dL (3.4-5.0) Albumin/Globulin Ratio 0.9 (1.0-1.7) 1.1 (1.0-1.7) Lipase 46 U/L (73-393) Urine Collection Type U cath Urine Color Yellow Urine Clarity Clear Urine pH 7.0 (<5.0-8.0) Urine Specific [place] 1.020 (1.000-1.030) Urine Protein Negative mg/dL (NEG-TRACE) Urine Glucose (UA) Negative mg/dL (NEG) Urine Ketones (Stick) Negative mg/dL (NEG) Urine Blood Negative (NEG) Urine Nitrite Negative (NEG) Urine Bilirubin Negative (NEG) Urine Urobilinogen Dipstick 0.2 mg/dL (0.2 mg/dL) Urine Leukocyte Esterase Small (NEG) Urine RBC 0 /HPF (0-2) Urine WBC 5-10 /HPF (0-4) Urine Squamous Epithelial Cells Occ /LPF Urine Bacteria 0 /HPF (0-FEW) Urine Hyaline Casts Occasional /HPF Magnesium Level 1.9 mg/dL (1.8-2.4) C-Reactive Protein, Quantitative 12.5 mg/L (0-3.3) Triglycerides Level 62 mg/dL (0-150) Cholesterol Level 201 mg/dL (0-200) LDL Cholesterol, Calculated 113 mg/dL (0-100) VLDL Cholesterol, Calculated 12 mg/dL (0-40) Non-HDL Cholesterol Calculated 125 mg/dL (0-129) HDL Cholesterol 76 mg/dL (40-60) Cholesterol/HDL Ratio 2.6 Procalcitonin < 0.10 ng/mL (0.00-0.10) Thyroid Stimulating Hormone (TSH) 0.531 uIU/mL (0.358-3.74) Medications Active Scripts Medications Dose Route/Sig Max Daily Dose Days Date Category Nystop (Nystatin) 60 Gm Powder 1 [place] TP BID 14 12/18/19 Rx Tylenol (Acetaminophen) 325 Mg Tablet 650 Mg PO PRN Q6HRS PRN 30 12/18/19 Rx Synthroid (Levothyroxine Sodium) 75 Mcg Tablet 1 Tab PO DAILY 12/11/19 Reported Toprol XL (Metoprolol Succinate) 50 Mg Tab.er.24h 25 Mg PO DAILY 12/11/19 Reported Losartan Potassium 50 Mg Tablet 50 Mg PO DAILY 12/11/19 Reported Wellbutrin Xl (Bupropion Hcl) 150 Mg Tab.er.24h 1 Tab PO DAILY 12/11/19 Reported Pantoprazole Sodium (Pantoprazole Sodium) 40 Mg Tablet.dr 40 Mg PO DAILYAC 12/10/19 Reported Budesonide 0.5 Mg/2 Ml Ampul.neb 0.5 Mg IH BID 07/30/17 Reported [place] Carbonate 600 Mg Capsule 600 Mg PO QHS 07/09/13 Reported [place] Carbonate 300 Mg Tablet.er 300 Mg PO DAILY 07/08/13 Reported Alprazolam 0.25 Mg Tablet 0.25 Mg PO PRN BID 07/08/13 Reported Amitriptyline Hcl 50 Mg Tablet 100 Mg PO HS 07/08/13 Reported Dexilant (Dexlansoprazole) 60 Mg Cap..mp 60 Mg PO DAILY 07/08/13 Reported Duoneb 0.5 Mg-3 Mg/3 Ml Soln (Ipratropium/Albuterol Sulfate) 3 Ml Ampul.neb 3 Ml IH QID 07/08/13 Reported Proair Hfa Inhaler (Albuterol Sulfate) 8.5 Gm Hfa.aer.ad 17 Gm IH PRN Q4HRS 07/08/13 Reported Daliresp (Roflumilast) 500 Mcg Tablet 500 Mcg PO DAILY 07/08/13 Reported Flonase (Fluticasone Propionate) 16 Gm [place].susp 16 Gm NS DAILY 07/08/13 Reported Advair 500-50 Diskus (Fluticasone/Salmeterol) 1 Each Disk.w.dev 1 Each IH BID 07/08/13 Reported Mucinex (Guaifenesin) 600 Mg Tablet.er 600 Mg PO PRN 07/08/13 Reported Impression . Full note dictated concur with current medical management and treat for possible pneumonia, possible aspiration RADHA GRIFFIN MD Jan 26, 2020 14:41
[2020-01-26] MEDS: IPRATRPIUM/ALBUTEROL 0.5/2.5MG 3 ML NEBU. NEB SCH ×3 (14:47→18:42)
--- NOTE | 2020-01-26 14:57 | PDOC2 ---
NEUROLOGY CONSULT Date of Admission Date of Admission DATE: 01/26/20 TIME: 14:44 Reason for Consult Reason for Consult: Altered mental status Referring Physician Referring Physician: Dr. Francis Source Source: Chart review, Patient History of Present Illness History of Present Illness The patient is a 69-year-old right-handed female admitted with abdominal pain, also has had some dysphagia, slurred speech, tremors, and altered mental status. She was here last month but neurology was not consulted. Patient had dysphagia at that time. Patient denies any history of stroke, seizure, or head injury. There is no family history of tremor. She has been diagnosed with diverticulitis. Past Medical History Pulmonary: Asthma, Bronchitis, COPD, Pulmonary embolus, Pneumonia GI: Diverticulosis, Other (Pancreatitis, hiatal hernia) Heme/Onc: Cancer (Breast) Past Surgical History Past Surgical History: Hernia Repair Family History Family History: Cancer Social History Social History , quit smoking years ago, no alcohol Current Medications Current Medications Current Medications Iohexol (Omnipaque 300 Mg/ml) 75 ml 1X ONCE IV Last administered on 01/25/20at 17:15; Start 01/25/20 at 17:15; Stop 01/25/20 at 17:16; Status DC Info (CONTRAST GIVEN -- Rx MONITORING) 1 each PRN DAILY PRN MC SEE COMMENTS; Start 01/25/20 at 17:30; Stop 01/27/20 at 17:29 Azithromycin 250 ml @ 250 mls/hr 1X ONCE IV Last administered on 01/25/20at 17:30; Start 01/25/20 at 17:30; Stop 01/25/20 at 18:29; Status DC Methylprednisolone Sodium Succinate (SOLU-Medrol 125MG VIAL) 125 mg 1X ONCE IV Last administered on 01/25/20at 18:00; Start 01/25/20 at 17:30; Stop 01/25/20 at 17:31; Status DC Sodium Chloride 500 ml @ 500 mls/hr 1X ONCE IV Last administered on 01/25/20at 18:00; Start 01/25/20 at 17:45; Stop 01/25/20 at 18:44; Status DC Ondansetron HCl (Zofran) 4 mg PRN Q8HRS PRN IV NAUSEA/VOMITING; Start 01/25/20 at 18:30; Stop 01/26/20 at 10:58; Status DC Fentanyl Citrate (Fentanyl 2ml Vial) 50 mcg PRN Q1HR PRN IV PAIN; Start 01/25/20 at 18:30; Stop 01/26/20 at 18:29 Albuterol/ Ipratropium (Duoneb) 3 ml RTQID NEB ; Start 01/25/20 at 20:00; Stop 01/25/20 at 20:54; Status DC Ciprofloxacin/ Dextrose 200 ml @ 200 mls/hr 1X ONCE IV Last administered on 01/25/20at 20:26; Start 01/25/20 at 18:45; Stop 01/25/20 at 19:44; Status DC Metronidazole 100 ml @ 100 mls/hr 1X ONCE IV ; Start 01/25/20 at 18:45; Stop 01/25/20 at 19:44; Status DC Albuterol/ Ipratropium (Duoneb) 3 ml PRN Q4HRS PRN NEB SHORTNESS OF BREATH; Start 01/25/20 at 20:56; Stop 01/26/20 at 11:00; Status DC Metronidazole 100 ml @ 100 mls/hr 1X ONCE IV Last administered on 01/26/20at 05:31; Start 01/26/20 at 05:30; Stop 01/26/20 at 06:29; Status DC Pantoprazole Sodium (Protonix) 40 mg DAILYAC PO ; Start 01/26/20 at 11:00; Stop 01/26/20 at 11:03; Status DC Ciprofloxacin (Cipro) 500 mg BID PO ; Start 01/26/20 at 11:00; Stop 01/26/20 at 11:03; Status DC Metronidazole (Flagyl) 500 mg Q12HR PO ; Start 01/26/20 at 11:00; Stop 01/26/20 at 11:03; Status DC Sodium Chloride (Normal Saline Flush) 3 ml QSHIFT PRN IV AFTER MEDS AND BLOOD DRAWS; Start 01/26/20 at 11:00; Stop 01/26/20 at 11:30; Status DC Sodium Chloride 1,000 ml @ 65 mls/hr [id number] IV ; Start 01/26/20 at 10:52 Ondansetron HCl (Zofran) 4 mg PRN Q4HRS PRN IV NAUSEA/VOMITING; Start 01/26/20 at 11:00 Acetaminophen (Tylenol) 650 mg PRN Q4HRS PRN PO TEMP OVER 100.4F OR MILD PAIN; Start 01/26/20 at 11:00 Acetaminophen (Tylenol Supp) 650 mg PRN Q4HRS PRN [place] TEMP OVER 100.4F OR MILD PAIN; Start 01/26/20 at 11:00 Sodium Monofluorophosphate (Fleet Adult) 133 ml PRN DAILY PRN [place] CONSTIPATION; Start 01/26/20 at 11:00 Docusate Sodium (Colace) 100 mg PRN BID PRN PO HARD STOOLS; Start 01/26/20 at 11:00 Albuterol/ Ipratropium (Duoneb) 3 ml Q4HRS NEB ; Start 01/26/20 at 12:00 Guaifenesin (Robitussin) 200 mg PRN Q4HRS PRN PO COUGH; Start 01/26/20 at 11:00 Lorazepam (Ativan) 0.5 mg PRN Q4HRS PRN PO ANXIETY / AGITATION; Start 01/26/20 at 11:00 Enoxaparin Sodium (Lovenox 40mg Syringe) 40 mg BID SQ ; Start 01/26/20 at 11:30 Pantoprazole Sodium (PROTONIX VIAL for IV PUSH) 40 mg DAILYAC IVP ; Start 01/26/20 at 11:30 Ciprofloxacin/ Dextrose 100 ml @ 100 mls/hr Q12HR IV ; Start 01/26/20 at 11:30 Metronidazole 100 ml @ 100 mls/hr Q12HR IV ; Start 01/26/20 at 11:30 Calcium Carbonate/ Glycine (Tums) 500 mg PRN Q3HRS PRN PO HEARTBURN / GAS; Start 01/26/20 at 11:30 Famotidine (Pepcid Vial) 20 mg QHS IVP ; Start 01/26/20 at 21:00 Info (Icu Electrolyte Protocol) 1 ea DAILY MC ; Start 01/27/20 at 09:00 Heparin Sodium (Porcine) (Heparin Sodium) 5,000 unit Q8HRS SQ ; Start 01/26/20 at 14:00; Status UNV Sodium Chloride (Normal Saline Flush) 3 ml QSHIFT PRN IV AFTER MEDS AND BLOOD DRAWS; Start 01/26/20 at 11:30 Fentanyl Citrate (Fentanyl 2ml Vial) 25 mcg PRN Q2HR PRN IV SEVERE PAIN 7-10; Start 01/26/20 at 11:30 Senna/Docusate Sodium (Senna Plus) 1 tab BID PO ; Start 01/26/20 at 21:00 Bisacodyl (Dulcolax Supp) 10 mg PRN DAILY PRN [place] CONSTIPATION; Start 01/26/20 at 11:30 Active Scripts Active Nystop (Nystatin) 60 Gm Powder 1 [place] TP BID 14 Days Tylenol (Acetaminophen) 325 Mg Tablet 650 Mg PO PRN Q6HRS PRN 30 Days Reported Synthroid (Levothyroxine Sodium) 75 Mcg Tablet 1 Tab PO DAILY Toprol XL (Metoprolol Succinate) 50 Mg Tab.er.24h 25 Mg PO DAILY Losartan Potassium 50 Mg Tablet 50 Mg PO DAILY Wellbutrin Xl (Bupropion Hcl) 150 Mg Tab.er.24h 1 Tab PO DAILY Pantoprazole Sodium (Pantoprazole Sodium) 40 Mg Tablet.dr 40 Mg PO DAILYAC Budesonide 0.5 Mg/2 Ml Ampul.neb 0.5 Mg IH BID [place] Carbonate 600 Mg Capsule 600 Mg PO QHS [place] Carbonate 300 Mg Tablet.er 300 Mg PO DAILY Alprazolam 0.25 Mg Tablet 0.25 Mg PO PRN BID Amitriptyline Hcl 50 Mg Tablet 100 Mg PO HS Dexilant (Dexlansoprazole) 60 Mg Cap.dr.mp 60 Mg PO DAILY Duoneb 0.5 Mg-3 Mg/3 Ml Soln (Ipratropium/Albuterol Sulfate) 3 Ml Ampul.neb 3 Ml IH QID Proair Hfa Inhaler (Albuterol Sulfate) 8.5 Gm Hfa.aer.ad 17 Gm IH PRN Q4HRS Daliresp (Roflumilast) 500 Mcg Tablet 500 Mcg PO DAILY Flonase (Fluticasone Propionate) 16 Gm [place].susp 16 Gm NS DAILY Advair 500-50 Diskus (Fluticasone/Salmeterol) 1 Each Disk.w.dev 1 Each IH BID Mucinex (Guaifenesin) 600 Mg Tablet.er 600 Mg PO PRN Allergies Allergies: Coded Allergies: Penicillins (Verified Allergy, Severe, SWELLING OF THROAT, HIVES, 07/08/13) oxycodone HCl (Verified Allergy, Severe, THROAT SWELLING, HIVES, 10/25/16) propoxyphene napsylate (Verified Allergy, Severe, THROAT SWELLING, HIVES, 07/08/13) tetracycline (Verified Allergy, Severe, SWELLING OF THROAT, HIVES, 07/08/13) shellfish derived (Verified Allergy, Intermediate, allergic to scallops, 10/20/16) ROS Review of System Negative for fever, chills, weight loss, chest pain, indigestion, hematochezia, melena, and dysuria. Positive for dyspnea. Full 14-point review of systems is negative. Physical Exam Physical Examination General: Well-developed, well-nourished white female in no acute distress HEENT: Normocephalic andatraumatic. Tympanic membranes clear.Temporal arteriespulsatile and nontender.Fundoscopic exam unremarkable Neck: Supple without bruit, no meningismus Musculoskeletal: Stability:see neurologic. Gait exam:see neurologic. Tone:see neurolog ic.Strength:see neurologic. Neurological: Mental Status:intact, orientation, memory, attention span/concentration, language, fund of knowledge normal. Speech is a little dysarthric. Cranial Nerves:Pupils equal and reactive to light, extraocular movements areintact, visual valentine are full to confrontation. Facial sensation is normal. There is no facial asymmetry. Vestibulo-ocular reflex is intact. Palate elevates and tongue protrudes in midline. All other cranial related problems are negative except as mentioned before.Reflexes:1+ and symmetric with flexor plantar responses. Motor:4/5 strength with normal tone and bulk. Coordination:Finger-nose finger and [id number]-[id number] testing are normal. Rapid alternating movements and fine finger movements are intact. She has bilateral postural tremor. Gait:Not tested. Sensory:stocking loss Vitals VITALS Vital Signs Date Time Temp Pulse Resp B/P (MAP) Pulse Ox O2 Delivery O2 Flow Rate FiO2 01/26/20 11:40 97.5 90 20 124/48 (73) 98 Nasal Cannula 2.0 97.5 Labs Labs Laboratory Tests Test 01/25/20 16:26 01/25/20 17:55 01/26/20 09:00 White Blood Count 13.0 x10^3/uL (4.0-11.0) 9.9 x10^3/uL (4.0-11.0) Red Blood Count 4.20 x10^6/uL (3.50-5.40) 3.93 x10^6/uL (3.50-5.40) Hemoglobin 12.2 g/dL (12.0-15.5) 11.3 g/dL (12.0-15.5) Hematocrit 37.0 % (36.0-47.0) 34.7 % (36.0-47.0) Mean Corpuscular Volume 88 fL (79-100) 88 fL (79-100) Mean Corpuscular Hemoglobin 29 pg (25-35) 29 pg (25-35) Mean Corpuscular Hemoglobin Concent 33 g/dL (31-37) 33 g/dL (31-37) Red Cell Distribution Width 16.8 % (11.5-14.5) 16.4 % (11.5-14.5) Platelet Count 305 x10^3/uL (140-400) 290 x10^3/uL (140-400) Neutrophils (%) (Auto) 79 % (31-73) 84 % (31-73) Lymphocytes (%) (Auto) 14 % (24-48) 11 % (24-48) Monocytes (%) (Auto) 5 % (0-9) 5 % (0-9) Eosinophils (%) (Auto) 2 % (0-3) 0 % (0-3) Basophils (%) (Auto) 1 % (0-3) 0 % (0-3) Neutrophils # (Auto) 10.2 x10^3/uL (1.8-7.7) 8.3 x10^3/uL (1.8-7.7) Lymphocytes # (Auto) 1.8 x10^3/uL (1.0-4.8) 1.1 x10^3/uL (1.0-4.8) Monocytes # (Auto) 0.6 x10^3/uL (0.0-1.1) 0.5 x10^3/uL (0.0-1.1) Eosinophils # (Auto) 0.3 x10^3/uL (0.0-0.7) 0.0 x10^3/uL (0.0-0.7) Basophils # (Auto) 0.1 x10^3/uL (0.0-0.2) 0.0 x10^3/uL (0.0-0.2) Prothrombin Time 12.2 SEC (11.7-14.0) Prothromb Time International Ratio 0.9 (0.8-1.1) Sodium Level 136 mmol/L (136-145) 138 mmol/L (136-145) Potassium Level 4.9 mmol/L (3.5-5.1) 4.8 mmol/L (3.5-5.1) Chloride Level 103 mmol/L (98-107) 105 mmol/L (98-107) Carbon Dioxide Level 28 mmol/L (21-32) 26 mmol/L (21-32) Anion Gap 5 (6-14) 7 (6-14) Blood Urea Nitrogen 22 mg/dL (7-20) 15 mg/dL (7-20) Creatinine 0.7 mg/dL (0.6-1.0) 0.6 mg/dL (0.6-1.0) Estimated GFR (Cockcroft-Gault) 82.5 98.5 BUN/Creatinine Ratio 31 (6-20) 25 (6-20) Glucose Level 100 mg/dL (70-99) 105 mg/dL (70-99) Lactic Acid Level 0.9 mmol/L (0.4-2.0) Calcium Level 9.3 mg/dL (8.5-10.1) 8.9 mg/dL (8.5-10.1) Total Bilirubin 0.4 mg/dL (0.2-1.0) 0.2 mg/dL (0.2-1.0) Aspartate Amino Transf (AST/SGOT) 28 U/L (15-37) 15 U/L (15-37) Alanine Aminotransferase (ALT/SGPT) 20 U/L (14-59) 16 U/L (14-59) Alkaline Phosphatase 189 U/L (46-116) 180 U/L (46-116) Troponin I Quantitative 0.546 ng/mL (0.000-0.055) 0.300 ng/mL (0.000-0.055) GZ-Agj-M-Type Natriuretic Peptide 632 pg/mL (0-124) Total Protein 7.0 g/dL (6.4-8.2) 6.0 g/dL (6.4-8.2) Albumin 3.4 g/dL (3.4-5.0) 3.1 g/dL (3.4-5.0) Albumin/Globulin Ratio 0.9 (1.0-1.7) 1.1 (1.0-1.7) Lipase 46 U/L (73-393) Urine Collection Type U cath Urine Color Yellow Urine Clarity Clear Urine pH 7.0 (<5.0-8.0) Urine Specific [place] 1.020 (1.000-1.030) Urine Protein Negative mg/dL (NEG-TRACE) Urine Glucose (UA) Negative mg/dL (NEG) Urine Ketones (Stick) Negative mg/dL (NEG) Urine Blood Negative (NEG) Urine Nitrite Negative (NEG) Urine Bilirubin Negative (NEG) Urine Urobilinogen Dipstick 0.2 mg/dL (0.2 mg/dL) Urine Leukocyte Esterase Small (NEG) Urine RBC 0 /HPF (0-2) Urine WBC 5-10 /HPF (0-4) Urine Squamous Epithelial Cells Occ /LPF Urine Bacteria 0 /HPF (0-FEW) Urine Hyaline Casts Occasional /HPF Magnesium Level 1.9 mg/dL (1.8-2.4) C-Reactive Protein, Quantitative 12.5 mg/L (0-3.3) Triglycerides Level 62 mg/dL (0-150) Cholesterol Level 201 mg/dL (0-200) LDL Cholesterol, Calculated 113 mg/dL (0-100) VLDL Cholesterol, Calculated 12 mg/dL (0-40) Non-HDL Cholesterol Calculated 125 mg/dL (0-129) HDL Cholesterol 76 mg/dL (40-60) Cholesterol/HDL Ratio 2.6 Procalcitonin < 0.10 ng/mL (0.00-0.10) Thyroid Stimulating Hormone (TSH) 0.531 uIU/mL (0.358-3.74) Laboratory Tests Test 01/25/20 16:26 01/25/20 17:55 01/26/20 09:00 White Blood Count 13.0 x10^3/uL (4.0-11.0) 9.9 x10^3/uL (4.0-11.0) Red Blood Count 4.20 x10^6/uL (3.50-5.40) 3.93 x10^6/uL (3.50-5.40) Hemoglobin 12.2 g/dL (12.0-15.5) 11.3 g/dL (12.0-15.5) Hematocrit 37.0 % (36.0-47.0) 34.7 % (36.0-47.0) Mean Corpuscular Volume 88 fL (79-100) 88 fL (79-100) Mean Corpuscular Hemoglobin 29 pg (25-35) 29 pg (25-35) Mean Corpuscular Hemoglobin Concent 33 g/dL (31-37) 33 g/dL (31-37) Red Cell Distribution Width 16.8 % (11.5-14.5) 16.4 % (11.5-14.5) Platelet Count 305 x10^3/uL (140-400) 290 x10^3/uL (140-400) Neutrophils (%) (Auto) 79 % (31-73) 84 % (31-73) Lymphocytes (%) (Auto) 14 % (24-48) 11 % (24-48) Monocytes (%) (Auto) 5 % (0-9) 5 % (0-9) Eosinophils (%) (Auto) 2 % (0-3) 0 % (0-3) Basophils (%) (Auto) 1 % (0-3) 0 % (0-3) Neutrophils # (Auto) 10.2 x10^3/uL (1.8-7.7) 8.3 x10^3/uL (1.8-7.7) Lymphocytes # (Auto) 1.8 x10^3/uL (1.0-4.8) 1.1 x10^3/uL (1.0-4.8) Monocytes # (Auto) 0.6 x10^3/uL (0.0-1.1) 0.5 x10^3/uL (0.0-1.1) Eosinophils # (Auto) 0.3 x10^3/uL (0.0-0.7) 0.0 x10^3/uL (0.0-0.7) Basophils # (Auto) 0.1 x10^3/uL (0.0-0.2) 0.0 x10^3/uL (0.0-0.2) Prothrombin Time 12.2 SEC (11.7-14.0) Prothromb Time International Ratio 0.9 (0.8-1.1) Sodium Level 136 mmol/L (136-145) 138 mmol/L (136-145) Potassium Level 4.9 mmol/L (3.5-5.1) 4.8 mmol/L (3.5-5.1) Chloride Level 103 mmol/L (98-107) 105 mmol/L (98-107) Carbon Dioxide Level 28 mmol/L (21-32) 26 mmol/L (21-32) Anion Gap 5 (6-14) 7 (6-14) Blood Urea Nitrogen 22 mg/dL (7-20) 15 mg/dL (7-20) Creatinine 0.7 mg/dL (0.6-1.0) 0.6 mg/dL (0.6-1.0) Estimated GFR (Cockcroft-Gault) 82.5 98.5 BUN/Creatinine Ratio 31 (6-20) 25 (6-20) Glucose Level 100 mg/dL (70-99) 105 mg/dL (70-99) Lactic Acid Level 0.9 mmol/L (0.4-2.0) Calcium Level 9.3 mg/dL (8.5-10.1) 8.9 mg/dL (8.5-10.1) Total Bilirubin 0.4 mg/dL (0.2-1.0) 0.2 mg/dL (0.2-1.0) Aspartate Amino Transf (AST/SGOT) 28 U/L (15-37) 15 U/L (15-37) Alanine Aminotransferase (ALT/SGPT) 20 U/L (14-59) 16 U/L (14-59) Alkaline Phosphatase 189 U/L (46-116) 180 U/L (46-116) Troponin I Quantitative 0.546 ng/mL (0.000-0.055) 0.300 ng/mL (0.000-0.055) CY-Rpz-Y-Type Natriuretic Peptide 632 pg/mL (0-124) Total Protein 7.0 g/dL (6.4-8.2) 6.0 g/dL (6.4-8.2) Albumin 3.4 g/dL (3.4-5.0) 3.1 g/dL (3.4-5.0) Albumin/Globulin Ratio 0.9 (1.0-1.7) 1.1 (1.0-1.7) Lipase 46 U/L (73-393) Urine Collection Type U cath Urine Color Yellow Urine Clarity Clear Urine pH 7.0 (<5.0-8.0) Urine Specific [place] 1.020 (1.000-1.030) Urine Protein Negative mg/dL (NEG-TRACE) Urine Glucose (UA) Negative mg/dL (NEG) Urine Ketones (Stick) Negative mg/dL (NEG) Urine Blood Negative (NEG) Urine Nitrite Negative (NEG) Urine Bilirubin Negative (NEG) Urine Urobilinogen Dipstick 0.2 mg/dL (0.2 mg/dL) Urine Leukocyte Esterase Small (NEG) Urine RBC 0 /HPF (0-2) Urine WBC 5-10 /HPF (0-4) Urine Squamous Epithelial Cells Occ /LPF Urine Bacteria 0 /HPF (0-FEW) Urine Hyaline Casts Occasional /HPF Magnesium Level 1.9 mg/dL (1.8-2.4) C-Reactive Protein, Quantitative 12.5 mg/L (0-3.3) Triglycerides Level 62 mg/dL (0-150) Cholesterol Level 201 mg/dL (0-200) LDL Cholesterol, Calculated 113 mg/dL (0-100) VLDL Cholesterol, Calculated 12 mg/dL (0-40) Non-HDL Cholesterol Calculated 125 mg/dL (0-129) HDL Cholesterol 76 mg/dL (40-60) Cholesterol/HDL Ratio 2.6 Procalcitonin < 0.10 ng/mL (0.00-0.10) Thyroid Stimulating Hormone (TSH) 0.531 uIU/mL (0.358-3.74) Images Images 1. CT HEAD WITHOUT CONTRAST. 2. CT CERVICAL SPINE WITHOUT CONTRAST. HISTORY: Fall, slurred speech. TECHNIQUE: Computed tomography of the head and cervical spine was performed without intravenous contrast. One or more of the following individualized dose reduction techniques were utilized for this examination: 1. Automated exposure control. 2. Adjustment of the mA and/or kV according to patient size. 3. Use of iterative reconstruction technique. COMPARISON: 12/10/2019. FINDINGS: There is no intracranial hemorrhage. Prakash-white differentiation is preserved. The ventricles are normal in size and position. There is mild mucosal thickening in the right maxillary sinus. The orbits are unremarkable. The temporal bones are unremarkable. The calvarium reveals no suspicious lesions. Alignment is maintained. There is mild osteoarthritis at C1/2. No fractures are identified. Degenerative disc disease is moderate to severe from C5 through C7, moderate at C4-5 and mild more superiorly. There is no prevertebral soft tissue swelling. At C2-3, there is a small posterior disc bulge. Left facet osteoarthritis is moderate. There is no significant stenosis. At C3-4, there is a moderate posterior disc-osteophyte complex. Uncovertebral osteoarthritis is moderate to severe on the right and mild on the left. Neural foraminal stenosis is severe on the right and moderate on the left. At C4-5, there is a moderate posterior disc bulge. Uncovertebral osteoarthritis is moderate on the right and mild on the left. Neural foraminal stenosis is moderate on the right. At C5-6, there is a moderate posterior disc-osteophyte complex. Uncovertebral osteoarthritis is moderate on the left and moderate to severe on the right. Neural foraminal stenosis is moderate to severe on the right and moderate on the left. At C6-7, there is a moderate posterior disc-osteophyte complex. Uncovertebral osteoarthritis is moderate bilaterally. Neural foraminal stenosis is mild bilaterally. There is moderate centrilobular emphysema in the apices. IMPRESSION: 1. No acute intracranial findings. 2. No cervical fracture or malalignment. 3. Moderate cervical degenerative changes as detailed above result in multilevel bilateral moderate/severe neural foraminal stenosis. MRI could further assess stenosis if there is persistent concern. Assessment/Plan Assessment/Plan Impression: Prior encephalopathy, she is bright and alert now Weakness, dysarthria, dysphagia, examination consistent with peripheral neuropathy. Essential tremor, often this is exacerbated with COPD medications, and the multiple medical issues. Multiple medical issues including diverticulosis, possible pneumonia, ruled out for COVID last admission, work-up being repeated now, elevated troponin, right bundle branch block, hypertension, hyperlipidemia, history of breast cancer with lumps in the left breast. Recommendations: Additional laboratory studies, see orders No treatment for essential tremor at this time, see how she does with treatment of her medical problems, sedatives and beta-blockers which are our usual t reatments for essential tremor are not helpful right now. I reassured the patient that she does not have Parkinson's. Consider brain MRI depending on how she does. Rehabilitation modalities. Thank you for letting me help with the patient's care. HELGA POLLACK MD Jan 26, 2020 14:57
[2020-01-26 15:00] VITALS: BP 124/54
[2020-01-26 15:19] LABS: BASE EXCESS COOX -2 mmol/L (-3-3); HCO3 COOX 23 mmol/L (21-28); METHEMOGLOBIN 0.2 % (0.0-1.9); OXYHEMOGLOBIN 96.3 %; PCO2 COOX 40 mmHg (35-46); PO2 COOX 92 mmHg (65-108); SAT O2 COOX 97 % (92-99)
[2020-01-26] MEDS: IV NORMAL SALINE 1000ML BAG 1,000 ML IV SCH (15:57)
[2020-01-26] MEDS: PANTOPRAZOLE IV PUSH 40 MG VIAL. IVP SCH (15:58)
[2020-01-26] MEDS: ENOXAPARIN 40 MG/0.4 ML SYRINGE. SQ SCH ×2 (15:59→21:38)
[2020-01-26 19:45] VITALS: BP 121/58
[2020-01-26] MEDS ORDERED: FAMOTIDINE 20 MG/2 ML VIAL IVP SCH (21:00)
[2020-01-26] MEDS ORDERED: ALBUTEROL SULFATE 2.5 MG/3 ML NEBU. NEB PRN (21:15)
[2020-01-26] MEDS: CIPROFLOXACIN 400MG PREMIX 200 ML IV SCH (21:37)
[2020-01-26] MEDS: SENNOSIDES/DOCUSATE 8.6/50MG TABLET. PO SCH (21:38)
[2020-01-26 23:00] VITALS: BP 147/64
[2020-01-27] MEDS: ACETAMINOPHEN 325 MG TABLET. PO PRN ×2 (02:10→11:16)
[2020-01-27] MEDS: LORazepam 0.5 MG TABLET PO PRN ×2 (02:10→19:47)
--- NOTE | 2020-01-27 02:25 | CONS ---
DATE OF CONSULTATION: 01/26/2020 ATTENDING PHYSICIAN: Dr. Francis. REASON FOR CONSULTATION: The patient seen in pulmonary consultation at the request of Dr. Francis for abnormal chest x-ray. HISTORY OF PRESENT ILLNESS: The patient is a 69-year-old that presented with abdominal pain for approximately a week. She lives at home with her son and daughter. She was discharged approximately 2 weeks ago from rehabilitation. Ever since her discharge her health has been declining. She has had frequent falls. She was evaluated and was admitted. She underwent a chest x-ray, which revealed some interstitial lung disease, right greater than left. She had CT abdomen. The upper portions revealed right lower lobe consolidation. I was asked to see her in consultation. The patient denies fever or chills. She has a cough, mostly nonproductive. She uses oxygen at home at 2 liters per nasal cannula. Denies any COVID exposures. PAST MEDICAL HISTORY: She was hospitalized here at [facility] in 11/2019 with respiratory failure, which was felt to be multifactorial, partly due to oversedation. She takes Xanax at home. She also had an acute exacerbation of chronic obstructive pulmonary disease at that time. Past medical history is otherwise remarkable for COPD, unknown FEV1, diverticulosis, chronic back pain, tobacco dependent, chronic narcotic use, gastroesophageal reflux, and osteoarthritis. PAST SURGICAL HISTORY: Status post hernia repair. FAMILY HISTORY: Noncontributory. SOCIAL HISTORY: She smokes less than 1 pack of cigarettes a day. REVIEW OF SYSTEMS: CONSTITUTIONAL: No fever or chills. EYES: No change in visual acuity. HENT: No nasal congestion or sore throat. PULMONARY: As indicated above. CARDIOVASCULAR: No chest pain. No pressure. GASTROINTESTINAL: As indicated above. MUSCULOSKELETAL: No localized muscle aches or joint pains. SKIN: No new skin rashes. GENITOURINARY: No dysuria or frequency. CURRENT MEDICATION: List was reviewed. PHYSICAL EXAMINATION: GENERAL: The patient appeared to be her stated age. She was in no respiratory distress. VITAL SIGNS: She has been afebrile since admission, currently on 2 liters. HEENT: Eyes, the sclerae were nonicteric. NECK: Jugular venous distention was not elevated. No lymphadenopathy. CHEST: Full expansion. LUNGS: Crackles throughout both lung valentine. CARDIOVASCULAR: Regular rate and rhythm with S1, S2, no S3. ABDOMEN: Soft, nontender, and nondistended. EXTREMITIES: No clubbing, cyanosis or edema. NEUROLOGICAL: The patient was awake, alert, following commands. A detailed neuro exam was not performed. LABORATORY DATA: White count was 9000, hemoglobin and hematocrit were noted. Electrolytes were noted. BUN was elevated, creatinine was elevated. Chest x-ray as indicated above. IMPRESSION: 1. Progressive dyspnea, multifactorial secondary to underlying chronic obstructive pulmonary disease and pneumonia. 2. Right lower lobe pneumonia, possibly aspiration. 3. Chronic obstructive pulmonary disease. 4. Diverticulosis. 5. Elevated troponin. 6. Hyperlipidemia. 7. Acute metabolic possibly toxic encephalopathy. PLAN: 1. Continue current antibiotics. 2. Nebulized treatments. 3. Oxygen supplementation. 4. Neurology has been consulted. 5. Home medications. 6. Avoid sedating types of medications. I do appreciate the privilege in sharing in the patient's care. RADHA GRIFFIN MD DR: RUTH/lucie JOB#: [id number] / [id number]
[2020-01-27 03:45] VITALS: BP 140/63
[2020-01-27 05:06] LABS: BASO # 0.1 x10^3/uL (0.0-0.2); BASO % 1 % (0-3); EOS # 0.4 x10^3/uL (0.0-0.7); EOS % 3 % (0-3); HEMATOCRIT 33.5 % (36.0-47.0); HEMOGLOBIN 10.9 g/dL (12.0-15.5); LYMPH # 2.5 x10^3/uL (1.0-4.8); LYMPH % 23 % (24-48); MEAN CORPUSCULAR HEMOGLOBIN 29 pg (25-35); MEAN CORPUSCULAR HGB CONC 33 g/dL (31-37); MEAN CORPUSCULAR VOLUME 88 fL (79-100); MONO # 0.8 x10^3/uL (0.0-1.1); MONO % 7 % (0-9); NEUT # 7.3 x10^3/uL (1.8-7.7); NEUT % 66 % (31-73); PLATELET COUNT 272 x10^3/uL (140-400); RED BLOOD COUNT 3.81 x10^6/uL (3.50-5.40); RED CELL DISTRIBUTION WIDTH 16.5 % (11.5-14.5)
[2020-01-27 06:21] LABS: ALBUMIN 2.9 g/dL (3.4-5.0); CREATININE 0.9 mg/dL (0.6-1.0); GFR 61.7; POTASSIUM 4.3 mmol/L (3.5-5.1); TOTAL BILIRUBIN 0.2 mg/dL (0.2-1.0); TOTAL PROTEIN 5.9 g/dL (6.4-8.2)
[2020-01-27 07:00] VITALS: BP 146/77
--- NOTE | 2020-01-27 08:39 | PDOC ---
PULMONARY PROGRESS NOTES Subjective Patient feels wheezy today more short of air Vitals Vital Signs Date Time Temp Pulse Resp B/P (MAP) Pulse Ox O2 Delivery O2 Flow Rate FiO2 01/27/20 07:00 96.3 80 19 146/77 (100) 100 Nasal Cannula 2.0 96.3 ROS: No Nausea, No Chest Pain, No Abdominal Pain, No Increase Cough General: Alert, No acute distress Lungs: Wheezing Cardiovascular: S1, S2 Abdomen: Soft Neuro Exam: Alert Extremities: No Edema Skin: Warm Labs Laboratory Tests Test 01/25/20 16:26 01/25/20 17:55 01/25/20 19:37 01/26/20 09:00 White Blood Count 13.0 x10^3/uL (4.0-11.0) 9.9 x10^3/uL (4.0-11.0) Red Blood Count 4.20 x10^6/uL (3.50-5.40) 3.93 x10^6/uL (3.50-5.40) Hemoglobin 12.2 g/dL (12.0-15.5) 11.3 g/dL (12.0-15.5) Hematocrit 37.0 % (36.0-47.0) 34.7 % (36.0-47.0) Mean Corpuscular Volume 88 fL (79-100) 88 fL (79-100) Mean Corpuscular Hemoglobin 29 pg (25-35) 29 pg (25-35) Mean Corpuscular Hemoglobin Concent 33 g/dL (31-37) 33 g/dL (31-37) Red Cell Distribution Width 16.8 % (11.5-14.5) 16.4 % (11.5-14.5) Platelet Count 305 x10^3/uL (140-400) 290 x10^3/uL (140-400) Neutrophils (%) (Auto) 79 % (31-73) 84 % (31-73) Lymphocytes (%) (Auto) 14 % (24-48) 11 % (24-48) Monocytes (%) (Auto) 5 % (0-9) 5 % (0-9) Eosinophils (%) (Auto) 2 % (0-3) 0 % (0-3) Basophils (%) (Auto) 1 % (0-3) 0 % (0-3) Neutrophils # (Auto) 10.2 x10^3/uL (1.8-7.7) 8.3 x10^3/uL (1.8-7.7) Lymphocytes # (Auto) 1.8 x10^3/uL (1.0-4.8) 1.1 x10^3/uL (1.0-4.8) Monocytes # (Auto) 0.6 x10^3/uL (0.0-1.1) 0.5 x10^3/uL (0.0-1.1) Eosinophils # (Auto) 0.3 x10^3/uL (0.0-0.7) 0.0 x10^3/uL (0.0-0.7) Basophils # (Auto) 0.1 x10^3/uL (0.0-0.2) 0.0 x10^3/uL (0.0-0.2) Prothrombin Time 12.2 SEC (11.7-14.0) Prothromb Time International Ratio 0.9 (0.8-1.1) Sodium Level 136 mmol/L (136-145) 138 mmol/L (136-145) Potassium Level 4.9 mmol/L (3.5-5.1) 4.8 mmol/L (3.5-5.1) Chloride Level 103 mmol/L (98-107) 105 mmol/L (98-107) Carbon Dioxide Level 28 mmol/L (21-32) 26 mmol/L (21-32) Anion Gap 5 (6-14) 7 (6-14) Blood Urea Nitrogen 22 mg/dL (7-20) 15 mg/dL (7-20) Creatinine 0.7 mg/dL (0.6-1.0) 0.6 mg/dL (0.6-1.0) Estimated GFR (Cockcroft-Gault) 82.5 98.5 BUN/Creatinine Ratio 31 (6-20) 25 (6-20) Glucose Level 100 mg/dL (70-99) 105 mg/dL (70-99) Lactic Acid Level 0.9 mmol/L (0.4-2.0) Calcium Level 9.3 mg/dL (8.5-10.1) 8.9 mg/dL (8.5-10.1) Total Bilirubin 0.4 mg/dL (0.2-1.0) 0.2 mg/dL (0.2-1.0) Aspartate Amino Transf (AST/SGOT) 28 U/L (15-37) 15 U/L (15-37) Alanine Aminotransferase (ALT/SGPT) 20 U/L (14-59) 16 U/L (14-59) Alkaline Phosphatase 189 U/L (46-116) 180 U/L (46-116) Troponin I Quantitative 0.546 ng/mL (0.000-0.055) 0.300 ng/mL (0.000-0.055) YO-Svx-S-Type Natriuretic Peptide 632 pg/mL (0-124) Total Protein 7.0 g/dL (6.4-8.2) 6.0 g/dL (6.4-8.2) Albumin 3.4 g/dL (3.4-5.0) 3.1 g/dL (3.4-5.0) Albumin/Globulin Ratio 0.9 (1.0-1.7) 1.1 (1.0-1.7) Lipase 46 U/L (73-393) Urine Collection Type U cath Urine Color Yellow Urine Clarity Clear Urine pH 7.0 (<5.0-8.0) Urine Specific [place] 1.020 (1.000-1.030) Urine Protein Negative mg/dL (NEG-TRACE) Urine Glucose (UA) Negative mg/dL (NEG) Urine Ketones (Stick) Negative mg/dL (NEG) Urine Blood Negative (NEG) Urine Nitrite Negative (NEG) Urine Bilirubin Negative (NEG) Urine Urobilinogen Dipstick 0.2 mg/dL (0.2 mg/dL) Urine Leukocyte Esterase Small (NEG) Urine RBC 0 /HPF (0-2) Urine WBC 5-10 /HPF (0-4) Urine Squamous Epithelial Cells Occ /LPF Urine Bacteria 0 /HPF (0-FEW) Urine Hyaline Casts Occasional /HPF Coronavirus (COVID-19)(PCR) Not detected (NOT DETECT.) Magnesium Level 1.9 mg/dL (1.8-2.4) Creatine Kinase 41 U/L (26-192) C-Reactive Protein, Quantitative 12.5 mg/L (0-3.3) Triglycerides Level 62 mg/dL (0-150) Cholesterol Level 201 mg/dL (0-200) LDL Cholesterol, Calculated 113 mg/dL (0-100) VLDL Cholesterol, Calculated 12 mg/dL (0-40) Non-HDL Cholesterol Calculated 125 mg/dL (0-129) HDL Cholesterol 76 mg/dL (40-60) Cholesterol/HDL Ratio 2.6 Procalcitonin < 0.10 ng/mL (0.00-0.10) Thyroid Stimulating Hormone (TSH) 0.531 uIU/mL (0.358-3.74) Test 01/26/20 15:10 01/27/20 03:40 O2 Saturation 97 % (92-99) Arterial Blood pH 7.37 (7.35-7.45) Arterial Blood pCO2 at Patient Temp 40 mmHg (35-46) Arterial Blood pO2 at Patient Temp 92 mmHg (65-108) Arterial Blood HCO3 23 mmol/L (21-28) Arterial Blood Base Excess -2 mmol/L (-3-3) Oxyhemoglobin 96.3 % Methemoglobin 0.2 % (0.0-1.9) Carbon Monoxide, Quantitative 0.6 % (0.0-1.9) FiO2 21 White Blood Count 11.0 x10^3/uL (4.0-11.0) Red Blood Count 3.81 x10^6/uL (3.50-5.40) Hemoglobin 10.9 g/dL (12.0-15.5) Hematocrit 33.5 % (36.0-47.0) Mean Corpuscular Volume 88 fL (79-100) Mean Corpuscular Hemoglobin 29 pg (25-35) Mean Corpuscular Hemoglobin Concent 33 g/dL (31-37) Red Cell Distribution Width 16.5 % (11.5-14.5) Platelet Count 272 x10^3/uL (140-400) Neutrophils (%) (Auto) 66 % (31-73) Lymphocytes (%) (Auto) 23 % (24-48) Monocytes (%) (Auto) 7 % (0-9) Eosinophils (%) (Auto) 3 % (0-3) Basophils (%) (Auto) 1 % (0-3) Neutrophils # (Auto) 7.3 x10^3/uL (1.8-7.7) Lymphocytes # (Auto) 2.5 x10^3/uL (1.0-4.8) Monocytes # (Auto) 0.8 x10^3/uL (0.0-1.1) Eosinophils # (Auto) 0.4 x10^3/uL (0.0-0.7) Basophils # (Auto) 0.1 x10^3/uL (0.0-0.2) Prothrombin Time 13.0 SEC (11.7-14.0) Prothromb Time International Ratio 1.0 (0.8-1.1) Activated Partial Thromboplast Time 39 SEC (24-38) Sodium Level 138 mmol/L (136-145) Potassium Level 4.3 mmol/L (3.5-5.1) Chloride Level 105 mmol/L (98-107) Carbon Dioxide Level 25 mmol/L (21-32) Anion Gap 8 (6-14) Blood Urea Nitrogen 18 mg/dL (7-20) Creatinine 0.9 mg/dL (0.6-1.0) Estimated GFR (Cockcroft-Gault) 61.7 BUN/Creatinine Ratio 20 (6-20) Glucose Level 96 mg/dL (70-99) Calcium Level 9.0 mg/dL (8.5-10.1) Total Bilirubin 0.2 mg/dL (0.2-1.0) Aspartate Amino Transf (AST/SGOT) 17 U/L (15-37) Alanine Aminotransferase (ALT/SGPT) 16 U/L (14-59) Alkaline Phosphatase 178 U/L (46-116) Total Protein 5.9 g/dL (6.4-8.2) Albumin 2.9 g/dL (3.4-5.0) Albumin/Globulin Ratio 1.0 (1.0-1.7) Laboratory Tests Test 01/26/20 09:00 01/26/20 15:10 01/27/20 03:40 White Blood Count 9.9 x10^3/uL (4.0-11.0) 11.0 x10^3/uL (4.0-11.0) Red Blood Count 3.93 x10^6/uL (3.50-5.40) 3.81 x10^6/uL (3.50-5.40) Hemoglobin 11.3 g/dL (12.0-15.5) 10.9 g/dL (12.0-15.5) Hematocrit 34.7 % (36.0-47.0) 33.5 % (36.0-47.0) Mean Corpuscular Volume 88 fL (79-100) 88 fL (79-100) Mean Corpuscular Hemoglobin 29 pg (25-35) 29 pg (25-35) Mean Corpuscular Hemoglobin Concent 33 g/dL (31-37) 33 g/dL (31-37) Red Cell Distribution Width 16.4 % (11.5-14.5) 16.5 % (11.5-14.5) Platelet Count 290 x10^3/uL (140-400) 272 x10^3/uL (140-400) Neutrophils (%) (Auto) 84 % (31-73) 66 % (31-73) Lymphocytes (%) (Auto) 11 % (24-48) 23 % (24-48) Monocytes (%) (Auto) 5 % (0-9) 7 % (0-9) Eosinophils (%) (Auto) 0 % (0-3) 3 % (0-3) Basophils (%) (Auto) 0 % (0-3) 1 % (0-3) Neutrophils # (Auto) 8.3 x10^3/uL (1.8-7.7) 7.3 x10^3/uL (1.8-7.7) Lymphocytes # (Auto) 1.1 x10^3/uL (1.0-4.8) 2.5 x10^3/uL (1.0-4.8) Monocytes # (Auto) 0.5 x10^3/uL (0.0-1.1) 0.8 x10^3/uL (0.0-1.1) Eosinophils # (Auto) 0.0 x10^3/uL (0.0-0.7) 0.4 x10^3/uL (0.0-0.7) Basophils # (Auto) 0.0 x10^3/uL (0.0-0.2) 0.1 x10^3/uL (0.0-0.2) Sodium Level 138 mmol/L (136-145) 138 mmol/L (136-145) Potassium Level 4.8 mmol/L (3.5-5.1) 4.3 mmol/L (3.5-5.1) Chloride Level 105 mmol/L (98-107) 105 mmol/L (98-107) Carbon Dioxide Level 26 mmol/L (21-32) 25 mmol/L (21-32) Anion Gap 7 (6-14) 8 (6-14) Blood Urea Nitrogen 15 mg/dL (7-20) 18 mg/dL (7-20) Creatinine 0.6 mg/dL (0.6-1.0) 0.9 mg/dL (0.6-1.0) Estimated GFR (Cockcroft-Gault) 98.5 61.7 BUN/Creatinine Ratio 25 (6-20) 20 (6-20) Glucose Level 105 mg/dL (70-99) 96 mg/dL (70-99) Calcium Level 8.9 mg/dL (8.5-10.1) 9.0 mg/dL (8.5-10.1) Magnesium Level 1.9 mg/dL (1.8-2.4) Total Bilirubin 0.2 mg/dL (0.2-1.0) 0.2 mg/dL (0.2-1.0) Aspartate Amino Transf (AST/SGOT) 15 U/L (15-37) 17 U/L (15-37) Alanine Aminotransferase (ALT/SGPT) 16 U/L (14-59) 16 U/L (14-59) Alkaline Phosphatase 180 U/L (46-116) 178 U/L (46-116) Creatine Kinase 41 U/L (26-192) Troponin I Quantitative 0.300 ng/mL (0.000-0.055) C-Reactive Protein, Quantitative 12.5 mg/L (0-3.3) Total Protein 6.0 g/dL (6.4-8.2) 5.9 g/dL (6.4-8.2) Albumin 3.1 g/dL (3.4-5.0) 2.9 g/dL (3.4-5.0) Albumin/Globulin Ratio 1.1 (1.0-1.7) 1.0 (1.0-1.7) Triglycerides Level 62 mg/dL (0-150) Cholesterol Level 201 mg/dL (0-200) LDL Cholesterol, Calculated 113 mg/dL (0-100) VLDL Cholesterol, Calculated 12 mg/dL (0-40) Non-HDL Cholesterol Calculated 125 mg/dL (0-129) HDL Cholesterol 76 mg/dL (40-60) Cholesterol/HDL Ratio 2.6 Procalcitonin < 0.10 ng/mL (0.00-0.10) Thyroid Stimulating Hormone (TSH) 0.531 uIU/mL (0.358-3.74) O2 Saturation 97 % (92-99) Arterial Blood pH 7.37 (7.35-7.45) Arterial Blood pCO2 at Patient Temp 40 mmHg (35-46) Arterial Blood pO2 at Patient Temp 92 mmHg (65-108) Arterial Blood HCO3 23 mmol/L (21-28) Arterial Blood Base Excess -2 mmol/L (-3-3) Oxyhemoglobin 96.3 % Methemoglobin 0.2 % (0.0-1.9) Carbon Monoxide, Quantitative 0.6 % (0.0-1.9) FiO2 21 Prothrombin Time 13.0 SEC (11.7-14.0) Prothromb Time International Ratio 1.0 (0.8-1.1) Activated Partial Thromboplast Time 39 SEC (24-38) Medications Active Scripts Medications Dose Route/Sig Max Daily Dose Days Date Category Nystop (Nystatin) 60 Gm Powder 1 [place] TP BID 14 12/18/19 Rx Tylenol (Acetaminophen) 325 Mg Tablet 650 Mg PO PRN Q6HRS PRN 30 12/18/19 Rx Synthroid (Levothyroxine Sodium) 75 Mcg Tablet 1 Tab PO DAILY 12/11/19 Reported Toprol XL (Metoprolol Succinate) 50 Mg Tab.er.24h 25 Mg PO DAILY 12/11/19 Reported Losartan Potassium 50 Mg Tablet 50 Mg PO DAILY 12/11/19 Reported Wellbutrin Xl (Bupropion Hcl) 150 Mg Tab.er.24h 1 Tab PO DAILY 12/11/19 Reported Pantoprazole Sodium (Pantoprazole Sodium) 40 Mg Tablet.dr 40 Mg PO DAILYAC 12/10/19 Reported Budesonide 0.5 Mg/2 Ml Ampul.neb 0.5 Mg IH BID 07/30/17 Reported [place] Carbonate 600 Mg Capsule 600 Mg PO QHS 07/09/13 Reported [place] Carbonate 300 Mg Tablet.er 300 Mg PO DAILY 07/08/13 Reported Alprazolam 0.25 Mg Tablet 0.25 Mg PO PRN BID 07/08/13 Reported Amitriptyline Hcl 50 Mg Tablet 100 Mg PO HS 07/08/13 Reported Dexilant (Dexlansoprazole) 60 Mg [place].mp 60 Mg PO DAILY 07/08/13 Reported Duoneb 0.5 Mg-3 Mg/3 Ml Soln (Ipratropium/Albuterol Sulfate) 3 Ml Ampul.neb 3 Ml IH QID 07/08/13 Reported Proair Hfa Inhaler (Albuterol Sulfate) 8.5 Gm Hfa.aer.ad 17 Gm IH PRN Q4HRS 07/08/13 Reported Daliresp (Roflumilast) 500 Mcg Tablet 500 Mcg PO DAILY 07/08/13 Reported Flonase (Fluticasone Propionate) 16 Gm [place].susp 16 Gm NS DAILY 07/08/13 Reported Advair 500-50 Diskus (Fluticasone/Salmeterol) 1 Each Disk.w.dev 1 Each IH BID 07/08/13 Reported Mucinex (Guaifenesin) 600 Mg Tablet.er 600 Mg PO PRN 07/08/13 Reported Impression . IMPRESSION: 1. Progressive dyspnea, multifactorial secondary to underlying chronic obstructive pulmonary disease and pneumonia. 2. Right lower lobe pneumonia, possibly aspiration. 3. Chronic obstructive pulmonary disease. 4. Diverticulosis. 5. Elevated troponin. 6. Hyperlipidemia. 7. Acute metabolic possibly toxic encephalopathy. Plan . Continue same, appreciate infectious disease consult and input 1. Continue current antibiotics. 2. Nebulized treatments. 3. Oxygen supplementation. 4. Neurology has been consulted. 5. Home medications. 6. Avoid sedating types of medications. RADHA GRIFFIN MD Jan 27, 2020 08:39
[2020-01-27] MEDS: ELECTROLYTE (ICU) PROTOCOL. MC SCH (09:00)
[2020-01-27] MEDS: IV NORMAL SALINE 1000ML BAG 1,000 ML IV SCH (09:25)
[2020-01-27] MEDS: PANTOPRAZOLE IV PUSH 40 MG VIAL. IVP SCH (09:26)
[2020-01-27] MEDS: ENOXAPARIN 40 MG/0.4 ML SYRINGE. SQ SCH ×2 (09:26→19:48)
[2020-01-27] MEDS: SENNOSIDES/DOCUSATE 8.6/50MG TABLET. PO SCH ×2 (09:27→19:46)
[2020-01-27] MEDS: CIPROFLOXACIN 400MG PREMIX 200 ML IV SCH (09:27)
--- NOTE | 2020-01-27 10:52 | PDOC ---
Subjective: Subjective: Might have some pain in her chest. Says eating okay and has stooled. Objective: Objective: No stools charted. Reviewed neuro note - peripheral neuropathy, essential tremor. Vital Signs: Vital Signs Date Time Temp Pulse Resp B/P (MAP) Pulse Ox O2 Delivery O2 Flow Rate FiO2 01/27/20 07:00 96.3 80 19 146/77 (100) 100 Nasal Cannula 2.0 96.3 Labs: Laboratory Tests Test 01/26/20 15:10 01/27/20 03:40 O2 Saturation 97 % Arterial Blood pH 7.37 Arterial Blood pCO2 at Patient Temp 40 mmHg Arterial Blood pO2 at Patient Temp 92 mmHg Arterial Blood HCO3 23 mmol/L Arterial Blood Base Excess -2 mmol/L Oxyhemoglobin 96.3 % Methemoglobin 0.2 % Carbon Monoxide, Quantitative 0.6 % FiO2 21 White Blood Count 11.0 x10^3/uL Red Blood Count 3.81 x10^6/uL Hemoglobin 10.9 g/dL Hematocrit 33.5 % Mean Corpuscular Volume 88 fL Mean Corpuscular Hemoglobin 29 pg Mean Corpuscular Hemoglobin Concent 33 g/dL Red Cell Distribution Width 16.5 % Platelet Count 272 x10^3/uL Neutrophils (%) (Auto) 66 % Lymphocytes (%) (Auto) 23 % Monocytes (%) (Auto) 7 % Eosinophils (%) (Auto) 3 % Basophils (%) (Auto) 1 % Neutrophils # (Auto) 7.3 x10^3/uL Lymphocytes # (Auto) 2.5 x10^3/uL Monocytes # (Auto) 0.8 x10^3/uL Eosinophils # (Auto) 0.4 x10^3/uL Basophils # (Auto) 0.1 x10^3/uL Prothrombin Time 13.0 SEC Prothromb Time International Ratio 1.0 Activated Partial Thromboplast Time 39 SEC Sodium Level 138 mmol/L Potassium Level 4.3 mmol/L Chloride Level 105 mmol/L Carbon Dioxide Level 25 mmol/L Anion Gap 8 Blood Urea Nitrogen 18 mg/dL Creatinine 0.9 mg/dL Estimated GFR (Cockcroft-Gault) 61.7 BUN/Creatinine Ratio 20 Glucose Level 96 mg/dL Calcium Level 9.0 mg/dL Total Bilirubin 0.2 mg/dL Aspartate Amino Transf (AST/SGOT) 17 U/L Alanine Aminotransferase (ALT/SGPT) 16 U/L Alkaline Phosphatase 178 U/L Total Protein 5.9 g/dL Albumin 2.9 g/dL Albumin/Globulin Ratio 1.0 Vitamin B12 Level 323 pg/mL URINE CULTURE Final Final No Growth on 01/27/20 at 0944 Testing Performed by: [facility] BLOOD CULTURE Preliminary NO GROWTH AFTER 1 DAY PE: GEN: NAD LUNGS: audible wheezing, NC 2L HEART: RRR ABD: BS+, soft, non-tender NEURO/PSYCH: appropriate, speech difficult to understand at times A/P: Pneumonia, diverticulosis "with minimal adjacent fat stranding may relate to mild diverticulitis at the sigmoid colon" Anemia (normal B12), elevated Alk Phos (better - normal liver on CT) GERD, dysphagia - h/o silent aspiration, non-compliance w/ dysphagia diet COVID-19 negative 01/25/20 -- Could consider EGD when lungs better though currently tolerating dysphagia diet w/o complaints. Check iron profile for completeness. Change to PO atbx and PPI. Stop H2 milagros. Justicifation of Admission Dx: Justifications for Admission: Justification of Admission Dx: Yes GONZÁLEZ HILL Jan 27, 2020 10:52
[2020-01-27 10:54] VITALS: BP 138/80
--- NOTE | 2020-01-27 10:59 | PDOC ---
Infectious Disease Note Vital Signs: Vital Signs Vital Signs Date Time Temp Pulse Resp B/P (MAP) Pulse Ox O2 Delivery O2 Flow Rate FiO2 01/27/20 08:00 Nasal Cannula 2.0 01/27/20 07:00 96.3 80 19 146/77 (100) 100 96.3 Medications: Inpatient Meds: Current Medications Medications (Trade) Dose Ordered Sig/Juan F Start Time Stop Time Status Last Admin Dose Admin Acetaminophen (Tylenol Supp) 650 mg PRN Q4HRS PRN 01/26/20 11:00 Acetaminophen (Tylenol) 650 mg PRN Q4HRS PRN 01/26/20 11:00 01/27/20 02:10 650 MG Albuterol Sulfate (Ventolin Neb Soln) 2.5 mg PRN Q4HRS PRN 01/26/20 21:15 Albuterol/ Ipratropium (Duoneb) 3 ml Q4HRS 01/26/20 12:00 01/26/20 21:16 DC Azithromycin 250 ml @ 250 mls/hr 1X ONCE 01/25/20 17:30 01/25/20 18:29 DC 01/25/20 17:30 250 MLS/HR Bisacodyl (Dulcolax Supp) 10 mg PRN DAILY PRN 01/26/20 11:30 Calcium Carbonate/ Glycine (Tums) 500 mg PRN Q3HRS PRN 01/26/20 11:30 Ciprofloxacin (Cipro) 250 mg BID 01/27/20 21:00 Ciprofloxacin/ Dextrose 200 ml @ 200 mls/hr Q12HR 01/26/20 21:00 01/27/20 10:52 DC 01/27/20 09:27 200 MLS/HR Docusate Sodium (Colace) 100 mg PRN BID PRN 01/26/20 11:00 Enoxaparin Sodium (Lovenox 40mg Syringe) 40 mg BID 01/26/20 11:30 01/27/20 09:26 40 MG Famotidine (Pepcid Vial) 20 mg QHS 01/26/20 21:00 01/27/20 10:52 DC 01/26/20 21:38 20 MG Fentanyl Citrate (Fentanyl 2ml Vial) 25 mcg PRN Q2HR PRN 01/26/20 11:30 Guaifenesin (Robitussin) 200 mg PRN Q4HRS PRN 01/26/20 11:00 Heparin Sodium (Porcine) (Heparin Sodium) 5,000 unit Q8HRS 01/26/20 14:00 UNV Info (CONTRAST GIVEN -- Rx MONITORING) 1 each PRN DAILY PRN 01/25/20 17:30 01/27/20 17:29 Info (Icu Electrolyte Protocol) 1 ea DAILY 01/27/20 09:00 Iohexol (Omnipaque 300 Mg/ml) 75 ml 1X ONCE 01/25/20 17:15 01/25/20 17:16 DC 01/25/20 17:15 75 ML Lorazepam (Ativan) 0.5 mg PRN Q4HRS PRN 01/26/20 11:00 01/27/20 02:10 0.5 MG Methylprednisolone Sodium Succinate (SOLU-Medrol 125MG VIAL) 125 mg 1X ONCE 01/25/20 17:30 01/25/20 17:31 DC 01/25/20 18:00 125 MG Metronidazole (Flagyl) 500 mg Q12HR 01/27/20 21:00 Ondansetron HCl (Zofran) 4 mg PRN Q4HRS PRN 01/26/20 11:00 Pantoprazole Sodium (PROTONIX VIAL for IV PUSH) 40 mg DAILYAC 01/26/20 11:30 01/27/20 10:52 DC 01/27/20 09:26 40 MG Pantoprazole Sodium (Protonix) 40 mg DAILYAC 01/28/20 07:30 Polyethylene Glycol (miraLAX PACKET) 17 gm PRN DAILY PRN 01/27/20 11:00 Senna/Docusate Sodium (Senna Plus) 1 tab BID 01/26/20 21:00 01/27/20 09:27 1 TAB Sodium Monofluorophosphate (Fleet Adult) 133 ml PRN DAILY PRN 01/26/20 11:00 Sodium Chloride (Normal Saline Flush) 3 ml QSHIFT PRN 01/26/20 11:30 Labs: Lab Laboratory Tests Test 01/26/20 15:10 01/27/20 03:40 O2 Saturation 97 % (92-99) Arterial Blood pH 7.37 (7.35-7.45) Arterial Blood pCO2 at Patient Temp 40 mmHg (35-46) Arterial Blood pO2 at Patient Temp 92 mmHg (65-108) Arterial Blood HCO3 23 mmol/L (21-28) Arterial Blood Base Excess -2 mmol/L (-3-3) Oxyhemoglobin 96.3 % Methemoglobin 0.2 % (0.0-1.9) Carbon Monoxide, Quantitative 0.6 % (0.0-1.9) FiO2 21 White Blood Count 11.0 x10^3/uL (4.0-11.0) Red Blood Count 3.81 x10^6/uL (3.50-5.40) Hemoglobin 10.9 g/dL (12.0-15.5) Hematocrit 33.5 % (36.0-47.0) Mean Corpuscular Volume 88 fL (79-100) Mean Corpuscular Hemoglobin 29 pg (25-35) Mean Corpuscular Hemoglobin Concent 33 g/dL (31-37) Red Cell Distribution Width 16.5 % (11.5-14.5) Platelet Count 272 x10^3/uL (140-400) Neutrophils (%) (Auto) 66 % (31-73) Lymphocytes (%) (Auto) 23 % (24-48) Monocytes (%) (Auto) 7 % (0-9) Eosinophils (%) (Auto) 3 % (0-3) Basophils (%) (Auto) 1 % (0-3) Neutrophils # (Auto) 7.3 x10^3/uL (1.8-7.7) Lymphocytes # (Auto) 2.5 x10^3/uL (1.0-4.8) Monocytes # (Auto) 0.8 x10^3/uL (0.0-1.1) Eosinophils # (Auto) 0.4 x10^3/uL (0.0-0.7) Basophils # (Auto) 0.1 x10^3/uL (0.0-0.2) Prothrombin Time 13.0 SEC (11.7-14.0) Prothromb Time International Ratio 1.0 (0.8-1.1) Activated Partial Thromboplast Time 39 SEC (24-38) Sodium Level 138 mmol/L (136-145) Potassium Level 4.3 mmol/L (3.5-5.1) Chloride Level 105 mmol/L (98-107) Carbon Dioxide Level 25 mmol/L (21-32) Anion Gap 8 (6-14) Blood Urea Nitrogen 18 mg/dL (7-20) Creatinine 0.9 mg/dL (0.6-1.0) Estimated GFR (Cockcroft-Gault) 61.7 BUN/Creatinine Ratio 20 (6-20) Glucose Level 96 mg/dL (70-99) Calcium Level 9.0 mg/dL (8.5-10.1) Total Bilirubin 0.2 mg/dL (0.2-1.0) Aspartate Amino Transf (AST/SGOT) 17 U/L (15-37) Alanine Aminotransferase (ALT/SGPT) 16 U/L (14-59) Alkaline Phosphatase 178 U/L (46-116) Total Protein 5.9 g/dL (6.4-8.2) Albumin 2.9 g/dL (3.4-5.0) Albumin/Globulin Ratio 1.0 (1.0-1.7) Vitamin B12 Level 323 pg/mL (247-911) Objective: Assessment: Pt seen and examined ID consult dictated Impression Abdominal pain Leukocytosis Encephalopathy, likely toxic Multiple falls COPD COVID-19 suspect Possible aspiration Penicillin allergy Plan: Plan of Care Continue current antibiotic Follow-up COVID-19 Follow-up labs and cultures Discussed with nursing staff Thank you MONET LOPEZ MD Jan 27, 2020 10:59
[2020-01-27] MEDS ORDERED: POLYETHYLENE GLYCOL 3350 17 GM PACKET. PO PRN (11:00)
--- NOTE | 2020-01-27 11:11 | CONS ---
DATE OF CONSULTATION: 01/27/2020 REFERRING PHYSICIAN: Primo Francis MD REASON FOR CONSULTATION: Antibiotic management. HISTORY OF PRESENT ILLNESS: A 69-year-old female who presents with mid abdominal pain for a week. The patient lives at home with her son and daughter. She was discharged from [facility] last in November and was sent to rehab facility from which she went home. The patient had frequent falls, also had difficulty with ambulation. The patient was found to be encephalopathic. There were also concerns of growth of her left nipple with history of breast cancer 6 years ago. The patient has a history of COPD, on home O2. She had worsening shortness of breath. She was afebrile. White count was elevated at 13,000. She is a COVID suspect. Lactate was normal. Troponin was mildly elevated. BNP was mildly elevated. Lipase was normal. She underwent abdominal CT, which showed diverticulosis, patchy airspace disease at the right lung base. Head and spine CT showed no acute intracranial findings, no cervical fracture or malalignment, moderate cervical degenerative changes with foraminal stenosis. The patient was started on IV Cipro and Flagyl. She was seen by Pulmonary team and General Surgery. This morning, she still has garbled speech, also seen by Neurology. Blood cultures are negative so far. UA is negative so far. PAST MEDICAL HISTORY: COPD; chronic respiratory failure, on home O2; diverticulosis; history of breast cancer; chronic back pain; hypertension; asthma. PAST SURGICAL HISTORY: Hernia repair with mesh. REVIEW OF SYSTEMS: Unobtainable. ALLERGIES: LISTED PENICILLIN, TETRACYCLINE, UNCERTAIN REACTION. TOLERATED CEFTRIAXONE WELL. OXYCODONE, PROPOXYPHENE AND SHELLFISH. SOCIAL HISTORY: Lives with son and daughter. History of tobacco use. FAMILY HISTORY: Unknown. CURRENT MEDICATIONS: Cipro and Flagyl. Other medications reviewed in medication list. PHYSICAL EXAMINATION: VITAL SIGNS: Temperature 96.3, pulse 80, respiratory rate 19, blood pressure 146/77, oxygen saturation 100% on 2 liters by nasal cannula. GENERAL: Alert, awake, garbled speech, in no acute distress, on home O2. HEENT: Pupils equal, reactive. Normal conjunctivae. No thrush. NECK: Supple. LUNGS: Scattered rhonchi present. Coarse breath sounds. HEART: S1, S2. ABDOMEN: Soft, nontender, nondistended. No guarding. EXTREMITIES: Without cyanosis, clubbing, or gross edema. DERMATOLOGIC: Warm, dry. No generalized rash. NEUROLOGIC: Alert and oriented. Speech is garbled, mild tremors. LABORATORY DATA: WBC 11.0, was 13; hemoglobin 10.9; hematocrit 33.5; platelets 272. Sodium 138, potassium 4.3, chloride 105, bicarbonate 25, BUN 18, creatinine 0.9, alkaline phosphatase 178, albumin 2.9. UA: Wbc 5-10, leukocyte esterase small. C-reactive protein 12.5. CK 41. Troponin 0.300. Lactate normal. Procalcitonin less than 0.01. IMAGING: Abdomen and pelvis CT as above. Chest x-ray as above. Head and cervical spine x-ray as above. IMPRESSION: 1. Abdominal pain. 2. History of falls. 3. Leukocytosis. 4. Dysphagia. 5. Possible aspiration pneumonia. 6. Encephalopathy, improving per team. 7. Dysarthria. 8. Peripheral neuropathy. 9. Essential tremors. 10. Penicillin and tetracycline allergy.Tolerated ceftriaxone well 11. Chronic obstructive pulmonary disease. 12. Chronic respiratory failure, on home O2. 13. History of breast cancer. 14. Diverticulosis. 15. Elevated troponin. RECOMMENDATIONS: 1. Continue current antibiotic treatment. 2. Follow up labs and cultures. 3. Continue supportive care. 4. Follow up COVID-19. 5. Discussed with nursing staff. Thank you for allowing me to participate in this patient's care. If you have any questions, do not hesitate to contact me. MONET LOPEZ MD DR: TATYANA/lucie JOB#: [id number] / [id number] NIKOLAS
--- NOTE | 2020-01-27 11:41 | PDOC ---
PROGRESS NOTES Assessment Problems Medical Problems: (1) Diverticulitis Status: Acute (2) Elevated troponin Status: Acute (3) Pneumonia Status: Acute Prior encephalopathy, she is bright and alert now Weakness, dysarthria, dysphagia, examination consistent with peripheral neuropathy. Essential tremor, often this is exacerbated with COPD medications, and the multiple medical issues. Multiple medical issues including diverticulosis, possible pneumonia, ruled out for COVID last admission, work-up being repeated now, elevated troponin, right bundle branch block, hypertension, hyperlipidemia, history of breast cancer with lumps in the left breast. Note elevated CRP, other labs I ordered are pending Plan Await additional laboratory studies No treatment for essential tremor at this time, see how she does with treatment of her medical problems, sedatives and beta-blockers which are our usual treatments for essential tremor are not helpful right now. Hold on brain MRI depending on how she does. Rehabilitation modalities. I left a message with the patient's son Subjective No complaints, except feels tired Objective Vital Signs Date Time Temp Pulse Resp B/P (MAP) Pulse Ox O2 Delivery O2 Flow Rate FiO2 01/27/20 10:54 96.8 82 22 138/80 (99) 98 Nasal Cannula 2.0 96.8 Intake and Output 01/27/20 07:00 Intake Total 1420 ml Output Total 1000 ml Balance 420 ml Intake Oral 1420 ml Output Urine Total 1000 ml PHYSICAL EXAM Alert. Oriented to time, place and person. Dysarthria PERRL. EOMI. CN: no focal findings. Muscle tone: normal. Muscle strength: 4/5 DTR: 1+ Plantar reflex: flexor Gait: not examined in bed. Sensory exam: stocking loss. No cerebellar signs elicited. Bilateral postural tremor. Review of Relevant I have reviewed the following items naz (where applicable) has been applied. Labs Laboratory Tests Test 01/25/20 16:26 01/25/20 17:55 01/25/20 19:37 01/26/20 09:00 White Blood Count 13.0 x10^3/uL (4.0-11.0) 9.9 x10^3/uL (4.0-11.0) Red Blood Count 4.20 x10^6/uL (3.50-5.40) 3.93 x10^6/uL (3.50-5.40) Hemoglobin 12.2 g/dL (12.0-15.5) 11.3 g/dL (12.0-15.5) Hematocrit 37.0 % (36.0-47.0) 34.7 % (36.0-47.0) Mean Corpuscular Volume 88 fL (79-100) 88 fL (79-100) Mean Corpuscular Hemoglobin 29 pg (25-35) 29 pg (25-35) Mean Corpuscular Hemoglobin Concent 33 g/dL (31-37) 33 g/dL (31-37) Red Cell Distribution Width 16.8 % (11.5-14.5) 16.4 % (11.5-14.5) Platelet Count 305 x10^3/uL (140-400) 290 x10^3/uL (140-400) Neutrophils (%) (Auto) 79 % (31-73) 84 % (31-73) Lymphocytes (%) (Auto) 14 % (24-48) 11 % (24-48) Monocytes (%) (Auto) 5 % (0-9) 5 % (0-9) Eosinophils (%) (Auto) 2 % (0-3) 0 % (0-3) Basophils (%) (Auto) 1 % (0-3) 0 % (0-3) Neutrophils # (Auto) 10.2 x10^3/uL (1.8-7.7) 8.3 x10^3/uL (1.8-7.7) Lymphocytes # (Auto) 1.8 x10^3/uL (1.0-4.8) 1.1 x10^3/uL (1.0-4.8) Monocytes # (Auto) 0.6 x10^3/uL (0.0-1.1) 0.5 x10^3/uL (0.0-1.1) Eosinophils # (Auto) 0.3 x10^3/uL (0.0-0.7) 0.0 x10^3/uL (0.0-0.7) Basophils # (Auto) 0.1 x10^3/uL (0.0-0.2) 0.0 x10^3/uL (0.0-0.2) Prothrombin Time 12.2 SEC (11.7-14.0) Prothromb Time International Ratio 0.9 (0.8-1.1) Sodium Level 136 mmol/L (136-145) 138 mmol/L (136-145) Potassium Level 4.9 mmol/L (3.5-5.1) 4.8 mmol/L (3.5-5.1) Chloride Level 103 mmol/L (98-107) 105 mmol/L (98-107) Carbon Dioxide Level 28 mmol/L (21-32) 26 mmol/L (21-32) Anion Gap 5 (6-14) 7 (6-14) Blood Urea Nitrogen 22 mg/dL (7-20) 15 mg/dL (7-20) Creatinine 0.7 mg/dL (0.6-1.0) 0.6 mg/dL (0.6-1.0) Estimated GFR (Cockcroft-Gault) 82.5 98.5 BUN/Creatinine Ratio 31 (6-20) 25 (6-20) Glucose Level 100 mg/dL (70-99) 105 mg/dL (70-99) Lactic Acid Level 0.9 mmol/L (0.4-2.0) Calcium Level 9.3 mg/dL (8.5-10.1) 8.9 mg/dL (8.5-10.1) Total Bilirubin 0.4 mg/dL (0.2-1.0) 0.2 mg/dL (0.2-1.0) Aspartate Amino Transf (AST/SGOT) 28 U/L (15-37) 15 U/L (15-37) Alanine Aminotransferase (ALT/SGPT) 20 U/L (14-59) 16 U/L (14-59) Alkaline Phosphatase 189 U/L (46-116) 180 U/L (46-116) Troponin I Quantitative 0.546 ng/mL (0.000-0.055) 0.300 ng/mL (0.000-0.055) NM-Iie-J-Type Natriuretic Peptide 632 pg/mL (0-124) Total Protein 7.0 g/dL (6.4-8.2) 6.0 g/dL (6.4-8.2) Albumin 3.4 g/dL (3.4-5.0) 3.1 g/dL (3.4-5.0) Albumin/Globulin Ratio 0.9 (1.0-1.7) 1.1 (1.0-1.7) Lipase 46 U/L (73-393) Urine Collection Type U cath Urine Color Yellow Urine Clarity Clear Urine pH 7.0 (<5.0-8.0) Urine Specific [place]shaw 1.020 (1.000-1.030) Urine Protein Negative mg/dL (NEG-TRACE) Urine Glucose (UA) Negative mg/dL (NEG) Urine Ketones (Stick) Negative mg/dL (NEG) Urine Blood Negative (NEG) Urine Nitrite Negative (NEG) Urine Bilirubin Negative (NEG) Urine Urobilinogen Dipstick 0.2 mg/dL (0.2 mg/dL) Urine Leukocyte Esterase Small (NEG) Urine RBC 0 /HPF (0-2) Urine WBC 5-10 /HPF (0-4) Urine Squamous Epithelial Cells Occ /LPF Urine Bacteria 0 /HPF (0-FEW) Urine Hyaline Casts Occasional /HPF Coronavirus (COVID-19)(PCR) Not detected (NOT DETECT.) Magnesium Level 1.9 mg/dL (1.8-2.4) Creatine Kinase 41 U/L (26-192) C-Reactive Protein, Quantitative 12.5 mg/L (0-3.3) Triglycerides Level 62 mg/dL (0-150) Cholesterol Level 201 mg/dL (0-200) LDL Cholesterol, Calculated 113 mg/dL (0-100) VLDL Cholesterol, Calculated 12 mg/dL (0-40) Non-HDL Cholesterol Calculated 125 mg/dL (0-129) HDL Cholesterol 76 mg/dL (40-60) Cholesterol/HDL Ratio 2.6 Procalcitonin < 0.10 ng/mL (0.00-0.10) Thyroid Stimulating Hormone (TSH) 0.531 uIU/mL (0.358-3.74) Test 01/26/20 15:10 01/27/20 03:40 O2 Saturation 97 % (92-99) Arterial Blood pH 7.37 (7.35-7.45) Arterial Blood pCO2 at Patient Temp 40 mmHg (35-46) Arterial Blood pO2 at Patient Temp 92 mmHg (65-108) Arterial Blood HCO3 23 mmol/L (21-28) Arterial Blood Base Excess -2 mmol/L (-3-3) Oxyhemoglobin 96.3 % Methemoglobin 0.2 % (0.0-1.9) Carbon Monoxide, Quantitative 0.6 % (0.0-1.9) FiO2 21 White Blood Count 11.0 x10^3/uL (4.0-11.0) Red Blood Count 3.81 x10^6/uL (3.50-5.40) Hemoglobin 10.9 g/dL (12.0-15.5) Hematocrit 33.5 % (36.0-47.0) Mean Corpuscular Volume 88 fL (79-100) Mean Corpuscular Hemoglobin 29 pg (25-35) Mean Corpuscular Hemoglobin Concent 33 g/dL (31-37) Red Cell Distribution Width 16.5 % (11.5-14.5) Platelet Count 272 x10^3/uL (140-400) Neutrophils (%) (Auto) 66 % (31-73) Lymphocytes (%) (Auto) 23 % (24-48) Monocytes (%) (Auto) 7 % (0-9) Eosinophils (%) (Auto) 3 % (0-3) Basophils (%) (Auto) 1 % (0-3) Neutrophils # (Auto) 7.3 x10^3/uL (1.8-7.7) Lymphocytes # (Auto) 2.5 x10^3/uL (1.0-4.8) Monocytes # (Auto) 0.8 x10^3/uL (0.0-1.1) Eosinophils # (Auto) 0.4 x10^3/uL (0.0-0.7) Basophils # (Auto) 0.1 x10^3/uL (0.0-0.2) Prothrombin Time 13.0 SEC (11.7-14.0) Prothromb Time International Ratio 1.0 (0.8-1.1) Activated Partial Thromboplast Time 39 SEC (24-38) Sodium Level 138 mmol/L (136-145) Potassium Level 4.3 mmol/L (3.5-5.1) Chloride Level 105 mmol/L (98-107) Carbon Dioxide Level 25 mmol/L (21-32) Anion Gap 8 (6-14) Blood Urea Nitrogen 18 mg/dL (7-20) Creatinine 0.9 mg/dL (0.6-1.0) Estimated GFR (Cockcroft-Gault) 61.7 BUN/Creatinine Ratio 20 (6-20) Glucose Level 96 mg/dL (70-99) Calcium Level 9.0 mg/dL (8.5-10.1) Iron Level 63 ug/dL (50-170) Total Iron Binding Capacity 286 ug/dL (250-450) Iron Saturation 22 % (15-34) Total Bilirubin 0.2 mg/dL (0.2-1.0) Aspartate Amino Transf (AST/SGOT) 17 U/L (15-37) Alanine Aminotransferase (ALT/SGPT) 16 U/L (14-59) Alkaline Phosphatase 178 U/L (46-116) Total Protein 5.9 g/dL (6.4-8.2) Albumin 2.9 g/dL (3.4-5.0) Albumin/Globulin Ratio 1.0 (1.0-1.7) Vitamin B12 Level 323 pg/mL (247-911) Laboratory Tests Test 01/26/20 15:10 01/27/20 03:40 O2 Saturation 97 % (92-99) Arterial Blood pH 7.37 (7.35-7.45) Arterial Blood pCO2 at Patient Temp 40 mmHg (35-46) Arterial Blood pO2 at Patient Temp 92 mmHg (65-108) Arterial Blood HCO3 23 mmol/L (21-28) Arterial Blood Base Excess -2 mmol/L (-3-3) Oxyhemoglobin 96.3 % Methemoglobin 0.2 % (0.0-1.9) Carbon Monoxide, Quantitative 0.6 % (0.0-1.9) FiO2 21 White Blood Count 11.0 x10^3/uL (4.0-11.0) Red Blood Count 3.81 x10^6/uL (3.50-5.40) Hemoglobin 10.9 g/dL (12.0-15.5) Hematocrit 33.5 % (36.0-47.0) Mean Corpuscular Volume 88 fL (79-100) Mean Corpuscular Hemoglobin 29 pg (25-35) Mean Corpuscular Hemoglobin Concent 33 g/dL (31-37) Red Cell Distribution Width 16.5 % (11.5-14.5) Platelet Count 272 x10^3/uL (140-400) Neutrophils (%) (Auto) 66 % (31-73) Lymphocytes (%) (Auto) 23 % (24-48) Monocytes (%) (Auto) 7 % (0-9) Eosinophils (%) (Auto) 3 % (0-3) Basophils (%) (Auto) 1 % (0-3) Neutrophils # (Auto) 7.3 x10^3/uL (1.8-7.7) Lymphocytes # (Auto) 2.5 x10^3/uL (1.0-4.8) Monocytes # (Auto) 0.8 x10^3/uL (0.0-1.1) Eosinophils # (Auto) 0.4 x10^3/uL (0.0-0.7) Basophils # (Auto) 0.1 x10^3/uL (0.0-0.2) Prothrombin Time 13.0 SEC (11.7-14.0) Prothromb Time International Ratio 1.0 (0.8-1.1) Activated Partial Thromboplast Time 39 SEC (24-38) Sodium Level 138 mmol/L (136-145) Potassium Level 4.3 mmol/L (3.5-5.1) Chloride Level 105 mmol/L (98-107) Carbon Dioxide Level 25 mmol/L (21-32) Anion Gap 8 (6-14) Blood Urea Nitrogen 18 mg/dL (7-20) Creatinine 0.9 mg/dL (0.6-1.0) Estimated GFR (Cockcroft-Gault) 61.7 BUN/Creatinine Ratio 20 (6-20) Glucose Level 96 mg/dL (70-99) Calcium Level 9.0 mg/dL (8.5-10.1) Iron Level 63 ug/dL (50-170) Total Iron Binding Capacity 286 ug/dL (250-450) Iron Saturation 22 % (15-34) Total Bilirubin 0.2 mg/dL (0.2-1.0) Aspartate Amino Transf (AST/SGOT) 17 U/L (15-37) Alanine Aminotransferase (ALT/SGPT) 16 U/L (14-59) Alkaline Phosphatase 178 U/L (46-116) Total Protein 5.9 g/dL (6.4-8.2) Albumin 2.9 g/dL (3.4-5.0) Albumin/Globulin Ratio 1.0 (1.0-1.7) Vitamin B12 Level 323 pg/mL (247-911) Microbiology 01/25/20 Blood Culture - Preliminary, Resulted NO GROWTH AFTER 1 DAY 01/25/20 Urine Culture - Final, Complete Medications Current Medications Iohexol (Omnipaque 300 Mg/ml) 75 ml 1X ONCE IV Last administered on 01/25/20at 17:15; Start 01/25/20 at 17:15; Stop 01/25/20 at 17:16; Status DC Info (CONTRAST GIVEN -- Rx MONITORING) 1 each PRN DAILY PRN MC SEE COMMENTS; Start 01/25/20 at 17:30; Stop 01/27/20 at 17:29 Azithromycin 250 ml @ 250 mls/hr 1X ONCE IV Last administered on 01/25/20at 17:30; Start 01/25/20 at 17:30; Stop 01/25/20 at 18:29; Status DC Methylprednisolone Sodium Succinate (SOLU-Medrol 125MG VIAL) 125 mg 1X ONCE IV Last administered on 01/25/20at 18:00; Start 01/25/20 at 17:30; Stop 01/25/20 at 17:31; Status DC Sodium Chloride 500 ml @ 500 mls/hr 1X ONCE IV Last administered on 01/25/20at 18:00; Start 01/25/20 at 17:45; Stop 01/25/20 at 18:44; Status DC Ondansetron HCl (Zofran) 4 mg PRN Q8HRS PRN IV NAUSEA/VOMITING; Start 01/25/20 at 18:30; Stop 01/26/20 at 10:58; Status DC Fentanyl Citrate (Fentanyl 2ml Vial) 50 mcg PRN Q1HR PRN IV PAIN; Start 01/25/20 at 18:30; Stop 01/26/20 at 18:29; Status DC Albuterol/ Ipratropium (Duoneb) 3 ml RTQID NEB ; Start 01/25/20 at 20:00; Stop 01/25/20 at 20:54; Status DC Ciprofloxacin/ Dextrose 200 ml @ 200 mls/hr 1X ONCE IV Last administered on 01/25/20at 20:26; Start 01/25/20 at 18:45; Stop 01/25/20 at 19:44; Status DC Metronidazole 100 ml @ 100 mls/hr 1X ONCE IV ; Start 01/25/20 at 18:45; Stop 01/25/20 at 19:44; Status DC Albuterol/ Ipratropium (Duoneb) 3 ml PRN Q4HRS PRN NEB SHORTNESS OF BREATH; Start 01/25/20 at 20:56; Stop 01/26/20 at 11:00; Status DC Metronidazole 100 ml @ 100 mls/hr 1X ONCE IV Last administered on 01/26/20at 05:31; Start 01/26/20 at 05:30; Stop 01/26/20 at 06:29; Status DC Pantoprazole Sodium (Protonix) 40 mg DAILYAC PO ; Start 01/26/20 at 11:00; Stop 01/26/20 at 11:03; Status DC Ciprofloxacin (Cipro) 500 mg BID PO ; Start 01/26/20 at 11:00; Stop 01/26/20 at 11:03; Status DC Metronidazole (Flagyl) 500 mg Q12HR PO ; Start 01/26/20 at 11:00; Stop 01/26/20 at 11:03; Status DC Sodium Chloride (Normal Saline Flush) 3 ml QSHIFT PRN IV AFTER MEDS AND BLOOD DRAWS; Start 01/26/20 at 11:00; Stop 01/26/20 at 11:30; Status DC Sodium Chloride 1,000 ml @ 65 mls/hr [id number] IV Last administered on 01/27/20at 09:25; Start 01/26/20 at 10:52 Ondansetron HCl (Zofran) 4 mg PRN Q4HRS PRN IV NAUSEA/VOMITING; Start 01/26/20 at 11:00 Acetaminophen (Tylenol) 650 mg PRN Q4HRS PRN PO TEMP OVER 100.4F OR MILD PAIN Last administered on 01/27/20at 11:16; Start 01/26/20 at 11:00 Acetaminophen (Tylenol Supp) 650 mg PRN Q4HRS PRN RI TEMP OVER 100.4F OR MILD PAIN; Start 01/26/20 at 11:00 Sodium Monofluorophosphate (Fleet Adult) 133 ml PRN DAILY PRN RI CONSTIPATION; Start 01/26/20 at 11:00 Docusate Sodium (Colace) 100 mg PRN BID PRN PO HARD STOOLS; Start 01/26/20 at 11:00 Albuterol/ Ipratropium (Duoneb) 3 ml Q4HRS NEB ; Start 01/26/20 at 12:00; Stop 01/26/20 at 21:16; Status DC Guaifenesin (Robitussin) 200 mg PRN Q4HRS PRN PO COUGH Last administered on 01/27/20at 11:16; Start 01/26/20 at 11:00 Lorazepam (Ativan) 0.5 mg PRN Q4HRS PRN PO ANXIETY / AGITATION Last administered on 01/27/20at 02:10; Start 01/26/20 at 11:00 Enoxaparin Sodium (Lovenox 40mg Syringe) 40 mg BID SQ Last administered on 01/27/20at 09:26; Start 01/26/20 at 11:30 Pantoprazole Sodium (PROTONIX VIAL for IV PUSH) 40 mg DAILYAC IVP Last administered on 01/27/20at 09:26; Start 01/26/20 at 11:30; Stop 01/27/20 at 10:52; Status DC Ciprofloxacin/ Dextrose 100 ml @ 100 mls/hr Q12HR IV Last administered on 01/26/20at 15:58; Start 01/26/20 at 11:30; Stop 01/26/20 at 20:57; Status DC Metronidazole 100 ml @ 100 mls/hr Q12HR IV Last administered on 01/27/20at 09:28; Start 01/26/20 at 11:30; Stop 01/27/20 at 10:52; Status DC Calcium Carbonate/ Glycine (Tums) 500 mg PRN Q3HRS PRN PO HEARTBURN / GAS; Start 01/26/20 at 11:30 Famotidine (Pepcid Vial) 20 mg QHS IVP Last administered on 01/26/20at 21:38; Start 01/26/20 at 21:00; Stop 01/27/20 at 10:52; Status DC Info (Icu Electrolyte Protocol) 1 ea DAILY MC ; Start 01/27/20 at 09:00 Heparin Sodium (Porcine) (Heparin Sodium) 5,000 unit Q8HRS SQ ; Start 01/26/20 at 14:00; Status UNV Sodium Chloride (Normal Saline Flush) 3 ml QSHIFT PRN IV AFTER MEDS AND BLOOD DRAWS; Start 01/26/20 at 11:30 Fentanyl Citrate (Fentanyl 2ml Vial) 25 mcg PRN Q2HR PRN IV SEVERE PAIN 7-10; Start 01/26/20 at 11:30 Senna/Docusate Sodium (Senna Plus) 1 tab BID PO Last administered on 01/27/20at 09:27; Start 01/26/20 at 21:00 Bisacodyl (Dulcolax Supp) 10 mg PRN DAILY PRN RI CONSTIPATION; Start 01/26/20 at 11:30 Ciprofloxacin/ Dextrose 200 ml @ 200 mls/hr Q12HR IV Last administered on 01/27/20at 09:27; Start 01/26/20 at 21:00; Stop 01/27/20 at 10:52; Status DC Albuterol Sulfate (Ventolin Neb Soln) 2.5 mg PRN Q4HRS PRN NEB WHEEZING; Start 01/26/20 at 21:15 Pantoprazole Sodium (Protonix) 40 mg DAILYAC PO ; Start 01/28/20 at 07:30 Ciprofloxacin (Cipro) 250 mg BID PO ; Start 01/27/20 at 21:00 Metronidazole (Flagyl) 500 mg Q12HR PO ; Start 01/27/20 at 21:00 Polyethylene Glycol (miraLAX PACKET) 17 gm PRN DAILY PRN PO CONSTIPATION; Start 01/27/20 at 11:00 Active Scripts Active Nystop (Nystatin) 60 Gm Powder 1 Regan TP BID 14 Days Tylenol (Acetaminophen) 325 Mg Tablet 650 Mg PO PRN Q6HRS PRN 30 Days Reported Synthroid (Levothyroxine Sodium) 75 Mcg Tablet 1 Tab PO DAILY Toprol XL (Metoprolol Succinate) 50 Mg Tab.er.24h 25 Mg PO DAILY Losartan Potassium 50 Mg Tablet 50 Mg PO DAILY Wellbutrin Xl (Bupropion Hcl) 150 Mg Tab.er.24h 1 Tab PO DAILY Pantoprazole Sodium (Pantoprazole Sodium) 40 Mg Tablet.dr 40 Mg PO DAILYAC Budesonide 0.5 Mg/2 Ml Ampul.neb 0.5 Mg IH BID [place] Carbonate 600 Mg Capsule 600 Mg PO QHS [place] Carbonate 300 Mg Tablet.er 300 Mg PO DAILY Alprazolam 0.25 Mg Tablet 0.25 Mg PO PRN BID Amitriptyline Hcl 50 Mg Tablet 100 Mg PO HS Dexilant (Dexlansoprazole) 60 Mg Cap.mp 60 Mg PO DAILY Duoneb 0.5 Mg-3 Mg/3 Ml Soln (Ipratropium/Albuterol Sulfate) 3 Ml Ampul.neb 3 Ml IH QID Proair Hfa Inhaler (Albuterol Sulfate) 8.5 Gm Hfa.aer.ad 17 Gm IH PRN Q4HRS Daliresp (Roflumilast) 500 Mcg Tablet 500 Mcg PO DAILY Flonase (Fluticasone Propionate) 16 Gm [place].susp 16 Gm NS DAILY Advair 500-50 Diskus (Fluticasone/Salmeterol) 1 Each Disk.w.dev 1 Each IH BID Mucinex (Guaifenesin) 600 Mg Tablet.er 600 Mg PO PRN Vitals/I & O Vital Sign - Last 24 Hours 01/26/20 01/26/20 01/26/20 01/26/20 11:40 15:00 16:03 19:30 Temp 97.5 98.1 98.3 97.5 98.1 98.3 Pulse 90 82 Resp 20 16 B/P (MAP) 124/48 (73) 124/54 (77) Pulse Ox 98 98 96 O2 Delivery Nasal Cannula Nasal Cannula Room Air Nasal Cannula O2 Flow Rate 2.0 2.0 2.0 01/26/20 01/26/20 01/26/20 01/27/20 19:45 20:00 23:00 03:45 Temp 98.4 97.0 97.5 98.4 97.0 97.5 Pulse 88 82 90 Resp 16 16 B/P (MAP) 121/58 (79) 147/64 (91) 140/63 (88) Pulse Ox 98 99 100 O2 Delivery Nasal Cannula Nasal Cannula Nasal Cannula Nasal Cannula O2 Flow Rate 2.0 2.0 2.0 2.0 01/27/20 01/27/20 01/27/20 07:00 08:00 10:54 Temp 96.3 96.8 96.3 96.8 Pulse 80 82 Resp 19 22 B/P (MAP) 146/77 (100) 138/80 (99) Pulse Ox 100 98 O2 Delivery Nasal Cannula Nasal Cannula Nasal Cannula O2 Flow Rate 2.0 2.0 2.0 Intake and Output 01/26/20 01/26/20 01/27/20 15:00 23:00 07:00 Intake Total 540 ml 520 ml 360 ml Output Total 1000 ml Balance 540 ml 520 ml -640 ml Justicifation of Admission Dx: Justifications for Admission: Justification of Admission Dx: Yes HELGA POLLACK MD Jan 27, 2020 11:41
--- NOTE | 2020-01-27 12:07 | PDOC ---
[facility] PROGRESS NOTE Chief Complaint Chief Complaint Respiratory failure Resolving metabolic cephalopathy Pneumonia Elevated troponin Diverticulitis Possible COVID 19 Right bundle branch block, hypertension, hyperlipidemia, history of breast cancer with lumps in the left breast. History of Present Illness History of Present Illness 01/27/2020 Patient seen and examined She is resting with no apparent distress Chart reviewed Discussed with RN Vitals/I&O Vitals/I&O: Vital Signs Date Time Temp Pulse Resp B/P (MAP) Pulse Ox O2 Delivery O2 Flow Rate FiO2 01/27/20 10:54 96.8 82 22 138/80 (99) 98 Nasal Cannula 2.0 96.8 I & O 01/26/20 01/26/20 01/27/20 15:00 23:00 07:00 Intake Total 540 ml 520 ml 360 ml Output Total 1000 ml Balance 540 ml 520 ml -640 ml Physical Exam General: No acute distress Heart: Regular rate (SR) Lungs: Crackles Abdomen: Soft Extremities: No cyanosis Skin: No breakdown Labs Labs: Laboratory Tests Test 01/26/20 15:10 01/27/20 03:40 O2 Saturation 97 % (92-99) Arterial Blood pH 7.37 (7.35-7.45) Arterial Blood pCO2 at Patient Temp 40 mmHg (35-46) Arterial Blood pO2 at Patient Temp 92 mmHg (65-108) Arterial Blood HCO3 23 mmol/L (21-28) Arterial Blood Base Excess -2 mmol/L (-3-3) Oxyhemoglobin 96.3 % Methemoglobin 0.2 % (0.0-1.9) Carbon Monoxide, Quantitative 0.6 % (0.0-1.9) FiO2 21 White Blood Count 11.0 x10^3/uL (4.0-11.0) Red Blood Count 3.81 x10^6/uL (3.50-5.40) Hemoglobin 10.9 g/dL (12.0-15.5) Hematocrit 33.5 % (36.0-47.0) Mean Corpuscular Volume 88 fL (79-100) Mean Corpuscular Hemoglobin 29 pg (25-35) Mean Corpuscular Hemoglobin Concent 33 g/dL (31-37) Red Cell Distribution Width 16.5 % (11.5-14.5) Platelet Count 272 x10^3/uL (140-400) Neutrophils (%) (Auto) 66 % (31-73) Lymphocytes (%) (Auto) 23 % (24-48) Monocytes (%) (Auto) 7 % (0-9) Eosinophils (%) (Auto) 3 % (0-3) Basophils (%) (Auto) 1 % (0-3) Neutrophils # (Auto) 7.3 x10^3/uL (1.8-7.7) Lymphocytes # (Auto) 2.5 x10^3/uL (1.0-4.8) Monocytes # (Auto) 0.8 x10^3/uL (0.0-1.1) Eosinophils # (Auto) 0.4 x10^3/uL (0.0-0.7) Basophils # (Auto) 0.1 x10^3/uL (0.0-0.2) Prothrombin Time 13.0 SEC (11.7-14.0) Prothromb Time International Ratio 1.0 (0.8-1.1) Activated Partial Thromboplast Time 39 SEC (24-38) Sodium Level 138 mmol/L (136-145) Potassium Level 4.3 mmol/L (3.5-5.1) Chloride Level 105 mmol/L (98-107) Carbon Dioxide Level 25 mmol/L (21-32) Anion Gap 8 (6-14) Blood Urea Nitrogen 18 mg/dL (7-20) Creatinine 0.9 mg/dL (0.6-1.0) Estimated GFR (Cockcroft-Gault) 61.7 BUN/Creatinine Ratio 20 (6-20) Glucose Level 96 mg/dL (70-99) Calcium Level 9.0 mg/dL (8.5-10.1) Iron Level 63 ug/dL (50-170) Total Iron Binding Capacity 286 ug/dL (250-450) Iron Saturation 22 % (15-34) Total Bilirubin 0.2 mg/dL (0.2-1.0) Aspartate Amino Transf (AST/SGOT) 17 U/L (15-37) Alanine Aminotransferase (ALT/SGPT) 16 U/L (14-59) Alkaline Phosphatase 178 U/L (46-116) Total Protein 5.9 g/dL (6.4-8.2) Albumin 2.9 g/dL (3.4-5.0) Albumin/Globulin Ratio 1.0 (1.0-1.7) Vitamin B12 Level 323 pg/mL (247-911) Assessment and Plan Assessmemt and Plan Problems Medical Problems: (1) Diverticulitis Status: Acute (2) Elevated troponin Status: Acute (3) Pneumonia Status: Acute Respiratory failure Resolving metabolic cephalopathy Pneumonia Elevated troponin Diverticulitis Possible COVID 19 Right bundle branch block, hypertension, hyperlipidemia, history of breast cancer with lumps in the left breast. Plan We are in the process of ruling out COVID-19 for now respiratory isolation O2 Antibiotics Duo nebs Appreciate subspecialist input Home meds DVT prophylax Full code Prognosis guarded long-term Comment Review of Relevant I have reviewed the following items naz (where applicable) has been applied. Medications: Current Medications Medications (Trade) Dose Ordered Sig/Juan F Route PRN Reason Start Time Stop Time Status Last Admin Dose Admin Famotidine (Pepcid Vial) 20 mg QHS IVP 01/26/20 21:00 01/27/20 10:52 DC 01/26/20 21:38 Senna/Docusate Sodium (Senna Plus) 1 tab BID PO 01/26/20 21:00 01/27/20 09:27 Ciprofloxacin/ Dextrose 200 ml @ 200 mls/hr Q12HR IV 01/26/20 21:00 01/27/20 10:52 DC 01/27/20 09:27 Justicifation of Admission Dx: Justifications for Admission: Justification of Admission Dx: Yes JOSEFA MATHIAS III DO Jan 27, 2020 12:07
--- NOTE | 2020-01-27 13:20 | NUR ---
COVID 19 test negative, patient transferred to [facility], endorsed to Manpreet HAN
--- NOTE | 2020-01-27 14:47 | NUR ---
SW following. Spoke with RN and reviewed chart. Spoke with pt. Pt on 2l 02 and has 02 at home. Pt COVID negative. PT recommendation for SNU and pt agreeable. DINO completed Patient Choice of Vendor form. Pt's first choice was [facility] but they don't take pt's insurance. DINO phoned and faxed referral to [facility], , (fax) as this was pt's second choice. Pt was at [facility] recently. DINO to continue following. Addendum: 01/27/20 at 1558 by LILY SUN Pt accepted clinically at [facility] and Laureen to submit for authorization from [facility]. DINO to continue following.
[2020-01-27 15:00] VITALS: BP 122/83
--- NOTE | 2020-01-27 15:02 | NUR ---
Bedside Swallow Evaluation completed. Please refer to full report in intervention section for additional information. Impressions: Mild-moderate oropharyngeal dysphagia w/ pt demonstrating s/s aspiration w/ trials of thin liquids. Pt appears at low risk of aspiration w/ modified diet of dysphagia II and honey thick liquids. Today's evaluation results consistent w/ 12/16/19 videoswallow at this hospital which noted silent aspiration w/ thin liquids and recommended honey thick liquids. Pt reports understanding of need for thickened liquids and that she was noncompliant w/ use of thickened liquids at home prior to this admission. Education provided regarding aspiration, aspiration pneumonia, dysphagia, and need for thickened liquids. Pt agreeable to using thickened liquids at this time. Recommendations: Dysphagia II diet w/ honey thick liquids/no straws. ST f/u for dysphagia.
--- NOTE | 2020-01-27 16:06 | PDOC ---
TC ECHAVARRIA RELAY TECHNICIAN 01/27/20 1606: CARDIO Progress Notes Date and Time Date of Service 01/27/2020 Time of Evaluation 1030 Subjective Subjective: No Chest Pain, No shortness of breath, No Palpitations Vitals Vitals Vital Signs Date Time Temp Pulse Resp B/P (MAP) Pulse Ox O2 Delivery O2 Flow Rate FiO2 01/27/20 15:00 97.4 91 18 122/83 (96) 97 Nasal Cannula 2.0 97.4 Weight Weight [ ] Input and Output Intake and Output Intake and Output 01/27/20 07:00 Intake Total 1420 ml Output Total 1000 ml Balance 420 ml Intake Oral 1420 ml Output Urine Total 1000 ml Laboratory Labs Laboratory Tests Test 01/27/20 03:40 White Blood Count 11.0 x10^3/uL (4.0-11.0) Red Blood Count 3.81 x10^6/uL (3.50-5.40) Hemoglobin 10.9 g/dL (12.0-15.5) Hematocrit 33.5 % (36.0-47.0) Mean Corpuscular Volume 88 fL (79-100) Mean Corpuscular Hemoglobin 29 pg (25-35) Mean Corpuscular Hemoglobin Concent 33 g/dL (31-37) Red Cell Distribution Width 16.5 % (11.5-14.5) Platelet Count 272 x10^3/uL (140-400) Neutrophils (%) (Auto) 66 % (31-73) Lymphocytes (%) (Auto) 23 % (24-48) Monocytes (%) (Auto) 7 % (0-9) Eosinophils (%) (Auto) 3 % (0-3) Basophils (%) (Auto) 1 % (0-3) Neutrophils # (Auto) 7.3 x10^3/uL (1.8-7.7) Lymphocytes # (Auto) 2.5 x10^3/uL (1.0-4.8) Monocytes # (Auto) 0.8 x10^3/uL (0.0-1.1) Eosinophils # (Auto) 0.4 x10^3/uL (0.0-0.7) Basophils # (Auto) 0.1 x10^3/uL (0.0-0.2) Prothrombin Time 13.0 SEC (11.7-14.0) Prothromb Time International Ratio 1.0 (0.8-1.1) Activated Partial Thromboplast Time 39 SEC (24-38) Sodium Level 138 mmol/L (136-145) Potassium Level 4.3 mmol/L (3.5-5.1) Chloride Level 105 mmol/L (98-107) Carbon Dioxide Level 25 mmol/L (21-32) Anion Gap 8 (6-14) Blood Urea Nitrogen 18 mg/dL (7-20) Creatinine 0.9 mg/dL (0.6-1.0) Estimated GFR (Cockcroft-Gault) 61.7 BUN/Creatinine Ratio 20 (6-20) Glucose Level 96 mg/dL (70-99) Calcium Level 9.0 mg/dL (8.5-10.1) Iron Level 63 ug/dL (50-170) Total Iron Binding Capacity 286 ug/dL (250-450) Iron Saturation 22 % (15-34) Total Bilirubin 0.2 mg/dL (0.2-1.0) Aspartate Amino Transf (AST/SGOT) 17 U/L (15-37) Alanine Aminotransferase (ALT/SGPT) 16 U/L (14-59) Alkaline Phosphatase 178 U/L (46-116) Total Protein 5.9 g/dL (6.4-8.2) Albumin 2.9 g/dL (3.4-5.0) Albumin/Globulin Ratio 1.0 (1.0-1.7) Vitamin B12 Level 323 pg/mL (247-911) Microbiology Micro Microbiology 01/25/20 Blood Culture - Preliminary, Resulted NO GROWTH AFTER 1 DAY 01/25/20 Urine Culture - Final, Complete Physical Exam HEENT: Neck Supple W Full Motion Chest: Symmetric LUNGS: Other (basilar crackles) Heart: RRR (SR/SB) Abdomen: Soft N/T Extremities: No Calf Tenderness, Other (trace to 1+ bilateral LE edema) Neurology: alert, oriented, follow commands Assessment Assessment 1. Abdominal pain with diverticulosis: pain better. per GI 2. Possible aspiration pneumonia with associated COPD. Covid negative 3. Elevated troponin: Peaked at 0.5. No acute EKG changes, suspect demand mediated type 2 4. Chronic RBBB 5. HTN: controlled 6. HLP 7. Mechanical falls: Ataxia?, neurology following 8. Asymptomatic SB: lowest mid 40s 9. Prolonged QTc: 513 Recommendations 1. TTE tomorrow. Repeat EKG and note QTc. May need alternative to meds that could prolonged QT if remains. Avoid AV arcelia blocking agents 2. Continue current regimen supportive care. 3. Await GI and general surgery input. Pt with no chest pain, nevertheless notable for risks factors and will plan for outpt stress test pending TTE finding. 4. Monitor rhythm 5. Follow up in office. Justicifation of Admission Dx: Justifications for Admission: Justification of Admission Dx: Yes MALINDA ESCOBAR MD 01/27/20 1734: CARDIO Progress Notes Assessment Assessment Patient seen and examined I agree with our nurse practitioners assessment and plan as above. Abdominal pain with diverticulosis: pain better. per GI Possible aspiration pneumonia with associated COPD. Covid negative Elevated troponin: Peaked at 0.5. No acute EKG changes, suspect demand mediated type 2. Echo pending Chronic RBBB HTN: controlled HLP Asymptomatic SB: lowest mid 40s Prolonged QTc: 513. Monitoring TC ECHAVARRIA APRN Jan 27, 2020 16:06 MALINDA ESCOBAR MD Jan 27, 2020 17:34
--- NOTE | 2020-01-27 16:20 | EKG ---
[facility] [address] [place] [address] Test Date: 2020-01-27 Test Time: 16:08:50 Pat Name: NAVDEEP RODRIGUEZ Department: Room: 2 1 Gender: F [employer] Manager Architect: AUDIE : [id number] Requested By: TC ECHAVARRIA Order Number: [id number] Reading MD: Willi Hare MD Measurements Intervals [place] Rate: 83 P: 90 ND: 176 QRS: -37 QRSD: 156 T: 56 QT: 412 QTc: 485 Interpretive Statements SINUS RHYTHM ABNORMAL LEFT AXIS DEVIATION NON SPECIFIC INTRAVENTRICULAR BLOCK RVH WITH REPOLARIZATION ABNORMALITY QRS(T) CONTOUR ABNORMALITY CONSISTENT WITH INFERIOR INFARCT QT INTERVAL AT 485 PROBABLY OLD ABNORMAL ECG Electronically Signed On 01-28-2020 11:52:19 CDT by Willi Hare MD
[2020-01-27 19:10] VITALS: BP 153/79
[2020-01-27] MEDS: CIPROFLOXACIN HCL 250 MG TABLET. PO SCH (19:46)
[2020-01-27] MEDS: LACTOBACILLUS RHAMNOSUS GG 1 CAPSULE. PO SCH (19:47)
[2020-01-27] MEDS: ONDANSETRON PF 4 MG/2 ML VIAL. IV PRN (19:47)
[2020-01-27] MEDS: metroNIDAZOLE 500 MG TABLET PO SCH (19:47)
[2020-01-27 23:00] VITALS: BP 145/74
[2020-01-28] MEDS: IV NORMAL SALINE 1000ML BAG 1,000 ML IV SCH ×2 (00:34→09:03)
[2020-01-28 02:34] VITALS: BP 150/80
[2020-01-28] MEDS: LORazepam 0.5 MG TABLET PO PRN (04:22)
[2020-01-28 07:46] VITALS: BP 135/53
[2020-01-28] MEDS: SENNOSIDES/DOCUSATE 8.6/50MG TABLET. PO SCH ×2 (09:00→20:27)
[2020-01-28] MEDS: ELECTROLYTE (ICU) PROTOCOL. MC SCH (09:00)
[2020-01-28] MEDS: metroNIDAZOLE 500 MG TABLET PO SCH (09:00)
[2020-01-28] MEDS: LACTOBACILLUS RHAMNOSUS GG 1 CAPSULE. PO SCH ×2 (09:00→20:27)
[2020-01-28] MEDS: ONDANSETRON PF 4 MG/2 ML VIAL. IV PRN ×3 (09:00→18:19)
[2020-01-28] MEDS: PANTOPRAZOLE 40 MG TABLET.DR. PO SCH (09:01)
[2020-01-28] MEDS: CIPROFLOXACIN HCL 250 MG TABLET. PO SCH (09:01)
[2020-01-28] MEDS: ENOXAPARIN 40 MG/0.4 ML SYRINGE. SQ SCH ×2 (09:02→20:28)
--- NOTE | 2020-01-28 09:34 | PDOC ---
PULMONARY PROGRESS NOTES Subjective Patient short of air today less we Vitals Vital Signs Date Time Temp Pulse Resp B/P (MAP) Pulse Ox O2 Delivery O2 Flow Rate FiO2 01/28/20 07:46 98.3 94 17 135/53 (80) 96 Nasal Cannula 2.0 98.3 ROS: No Nausea, No Chest Pain, No Abdominal Pain, No Increase Cough General: Alert, No acute distress Lungs: Wheezing Cardiovascular: S1, S2 Abdomen: Soft Neuro Exam: Alert Extremities: No Edema Skin: Warm Labs Laboratory Tests Test 01/26/20 15:10 01/27/20 03:40 O2 Saturation 97 % (92-99) Arterial Blood pH 7.37 (7.35-7.45) Arterial Blood pCO2 at Patient Temp 40 mmHg (35-46) Arterial Blood pO2 at Patient Temp 92 mmHg (65-108) Arterial Blood HCO3 23 mmol/L (21-28) Arterial Blood Base Excess -2 mmol/L (-3-3) Oxyhemoglobin 96.3 % Methemoglobin 0.2 % (0.0-1.9) Carbon Monoxide, Quantitative 0.6 % (0.0-1.9) FiO2 21 White Blood Count 11.0 x10^3/uL (4.0-11.0) Red Blood Count 3.81 x10^6/uL (3.50-5.40) Hemoglobin 10.9 g/dL (12.0-15.5) Hematocrit 33.5 % (36.0-47.0) Mean Corpuscular Volume 88 fL (79-100) Mean Corpuscular Hemoglobin 29 pg (25-35) Mean Corpuscular Hemoglobin Concent 33 g/dL (31-37) Red Cell Distribution Width 16.5 % (11.5-14.5) Platelet Count 272 x10^3/uL (140-400) Neutrophils (%) (Auto) 66 % (31-73) Lymphocytes (%) (Auto) 23 % (24-48) Monocytes (%) (Auto) 7 % (0-9) Eosinophils (%) (Auto) 3 % (0-3) Basophils (%) (Auto) 1 % (0-3) Neutrophils # (Auto) 7.3 x10^3/uL (1.8-7.7) Lymphocytes # (Auto) 2.5 x10^3/uL (1.0-4.8) Monocytes # (Auto) 0.8 x10^3/uL (0.0-1.1) Eosinophils # (Auto) 0.4 x10^3/uL (0.0-0.7) Basophils # (Auto) 0.1 x10^3/uL (0.0-0.2) Prothrombin Time 13.0 SEC (11.7-14.0) Prothromb Time International Ratio 1.0 (0.8-1.1) Activated Partial Thromboplast Time 39 SEC (24-38) Sodium Level 138 mmol/L (136-145) Potassium Level 4.3 mmol/L (3.5-5.1) Chloride Level 105 mmol/L (98-107) Carbon Dioxide Level 25 mmol/L (21-32) Anion Gap 8 (6-14) Blood Urea Nitrogen 18 mg/dL (7-20) Creatinine 0.9 mg/dL (0.6-1.0) Estimated GFR (Cockcroft-Gault) 61.7 BUN/Creatinine Ratio 20 (6-20) Glucose Level 96 mg/dL (70-99) Calcium Level 9.0 mg/dL (8.5-10.1) Iron Level 63 ug/dL (50-170) Total Iron Binding Capacity 286 ug/dL (250-450) Iron Saturation 22 % (15-34) Total Bilirubin 0.2 mg/dL (0.2-1.0) Aspartate Amino Transf (AST/SGOT) 17 U/L (15-37) Alanine Aminotransferase (ALT/SGPT) 16 U/L (14-59) Alkaline Phosphatase 178 U/L (46-116) Total Protein 5.9 g/dL (6.4-8.2) Albumin 2.9 g/dL (3.4-5.0) Albumin/Globulin Ratio 1.0 (1.0-1.7) Vitamin B12 Level 323 pg/mL (247-911) Medications Active Scripts Medications Dose Route/Sig Max Daily Dose Days Date Category Nystop (Nystatin) 60 Gm Powder 1 Regan TP BID 14 12/18/19 Rx Tylenol (Acetaminophen) 325 Mg Tablet 650 Mg PO PRN Q6HRS PRN 30 12/18/19 Rx Synthroid (Levothyroxine Sodium) 75 Mcg Tablet 1 Tab PO DAILY 12/11/19 Reported Toprol XL (Metoprolol Succinate) 50 Mg Tab.er.24h 25 Mg PO DAILY 12/11/19 Reported Losartan Potassium 50 Mg Tablet 50 Mg PO DAILY 12/11/19 Reported Wellbutrin Xl (Bupropion Hcl) 150 Mg Tab.er.24h 1 Tab PO DAILY 12/11/19 Reported Pantoprazole Sodium (Pantoprazole Sodium) 40 Mg Tablet.dr 40 Mg PO DAILYAC 12/10/19 Reported Budesonide 0.5 Mg/2 Ml Ampul.neb 0.5 Mg IH BID 07/30/17 Reported [place] Carbonate 600 Mg Capsule 600 Mg PO QHS 07/09/13 Reported [place] Carbonate 300 Mg Tablet.er 300 Mg PO DAILY 07/08/13 Reported Alprazolam 0.25 Mg Tablet 0.25 Mg PO PRN BID 07/08/13 Reported Amitriptyline Hcl 50 Mg Tablet 100 Mg PO HS 07/08/13 Reported Dexilant (Dexlansoprazole) 60 Mg Cap..mp 60 Mg PO DAILY 07/08/13 Reported Duoneb 0.5 Mg-3 Mg/3 Ml Soln (Ipratropium/Albuterol Sulfate) 3 Ml Ampul.neb 3 Ml IH QID 07/08/13 Reported Proair Hfa Inhaler (Albuterol Sulfate) 8.5 Gm Hfa.aer.ad 17 Gm IH PRN Q4HRS 07/08/13 Reported Daliresp (Roflumilast) 500 Mcg Tablet 500 Mcg PO DAILY 07/08/13 Reported Flonase (Fluticasone Propionate) 16 Gm [place].susp 16 Gm NS DAILY 07/08/13 Reported Advair 500-50 Diskus (Fluticasone/Salmeterol) 1 Each Disk.w.dev 1 Each IH BID 07/08/13 Reported Mucinex (Guaifenesin) 600 Mg Tablet.er 600 Mg PO PRN 07/08/13 Reported Impression . IMPRESSION: 1. Progressive dyspnea, multifactorial secondary to underlying chronic obstructive pulmonary disease and pneumonia. 2. Right lower lobe pneumonia, possibly aspiration. 3. Chronic obstructive pulmonary disease. 4. Diverticulosis. 5. Elevated troponin. 6. Hyperlipidemia. 7. Acute metabolic possibly toxic encephalopathy. 8. Dysphasia, possible aspiration the Plan . Antibiotics Nebulized treatments Oxygen supplementation DVT GI prophylax RADHA GRIFFIN MD Jan 28, 2020 09:34
--- NOTE | 2020-01-28 10:12 | PDOC ---
Subjective: Subjective: Nausea and headache since falling last week. Nauseated now - has emesis basin, took a few bites of breakfast - has not vomited. No abdominal pain. Denies dizziness/vertigo symptoms. Objective: Objective: D/w cardiology yesterday re: RBBB, prolonged QT. To have echocardiogram today. Vital Signs: Vital Signs Date Time Temp Pulse Resp B/P (MAP) Pulse Ox O2 Delivery O2 Flow Rate FiO2 01/28/20 07:46 98.3 94 17 135/53 (80) 96 Nasal Cannula 2.0 98.3 Labs: URINE CULTURE Final Final 10,000 CFU/ML Normal genitourinary lesli, not indicative of infection on 01/28/20 at 0944 Imaging: Bedside Swallow Evaluation completed. Please refer to full report in intervention section for additional information. Impressions: Mild-moderate oropharyngeal dysphagia w/ pt demonstrating s/s aspiration w/ trials of thin liquids. Pt appears at low risk of aspiration w/ modified diet of dysphagia II and honey thick liquids. Today's evaluation results consistent w/ 12/16/19 videoswallow at this hospital which noted silent aspiration w/ thin liquids and recommended honey thick liquids. Pt reports understanding of need for thickened liquids and that she was noncompliant w/ use of thickened liquids at home prior to this admission. Education provided regarding aspiration, aspiration pneumonia, dysphagia, and need for thickened liquids. Pt agreeable to using thickened liquids at this time. Recommendations: Dysphagia II diet w/ honey thick liquids/no straws. ST f/u for dysphagia. PE: GEN: NAD LUNGS: diminished anteriorly, NC HEART: RRR ABD: S/ND/NT NEURO/PSYCH: awake and alert, speech difficult to understand A/P: Pneumonia Diverticulosis "with minimal adjacent fat stranding may relate to mild diverticulitis at the sigmoid colon" - abdominal pain resolved Nausea, headache H/o GERD, dysphagia/aspiration - tolerating diet Anemia - normal iron and B12 -- D/w cardiology - ?stop atbx w/ prolonged QT, RBBB - better today, okay to continue. Monitor nausea, continue PPI. C/o headache today - neurology following. Will review all w/ Dr. Lenz. Justicifation of Admission Dx: Justifications for Admission: Justification of Admission Dx: Yes GONZÁLEZ HILL Jan 28, 2020 10:11
--- NOTE | 2020-01-28 11:16 | PDOC ---
[facility] [facility] PROGRESS NOTE Chief Complaint Chief Complaint Respiratory failure Resolving metabolic cephalopathy Pneumonia Elevated troponin Diverticulitis Possible COVID 19 Right bundle branch block, hypertension, hyperlipidemia, history of breast cancer with lumps in the left breast. History of Present Illness History of Present Illness 01/27/2023 Patient seen exam She is resting with no apparent distress Discussed with RN Chart reviewed 01/27/2020 Patient seen and examined She is resting with no apparent distress Chart reviewed Discussed with RN Vitals/I&O Vitals/I&O: Vital Signs Date Time Temp Pulse Resp B/P (MAP) Pulse Ox O2 Delivery O2 Flow Rate FiO2 01/28/20 07:46 98.3 94 17 135/53 (80) 96 Nasal Cannula 2.0 98.3 I & O 01/27/20 01/27/20 01/28/20 15:00 23:00 07:00 Intake Total 640 ml 360 ml 1360 ml Output Total 300 ml 600 ml Balance 340 ml 360 ml 760 ml Physical Exam General: No acute distress Heart: Regular rate (SR) Lungs: Wheezing Abdomen: Soft Extremities: No cyanosis Skin: No breakdown Assessment and Plan Assessmemt and Plan Problems Medical Problems: (1) Diverticulitis Status: Acute (2) Elevated troponin Status: Acute (3) Pneumonia Status: Acute Respiratory failure Resolving metabolic cephalopathy Pneumonia Elevated troponin Diverticulitis Possible COVID 19 (ruled out now) Right bundle branch block, hypertension, hyperlipidemia, history of breast cancer with lumps in the left breast. Plan O2 Antibiotics Duo nebs Appreciate subspecialist input Home meds DVT prophylax Full code Prognosis guarded long-term Comment Review of Relevant I have reviewed the following items naz (where applicable) has been applied. Medications: Current Medications Medications (Trade) Dose Ordered Sig/Juan F Route PRN Reason Start Time Stop Time Status Last Admin Dose Admin Pantoprazole Sodium (Protonix) 40 mg DAILYAC PO 01/28/20 07:30 01/28/20 09:01 Ciprofloxacin (Cipro) 250 mg BID PO 01/27/20 21:00 01/28/20 09:01 Metronidazole (Flagyl) 500 mg Q12HR PO 01/27/20 21:00 01/28/20 09:00 Lactobacillus Rhamnosus (Culturelle) 1 cap BID PO 01/27/20 21:00 01/28/20 09:00 Justicifation of Admission Dx: Justifications for Admission: Justification of Admission Dx: Yes JOSEFA MATHIAS III DO Jan 28, 2020 11:16
[2020-01-28 11:43] VITALS: BP 124/73
--- NOTE | 2020-01-28 11:49 | PDOC ---
Infectious Disease Note Subjective Subjective Feeling better, less abdominal pain Nauseous, no vomiting Bedside swallow + s/s aspiration; Now on dysphagia II diet w/ honey thick liquids/no straws. No fevers O2 2 L Denies SOA ROS ROS as mentioned above Vital Sign Vital Signs Vital Signs Date Time Temp Pulse Resp B/P (MAP) Pulse Ox O2 Delivery O2 Flow Rate FiO2 01/28/20 08:25 Nasal Cannula 2.0 01/28/20 07:46 98.3 94 17 135/53 (80) 96 98.3 Physical Exam PHYSICAL EXAM GENERAL: Propped up in bed, resting quietly, arouses easily to name, laughed HEENT: Oral cavity clear, + dentures NECK: Supple. LUNGS: Improved aeration, nonlabored HEART: S1, S2. ABDOMEN: Obese, soft, tender mid area EXTREMITIES: Without cyanosis, clubbing, or gross edema. DERMATOLOGIC: Warm, dry. No generalized rash. NEUROLOGIC: Speech is garbled, mild tremors. answers questions appropriately PIV Labs Lab CT A/P, 01/24 IMPRESSION: 1. Diverticulosis with minimal adjacent fat stranding may relate to mild diverticulitis at the sigmoid colon. No evidence for perforation or adjacent abscess. 2. Patchy airspace disease at the right lung base favored to be infectious or inflammatory in etiology. Follow-up imaging to ensure resolution is recommended. Micro 01/25. URINE CULTURE Final Final 10,000 CFU/ML Normal genitourinary lesli, not indicative of infection on 01/28/20 at 0944 01/25/20 Blood Culture - Preliminary, Resulted NO GROWTH AFTER 2 DAYS Objective Assessment Abdominal pain. CT scan showed diverticulosis. ? mild diverticulitis at the sigmoid colon. - No evidence for perforation or adjacent abscess. History of falls. Leukocytosis - improved Dysphagia. Possible aspiration pneumonia. Encephalopathy, improving per team. Dysarthria. Peripheral neuropathy. Essential tremors. Penicillin and tetracycline allergy. Chronic obstructive pulmonary disease. Chronic respiratory failure, on home O2. COVID-19 neg, 01/24 History of breast cancer. Diverticulosis. Elevated troponin. Chronic RBBB and prolong QT. Cardiology following Plan Plan of Care cipro and Flagyl (started 01/24) Probiotics Follow up labs and cultures. Maintain aspiration precautions d/w with cardiology Eating and ok. PCN reactive as a child. ? If taken amox but has tolerated Keflex. Labs in am. Attending Co-Sign Attending Co-Sign The patient was seen and interviewed as well as examined at the bedside. The chart was reviewed. The case was discussed. Agree with the plan of care. GAURAV MACDONALD APRN Jan 28, 2020 11:49 CLAUDIA MENA MD Jan 28, 2020 17:48
--- NOTE | 2020-01-28 11:53 | PDOC ---
CARDIO Progress Notes Date and Time Date of Service 01/28/2020 Time of Evaluation 1010 Subjective Subjective: No Chest Pain, No shortness of breath, No Palpitations, Other (having abd tenderness again) Vitals Vitals Vital Signs Date Time Temp Pulse Resp B/P (MAP) Pulse Ox O2 Delivery O2 Flow Rate FiO2 01/28/20 11:43 98.2 96 15 124/73 (90) 97 Nasal Cannula 2.0 98.2 Weight Weight [ ] Input and Output Intake and Output Intake and Output 01/28/20 07:00 Intake Total 2360 ml Output Total 900 ml Balance 1460 ml Intake Oral 1060 ml IV Total 1300 ml Output Urine Total 900 ml Microbiology Micro Microbiology 01/26/20 Urine Culture - Final, Complete 01/25/20 Blood Culture - Preliminary, Resulted NO GROWTH AFTER 2 DAYS Physical Exam HEENT: Neck Supple W Full Motion Chest: Symmetric LUNGS: Other (basilar crackles) Heart: RRR (SR) Abdomen: Other (soft but with tenderness to left side abd) Extremities: No Calf Tenderness, Other (trace to 1+ bilateral LE edema) Neurology: alert, oriented, follow commands Assessment Assessment 1. Abdominal pain with diverticulosis: left side abd pain is back. per GI 2. Possible aspiration pneumonia with associated COPD. Covid negative 3. Elevated troponin: Peaked at 0.5. No acute EKG changes, suspect demand mediated type 2 4. Chronic RBBB 5. HTN: controlled 6. HLP 7. Mechanical falls: Ataxia?, neurology following 8. Asymptomatic SB: lowest mid 40s, none further overnight 9. Prolonged QTc: now better at 487 Recommendations 1. Awaiting TTE. Avoid AV arcelia blocking agents 2. Continue current regimen supportive care. 3. Multiple cardiac risk factors. Will plan for outpt stress test pending TTE finding. 4. Monitor rhythm 5. Follow up in office with Dr. Villanueva as scheduled Justicifation of Admission Dx: Justifications for Admission: Justification of Admission Dx: Yes TC ECHAVARRIA PHP MAGENT[employer] DEVELOPER Jan 28, 2020 11:53
[2020-01-28] MEDS: POLYETHYLENE GLYCOL 3350 17 GM PACKET. PO SCH (12:31)
--- NOTE | 2020-01-28 12:32 | NUR ---
SS following up with discharge planning. SS reviewed pt chart and discussed with pt RN. Pt accepted at [facility], ; fax [phone], pending insurance authorization. Pt COVID19 negative. SS will continue to follow for discharge planning.
--- NOTE | 2020-01-28 14:22 | PDOC ---
PROGRESS NOTES Assessment Problems Medical Problems: (1) Diverticulitis Status: Acute (2) Elevated troponin Status: Acute (3) Pneumonia Status: Acute Prior encephalopathy, she is bright and alert now Weakness, dysarthria, dysphagia, examination consistent with peripheral neuropathy. Essential tremor, often this is exacerbated with COPD medications, and the multiple medical issues. Multiple medical issues including diverticulosis, possible pneumonia, ruled out for COVID last admission, work-up being repeated now, elevated troponin, right bundle branch block, hypertension, hyperlipidemia, history of breast cancer with lumps in the left breast. Note elevated CRP, other labs I ordered are negartive or pending Plan Await additional laboratory studies No treatment for essential tremor at this time, see how she does with treatment of her medical problems, sedatives and beta-blockers which are our usual treatments for essential tremor are not helpful right now. Hold on brain MRI depending on how she does. Rehabilitation modalities. Discussed yesterday with the patient's son Neurology will follow as needed over the weekend Subjective No complaints Objective Vital Signs Date Time Temp Pulse Resp B/P (MAP) Pulse Ox O2 Delivery O2 Flow Rate FiO2 01/28/20 11:43 98.2 96 15 124/73 (90) 97 Nasal Cannula 2.0 98.2 Intake and Output 01/28/20 07:00 Intake Total 2360 ml Output Total 900 ml Balance 1460 ml Intake Oral 1060 ml IV Total 1300 ml Output Urine Total 900 ml PHYSICAL EXAM Alert. Oriented to time, place and person. Dysarthria PERRL. EOMI. CN: no focal findings. Muscle tone: normal. Muscle strength: 4/5 DTR: 1+ Plantar reflex: flexor Gait: not examined in bed. Sensory exam: stocking loss. No cerebellar signs elicited. Bilateral postural tremor better Review of Relevant I have reviewed the following items naz (where applicable) has been applied. Labs Laboratory Tests Test 01/26/20 15:10 01/27/20 03:40 O2 Saturation 97 % (92-99) Arterial Blood pH 7.37 (7.35-7.45) Arterial Blood pCO2 at Patient Temp 40 mmHg (35-46) Arterial Blood pO2 at Patient Temp 92 mmHg (65-108) Arterial Blood HCO3 23 mmol/L (21-28) Arterial Blood Base Excess -2 mmol/L (-3-3) Oxyhemoglobin 96.3 % Methemoglobin 0.2 % (0.0-1.9) Carbon Monoxide, Quantitative 0.6 % (0.0-1.9) FiO2 21 White Blood Count 11.0 x10^3/uL (4.0-11.0) Red Blood Count 3.81 x10^6/uL (3.50-5.40) Hemoglobin 10.9 g/dL (12.0-15.5) Hematocrit 33.5 % (36.0-47.0) Mean Corpuscular Volume 88 fL (79-100) Mean Corpuscular Hemoglobin 29 pg (25-35) Mean Corpuscular Hemoglobin Concent 33 g/dL (31-37) Red Cell Distribution Width 16.5 % (11.5-14.5) Platelet Count 272 x10^3/uL (140-400) Neutrophils (%) (Auto) 66 % (31-73) Lymphocytes (%) (Auto) 23 % (24-48) Monocytes (%) (Auto) 7 % (0-9) Eosinophils (%) (Auto) 3 % (0-3) Basophils (%) (Auto) 1 % (0-3) Neutrophils # (Auto) 7.3 x10^3/uL (1.8-7.7) Lymphocytes # (Auto) 2.5 x10^3/uL (1.0-4.8) Monocytes # (Auto) 0.8 x10^3/uL (0.0-1.1) Eosinophils # (Auto) 0.4 x10^3/uL (0.0-0.7) Basophils # (Auto) 0.1 x10^3/uL (0.0-0.2) Prothrombin Time 13.0 SEC (11.7-14.0) Prothromb Time International Ratio 1.0 (0.8-1.1) Activated Partial Thromboplast Time 39 SEC (24-38) Sodium Level 138 mmol/L (136-145) Potassium Level 4.3 mmol/L (3.5-5.1) Chloride Level 105 mmol/L (98-107) Carbon Dioxide Level 25 mmol/L (21-32) Anion Gap 8 (6-14) Blood Urea Nitrogen 18 mg/dL (7-20) Creatinine 0.9 mg/dL (0.6-1.0) Estimated GFR (Cockcroft-Gault) 61.7 BUN/Creatinine Ratio 20 (6-20) Glucose Level 96 mg/dL (70-99) Calcium Level 9.0 mg/dL (8.5-10.1) Iron Level 63 ug/dL (50-170) Total Iron Binding Capacity 286 ug/dL (250-450) Iron Saturation 22 % (15-34) Total Bilirubin 0.2 mg/dL (0.2-1.0) Aspartate Amino Transf (AST/SGOT) 17 U/L (15-37) Alanine Aminotransferase (ALT/SGPT) 16 U/L (14-59) Alkaline Phosphatase 178 U/L (46-116) Total Protein 5.9 g/dL (6.4-8.2) Albumin 2.9 g/dL (3.4-5.0) Albumin/Globulin Ratio 1.0 (1.0-1.7) Vitamin B12 Level 323 pg/mL (247-911) Microbiology 01/26/20 Urine Culture - Final, Complete 01/25/20 Blood Culture - Preliminary, Resulted NO GROWTH AFTER 2 DAYS Medications Current Medications Iohexol (Omnipaque 300 Mg/ml) 75 ml 1X ONCE IV Last administered on 01/25/20at 17:15; Start 01/25/20 at 17:15; Stop 01/25/20 at 17:16; Status DC Info (CONTRAST GIVEN -- Rx MONITORING) 1 each PRN DAILY PRN MC SEE COMMENTS; Start 01/25/20 at 17:30; Stop 01/27/20 at 17:29; Status DC Azithromycin 250 ml @ 250 mls/hr 1X ONCE IV Last administered on 01/25/20at 17:30; Start 01/25/20 at 17:30; Stop 01/25/20 at 18:29; Status DC Methylprednisolone Sodium Succinate (SOLU-Medrol 125MG VIAL) 125 mg 1X ONCE IV Last administered on 01/25/20at 18:00; Start 01/25/20 at 17:30; Stop 01/25/20 at 17:31; Status DC Sodium Chloride 500 ml @ 500 mls/hr 1X ONCE IV Last administered on 01/25/20at 18:00; Start 01/25/20 at 17:45; Stop 01/25/20 at 18:44; Status DC Ondansetron HCl (Zofran) 4 mg PRN Q8HRS PRN IV NAUSEA/VOMITING; Start 01/25/20 at 18:30; Stop 01/26/20 at 10:58; Status DC Fentanyl Citrate (Fentanyl 2ml Vial) 50 mcg PRN Q1HR PRN IV PAIN; Start 01/25/20 at 18:30; Stop 01/26/20 at 18:29; Status DC Albuterol/ Ipratropium (Duoneb) 3 ml RTQID NEB ; Start 01/25/20 at 20:00; Stop 01/25/20 at 20:54; Status DC Ciprofloxacin/ Dextrose 200 ml @ 200 mls/hr 1X ONCE IV Last administered on 01/25/20at 20:26; Start 01/25/20 at 18:45; Stop 01/25/20 at 19:44; Status DC Metronidazole 100 ml @ 100 mls/hr 1X ONCE IV ; Start 01/25/20 at 18:45; Stop 01/25/20 at 19:44; Status DC Albuterol/ Ipratropium (Duoneb) 3 ml PRN Q4HRS PRN NEB SHORTNESS OF BREATH; Start 01/25/20 at 20:56; Stop 01/26/20 at 11:00; Status DC Metronidazole 100 ml @ 100 mls/hr 1X ONCE IV Last administered on 01/26/20at 05:31; Start 01/26/20 at 05:30; Stop 01/26/20 at 06:29; Status DC Pantoprazole Sodium (Protonix) 40 mg DAILYAC PO ; Start 01/26/20 at 11:00; Stop 01/26/20 at 11:03; Status DC Ciprofloxacin (Cipro) 500 mg BID PO ; Start 01/26/20 at 11:00; Stop 01/26/20 at 11:03; Status DC Metronidazole (Flagyl) 500 mg Q12HR PO ; Start 01/26/20 at 11:00; Stop 01/26/20 at 11:03; Status DC Sodium Chloride (Normal Saline Flush) 3 ml QSHIFT PRN IV AFTER MEDS AND BLOOD DRAWS; Start 01/26/20 at 11:00; Stop 01/26/20 at 11:30; Status DC Sodium Chloride 1,000 ml @ 65 mls/hr [id number] IV Last administered on 01/28/20at 09:03; Start 01/26/20 at 10:52 Ondansetron HCl (Zofran) 4 mg PRN Q4HRS PRN IV NAUSEA/VOMITING Last administered on 01/28/20at 12:31; Start 01/26/20 at 11:00 Acetaminophen (Tylenol) 650 mg PRN Q4HRS PRN PO TEMP OVER 100.4F OR MILD PAIN Last administered on 01/27/20at 11:16; Start 01/26/20 at 11:00 Acetaminophen (Tylenol Supp) 650 mg PRN Q4HRS PRN [place] TEMP OVER 100.4F OR MILD PAIN; Start 01/26/20 at 11:00 Sodium Monofluorophosphate (Fleet Adult) 133 ml PRN DAILY PRN [place] CONSTIPATION; Start 01/26/20 at 11:00 Docusate Sodium (Colace) 100 mg PRN BID PRN PO HARD STOOLS; Start 01/26/20 at 11:00 Albuterol/ Ipratropium (Duoneb) 3 ml Q4HRS NEB ; Start 01/26/20 at 12:00; Stop 01/26/20 at 21:16; Status DC Guaifenesin (Robitussin) 200 mg PRN Q4HRS PRN PO COUGH Last administered on 01/27/20at 11:16; Start 01/26/20 at 11:00 Lorazepam (Ativan) 0.5 mg PRN Q4HRS PRN PO ANXIETY / AGITATION Last administered on 01/28/20 04:22; Start 01/26/20 at 11:00 Enoxaparin Sodium (Lovenox 40mg Syringe) 40 mg BID SQ Last administered on 01/28/20at 09:02; Start 01/26/20 at 11:30 Pantoprazole Sodium (PROTONIX VIAL for IV PUSH) 40 mg DAILYAC IVP Last administered on 01/27/20 09:26; Start 01/26/20 at 11:30; Stop 01/27/20 at 10:52; Status DC Ciprofloxacin/ Dextrose 100 ml @ 100 mls/hr Q12HR IV Last administered on 01/26/20at 15:58; Start 01/26/20 at 11:30; Stop 01/26/20 at 20:57; Status DC Metronidazole 100 ml @ 100 mls/hr Q12HR IV Last administered on 7/1/20at 09:28; Start 01/26/20 at 11:30; Stop 01/27/20 at 10:52; Status DC Calcium Carbonate/ Glycine (Tums) 500 mg PRN Q3HRS PRN PO HEARTBURN / GAS Last administered on 01/27/20at 19:47; Start 01/26/20 at 11:30 Famotidine (Pepcid Vial) 20 mg QHS IVP Last administered on 01/26/20at 21:38; Start 01/26/20 at 21:00; Stop 01/27/20 at 10:52; Status DC Info (Icu Electrolyte Protocol) 1 ea DAILY MC ; Start 01/27/20 at 09:00 Heparin Sodium (Porcine) (Heparin Sodium) 5,000 unit Q8HRS SQ ; Start 01/26/20 at 14:00; Status UNV Sodium Chloride (Normal Saline Flush) 3 ml QSHIFT PRN IV AFTER MEDS AND BLOOD DRAWS; Start 01/26/20 at 11:30 Fentanyl Citrate (Fentanyl 2ml Vial) 25 mcg PRN Q2HR PRN IV SEVERE PAIN 7-10; Start 01/26/20 at 11:30 Senna/Docusate Sodium (Senna Plus) 1 tab BID PO Last administered on 01/28/20at 09:00; Start 01/26/20 at 21:00 Bisacodyl (Dulcolax Supp) 10 mg PRN DAILY PRN [place] CONSTIPATION; Start 01/26/20 at 11:30 Ciprofloxacin/ Dextrose 200 ml @ 200 mls/hr Q12HR IV Last administered on 01/27/20at 09:27; Start 01/26/20 at 21:00; Stop 01/27/20 at 10:52; Status DC Albuterol Sulfate (Ventolin Neb Soln) 2.5 mg PRN Q4HRS PRN NEB WHEEZING Last administered on 01/27/20at 18:11; Start 01/26/20 at 21:15 Pantoprazole Sodium (Protonix) 40 mg DAILYAC PO Last administered on 01/28/20at 09:01; Start 01/28/20 at 07:30 Ciprofloxacin (Cipro) 250 mg BID PO Last administered on 01/28/20at 09:01; Start 01/27/20 at 21:00; Stop 01/28/20 at 11:44; Status DC Metronidazole (Flagyl) 500 mg Q12HR PO Last administered on 01/28/20at 09:00; S tart 01/27/20 at 21:00; Stop 01/28/20 at 11:44; Status DC Polyethylene Glycol (miraLAX PACKET) 17 gm PRN DAILY PRN PO CONSTIPATION; Start 01/27/20 at 11:00 Lactobacillus Rhamnosus (Culturelle) 1 cap BID PO Last administered on 01/28/20at 09:00; Start 01/27/20 at 21:00 Polyethylene Glycol (miraLAX PACKET) 17 gm DAILY PO Last administered on 01/28/20at 12:31; Start 01/28/20 at 10:30 Active Scripts Active Nystop (Nystatin) 60 Gm Powder 1 [place] TP BID 14 Days Tylenol (Acetaminophen) 325 Mg Tablet 650 Mg PO PRN Q6HRS PRN 30 Days Reported Synthroid (Levothyroxine Sodium) 75 Mcg Tablet 1 Tab PO DAILY Toprol XL (Metoprolol Succinate) 50 Mg Tab.er.24h 25 Mg PO DAILY Losartan Potassium 50 Mg Tablet 50 Mg PO DAILY Wellbutrin Xl (Bupropion Hcl) 150 Mg Tab.er.24h 1 Tab PO DAILY Pantoprazole Sodium (Pantoprazole Sodium) 40 Mg Tablet.dr 40 Mg PO DAILYAC Budesonide 0.5 Mg/2 Ml Ampul.neb 0.5 Mg IH BID [place] Carbonate 600 Mg Capsule 600 Mg PO QHS [place] Carbonate 300 Mg Tablet.er 300 Mg PO DAILY Alprazolam 0.25 Mg Tablet 0.25 Mg PO PRN BID Amitriptyline Hcl 50 Mg Tablet 100 Mg PO HS Dexilant (Dexlansoprazole) 60 Mg Cap.dr.mp 60 Mg PO DAILY Duoneb 0.5 Mg-3 Mg/3 Ml Soln (Ipratropium/Albuterol Sulfate) 3 Ml Ampul.neb 3 Ml IH QID Proair Hfa Inhaler (Albuterol Sulfate) 8.5 Gm Hfa.aer.ad 17 Gm IH PRN Q4HRS Daliresp (Roflumilast) 500 Mcg Tablet 500 Mcg PO DAILY Flonase (Fluticasone Propionate) 16 Gm [place].susp 16 Gm NS DAILY Advair 500-50 Diskus (Fluticasone/Salmeterol) 1 Each Disk.w.dev 1 Each IH BID Mucinex (Guaifenesin) 600 Mg Tablet.er 600 Mg PO PRN Vitals/I & O Vital Sign - Last 24 Hours 01/27/20 01/27/20 01/27/20 01/27/20 15:00 18:09 19:10 20:00 Temp 97.4 98.2 97.4 98.2 Pulse 91 85 Resp 18 20 B/P (MAP) 122/83 (96) 153/79 (103) Pulse Ox 97 95 96 O2 Delivery Nasal Cannula Nasal Cannula Nasal Cannula Nasal Cannula O2 Flow Rate 2.0 2.0 2.0 2.0 01/27/20 01/28/20 01/28/20 01/28/20 23:00 02:34 07:46 08:25 Temp 98.0 97.7 98.3 98.0 97.7 98.3 Pulse 82 87 94 Resp 20 20 17 B/P (MAP) 145/74 (97) 150/80 (103) 135/53 (80) Pulse Ox 96 96 96 O2 Delivery Nasal Cannula Nasal Cannula Nasal Cannula Nasal Cannula O2 Flow Rate 2.0 2.0 2.0 2.0 01/28/20 11:43 Temp 98.2 98.2 Pulse 96 Resp 15 B/P (MAP) 124/73 (90) Pulse Ox 97 O2 Delivery Nasal Cannula O2 Flow Rate 2.0 Intake and Output 01/27/20 01/27/20 01/28/20 15:00 23:00 07:00 Intake Total 640 ml 360 ml 1360 ml Output Total 300 ml 600 ml Balance 340 ml 360 ml 760 ml Justicifation of Admission Dx: Justifications for Admission: Justification of Admission Dx: Yes HELGA POLLACK MD Jan 28, 2020 14:22
[2020-01-28 15:38] VITALS: BP 118/63
--- NOTE | 2020-01-28 16:23 | NUR ---
SS following up with discharge planning. SS received notification that insurance denied prison. SS met with pt and notified. SS contacted pt's son, Elías, and left voicemail notifying. Pt reported that she was on services with [facility], ; fax [phone], after her last skilled stay. SS phoned and faxed referral to [facility]. SS will continue to follow for discharge planning.
--- NOTE | 2020-01-28 16:31 | CARD ---
MR#: [id number] Date of Study: 01/28/2020 Ordering Physician: TC ECHAVARRIA, Referring Physician: TC ECHAVARRIA, Tech: Es Vazquez APPROVED REPORT EXAM: Two-dimensional and M-mode echocardiogram with Doppler and color Doppler. Other Information Quality : AverageHR: 119bpm Technically limited study due to supine patient and high heart rate INDICATION Elevated Troponin 2D DIMENSIONS RVDd3.4 (2.9-3.5cm)Left Atrium(2D)2.9 (1.6-4.0cm) IVSd1.2 (0.7-1.1cm)Aortic Root(2D)2.6 (2.0-3.7cm) LVDd4.2 (3.9-5.9cm)LVOT Diameter2.1 (1.8-2.4cm) PWd0.9 (0.7-1.1cm)LVDs2.3 (2.5-4.0cm) FS (%) 43.9 %SV58.5 ml LVEF(%)75.5 (>50%) Aortic Valve AoV Peak Maximiliano.138.7cm/sAoV VTI21.4cm AO Peak GR.7.7mmHgLVOT Peak Maximiliano.109.1cm/s LVOT VTI 12.84cmAO Mean GR.4mmHg [place] (VMAX)2.45ox6KSD (VTI)2.02cm2 Pulmonary Valve PV Peak Gstvjpmg833.7cm/sPV Peak Grad.4mmHg Tricuspid Valve TR P. [id number]/sRAP [id number] TR Peak Gr.17whYpVGMD05krHc Pulmonary Vein S1 Lvsvbyyc75.5cm/sD2 Etwdfsxg54.7cm/s LEFT VENTRICLE The left ventricle is normal size. There is borderline concentric left ventricular hypertrophy. The l eft ventricular systolic function is normal and the ejection fraction is within normal range. The Eje ction Fraction is 60-65%. Septal motion consistent with conduction abnormality. There is a flattened septum consistent with right ventricle volume/pressure overload. Tissue Doppler imaging reveals moder ate left ventricular diastolic dysfunction. RIGHT VENTRICLE The right ventricle is moderately dilated. The right ventricle is moderately hypertrophied. Right Slava tricular septal motion is consistent with volume overload. ATRIA The left atrium is mildly dilated. The right atrium is moderately dilated. Interatrial septum bowed t oward the left, consistent with elevated right atrial pressures. AORTIC VALVE The aortic valve is normal in structure and function. Doppler and Color Flow revealed no significant aortic regurgitation. There is no significant aortic valvular stenosis. Calculated aortic valve area is 2.02 cm2 with maximum pressure gradient of 8 mmHg and mean pressure gradient of 5 mmHg. MITRAL VALVE The mitral valve is thickened but opens well. There is no evidence of mitral valve prolapse. There is no mitral valve stenosis. Doppler and Color-flow revealed trace mitral regurgitation. TRICUSPID VALVE The tricuspid valve is normal in structure and function. Doppler and Color Flow revealed mild tricusp id regurgitation with an estimated PAP of 82 mmHg. There is severe pulmonary hypertension. There is n o tricuspid valve stenosis. PULMONIC VALVE The pulmonic valve is not well visualized. Doppler and Color Flow revealed no pulmonic valvular regur gitation. There is no pulmonic valvular stenosis. GREAT VESSELS The aortic root is normal in size. The IVC is normal in size and collapses >50% with inspiration. PERICARDIAL EFFUSION There is no evidence of significant pericardial effusion. Critical Notification Critical Value: No <Conclusion> The left ventricular systolic function is normal and the ejection fraction is within normal range. Th e Ejection Fraction is 60-65%. Septal motion consistent with conduction abnormality. There is a flattened septum consistent with ri ght ventricle volume/pressure overload. The right ventricle is moderately dilated. The right ventricle is moderately hypertrophied. Doppler and Color Flow revealed mild tricuspid regurgitation with an estimated PAP of 82 mmHg. There is severe pulmonary hypertension. Signed by : Willi Hare, Electronically Approved : 01/28/2020 16:30:45
[2020-01-28] MEDS: fentaNYL PF VIAL 100 MCG/2 ML VIAL IV PRN (18:19)
[2020-01-28 19:09] LABS: ALBUM 3.1 g/dL (2.9-4.4); ALPHA 1 0.2 g/dL (0.0-0.4); ALPHA 2 0.8 g/dL (0.4-1.0); ANA INTERP Negative (.); BETA 0.8 g/dL (0.7-1.3); GAMMA 0.7 g/dL (0.4-1.8); PROTEIN TOTAL 5.6 g/dL (6.0-8.5); SPEP AG RATIO 1.2 (0.7-1.7)
[2020-01-28 19:34] VITALS: BP 108/59
[2020-01-28 23:58] VITALS: BP 123/59
[2020-01-29 03:43] VITALS: BP 137/63
[2020-01-29 04:42] LABS: BASO # 0.1 x10^3/uL (0.0-0.2); BASO % 1 % (0-3); EOS # 0.3 x10^3/uL (0.0-0.7); EOS % 4 % (0-3); HEMATOCRIT 35.5 % (36.0-47.0); HEMOGLOBIN 11.7 g/dL (12.0-15.5); LYMPH # 1.9 x10^3/uL (1.0-4.8); LYMPH % 24 % (24-48); MEAN CORPUSCULAR HEMOGLOBIN 29 pg (25-35); MEAN CORPUSCULAR HGB CONC 33 g/dL (31-37); MEAN CORPUSCULAR VOLUME 89 fL (79-100); MONO # 0.6 x10^3/uL (0.0-1.1); MONO % 8 % (0-9); NEUT # 5.1 x10^3/uL (1.8-7.7); NEUT % 64 % (31-73); PLATELET COUNT 277 x10^3/uL (140-400); RED BLOOD COUNT 3.99 x10^6/uL (3.50-5.40); RED CELL DISTRIBUTION WIDTH 16.8 % (11.5-14.5); WHITE BLOOD COUNT 7.9 x10^3/uL (4.0-11.0)
[2020-01-29 04:57] LABS: CALCIUM 8.3 mg/dL (8.5-10.1); CREATININE 0.5 mg/dL (0.6-1.0); GFR 121.6; POTASSIUM 4.3 mmol/L (3.5-5.1)
[2020-01-29] MEDS: IV NORMAL SALINE 1000ML BAG 1,000 ML IV SCH ×3 (05:17→20:31)
[2020-01-29 07:15] VITALS: BP 145/61
[2020-01-29] MEDS: LACTOBACILLUS RHAMNOSUS GG 1 CAPSULE. PO SCH ×2 (08:28→21:28)
[2020-01-29] MEDS: PANTOPRAZOLE 40 MG TABLET.DR. PO SCH (08:28)
[2020-01-29] MEDS: ENOXAPARIN 40 MG/0.4 ML SYRINGE. SQ SCH ×2 (08:29→21:28)
[2020-01-29] MEDS: SENNOSIDES/DOCUSATE 8.6/50MG TABLET. PO SCH ×2 (08:29→21:28)
[2020-01-29] MEDS: POLYETHYLENE GLYCOL 3350 17 GM PACKET. PO SCH (08:30)
[2020-01-29] MEDS: ELECTROLYTE (ICU) PROTOCOL. MC SCH (09:00)
--- NOTE | 2020-01-29 09:01 | PDOC ---
PULMONARY PROGRESS NOTES Subjective Patient short of air today less we Vitals Vital Signs Date Time Temp Pulse Resp B/P (MAP) Pulse Ox O2 Delivery O2 Flow Rate FiO2 01/29/20 07:15 97.9 88 20 145/61 (89) 97 Nasal Cannula 2.0 97.9 ROS: No Nausea, No Chest Pain, No Abdominal Pain, No Increase Cough General: Alert, No acute distress Lungs: Wheezing Cardiovascular: S1, S2 Abdomen: Soft Neuro Exam: Alert Extremities: No Edema Skin: Warm Labs Laboratory Tests Test 01/29/20 04:30 White Blood Count 7.9 x10^3/uL (4.0-11.0) Red Blood Count 3.99 x10^6/uL (3.50-5.40) Hemoglobin 11.7 g/dL (12.0-15.5) Hematocrit 35.5 % (36.0-47.0) Mean Corpuscular Volume 89 fL (79-100) Mean Corpuscular Hemoglobin 29 pg (25-35) Mean Corpuscular Hemoglobin Concent 33 g/dL (31-37) Red Cell Distribution Width 16.8 % (11.5-14.5) Platelet Count 277 x10^3/uL (140-400) Neutrophils (%) (Auto) 64 % (31-73) Lymphocytes (%) (Auto) 24 % (24-48) Monocytes (%) (Auto) 8 % (0-9) Eosinophils (%) (Auto) 4 % (0-3) Basophils (%) (Auto) 1 % (0-3) Neutrophils # (Auto) 5.1 x10^3/uL (1.8-7.7) Lymphocytes # (Auto) 1.9 x10^3/uL (1.0-4.8) Monocytes # (Auto) 0.6 x10^3/uL (0.0-1.1) Eosinophils # (Auto) 0.3 x10^3/uL (0.0-0.7) Basophils # (Auto) 0.1 x10^3/uL (0.0-0.2) Sodium Level 141 mmol/L (136-145) Potassium Level 4.3 mmol/L (3.5-5.1) Chloride Level 108 mmol/L (98-107) Carbon Dioxide Level 30 mmol/L (21-32) Anion Gap 3 (6-14) Blood Urea Nitrogen 8 mg/dL (7-20) Creatinine 0.5 mg/dL (0.6-1.0) Estimated GFR (Cockcroft-Gault) 121.6 Glucose Level 110 mg/dL (70-99) Calcium Level 8.3 mg/dL (8.5-10.1) Laboratory Tests Test 01/29/20 04:30 White Blood Count 7.9 x10^3/uL (4.0-11.0) Red Blood Count 3.99 x10^6/uL (3.50-5.40) Hemoglobin 11.7 g/dL (12.0-15.5) Hematocrit 35.5 % (36.0-47.0) Mean Corpuscular Volume 89 fL (79-100) Mean Corpuscular Hemoglobin 29 pg (25-35) Mean Corpuscular Hemoglobin Concent 33 g/dL (31-37) Red Cell Distribution Width 16.8 % (11.5-14.5) Platelet Count 277 x10^3/uL (140-400) Neutrophils (%) (Auto) 64 % (31-73) Lymphocytes (%) (Auto) 24 % (24-48) Monocytes (%) (Auto) 8 % (0-9) Eosinophils (%) (Auto) 4 % (0-3) Basophils (%) (Auto) 1 % (0-3) Neutrophils # (Auto) 5.1 x10^3/uL (1.8-7.7) Lymphocytes # (Auto) 1.9 x10^3/uL (1.0-4.8) Monocytes # (Auto) 0.6 x10^3/uL (0.0-1.1) Eosinophils # (Auto) 0.3 x10^3/uL (0.0-0.7) Basophils # (Auto) 0.1 x10^3/uL (0.0-0.2) Sodium Level 141 mmol/L (136-145) Potassium Level 4.3 mmol/L (3.5-5.1) Chloride Level 108 mmol/L (98-107) Carbon Dioxide Level 30 mmol/L (21-32) Anion Gap 3 (6-14) Blood Urea Nitrogen 8 mg/dL (7-20) Creatinine 0.5 mg/dL (0.6-1.0) Estimated GFR (Cockcroft-Gault) 121.6 Glucose Level 110 mg/dL (70-99) Calcium Level 8.3 mg/dL (8.5-10.1) Medications Active Scripts Medications Dose Route/Sig Max Daily Dose Days Date Category Nystop (Nystatin) 60 Gm Powder 1 Regan TP BID 14 12/18/19 Rx Tylenol (Acetaminophen) 325 Mg Tablet 650 Mg PO PRN Q6HRS PRN 30 12/18/19 Rx Synthroid (Levothyroxine Sodium) 75 Mcg Tablet 1 Tab PO DAILY 12/11/19 Reported Toprol XL (Metoprolol Succinate) 50 Mg Tab.er.24h 25 Mg PO DAILY 12/11/19 Reported Losartan Potassium 50 Mg Tablet 50 Mg PO DAILY 12/11/19 Reported Wellbutrin Xl (Bupropion Hcl) 150 Mg Tab.er.24h 1 Tab PO DAILY 12/11/19 Reported Pantoprazole Sodium (Pantoprazole Sodium) 40 Mg Tablet.dr 40 Mg PO DAILYAC 12/10/19 Reported Budesonide 0.5 Mg/2 Ml Ampul.neb 0.5 Mg IH BID 07/30/17 Reported [place] Carbonate 600 Mg Capsule 600 Mg PO QHS 07/09/13 Reported [place] Carbonate 300 Mg Tablet.er 300 Mg PO DAILY 07/08/13 Reported Alprazolam 0.25 Mg Tablet 0.25 Mg PO PRN BID 07/08/13 Reported Amitriptyline Hcl 50 Mg Tablet 100 Mg PO HS 07/08/13 Reported Dexilant (Dexlansoprazole) 60 Mg Cap.mp 60 Mg PO DAILY 07/08/13 Reported Duoneb 0.5 Mg-3 Mg/3 Ml Soln (Ipratropium/Albuterol Sulfate) 3 Ml Ampul.neb 3 Ml IH QID 07/08/13 Reported Proair Hfa Inhaler (Albuterol Sulfate) 8.5 Gm Hfa.aer.ad 17 Gm IH PRN Q4HRS 07/08/13 Reported Daliresp (Roflumilast) 500 Mcg Tablet 500 Mcg PO DAILY 07/08/13 Reported Flonase (Fluticasone Propionate) 16 Gm [place].susp 16 Gm NS DAILY 07/08/13 Reported Advair 500-50 Diskus (Fluticasone/Salmeterol) 1 Each Disk.w.dev 1 Each IH BID 07/08/13 Reported Mucinex (Guaifenesin) 600 Mg Tablet.er 600 Mg PO PRN 07/08/13 Reported Impression . 1. Progressive dyspnea, multifactorial secondary to underlying chronic obstructive pulmonary disease and pneumonia. 2. Right lower lobe pneumonia, possibly aspiration. 3. Chronic obstructive pulmonary disease. 4. Diverticulitis 5. Elevated troponin. 6. Hyperlipidemia. 7. Acute metabolic possibly toxic encephalopathy. 8. Dysphasia, possible aspiration the Plan . Antibiotics per ID Enteral nutrition nebulized treatments Oxygen supplementation DVT GI prophylax RADHA GRIFFIN MD Jan 29, 2020 09:01
[2020-01-29 11:01] VITALS: BP 145/83
--- NOTE | 2020-01-29 11:35 | PDOC ---
[facility] PROGRESS NOTE Chief Complaint Chief Complaint Respiratory failure Resolving metabolic cephalopathy Pneumonia Elevated troponin Diverticulitis Possible COVID 19 Right bundle branch block, hypertension, hyperlipidemia, history of breast cancer with lumps in the left breast. History of Present Illness History of Present Illness 01/29/2020 Patient seen and examined She is resting Chart reviewed Discussed with RN 01/27/2023 Patient seen exam She is resting with no apparent distress Discussed with RN Chart reviewed 01/27/2020 Patient seen and examined She is resting with no apparent distress Chart reviewed Discussed with RN Vitals/I&O Vitals/I&O: Vital Signs Date Time Temp Pulse Resp B/P (MAP) Pulse Ox O2 Delivery O2 Flow Rate FiO2 01/29/20 11:01 97.8 96 18 145/83 (103) 96 Nasal Cannula 2.0 97.8 I & O 01/28/20 01/28/20 01/29/20 15:00 23:00 07:00 Intake Total 100 ml 1120 ml Balance 100 ml 1120 ml Physical Exam Physical Exam: GENERAL: Propped up in bed, resting quietly, arouses easily to name, laughed HEENT: Oral cavity clear, + dentures NECK: Supple. LUNGS: Improved aeration, nonlabored HEART: S1, S2. ABDOMEN: Obese, soft, tender mid area EXTREMITIES: Without cyanosis, clubbing, or gross edema. DERMATOLOGIC: Warm, dry. No generalized rash. NEUROLOGIC: Speech is garbled, mild tremors. answers questions appropriately PIV General: No acute distress Heart: Regular rate (SR) Lungs: Wheezing Abdomen: Soft Extremities: No cyanosis Skin: No breakdown Labs Labs: Laboratory Tests Test 01/29/20 04:30 White Blood Count 7.9 x10^3/uL (4.0-11.0) Red Blood Count 3.99 x10^6/uL (3.50-5.40) Hemoglobin 11.7 g/dL (12.0-15.5) Hematocrit 35.5 % (36.0-47.0) Mean Corpuscular Volume 89 fL (79-100) Mean Corpuscular Hemoglobin 29 pg (25-35) Mean Corpuscular Hemoglobin Concent 33 g/dL (31-37) Red Cell Distribution Width 16.8 % (11.5-14.5) Platelet Count 277 x10^3/uL (140-400) Neutrophils (%) (Auto) 64 % (31-73) Lymphocytes (%) (Auto) 24 % (24-48) Monocytes (%) (Auto) 8 % (0-9) Eosinophils (%) (Auto) 4 % (0-3) Basophils (%) (Auto) 1 % (0-3) Neutrophils # (Auto) 5.1 x10^3/uL (1.8-7.7) Lymphocytes # (Auto) 1.9 x10^3/uL (1.0-4.8) Monocytes # (Auto) 0.6 x10^3/uL (0.0-1.1) Eosinophils # (Auto) 0.3 x10^3/uL (0.0-0.7) Basophils # (Auto) 0.1 x10^3/uL (0.0-0.2) Sodium Level 141 mmol/L (136-145) Potassium Level 4.3 mmol/L (3.5-5.1) Chloride Level 108 mmol/L (98-107) Carbon Dioxide Level 30 mmol/L (21-32) Anion Gap 3 (6-14) Blood Urea Nitrogen 8 mg/dL (7-20) Creatinine 0.5 mg/dL (0.6-1.0) Estimated GFR (Cockcroft-Gault) 121.6 Glucose Level 110 mg/dL (70-99) Calcium Level 8.3 mg/dL (8.5-10.1) Assessment and Plan Assessmemt and Plan Problems Medical Problems: (1) Diverticulitis Status: Acute (2) Elevated troponin Status: Acute (3) Pneumonia Status: Acute Respiratory failure Resolving metabolic cephalopathy Pneumonia Elevated troponin Diverticulitis Possible COVID 19 (ruled out now) Right bundle branch block, hypertension, hyperlipidemia, history of breast cancer with lumps in the left breast. Plan O2 Antibiotics Duo nebs Appreciate subspecialist input Home meds DVT prophylax Full code Prognosis guarded long-term Comment Review of Relevant I have reviewed the following items naz (where applicable) has been applied. Justicifation of Admission Dx: Justifications for Admission: Justification of Admission Dx: Yes JOSEFA MATHIAS III DO Jan 29, 2020 11:35
--- NOTE | 2020-01-29 13:31 | PDOC ---
Infectious Disease Note Subjective Subjective Feeling better than yesterday, some left-sided abdominal pain, but not as bad No further nausea Eating 50-75% meals No fevers/chills/SOA O2 2 L ROS ROS as mentioned above Vital Sign Vital Signs Vital Signs Date Time Temp Pulse Resp B/P (MAP) Pulse Ox O2 Delivery O2 Flow Rate FiO2 01/29/20 11:01 97.8 96 18 145/83 (103) 96 Nasal Cannula 2.0 97.8 Physical Exam PHYSICAL EXAM GENERAL: Propped up in bed, alert, laughing HEENT: Oral cavity dry, + dentures NECK: Supple. LUNGS: Improved aeration, nonlabored HEART: S1, S2. ABDOMEN: Obese, soft, tender mid area EXTREMITIES: Without cyanosis, clubbing, or gross edema. DERMATOLOGIC: Warm, dry. No generalized rash. NEUROLOGIC: Speech lmarbled. Mild tremors. answers questions appropriately PIV Labs Lab Laboratory Tests Test 01/29/20 04:30 White Blood Count 7.9 x10^3/uL (4.0-11.0) Red Blood Count 3.99 x10^6/uL (3.50-5.40) Hemoglobin 11.7 g/dL (12.0-15.5) Hematocrit 35.5 % (36.0-47.0) Mean Corpuscular Volume 89 fL (79-100) Mean Corpuscular Hemoglobin 29 pg (25-35) Mean Corpuscular Hemoglobin Concent 33 g/dL (31-37) Red Cell Distribution Width 16.8 % (11.5-14.5) Platelet Count 277 x10^3/uL (140-400) Neutrophils (%) (Auto) 64 % (31-73) Lymphocytes (%) (Auto) 24 % (24-48) Monocytes (%) (Auto) 8 % (0-9) Eosinophils (%) (Auto) 4 % (0-3) Basophils (%) (Auto) 1 % (0-3) Neutrophils # (Auto) 5.1 x10^3/uL (1.8-7.7) Lymphocytes # (Auto) 1.9 x10^3/uL (1.0-4.8) Monocytes # (Auto) 0.6 x10^3/uL (0.0-1.1) Eosinophils # (Auto) 0.3 x10^3/uL (0.0-0.7) Basophils # (Auto) 0.1 x10^3/uL (0.0-0.2) Sodium Level 141 mmol/L (136-145) Potassium Level 4.3 mmol/L (3.5-5.1) Chloride Level 108 mmol/L (98-107) Carbon Dioxide Level 30 mmol/L (21-32) Anion Gap 3 (6-14) Blood Urea Nitrogen 8 mg/dL (7-20) Creatinine 0.5 mg/dL (0.6-1.0) Estimated GFR (Cockcroft-Gault) 121.6 Glucose Level 110 mg/dL (70-99) Calcium Level 8.3 mg/dL (8.5-10.1) Micro 01/25. URINE CULTURE Final Final 10,000 CFU/ML Normal genitourinary lesli, not indicative of infection on 01/28/20 at 0944 01/25/20 Blood Culture - Preliminary, Resulted NO GROWTH AFTER 3 DAYS Objective Assessment Abdominal pain. CT scan showed diverticulosis. ? mild diverticulitis at the sigmoid colon. - No evidence for perforation or adjacent abscess. History of falls. Leukocytosis - improved Dysphagia. Possible aspiration pneumonia. Encephalopathy, improving per team. Dysarthria. Peripheral neuropathy. Essential tremors. Penicillin and tetracycline allergy. PCN reactive as a child. ? If taken amox but has tolerated Keflex. Chronic obstructive pulmonary disease. Chronic respiratory failure, on home O2. COVID-19 neg, 01/24 History of breast cancer. Diverticulosis. Elevated troponin. Chronic RBBB and prolong QT. Cardiology following Plan Plan of Care cipro and Flagyl (started 01/24) Probiotics Cultures neg to date Maintain aspiration precautions Feeling better ad WBC improved Mild wheeze - per Pulm Attending Co-Sign Attending Co-Sign The patient was seen and interviewed as well as examined at the bedside. The chart was reviewed. The case was discussed. Agree with the plan of care. GAURAV MACDONALD APRN Jan 29, 2020 13:31 CLAUDIA MENA MD Jan 29, 2020 15:40
[2020-01-29] MEDS: ACETAMINOPHEN 325 MG TABLET. PO PRN ×2 (14:49→22:54)
[2020-01-29 15:06] VITALS: BP 139/75
[2020-01-29 19:34] VITALS: BP 156/73
[2020-01-29 22:24] VITALS: BP 160/84
[2020-01-29] MEDS: LORazepam 0.5 MG TABLET PO PRN (23:14)
[2020-01-30 02:51] VITALS: BP 160/83
[2020-01-30 07:00] VITALS: BP 142/75
[2020-01-30] MEDS: PANTOPRAZOLE 40 MG TABLET.DR. PO SCH (07:19)
[2020-01-30] MEDS: POLYETHYLENE GLYCOL 3350 17 GM PACKET. PO SCH (09:00)
[2020-01-30] MEDS: SENNOSIDES/DOCUSATE 8.6/50MG TABLET. PO SCH ×2 (09:00→21:05)
[2020-01-30] MEDS: LACTOBACILLUS RHAMNOSUS GG 1 CAPSULE. PO SCH ×2 (09:16→21:05)
[2020-01-30] MEDS: ENOXAPARIN 40 MG/0.4 ML SYRINGE. SQ SCH ×2 (09:17→21:06)
--- NOTE | 2020-01-30 10:48 | PDOC ---
PULMONARY PROGRESS NOTES Subjective Patient denies SOB or increased cough Remains on N/C oxygen Vitals Vital Signs Date Time Temp Pulse Resp B/P (MAP) Pulse Ox O2 Delivery O2 Flow Rate FiO2 01/30/20 07:00 98.2 86 16 142/75 (97) 97 Nasal Cannula 2.0 98.2 ROS: No Nausea, No Chest Pain, No Abdominal Pain, No Increase Cough General: Alert, No acute distress Lungs: Other (decreased bs) Cardiovascular: S1, S2 Abdomen: Soft Neuro Exam: Alert Extremities: No Edema Skin: Warm Labs Laboratory Tests Test 01/29/20 04:30 White Blood Count 7.9 x10^3/uL (4.0-11.0) Red Blood Count 3.99 x10^6/uL (3.50-5.40) Hemoglobin 11.7 g/dL (12.0-15.5) Hematocrit 35.5 % (36.0-47.0) Mean Corpuscular Volume 89 fL (79-100) Mean Corpuscular Hemoglobin 29 pg (25-35) Mean Corpuscular Hemoglobin Concent 33 g/dL (31-37) Red Cell Distribution Width 16.8 % (11.5-14.5) Platelet Count 277 x10^3/uL (140-400) Neutrophils (%) (Auto) 64 % (31-73) Lymphocytes (%) (Auto) 24 % (24-48) Monocytes (%) (Auto) 8 % (0-9) Eosinophils (%) (Auto) 4 % (0-3) Basophils (%) (Auto) 1 % (0-3) Neutrophils # (Auto) 5.1 x10^3/uL (1.8-7.7) Lymphocytes # (Auto) 1.9 x10^3/uL (1.0-4.8) Monocytes # (Auto) 0.6 x10^3/uL (0.0-1.1) Eosinophils # (Auto) 0.3 x10^3/uL (0.0-0.7) Basophils # (Auto) 0.1 x10^3/uL (0.0-0.2) Sodium Level 141 mmol/L (136-145) Potassium Level 4.3 mmol/L (3.5-5.1) Chloride Level 108 mmol/L (98-107) Carbon Dioxide Level 30 mmol/L (21-32) Anion Gap 3 (6-14) Blood Urea Nitrogen 8 mg/dL (7-20) Creatinine 0.5 mg/dL (0.6-1.0) Estimated GFR (Cockcroft-Gault) 121.6 Glucose Level 110 mg/dL (70-99) Calcium Level 8.3 mg/dL (8.5-10.1) Medications Active Scripts Medications Dose Route/Sig Max Daily Dose Days Date Category Nystop (Nystatin) 60 Gm Powder 1 [place] TP BID 14 12/18/19 Rx Tylenol (Acetaminophen) 325 Mg Tablet 650 Mg PO PRN Q6HRS PRN 30 12/18/19 Rx Synthroid (Levothyroxine Sodium) 75 Mcg Tablet 1 Tab PO DAILY 12/11/19 Reported Toprol XL (Metoprolol Succinate) 50 Mg Tab.er.24h 25 Mg PO DAILY 12/11/19 Reported Losartan Potassium 50 Mg Tablet 50 Mg PO DAILY 12/11/19 Reported Wellbutrin Xl (Bupropion Hcl) 150 Mg Tab.er.24h 1 Tab PO DAILY 12/11/19 Reported Pantoprazole Sodium (Pantoprazole Sodium) 40 Mg Tablet.dr 40 Mg PO DAILYAC 12/10/19 Reported Budesonide 0.5 Mg/2 Ml Ampul.neb 0.5 Mg IH BID 07/30/17 Reported [place] Carbonate 600 Mg Capsule 600 Mg PO QHS 07/09/13 Reported [place] Carbonate 300 Mg Tablet.er 300 Mg PO DAILY 07/08/13 Reported Alprazolam 0.25 Mg Tablet 0.25 Mg PO PRN BID 07/08/13 Reported Amitriptyline Hcl 50 Mg Tablet 100 Mg PO HS 07/08/13 Reported Dexilant (Dexlansoprazole) 60 Mg Cap.mp 60 Mg PO DAILY 07/08/13 Reported Duoneb 0.5 Mg-3 Mg/3 Ml Soln (Ipratropium/Albuterol Sulfate) 3 Ml Ampul.neb 3 Ml IH QID 07/08/13 Reported Proair Hfa Inhaler (Albuterol Sulfate) 8.5 Gm Hfa.aer.ad 17 Gm IH PRN Q4HRS 07/08/13 Reported Daliresp (Roflumilast) 500 Mcg Tablet 500 Mcg PO DAILY 07/08/13 Reported Flonase (Fluticasone Propionate) 16 Gm [place].susp 16 Gm NS DAILY 07/08/13 Reported Advair 500-50 Diskus (Fluticasone/Salmeterol) 1 Each Disk.w.dev 1 Each IH BID 07/08/13 Reported Mucinex (Guaifenesin) 600 Mg Tablet.er 600 Mg PO PRN 07/08/13 Reported Comments IMPRESSION: Increased patchy interstitial changes at the right lung base with improved aeration of the left lung base. Consideration may be given for developing interstitial pneumonitis. Short-term follow-up two-view chest radiograph could be of benefit for further evaluation. Impression . 1. Progressive dyspnea, multifactorial secondary to underlying chronic obstructive pulmonary disease and pneumonia. 2. Right lower lobe pneumonia, possibly aspiration. 3. Chronic obstructive pulmonary disease. 4. Diverticulitis 5. Elevated troponin. 6. Hyperlipidemia. 7. Acute metabolic possibly toxic encephalopathy. 8. Dysphasia, possible aspiration the Plan . Continue supplemental oxygen as needed to keep sats above 92% NEBS/Pulmicort ABX per ID Follow speech recommendations Dysphasia diet DVT GI prophylax D/W RADHA GUILLEN MD Jan 30, 2020 10:48
[2020-01-30 11:00] VITALS: BP 144/74
[2020-01-30] MEDS: BUDESONIDE 0.5 MG/2 ML NEBU. NEB SCH ×2 (11:32→18:14)
[2020-01-30] MEDS ORDERED: IPRATRPIUM/ALBUTEROL 0.5/2.5MG 3 ML NEBU. NEB SCH (12:00)
--- NOTE | 2020-01-30 12:00 | PDOC ---
[facility] [facility] PROGRESS NOTE Chief Complaint Chief Complaint Respiratory failure Resolving metabolic cephalopathy Pneumonia Elevated troponin Diverticulitis Possible COVID 19 (ruled out) Right bundle branch block, hypertension, hyperlipidemia, history of breast cancer with lumps in the left breast. History of Present Illness History of Present Illness 01/30/2020 Patient seen and examined She is resting with no apparent distress Chart reviewed 01/29/2020 Patient seen and examined She is resting Chart reviewed Discussed with RN 01/27/2023 Patient seen exam She is resting with no apparent distress Discussed with RN Chart reviewed 01/27/2020 Patient seen and examined She is resting with no apparent distress Chart reviewed Discussed with RN Vitals/I&O Vitals/I&O: Vital Signs Date Time Temp Pulse Resp B/P (MAP) Pulse Ox O2 Delivery O2 Flow Rate FiO2 01/30/20 11:32 96 Nasal Cannula 2.0 01/30/20 11:00 98.0 85 18 144/74 (97) 98.0 I & O 01/29/20 01/29/20 01/30/20 15:00 23:00 07:00 Intake Total 120 ml 180 ml 120 ml Balance 120 ml 180 ml 120 ml Physical Exam Physical Exam: GENERAL: Propped up in bed, alert, laughing HEENT: Oral cavity dry, + dentures NECK: Supple. LUNGS: Improved aeration, nonlabored HEART: S1, S2. ABDOMEN: Obese, soft, tender mid area EXTREMITIES: Without cyanosis, clubbing, or gross edema. DERMATOLOGIC: Warm, dry. No generalized rash. NEUROLOGIC: Speech lmarbled. Mild tremors. answers questions appropriately PIV General: No acute distress Heart: Regular rate (SR) Lungs: Other (decreased bs) Abdomen: Soft Extremities: No cyanosis Skin: No breakdown Assessment and Plan Assessmemt and Plan Problems Medical Problems: (1) Diverticulitis Status: Acute (2) Elevated troponin Status: Acute (3) Pneumonia Status: Acut Respiratory failure Resolving metabolic cephalopathy Pneumonia Elevated troponin Diverticulitis Possible COVID 19 (ruled out) Right bundle branch block, hypertension, hyperlipidemia, history of breast cancer with lumps in the left breast. Plan IV antibiotics Nebulizers Home meds DVT prophylaxis Full code Oxygen per nasal cannula Appreciate subspecialist input Per pulmonary please see below; 1. Progressive dyspnea, multifactorial secondary to underlying chronic obstructive pulmonary disease and pneumonia. 2. Right lower lobe pneumonia, possibly aspiration. 3. Chronic obstructive pulmonary disease. 4. Diverticulitis 5. Elevated troponin. 6. Hyperlipidemia. 7. Acute metabolic possibly toxic encephalopathy. 8. Dysphasia, possible aspiration the Plan Plan . Continue supplemental oxygen as needed to keep sats above 92% NEBS/Pulmicort ABX per ID Follow speech recommendations Dysphasia diet DVT GI prophylax Comment Review of Relevant I have reviewed the following items naz (where applicable) has been applied. Medications: Current Medications Medications (Trade) Dose Ordered Sig/Juan F Route PRN Reason Start Time Stop Time Status Last Admin Dose Admin Budesonide (Pulmicort) 0.5 mg RTBID NEB 01/30/20 09:45 01/30/20 11:32 Justicifation of Admission Dx: Justifications for Admission: Justification of Admission Dx: Yes JOSEFA MATHIAS III DO Jan 30, 2020 11:59
--- NOTE | 2020-01-30 12:08 | PDOC ---
Infectious Disease Note Subjective Subjective Comfortable Denies pain/N/V/SOA Remains on baseline O2 of 2L Eating 25% meals No fevers/chills ROS ROS as mentioned above Vital Sign Vital Signs Vital Signs Date Time Temp Pulse Resp B/P (MAP) Pulse Ox O2 Delivery O2 Flow Rate FiO2 01/30/20 11:32 96 Nasal Cannula 2.0 01/30/20 11:00 98.0 85 18 144/74 (97) 98.0 Physical Exam PHYSICAL EXAM GENERAL: Propped up in bed, alert, looks well HEENT: Oral cavity dry, + dentures NECK: Supple. LUNGS: Soft wheeze, nonlabored HEART: S1, S2. ABDOMEN: Obese, soft, little tender [id number] area, BS present EXTREMITIES: Without cyanosis, clubbing, or gross edema. DERMATOLOGIC: Warm, dry. No generalized rash. NEUROLOGIC: Alert, seech is rbled, answers questions appropriately PIV Labs Micro 01/25. URINE CULTURE Final Final 10,000 CFU/ML Normal genitourinary lesli, not indicative of infection on 01/28/20 at 0944 01/25/20 Blood Culture - Preliminary, Resulted NO GROWTH AFTER 3 DAYS Objective Assessment Abdominal pain. CT scan showed diverticulosis. ? mild diverticulitis at the sigmoid colon. - No evidence for perforation or adjacent abscess. History of falls. Leukocytosis - improved Dysphagia. Possible aspiration pneumonia. Encephalopathy, improving per team. Dysarthria. Peripheral neuropathy. Essential tremors. Penicillin and tetracycline allergy. PCN reactive as a child. ? If taken amox but has tolerated Keflex. Chronic obstructive pulmonary disease. Chronic respiratory failure, on home O2. COVID-19 neg, 01/24 History of breast cancer. Diverticulosis. Elevated troponin. Chronic RBBB and prolong QT. Cardiology following Plan Plan of Care cipro and Flagyl (started 01/24) Probiotics Cultures neg to date Maintain aspiration precautions D/w son Grey at bedside Patient discussed with SHUTTLECOCK FEATHER TRIMMER. Chart reviewed in detail. Above plan co-formulated and agreed upon with SHUTTLECOCK FEATHER TRIMMER on 01/30/2020. GAURAV MACDONALD APRN Jan 30, 2020 12:08 ROSALIE SILVA MD Jan 31, 2020 19:59
[2020-01-30 15:00] VITALS: BP 149/76
[2020-01-30] MEDS: IPRATROPIUM BROMIDE 0.5 MG/2.5 ML NEBU. NEB SCH ×2 (16:06→18:14)
[2020-01-30] MEDS: ACETAMINOPHEN 325 MG TABLET. PO PRN ×2 (17:00→23:46)
[2020-01-30 19:50] VITALS: BP 136/59
[2020-01-30] MEDS: IV NORMAL SALINE 1000ML BAG 1,000 ML IV SCH (22:06)
[2020-01-30 23:24] VITALS: BP 140/87
[2020-01-31 03:45] VITALS: BP 137/72
[2020-01-31] MEDS: fentaNYL PF VIAL 100 MCG/2 ML VIAL IV PRN ×3 (06:35→20:54)
[2020-01-31] MEDS: ACETAMINOPHEN 325 MG TABLET. PO PRN (07:18)
[2020-01-31] MEDS: BUDESONIDE 0.5 MG/2 ML NEBU. NEB SCH ×2 (07:21→19:49)
[2020-01-31] MEDS: IPRATROPIUM BROMIDE 0.5 MG/2.5 ML NEBU. NEB SCH ×4 (07:25→19:49)
[2020-01-31 07:40] VITALS: BP 155/80
[2020-01-31] MEDS: POLYETHYLENE GLYCOL 3350 17 GM PACKET. PO SCH (09:00)
[2020-01-31] MEDS: SENNOSIDES/DOCUSATE 8.6/50MG TABLET. PO SCH ×2 (09:00→20:48)
[2020-01-31] MEDS: ENOXAPARIN 40 MG/0.4 ML SYRINGE. SQ SCH ×2 (10:18→20:48)
[2020-01-31] MEDS: PANTOPRAZOLE 40 MG TABLET.DR. PO SCH (10:18)
[2020-01-31] MEDS: LACTOBACILLUS RHAMNOSUS GG 1 CAPSULE. PO SCH ×2 (10:18→20:47)
[2020-01-31 11:17] VITALS: BP 151/53
--- NOTE | 2020-01-31 13:15 | PDOC ---
PULMONARY PROGRESS NOTES Subjective Patient denies SOB or increased cough Remains on N/C oxygen Vitals Vital Signs Date Time Temp Pulse Resp B/P (MAP) Pulse Ox O2 Delivery O2 Flow Rate FiO2 01/31/20 11:17 98.2 102 18 151/53 (85) 96 Nasal Cannula 2.0 98.2 ROS: No Nausea, No Chest Pain, No Abdominal Pain, No Increase Cough General: Alert, No acute distress Lungs: Wheezing (faint in RUL), Other (decreased bs) Cardiovascular: S1, S2 Abdomen: Soft Neuro Exam: Alert Extremities: No Edema Skin: Warm Medications Active Scripts Medications Dose Route/Sig Max Daily Dose Days Date Category Nystop (Nystatin) 60 Gm Powder 1 [place] TP BID 14 12/18/19 Rx Tylenol (Acetaminophen) 325 Mg Tablet 650 Mg PO PRN Q6HRS PRN 30 12/18/19 Rx Synthroid (Levothyroxine Sodium) 75 Mcg Tablet 1 Tab PO DAILY 12/11/19 Reported Toprol XL (Metoprolol Succinate) 50 Mg Tab.er.24h 25 Mg PO DAILY 12/11/19 Reported Losartan Potassium 50 Mg Tablet 50 Mg PO DAILY 12/11/19 Reported Wellbutrin Xl (Bupropion Hcl) 150 Mg Tab.er.24h 1 Tab PO DAILY 12/11/19 Reported Pantoprazole Sodium (Pantoprazole Sodium) 40 Mg Tablet.dr 40 Mg PO DAILYAC 12/10/19 Reported Budesonide 0.5 Mg/2 Ml Ampul.neb 0.5 Mg IH BID 07/30/17 Reported [place] Carbonate 600 Mg Capsule 600 Mg PO QHS 07/09/13 Reported [place] Carbonate 300 Mg Tablet.er 300 Mg PO DAILY 07/08/13 Reported Alprazolam 0.25 Mg Tablet 0.25 Mg PO PRN BID 07/08/13 Reported Amitriptyline Hcl 50 Mg Tablet 100 Mg PO HS 07/08/13 Reported Dexilant (Dexlansoprazole) 60 Mg Cap.mp 60 Mg PO DAILY 07/08/13 Reported Duoneb 0.5 Mg-3 Mg/3 Ml Soln (Ipratropium/Albuterol Sulfate) 3 Ml Ampul.neb 3 Ml IH QID 07/08/13 Reported Proair Hfa Inhaler (Albuterol Sulfate) 8.5 Gm Hfa.aer.ad 17 Gm IH PRN Q4HRS 07/08/13 Reported Daliresp (Roflumilast) 500 Mcg Tablet 500 Mcg PO DAILY 07/08/13 Reported Flonase (Fluticasone Propionate) 16 Gm [place].susp 16 Gm NS DAILY 07/08/13 Reported Advair 500-50 Diskus (Fluticasone/Salmeterol) 1 Each Disk.w.dev 1 Each IH BID 07/08/13 Reported Mucinex (Guaifenesin) 600 Mg Tablet.er 600 Mg PO PRN 07/08/13 Reported Comments IMPRESSION: Increased patchy interstitial changes at the right lung base with improved aeration of the left lung base. Consideration may be given for developing interstitial pneumonitis. Short-term follow-up two-view chest radiograph could be of benefit for further evaluation. Impression . 1. Progressive dyspnea, multifactorial secondary to underlying chronic obstructive pulmonary disease and pneumonia.-- improving 2. Right lower lobe pneumonia, possibly aspiration. 3. Chronic obstructive pulmonary disease. 4. Diverticulitis 5. Elevated troponin. 6. Hyperlipidemia. 7. Acute metabolic possibly toxic encephalopathy. 8. Dysphasia, possible aspiration the Plan . Case discussed with MAINTENANCE SERVICE TECHNICIAN improving possible transfer her discharge in the a.m. Continue supplemental oxygen as needed to keep sats above 92% NEBS/Pulmicort ABX per ID Follow speech recommendations Dysphasia diet DVT GI prophylax D/W RADHA GUILLEN MD Jan 31, 2020 13:15
--- NOTE | 2020-01-31 13:21 | PDOC ---
[facility] [facility] PROGRESS NOTE Chief Complaint Chief Complaint Respiratory failure Resolving metabolic cephalopathy Pneumonia Elevated troponin Diverticulitis Possible COVID 19 (ruled out) Right bundle branch block, hypertension, hyperlipidemia, history of breast cancer with lumps in the left breast. History of Present Illness History of Present Illness 01/31/2020 Patient seen and examined She was sleeping but awoke easily Seems pleasant and alert Chart reviewed She is on IV Flagyl O2 per nasal cannula Discussed with RN 01/30/2020 Patient seen and examined She is resting with no apparent distress Chart reviewed 01/29/2020 Patient seen and examined She is resting Chart reviewed Discussed with RN 01/27/2023 Patient seen exam She is resting with no apparent distress Discussed with RN Chart reviewed 01/27/2020 Patient seen and examined She is resting with no apparent distress Chart reviewed Discussed with RN Vitals/I&O Vitals/I&O: Vital Signs Date Time Temp Pulse Resp B/P (MAP) Pulse Ox O2 Delivery O2 Flow Rate FiO2 01/31/20 11:17 98.2 102 18 151/53 (85) 96 Nasal Cannula 2.0 98.2 Physical Exam Physical Exam: GENERAL: Propped up in bed, alert, looks well HEENT: Oral cavity dry, + dentures NECK: Supple. LUNGS: Soft wheeze, nonlabored HEART: S1, S2. ABDOMEN: Obese, soft, little tender [id number] area, BS present EXTREMITIES: Without cyanosis, clubbing, or gross edema. DERMATOLOGIC: Warm, dry. No generalized rash. NEUROLOGIC: Alert, seech is rbled, answers questions appropriately PIV General: No acute distress Heart: Regular rate (SR) Lungs: Wheezing (faint in RUL), Other (decreased bs) Abdomen: Soft Extremities: No cyanosis Skin: No breakdown Assessment and Plan Assessmemt and Plan Problems Medical Problems: (1) Diverticulitis Status: Acute (2) Elevated troponin Status: Acute (3) Pneumonia Status: Acute Respiratory failure Resolving metabolic cephalopathy Pneumonia Elevated troponin Diverticulitis Possible COVID 19 (ruled out) Right bundle branch block, hypertension, hyperlipidemia, history of breast cancer with lumps in the left breast. Plan IV antibiotics Nebulizers Home meds DVT prophylaxis Full code Oxygen per nasal cannula Appreciate subspecialist input Per pulmonary please see below; 1. Progressive dyspnea, multifactorial secondary to underlying chronic ob structive pulmonary disease and pneumonia. 2. Right lower lobe pneumonia, possibly aspiration. 3. Chronic obstructive pulmonary disease. 4. Diverticulitis 5. Elevated troponin. 6. Hyperlipidemia. 7. Acute metabolic possibly toxic encephalopathy. 8. Dysphasia, possible aspiration the Continue supplemental oxygen as needed to keep sats above 92% NEBS/Pulmicort ABX per ID Follow speech recommendations Dysphasia diet DVT GI prophylax Comment Review of Relevant I have reviewed the following items naz (where applicable) has been applied. Medications: Current Medications Medications (Trade) Dose Ordered Sig/Juan F Route PRN Reason Start Time Stop Time Status Last Admin Dose Admin Ipratropium [place] (Atrovent) 0.5 mg RTQID NEB 01/30/20 16:00 01/31/20 11:00 Justicifation of Admission Dx: Justifications for Admission: Justification of Admission Dx: Yes JOSEFA MATHIAS III DO Jan 31, 2020 13:21
--- NOTE | 2020-01-31 13:36 | PDOC ---
Infectious Disease Note Subjective Subjective Comfortable, looking foward to going home soon Denies pain/N/V/SOA Remains on baseline O2 of 2L Eating 50% meals No fevers/chills + BM ROS ROS as mentioned above Vital Sign Vital Signs Vital Signs Date Time Temp Pulse Resp B/P (MAP) Pulse Ox O2 Delivery O2 Flow Rate FiO2 01/31/20 11:17 98.2 102 18 151/53 (85) 96 Nasal Cannula 2.0 98.2 Physical Exam PHYSICAL EXAM GENERAL: Propped up in bed, alert, laughing HEENT: Oral cavity dry, + dentures NECK: Supple. LUNGS: + soft wheeze, nonlabored HEART: S1, S2. ABDOMEN: Obese, soft, little tender [id number] area, BS present EXTREMITIES: Without cyanosis, clubbing, or gross edema. DERMATOLOGIC: Warm, dry. No generalized rash. NEUROLOGIC: Alert, speech is garbled, answers questions appropriately PIV Labs Micro 01/25. URINE CULTURE Final Final 10,000 CFU/ML Normal genitourinary lesli, not indicative of infection on 01/28/20 at 0944 01/25/20 Blood Culture - Preliminary, Resulted NO GROWTH AFTER 3 DAYS Objective Assessment Abdominal pain. CT scan showed diverticulosis. ? mild diverticulitis at the sigmoid colon. - No evidence for perforation or adjacent abscess. History of falls. Leukocytosis - improved Dysphagia. Possible aspiration pneumonia. Encephalopathy, improving per team. Dysarthria. Peripheral neuropathy. Essential tremors. Penicillin and tetracycline allergy. PCN reactive as a child. ? If taken amox but has tolerated Keflex. Chronic obstructive pulmonary disease. Chronic respiratory failure, on home O2. COVID-19 neg, 01/24 History of breast cancer. Diverticulosis. Elevated troponin. Chronic RBBB and prolong QT. Cardiology following Plan Plan of Care cipro and Flagyl (started 01/24) Probiotics BC neg to date Maintain aspiration precautions Patient discussed with WOOD CHOPPER. Chart reviewed in detail. Above plan co-formulated and agreed upon with WOOD CHOPPER on 01/31/2020. GAURAV MACDONALD APRN Jan 31, 2020 13:36 ROSALIE SILVA MD Jan 31, 2020 20:00
[2020-01-31] MEDS: IV NORMAL SALINE 1000ML BAG 1,000 ML IV SCH (13:44)
[2020-01-31 15:27] VITALS: BP 156/58
[2020-01-31 19:30] VITALS: BP 173/88
[2020-01-31 22:48] VITALS: BP 139/81
[2020-02-01 02:45] VITALS: BP 151/58
[2020-02-01] MEDS: IV NORMAL SALINE 1000ML BAG 1,000 ML IV SCH (06:16)
[2020-02-01 07:00] VITALS: BP 155/93
[2020-02-01] MEDS: IPRATROPIUM BROMIDE 0.5 MG/2.5 ML NEBU. NEB SCH ×3 (07:20→16:23)
[2020-02-01] MEDS: BUDESONIDE 0.5 MG/2 ML NEBU. NEB SCH (07:20)
[2020-02-01] MEDS: POLYETHYLENE GLYCOL 3350 17 GM PACKET. PO SCH (09:00)
[2020-02-01] MEDS: SENNOSIDES/DOCUSATE 8.6/50MG TABLET. PO SCH (09:00)
--- NOTE | 2020-02-01 09:06 | PDOC ---
PULMONARY PROGRESS NOTES Subjective Patient wishes to be discharged not more short of air Vitals Vital Signs Date Time Temp Pulse Resp B/P (MAP) Pulse Ox O2 Delivery O2 Flow Rate FiO2 02/01/20 07:20 94 Nasal Cannula 2.0 02/01/20 07:00 97.8 107 26 155/93 (113) 97.8 ROS: No Nausea, No Chest Pain, No Abdominal Pain, No Increase Cough General: Alert, No acute distress Lungs: Wheezing (faint in RUL), Other (decreased bs) Cardiovascular: S1, S2 Abdomen: Soft Neuro Exam: Alert Extremities: No Edema Skin: Warm Medications Active Scripts Medications Dose Route/Sig Max Daily Dose Days Date Category Nystop (Nystatin) 60 Gm Powder 1 [place] TP BID 14 12/18/19 Rx Tylenol (Acetaminophen) 325 Mg Tablet 650 Mg PO PRN Q6HRS PRN 30 12/18/19 Rx Synthroid (Levothyroxine Sodium) 75 Mcg Tablet 1 Tab PO DAILY 12/11/19 Reported Toprol XL (Metoprolol Succinate) 50 Mg Tab.er.24h 25 Mg PO DAILY 12/11/19 Reported Losartan Potassium 50 Mg Tablet 50 Mg PO DAILY 12/11/19 Reported Wellbutrin Xl (Bupropion Hcl) 150 Mg Tab.er.24h 1 Tab PO DAILY 12/11/19 Reported Pantoprazole Sodium (Pantoprazole Sodium) 40 Mg Tablet.dr 40 Mg PO DAILYAC 12/10/19 Reported Budesonide 0.5 Mg/2 Ml Ampul.neb 0.5 Mg IH BID 07/30/17 Reported [place] Carbonate 600 Mg Capsule 600 Mg PO QHS 07/09/13 Reported [place] Carbonate 300 Mg Tablet.er 300 Mg PO DAILY 07/08/13 Reported Alprazolam 0.25 Mg Tablet 0.25 Mg PO PRN BID 07/08/13 Reported Amitriptyline Hcl 50 Mg Tablet 100 Mg PO HS 07/08/13 Reported Dexilant (Dexlansoprazole) 60 Mg Cap.mp 60 Mg PO DAILY 07/08/13 Reported Duoneb 0.5 Mg-3 Mg/3 Ml Soln (Ipratropium/Albuterol Sulfate) 3 Ml Ampul.neb 3 Ml IH QID 07/08/13 Reported Proair Hfa Inhaler (Albuterol Sulfate) 8.5 Gm Hfa.aer.ad 17 Gm IH PRN Q4HRS 07/08/13 Reported Daliresp (Roflumilast) 500 Mcg Tablet 500 Mcg PO DAILY 07/08/13 Reported Flonase (Fluticasone Propionate) 16 Gm [place].susp 16 Gm NS DAILY 07/08/13 Reported Advair 500-50 Diskus (Fluticasone/Salmeterol) 1 Each Disk.w.dev 1 Each IH BID 07/08/13 Reported Mucinex (Guaifenesin) 600 Mg Tablet.er 600 Mg PO PRN 07/08/13 Reported Comments IMPRESSION: Increased patchy interstitial changes at the right lung base with improved aeration of the left lung base. Consideration may be given for developing interstitial pneumonitis. Short-term follow-up two-view chest radiograph could be of benefit for further evaluation. Impression . 1. Progressive dyspnea, multifactorial secondary to underlying chronic obstructive pulmonary disease and pneumonia.-- improving 2. Right lower lobe pneumonia, possibly aspiration. 3. Chronic obstructive pulmonary disease. 4. Diverticulitis 5. Elevated troponin. 6. Hyperlipidemia. 7. Acute metabolic possibly toxic encephalopathy. 8. Dysphasia, possible aspiration the Plan . Discussed with [id number] who is the primary caregiver Follow-up with me in the office Went over proper utilization of metered-dose inhalers Home with steroids and antibiotics D/W RADHA GUILLEN MD Feb 01, 2020 09:06
--- NOTE | 2020-02-01 10:25 | PDOC ---
PROGRESS NOTES Assessment Problems Medical Problems: (1) Diverticulitis Status: Acute (2) Elevated troponin Status: Acute (3) Pneumonia Status: Acute Prior encephalopathy, she is bright and alert now Weakness, dysarthria, dysphagia, examination consistent with peripheral neuropathy. Essential tremor, often this is exacerbated with COPD medications, and the multiple medical issues. Much better now Multiple medical issues including diverticulosis, possible pneumonia, ruled out for COVID last admission, work-up being repeated now, elevated troponin, right bundle branch block, hypertension, hyperlipidemia, history of breast cancer with lumps in the left breast. Note elevated CRP, other labs I ordered are negartive or pending Plan No treatment needed for essential tremor at this time No need for additional neurological studies Note plan to send home with home health Follow-up with neurology as needed. Subjective No complaints, wants to go home Objective Vital Signs Date Time Temp Pulse Resp B/P (MAP) Pulse Ox O2 Delivery O2 Flow Rate FiO2 02/01/20 07:20 94 Nasal Cannula 2.0 02/01/20 07:00 97.8 107 26 155/93 (113) 97.8 Intake and Output 02/01/20 06:59 Intake Total 700 ml Output Total 2 ml Balance 698 ml Intake Oral 700 ml Output Urine Total 2 ml # Voids 4 # Bowel Movements 5 PHYSICAL EXAM Alert. Oriented to time, place and person. No dysarthria PERRL. EOMI. CN: no focal findings. Muscle tone: normal. Muscle strength: 4/5 DTR: 1+ Plantar reflex: flexor Gait: not examined in bed. Sensory exam: stocking loss. No cerebellar signs elicited. No postural tremor Review of Relevant I have reviewed the following items naz (where applicable) has been applied. Labs Microbiology 01/26/20 Urine Culture - Final, Complete 01/25/20 Blood Culture - Final, Complete NO GROWTH AFTER 5 DAYS Medications Current Medications Iohexol (Omnipaque 300 Mg/ml) 75 ml 1X ONCE IV Last administered on 01/25/20at 17:15; Start 01/25/20 at 17:15; Stop 01/25/20 at 17:16; Status DC Info (CONTRAST GIVEN -- Rx MONITORING) 1 each PRN DAILY PRN MC SEE COMMENTS; Start 01/25/20 at 17:30; Stop 01/27/20 at 17:29; Status DC Azithromycin 250 ml @ 250 mls/hr 1X ONCE IV Last administered on 01/25/20at 17:30; Start 01/25/20 at 17:30; Stop 01/25/20 at 18:29; Status DC Methylprednisolone Sodium Succinate (SOLU-Medrol 125MG VIAL) 125 mg 1X ONCE IV Last administered on 01/25/20at 18:00; Start 01/25/20 at 17:30; Stop 01/25/20 at 17:31; Status DC Sodium Chloride 500 ml @ 500 mls/hr 1X ONCE IV Last administered on 01/25/20at 18:00; Start 01/25/20 at 17:45; Stop 01/25/20 at 18:44; Status DC Ondansetron HCl (Zofran) 4 mg PRN Q8HRS PRN IV NAUSEA/VOMITING; Start 01/25/20 at 18:30; Stop 01/26/20 at 10:58; Status DC Fentanyl Citrate (Fentanyl 2ml Vial) 50 mcg PRN Q1HR PRN IV PAIN; Start 01/25/20 at 18:30; Stop 01/26/20 at 18:29; Status DC Albuterol/ Ipratropium (Duoneb) 3 ml RTQID NEB ; Start 01/25/20 at 20:00; Stop 01/25/20 at 20:54; Status DC Ciprofloxacin/ Dextrose 200 ml @ 200 mls/hr 1X ONCE IV Last administered on 01/25/20at 20:26; Start 01/25/20 at 18:45; Stop 01/25/20 at 19:44; Status DC Metronidazole 100 ml @ 100 mls/hr 1X ONCE IV ; Start 01/25/20 at 18:45; Stop 01/25/20 at 19:44; Status DC Albuterol/ Ipratropium (Duoneb) 3 ml PRN Q4HRS PRN NEB SHORTNESS OF BREATH; Start 01/25/20 at 20:56; Stop 01/26/20 at 11:00; Status DC Metronidazole 100 ml @ 100 mls/hr 1X ONCE IV Last administered on 01/26/20at 05:31; Start 01/26/20 at 05:30; Stop 01/26/20 at 06:29; Status DC Pantoprazole Sodium (Protonix) 40 mg DAILYAC PO ; Start 01/26/20 at 11:00; Stop 01/26/20 at 11:03; Status DC Ciprofloxacin (Cipro) 500 mg BID PO ; Start 01/26/20 at 11:00; Stop 01/26/20 at 11:03; Status DC Metronidazole (Flagyl) 500 mg Q12HR PO ; Start 01/26/20 at 11:00; Stop 01/26/20 at 11:03; Status DC Sodium Chloride (Normal Saline Flush) 3 ml QSHIFT PRN IV AFTER MEDS AND BLOOD DRAWS; Start 01/26/20 at 11:00; Stop 01/26/20 at 11:30; Status DC Sodium Chloride 1,000 ml @ 65 mls/hr [id number] IV Last administered on 02/01/20at 06:16; Start 01/26/20 at 10:52 Ondansetron HCl (Zofran) 4 mg PRN Q4HRS PRN IV NAUSEA/VOMITING Last administered on 01/28/20at 18:19; Start 01/26/20 at 11:00 Acetaminophen (Tylenol) 650 mg PRN Q4HRS PRN PO TEMP OVER 100.4F OR MILD PAIN Last administered on 01/31/20at 07:18; Start 01/26/20 at 11:00 Acetaminophen (Tylenol Supp) 650 mg PRN Q4HRS PRN [place] TEMP OVER 100.4F OR MILD PAIN; Start 01/26/20 at 11:00 Sodium Monofluorophosphate (Fleet Adult) 133 ml PRN DAILY PRN [place] CONSTIPATION; Start 01/26/20 at 11:00 Docusate Sodium (Colace) 100 mg PRN BID PRN PO HARD STOOLS; Start 01/26/20 at 11:00 Albuterol/ Ipratropium (Duoneb) 3 ml Q4HRS NEB ; Start 01/26/20 at 12:00; Stop 01/26/20 at 21:16; Status DC Guaifenesin (Robitussin) 200 mg PRN Q4HRS PRN PO COUGH Last administered on 01/27/20at 11:16; Start 01/26/20 at 11:00 Lorazepam (Ativan) 0.5 mg PRN Q4HRS PRN PO ANXIETY / AGITATION Last a dministered on 01/29/20at 23:14; Start 01/26/20 at 11:00 Enoxaparin Sodium (Lovenox 40mg Syringe) 40 mg BID SQ Last administered on 01/31/20at 20:48; Start 01/26/20 at 11:30 Pantoprazole Sodium (PROTONIX VIAL for IV PUSH) 40 mg DAILYAC IVP Last administered on 01/27/20at 09:26; Start 01/26/20 at 11:30; Stop 01/27/20 at 10:52; Status DC Ciprofloxacin/ Dextrose 100 ml @ 100 mls/hr Q12HR IV Last administered on 01/26/20at 15:58; Start 01/26/20 at 11:30; Stop 01/26/20 at 20:57; Status DC Metronidazole 100 ml @ 100 mls/hr Q12HR IV Last administered on 01/27/20at 09:28; Start 01/26/20 at 11:30; Stop 01/27/20 at 10:52; Status DC Calcium Carbonate/ Glycine (Tums) 500 mg PRN Q3HRS PRN PO HEARTBURN / GAS Last administered on 01/27/20at 19:47; Start 01/26/20 at 11:30 Famotidine (Pepcid Vial) 20 mg QHS IVP Last administered on 01/26/20at 21:38; Start 01/26/20 at 21:00; Stop 01/27/20 at 10:52; Status DC Info (Icu Electrolyte Protocol) 1 ea DAILY MC ; Start 01/27/20 at 09:00; Stop 01/29/20 at 09:52; Status DC Heparin Sodium (Porcine) (Heparin Sodium) 5,000 unit Q8HRS SQ ; Start 01/26/20 at 14:00; Status UNV Sodium Chloride (Normal Saline Flush) 3 ml QSHIFT PRN IV AFTER MEDS AND BLOOD DRAWS; Start 01/26/20 at 11:30 Fentanyl Citrate (Fentanyl 2ml Vial) 25 mcg PRN Q2HR PRN IV SEVERE PAIN 7-10 Last administered on 01/31/20at 20:54; Start 01/26/20 at 11:30 Senna/Docusate Sodium (Senna Plus) 1 tab BID PO Last administered on 01/31/20at 20:48; Start 01/26/20 at 21:00 Bisacodyl (Dulcolax Supp) 10 mg PRN DAILY PRN [place] CONSTIPATION; Start 01/26/20 at 11:30 Ciprofloxacin/ Dextrose 200 ml @ 200 mls/hr Q12HR IV Last administered on 01/27/20at 09:27; Start 01/26/20 at 21:00; Stop 01/27/20 at 10:52; Status DC Albuterol Sulfate (Ventolin Neb Soln) 2.5 mg PRN Q4HRS PRN NEB WHEEZING Last administered on 01/27/20at 18:11; Start 01/26/20 at 21:15 Pantoprazole Sodium (Protonix) 40 mg DAILYAC PO Last administered on 01/31/20at 1 0:18; Start 01/28/20 at 07:30 Ciprofloxacin (Cipro) 250 mg BID PO Last administered on 01/28/20at 09:01; Start 01/27/20 at 21:00; Stop 01/28/20 at 11:44; Status DC Metronidazole (Flagyl) 500 mg Q12HR PO Last administered on 01/28/20at 09:00; Start 01/27/20 at 21:00; Stop 01/28/20 at 11:44; Status DC Polyethylene Glycol (miraLAX PACKET) 17 gm PRN DAILY PRN PO CONSTIPATION; Start 01/27/20 at 11:00 Lactobacillus Rhamnosus (Culturelle) 1 cap BID PO Last administered on 01/31/20at 20:47; Start 01/27/20 at 21:00 Polyethylene Glycol (miraLAX PACKET) 17 gm DAILY PO Last administered on 01/29/20at 08:30; Start 01/28/20 at 10:30 Albuterol/ Ipratropium (Duoneb) 3 ml RTQID NEB ; Start 01/30/20 at 12:00; Stop 01/30/20 at 15:52; Status DC Budesonide (Pulmicort) 0.5 mg RTBID NEB Last administered on 02/01/20at 07:20; Start 01/30/20 at 09:45 Ipratropium [place] (Atrovent) 0.5 mg RTQID NEB Last administered on 02/01/20at 07:20; Start 01/30/20 at 16:00 Active Scripts Active Nystop (Nystatin) 60 Gm Powder 1 [place] TP BID 14 Days Tylenol (Acetaminophen) 325 Mg Tablet 650 Mg PO PRN Q6HRS PRN 30 Days Reported Synthroid (Levothyroxine Sodium) 75 Mcg Tablet 1 Tab PO DAILY Toprol XL (Metoprolol Succinate) 50 Mg Tab.er.24h 25 Mg PO DAILY Losartan Potassium 50 Mg Tablet 50 Mg PO DAILY Wellbutrin Xl (Bupropion Hcl) 150 Mg Tab.er.24h 1 Tab PO DAILY Pantoprazole Sodium (Pantoprazole Sodium) 40 Mg Tablet.dr 40 Mg PO DAILYAC Budesonide 0.5 Mg/2 Ml Ampul.neb 0.5 Mg IH BID [place] Carbonate 600 Mg Capsule 600 Mg PO QHS [place] Carbonate 300 Mg Tablet.er 300 Mg PO DAILY Alprazolam 0.25 Mg Tablet 0.25 Mg PO PRN BID Amitriptyline Hcl 50 Mg Tablet 100 Mg PO HS Dexilant (Dexlansoprazole) 60 Mg Cap.dr.mp 60 Mg PO DAILY Duoneb 0.5 Mg-3 Mg/3 Ml Soln (Ipratropium/Albuterol Sulfate) 3 Ml Ampul.neb 3 Ml IH QID Proair Hfa Inhaler (Albuterol Sulfate) 8.5 Gm Hfa.aer.ad 17 Gm IH PRN Q4HRS Daliresp (Roflumilast) 500 Mcg Tablet 500 Mcg PO DAILY Flonase (Fluticasone Propionate) 16 Gm [place].susp 16 Gm NS DAILY Advair 500-50 Diskus (Fluticasone/Salmeterol) 1 Each Disk.w.dev 1 Each IH BID Mucinex (Guaifenesin) 600 Mg Tablet.er 600 Mg PO PRN Vitals/I & O Vital Sign - Last 24 Hours 01/31/20 01/31/20 01/31/20 01/31/20 11:01 11:17 13:49 14:06 Temp 98.2 98.2 Pulse 102 Resp 18 B/P (MAP) 151/53 (85) Pulse Ox 96 96 95 O2 Delivery Nasal Cannula Nasal Cannula Nasal Cannula Nasal Cannula O2 Flow Rate 2.0 2.0 2.0 2.0 01/31/20 01/31/20 01/31/20 01/31/20 14:22 15:27 19:30 19:49 Temp 97.8 98.6 97.8 98.6 Pulse 104 99 Resp 20 18 B/P (MAP) 156/58 (90) 173/88 (116) Pulse Ox 95 95 95 95 O2 Delivery Nasal Cannula Nasal Cannula Nasal Cannula Nasal Cannula O2 Flow Rate 2.0 2.0 2.0 2.0 01/31/20 01/31/20 01/31/20 01/31/20 19:50 20:00 20:54 21:24 Pulse Ox 95 95 O2 Delivery Nasal Cannula Nasal Cannula Nasal Cannula Nasal Cannula O2 Flow Rate 2.0 2.0 2.0 01/31/20 02/01/20 02/01/20 02/01/20 22:48 02:45 07:00 07:20 Temp 98.5 98.7 97.8 98.5 98.7 97.8 Pulse 99 98 107 Resp 18 18 26 B/P (MAP) 139/81 (100) 151/58 (89) 155/93 (113) Pulse Ox 97 94 95 94 O2 Delivery Nasal Cannula Nasal Cannula Nasal Cannula Nasal Cannula O2 Flow Rate 2.0 2.0 2.0 2.0 Intake and Output 01/31/20 01/31/20 02/01/20 14:59 22:59 06:59 Intake Total 250 ml 250 ml 200 ml Output Total 2 ml Balance 250 ml 250 ml 198 ml Justicifation of Admission Dx: Justifications for Admission: Justification of Admission Dx: Yes HELGA POLLACK MD Feb 01, 2020 10:25
[2020-02-01 11:00] VITALS: BP 126/96
--- NOTE | 2020-02-01 12:04 | SNU/HH DC ---
DISCHARGE WITH HOME HEALTH DISCHARGE INFORMATION: Final Diagnosis: Problems Medical Problems: (1) Diverticulitis Status: Acute (2) Elevated troponin Status: Acute (3) Pneumonia Status: Acute Condition on Discharge: Stable CODE STATUS: Code Status: Full HOME HEALTH: Face to Face: I certify this patient is under my care and that I, or a nurse practitioner or physician's cardiovascular physician assistant working with me, had a face to face encounter that meets the physician face to face encounter requirements with this patient on []. Medical Complications: COPD Senior Care For: Assess & Educate Safety RN For Eval/Treatment: Yes Physical Therapy For: Evalulation/Treatment Occupational Therapy For: Evaluation/Treatment Home Health Aide For: Self-care STOCK ORDER LISTER For: Community Resources Pt Meets Homebound Status: Poor coordination w/ amb. POST DISCHARGE ORDERS: Activity Instructions for Disc: No restrictions, Activity as tolerated Weight Bearing Status after Di: No restrictions DIET AFTER DISCHARGE: Cardiac CHECKS AFTER DISCHARGE: Checks after discharge: Check blood press - daily TREATMENT/EQUIPMENT ORDERS: Adaptive Equipment Issued: None, Front wheeled walker Discharge Respiratory Equipmen: Oxygen CERTIFICATION STATEMENT: Certification Statement: Certification Statement: Based on the above finding, I certify that this patient is confined to the home and needs intermittent shelter care, physical therapy and/or speech therapy, or continues to need occupational therapy.~ This patient is under my care, and I have initiated the establishment of the plan of care.~ This patient will be followed by myself or a community physician who will periodically review the plan of care. Home Meds Active Scripts Nystatin (NYSTOP) 60 Gm Powder, 1 IMELDA TP BID for fungal rash for 14 Days, #30 MISC Prov:GLORIA MANRIQUEZ MD 12/18/19 Acetaminophen (TYLENOL) 325 Mg Tablet, 650 MG PO PRN Q6HRS PRN for MILD PAIN / TEMP > 100.3'F for 30 Days, #60 TAB Prov:GLORIA MANRIQUEZ MD 12/18/19 Reported Medications Levothyroxine Sodium (SYNTHROID) 75 Mcg Tablet, 1 TAB PO DAILY for hypothyroid, #30 TAB 5 Refills 12/11/19 Metoprolol Succinate (Toprol XL) 50 Mg Tab.er.24h, 25 MG PO DAILY for FOR HYPERTENSION, TAB.SR 12/11/19 Losartan Potassium (LOSARTAN POTASSIUM) 50 Mg Tablet, 50 MG PO DAILY for HYPE RTENSION, TAB 12/11/19 Bupropion Hcl (WELLBUTRIN XL) 150 Mg Tab.er.24h, 1 TAB PO DAILY for Mood disorder, #30 TAB 12/11/19 Pantoprazole Sodium (PANTOPRAZOLE SODIUM ) 40 Mg Tablet.dr, 40 MG PO DAILYAC for GERD, TAB 12/10/19 Budesonide (BUDESONIDE) 0.5 Mg/2 Ml Ampul.neb, 0.5 MG IH BID, EACH 07/30/17 [place] Carbonate (LITHIUM CARBONATE) 600 Mg Capsule, 600 MG PO QHS 07/09/13 [place] Carbonate (LITHIUM CARBONATE) 300 Mg Tablet.er, 300 MG PO DAILY 07/08/13 Alprazolam (ALPRAZOLAM) 0.25 Mg Tablet, 0.25 MG PO PRN BID 07/08/13 Amitriptyline Hcl (AMITRIPTYLINE HCL) 50 Mg Tablet, 100 MG PO HS 07/08/13 Dexlansoprazole (DEXILANT) 60 Mg Cap..mp, 60 MG PO DAILY 07/08/13 Ipratropium/Albuterol Sulfate (DUONEB 0.5 MG-3 MG/3 ML SOLN) 3 Ml Ampul.neb, 3 ML IH QID for 07/08/13 Albuterol Sulfate (PROAIR HFA INHALER) 8.5 Gm Hfa.aer.ad, 17 GM IH PRN Q4HRS 07/08/13 Roflumilast (DALIRESP) 500 Mcg Tablet, 500 MCG PO DAILY 07/08/13 Fluticasone Propionate (FLONASE) 16 Gm [place].susp, 16 GM NS DAILY 07/08/13 Fluticasone/Salmeterol (ADVAIR 500-50 DISKUS) 1 Each Disk.w.dev, 1 EACH IH BID 07/08/13 Guaifenesin (MUCINEX) 600 Mg Tablet.er, 600 MG PO PRN 07/08/13 JOSEFA MATHIAS III DO Feb 01, 2020 12:04
--- NOTE | 2020-02-01 12:54 | DS ---
DATE OF DISCHARGE: 02/01/2020 ADMISSION DIAGNOSIS: Respiratory failure. DISCHARGE DIAGNOSES: Resolving acute on chronic respiratory failure, resolving metabolic encephalopathy, resolving pneumonia, elevated troponin, diverticulitis, resolving weakness, right bundle branch block. CONSULTS: Dr. Mir; Dr. Rizzo, Infectious Disease; Dr. Arechiga; Dr. Soto; Dr. Humphrey and Dr. Pham. PROCEDURES: None. HOSPITAL COURSE: The patient is a pleasant elderly female who presented with respiratory failure. She was very encephalopathic. She was admitted. The above consults were obtained. We gave her IV antibiotics, fluids, home meds, DVT prophylaxis and did some physical therapy and occupational therapy. We gave her DuoNebs. Over the past week or so, she has finally returned to baseline. She is doing better today. I saw her and examined her. Heart tones are normal. Lungs are clear. She is up walking with physical therapy. We plan to discharge to home with home health. DISPOSITION: Home with home health. ACTIVITY: As tolerated. DIET: Low sodium. MEDICATIONS: Please see MRAD. TOTAL TIME: 34 minutes. JOSEFA MATHIAS DO DR: DAYSI/lucie JOB#: [id number] / [id number]
--- NOTE | 2020-02-01 12:56 | DS ---
DATE OF DISCHARGE: 02/01/2020 ADMISSION DIAGNOSIS: Respiratory failure. DISCHARGE DIAGNOSIS: Acute on chronic respiratory failure. CONSULTS: Nephrology and GI. PROCEDURES: None. HISTORY: The patient is a pleasant middle-aged female, who presented with Dictation Ends Here. JOSEFA MATHIAS DO DR: DAYSI/lucie JOB#: [id number] / [id number]
[2020-02-01] MEDS: PANTOPRAZOLE 40 MG TABLET.DR. PO SCH (13:56)
[2020-02-01] MEDS: LACTOBACILLUS RHAMNOSUS GG 1 CAPSULE. PO SCH (13:56)
[2020-02-01] MEDS: ENOXAPARIN 40 MG/0.4 ML SYRINGE. SQ SCH (13:56)
[2020-02-01 15:00] VITALS: BP 157/72
[2020-02-01] MEDS ORDERED: CIPR500S2 PO (16:04)
[2020-02-01] MEDS ORDERED: PRED20TA PO (16:05)
--- NOTE | 2020-02-01 16:55 | NUR ---
PT DISCHARGED TO HOME WITH FAMILY. DISCHARGE INSTRUCTIONS REVIEWED WITH FAMILY. QUESTIONS ANSWERED. CIPRO AND PREDNISONE CALLED INTO [facility].
--- NOTE | 2020-02-01 17:12 | PDOC ---
CARDIO Progress Notes Date and Time Date of Service 02/01/20 Time of Evaluation 1120 Subjective Subjective: No Chest Pain, No shortness of breath, No Palpitations, Other (still having some diarrhea) Vitals Vitals Vital Signs Date Time Temp Pulse Resp B/P (MAP) Pulse Ox O2 Delivery O2 Flow Rate FiO2 02/01/20 16:24 96 Nasal Cannula 2.0 02/01/20 15:00 98.7 113 24 157/72 (100) 98.7 Weight Weight [ ] Input and Output Intake and Output Intake and Output 02/01/20 07:00 Intake Total 700 ml Output Total 2 ml Balance 698 ml Intake Oral 700 ml Output Urine Total 2 ml # Voids 4 # Bowel Movements 5 Microbiology Micro Microbiology 01/26/20 Urine Culture - Final, Complete 01/25/20 Blood Culture - Final, Complete NO GROWTH AFTER 5 DAYS Physical Exam HEENT: Neck Supple W Full Motion Chest: Symmetric LUNGS: Clear to Auscultation Heart: RRR (SR) Abdomen: Soft N/T, Other Extremities: No Calf Tenderness, Other (trace bilateral LE edema) Neurology: alert, oriented, follow commands Assessment Assessment 1. Abdominal pain with diverticulosis: improved. as per GI 2. Possible aspiration pneumonia with associated COPD. Covid negative 3. Elevated troponin: Peaked at 0.5. No acute EKG changes, suspect demand mediated type 2. CP free . Echo with preserved LV systolic function 4. Chronic RBBB 5. HTN: controlled 6. HLP 7. Sinus barry; re 8. Metabolic encephalopathy; improved Recommendations Avoid AV arcelia blocking agents Outpatient ischemic evaluation Follow up in office with Dr. Villanueva as scheduled Justicifation of Admission Dx: Justifications for Admission: Justification of Admission Dx: Yes ANNY BUENO APRN Feb 01, 2020 17:12
== END 2020-02-01 16:55 | DRG 177 ==
LOC: ER 15:38 → 1 WEST ICU 17:25 → 6 SOUTH 01-26 11:45
PROVIDERS: ADMIT Family Medicine; ATTEND Family Medicine
DX: J69.0 Pneumonitis due to inhalation of food and vomit (principal); J96.20 Acute and chronic respiratory failure, unspecified whether with hypoxia or hypercapnia; G93.41 Metabolic encephalopathy; K57.92 Diverticulitis of intestine, part unspecified, without perforation or abscess without bleeding; I24.8 Other forms of acute ischemic heart disease; D64.9 Anemia, unspecified; E78.5 Hyperlipidemia, unspecified; F17.210 Nicotine dependence, cigarettes, uncomplicated; G25.0 Essential tremor; G62.9 Polyneuropathy, unspecified; G89.29 Other chronic pain; I27.20 Pulmonary hypertension, unspecified; I45.10 Unspecified right bundle-branch block; J44.9 Chronic obstructive pulmonary disease, unspecified; K21.9 Gastro-esophageal reflux disease without esophagitis; M48.00 Spinal stenosis, site unspecified; M81.0 Age-related osteoporosis without current pathological fracture; R13.10 Dysphagia, unspecified; R29.6 Repeated falls; R47.02 Dysphasia; Y95 Nosocomial condition; Z20.828 Contact with and (suspected) exposure to other viral communicable diseases; Z82.5 Family history of asthma and other chronic lower respiratory diseases; Z85.3 Personal history of malignant neoplasm of breast; Z86.711 Personal history of pulmonary embolism; Z88.0 Allergy status to penicillin; Z88.1 Allergy status to other antibiotic agents; Z90.49 Acquired absence of other specified parts of digestive tract; Z90.710 Acquired absence of both cervix and uterus; Z91.19 Patient's noncompliance with other medical treatment and regimen; Z91.81 History of falling; Z99.81 Dependence on supplemental oxygen; I10 Essential (primary) hypertension
CPT/HCPCS: 36415; 36600; 70450; 71045; 72125; 74177; 80048; 80053; 80061; 81001; 82550; 82607; 82805; 83540; 83550; 83605; 83690; 83735; 83880; 84145; 84165; 84443; 84484; 85025; 85610; 85730; 86038; 86140; 87040; 87086; 93005; 93306; 94640; 94760; 96365; 96366; 96368; 96375; C9113; J0456; J0744; J1650; J2405; J2930; J3010; J3490; J7030; J7040; Q9967; 92526-GN; 92610-GN; 97110-GP; 97116-GP; 97530-GO; 97530-GP; 97535-GO; 99285-25; G0378; J7613; J7626; J7644; U0003-CS